=== PATIENT | female | born 1955 | race Caucasian/White ===

== ENCOUNTER → 2018-07-22 11:24 | Outpatient (CLI) | payer MEDICAID, SELFPAY ==
[2017-06-28 13:47] VITALS: BMI 34.1
--- NOTE | 2018-07-22 11:36 | RAD_ITS ---
STUDY: X-RAY - LEFT WRIST REASON FOR EXAM: Female, 62 years old. Left wrist pain radiating to the fingers and arm. No history of injury. TECHNIQUE: 2 view(s) of the wrist were obtained. COMPARISON: None. FINDINGS: Normal visualized distal radius and ulna. Normal radiocarpal articulation. Normal distal radioulnar articulation. Normal carpal bones. Normal carpal articulations. Normal carpometacarpal articulation of the thumb. Normal second through fifth carpometacarpal articulations. Normal visualized metacarpal bones. The soft tissue structures are unremarkable. RAD/Wrist 2 Views IMPRESSION: Normal x-ray examination of the wrist. Electronically Signed: Hawk Sagastume MD at 9:11 EDT Tel , Service support ,
--- NOTE | 2018-07-22 11:37 | RAD_ITS ---
STUDY: X-RAY - LEFT RADIUS AND ULNA REASON FOR EXAM: Female, 62 years old. Left wrist pain radiating to the fingers and arm. No history of injury. TECHNIQUE: 2 view(s) of the forearm. COMPARISON: None. FINDINGS: There is no demonstrated soft tissue swelling. Normal visualized radius. Normal visualized ulna. There is no demonstrated acute fracture. RAD/Forearm 2 Views IMPRESSION: Normal x-ray examination of the radius and ulna. Electronically Signed: Hawk Sagastume MD at 9:10 EDT Tel , Service support ,
== END ==
DX: M25.532 Pain in left wrist (principal)
CPT/HCPCS: 73090; 73100

== ENCOUNTER → 2020-03-22 09:48 | Outpatient (CLI) | payer MEDICARE, SELFPAY ==
[2017-06-28 13:47] VITALS: BMI 34.1
[2020-03-22 10:40] LABS: Microalbumin,Random Urine 21.8 mg/L (NO RANGE EST.); Microalbumin:Creatinine Ratio 11.4 mg/g CRE (<30 mg/g CRE)
[2020-03-22 10:47] LABS: Hemoglobin A1c 7.3 % (3.8-5.6)
[2020-03-22 10:50] LABS: AST(SGOT) 18 U/L (15-37); Alanine Aminotransfer ALT/SGPT 30 U/L (13-56); Albumin, Serum 4.1 g/dL (3.2-5.0); Alkaline Phosphatase 73 U/L (45-117); Anion Gap 3 (5-15); BUN 16 mg/dL (7-18); Calcium,Total 9.1 mg/dL (8.5-10.1); Chloride 105 mmol/L (98-107); Cholesterol 137 mg/dL (200); EST Glomerular Filtration Rate 89 mL/min (>60); Est Glom Filt Rate - Afr Amer 108 mL/min (>60); Glucose 178 mg/dL (74-106); High Density Lipoprotein 46 mg/dL; Protein, Total 8.1 g/dL (6.4-8.2); Sodium Level 139 mmol/L (136-145); Triglycerides 127 mg/dL; Very Low Density Lipoprotein 25 mg/dL (5-40)
[2020-03-22 10:51] LABS: Vitamin D,25 Hydroxy 46.1 ng/mL
== END ==
DX: E11.9 Type 2 diabetes mellitus without complications (principal); E78.5 Hyperlipidemia, unspecified; E55.9 Vitamin D deficiency, unspecified
CPT/HCPCS: 36415; 80053; 80061; 82043; 82306; 82570; 83036

== ENCOUNTER → 2020-07-25 08:07 | Outpatient (CLI) | payer MEDICARE, SELFPAY ==
[2017-06-28 13:47] VITALS: BMI 34.1
[2020-07-25 09:12] LABS: Hemoglobin A1c 6.9 % (3.8-5.6)
[2020-07-25 09:30] LABS: AST(SGOT) 15 U/L (15-37); Alanine Aminotransfer ALT/SGPT 26 U/L (13-56); Albumin, Serum 4.1 g/dL (3.2-5.0); Alkaline Phosphatase 62 U/L (45-117); Bilirubin, Direct 0.14 mg/dL (0.00-0.30); Globulin 3.7 g/dL (2.2-4.2); Glucose 165 mg/dL (74-106); Protein, Total 7.8 g/dL (6.4-8.2); Thyroid Stim Hormone (TSH) 1.75 uIU/mL (0.358-3.74)
== END ==
DX: E11.9 Type 2 diabetes mellitus without complications (principal); E78.5 Hyperlipidemia, unspecified; Z68.33 Body mass index [BMI] 33.0-33.9, adult
CPT/HCPCS: 36415; 80076; 82947; 83036; 84443

== ENCOUNTER → 2020-08-17 10:24 | Outpatient (CLI) | payer MEDICARE, SELFPAY ==
[2020-08-17 10:50] LABS: Absolute Lymphocyte Count 2.06 X10^3/uL (0.83-4.51); Absolute Neutrophil Count 5.5 X10^3/uL (2.0-7.7); Basophil# 0.05 X10^3/uL; Basophil% 0.6 % (0-1); Eosinophil# 0.23 X10^3/uL; Eosinophils% 2.7 % (0-5); Hemoglobin 13.3 g/dL (12.0-15.0); Lymphocyte # 2.06 X10^3/ul (0.83-4.51); Lymphocyte % 24.1 % (19-41); Mean Corp Hgb Conc 31.7 g/dL (32-36); Mean Corpuscular Hgb 28.1 pg (27.0-32.0); Mean Corpuscular Volume 88.8 fL (81-99); Mean Platelet Vol. 10.5 fl (6.2-12.0); Monocyte# 0.66 X10^3/uL; Monocyte% 7.7 % (0-10); NRBC Flagged by Analyzer 0 % (0-5); Neutrophil # 5.52 X10^3/uL (2.7-7.7); Neutrophil % 64.5 % (47-70); Platelet Count 312 K/mm3 (150-450); RBC Distribution Width CV 13.9 % (11.6-14.6); RBC Distribution Width SD 45.3 fl (35.1-43.9); Red Blood Count 4.73 M/mm3 (4.2-5.4); White Blood Count 8.6 K/mm3 (4.4-11.0)
[2020-08-17 11:16] LABS: AST(SGOT) 18 U/L (15-37); Alanine Aminotransfer ALT/SGPT 23 U/L (13-56); Albumin, Serum 3.9 g/dL (3.2-5.0); Alkaline Phosphatase 72 U/L (45-117); Anion Gap 3 (5-15); BUN 17 mg/dL (7-18); BUN/Creat Ratio 26.3 RATIO (10-20); Calcium,Total 9.2 mg/dL (8.5-10.1); Chloride 105 mmol/L (98-107); Creatinine, Serum 0.65 mg/dL (0.55-1.02); EST Glomerular Filtration Rate 97 mL/min (>60); Est Glom Filt Rate - Afr Amer 118 mL/min (>60); Globulin 3.9 g/dL (2.2-4.2); Glucose 166 mg/dL (74-106); Potassium 3.9 mmol/L (3.5-5.1); Protein, Total 7.8 g/dL (6.4-8.2); Sodium Level 137 mmol/L (136-145)
== END ==
DX: I16.0 Hypertensive urgency (principal)
CPT/HCPCS: 36415; 80053; 85025

== ENCOUNTER 2020-08-19 07:47 | Day surgery (SDC) | payer MEDICARE, SELFPAY ==
[2020-08-19] VITALS (10 sets, daily range): BP systolic 105–162; BP diastolic 60–93; PULSE 64–97; RESP 14–18; TEMP 36.2–37.3; O2SAT 94–100; BMI 30.4
--- NOTE | 2020-08-19 08:06 | CT_ITS ---
STUDY: CT ABDOMEN AND PELVIS WITH CONTRAST REASON FOR EXAM: Female, 64 years old. RLQ pain -- IV PO Contrast RADIATION DOSAGE (If Supplied By Facility): CTDIvol = ( 15.13 ) mGy, DLP = ( 533.77 ) mGycm TECHNIQUE: Transaxial images were obtained from the dome of the diaphragm to the symphysis pubis with oral contrast. 100ML ISOVUE 370 was administered. Sagittal and coronal images were reconstructed. Individualized dose optimization techniques were used for this CT. COMPARISON: None. FINDINGS: Mild atelectasis in the lung bases. The visualized portions of the heart are within normal limits. Normal liver. Normal gallbladder and extrahepatic biliary system. Normal spleen. Normal pancreas. Normal bilateral adrenal glands. Normal right kidney. Normal left kidney. Normal visualized stomach. Normal small intestine. The distal transverse and proximal descending colon are not well distended. However, there are diverticular changes of the proximal descending colon with mild pericolonic stranding (images 44-53 series 2). Dilated appendix measuring up to 9 mm in diameter filled with fecal debris but no demonstrated appendiceal wall thickening or adjacent stranding. There is diffuse atherosclerotic calcification of the abdominal aorta, without a demonstrated aneurysm. Normal inferior vena cava. Normal retroperitoneum. Normal urinary bladder. Normal abdominal wall. Normal osseous structures. CT/Abdomen/Pelvis WITH Contrast IMPRESSION: 1. Proximal descending colon wall thickening, diverticula and pericolonic stranding suggesting diverticulitis. 2. Dilated appendix (9 mm) without appendiceal wall thickening or periappendiceal stranding. Electronically Signed: Tenzin Schneider MD (Brooks) at 10:35 EDT , Service support ,
[2020-08-19] MEDS: Morphine 4 MG/ML Syringe IV (08:35)
[2020-08-19] MEDS: Ondansetron 4 MG/2 ML Vial IV (08:35)
[2020-08-19] MEDS: 0.9% Normal Saline 1,000 ML 1000 ML IV (08:35)
[2020-08-19 08:38] LABS: Absolute Lymphocyte Count 1.25 X10^3/uL (0.83-4.51); Absolute Neutrophil Count 12.9 X10^3/uL (2.0-7.7); Basophil# 0.05 X10^3/uL; Basophil% 0.3 % (0-1); Eosinophil# 0.04 X10^3/uL; Eosinophils% 0.3 % (0-5); Hemoglobin 13.9 g/dL (12.0-15.0); Lymphocyte # 1.25 X10^3/ul (0.83-4.51); Lymphocyte % 8.3 % (19-41); Mean Corp Hgb Conc 32.3 g/dL (32-36); Mean Corpuscular Volume 86.7 fL (81-99); Mean Platelet Vol. 10.7 fl (6.2-12.0); Monocyte# 0.71 X10^3/uL; Monocyte% 4.7 % (0-10); NRBC Flagged by Analyzer 0 % (0-5); Neutrophil # 12.89 X10^3/uL (2.7-7.7); Platelet Count 322 K/mm3 (150-450); RBC Distribution Width CV 13.7 % (11.6-14.6); RBC Distribution Width SD 43.5 fl (35.1-43.9); Red Blood Count 4.96 M/mm3 (4.2-5.4)
[2020-08-19 08:39] LABS: Bacteria 0 SEEN /hpf (None Seen); Color, Urine Yellow (Yellow); Glucose, Dipstick 50 mg/dl (Normal); Ketone-Dipstick 5 mg/dl (Negative); Leukocyte Esterase-Dipstick 100 /ul (Negative); Mucous, Urine 0 SEEN /hpf (<or=2+); Nitrite-Dipstick Negative (Negative); Occult Blood-Urine Negative /ul (Negative); Protein-Dipstick 30 mg/dl (Negative); Red Blood Cells-Urine 0 SEEN /hpf (0-5); Specific Gravity, Urine 1.025 (1.002-1.030); Urine Bilirubin Dipstick Negative (Negative); Urine Clarity Sl. Cloudy (Clear); Urine Urobilinogen Normal (Normal)
[2020-08-19 08:47] LABS: Squamous Epithelial Cells - UA 5-10 SEEN /hpf (5-10); White Blood Cells 0-5 SEEN /hpf (0-5)
[2020-08-19 09:04] LABS: AST(SGOT) 15 U/L (15-37); Alanine Aminotransfer ALT/SGPT 28 U/L (13-56); Albumin, Serum 4.1 g/dL (3.2-5.0); Alkaline Phosphatase 72 U/L (45-117); Anion Gap 6 (5-15); BUN 26 mg/dL (7-18); BUN/Creat Ratio 27.1 RATIO (10-20); Calcium,Total 10.1 mg/dL (8.5-10.1); Chloride 101 mmol/L (98-107); Creatinine, Serum 0.96 mg/dL (0.55-1.02); EST Glomerular Filtration Rate 62 mL/min (>60); Est Glom Filt Rate - Afr Amer 75 mL/min (>60); Estimated Creatinine Clearance 41.41 ml/min; Globulin 4.2 g/dL (2.2-4.2); Glucose 239 mg/dL (74-106); Lipase 102 U/L (73-393); Potassium 3.7 mmol/L (3.5-5.1); Protein, Total 8.3 g/dL (6.4-8.2); Sodium Level 137 mmol/L (136-145)
[2020-08-19 09:06] LABS: Lactic Acid 1.8 mmol/L (0.4-1.9)
--- NOTE | 2020-08-19 09:33 | ED.VIS.GI ---
HPI HPI - GI History of Present Illness Chief Complaint: Abd Pain Narrative Narrative: Patient reports that she has abdominal pain that began one third this morning is gradually gotten worse. Is a sharp pain is 10-10 at worst and 5-10 currently. Is worsened by movement. Is relieved by remaining still and vomiting. Patient reports that she has been nausea and vomited 3 times. No blood or emesis. She reports she had 3 episodes of diarrhea. She denies any blood in her stools. However, she does report the last episode there was blood on the tissue when she wiped. She denies any dysuria or frequency. Patient denies sick contacts. Has not been camping out of the country. She does believe that this may be from fish that she ate last night however, others ate the fish and are not ill. Does drink well water, but others do as well and they are not ill. She was on doxycycline last month. [facility] Medical History Diabetes Hypercholesteremia Hypertension Home Medications aspirin 81 mg PO DAILY 08/19/20 [History Last Taken Unknown] cholecalciferol (vitamin D3) [Vitamin D3] 125 mcg PO DAILY 08/19/20 [History Last Taken Unknown] glimepiride 4 mg PO DAILY 08/19/20 [History Last Taken Unknown] hydrochlorothiazide 25 mg PO DAILY 08/19/20 [History Last Taken Unknown] lisinopril 20 mg PO BID 08/19/20 [History Last Taken Unknown] metformin 500 mg PO BID 08/19/20 [History Last Taken Unknown] metoprolol succinate 25 mg PO BID 08/19/20 [History Last Taken Unknown] rosuvastatin 10 mg PO DAILY 08/19/20 [History Last Taken Unknown] Allergy/AdvReac Type Severity Reaction Status Date / Time codeine Allergy Mild Unknown Verified 08/19/20 07:49 Social History Smoking Status: Never smoker alcohol intake: never ROS ROS ED Constitutional Constitutional ED: Reports fever(s) and subjective; Denies chills or sweats Eyes Eyes: Denies change in vision ENT ENT ED: Denies sore throat Cardiovascular Cardiovascular: Denies chest pain Respiratory/Chest Respiratory/Chest: Denies cough, dyspnea or dyspnea on exertion Gastrointestinal Gastrointestinal: Reports abdominal pain, diarrhea, nausea and vomiting; Denies melena Genitourinary Genitourinary ED: Denies dysuria or urinary frequency Musculoskeletal Musculoskeletal: Denies myalgias Integumentary Denies rash Neurologic Neurologic: Denies headache(s), paresthesias or weakness EXAM Physical Exam Const Vital Signs: 08/19/20 07:47 08/19/20 09:45 08/19/20 11:20 Temperature 97.1 F L Temperature Source Temporal Pulse Rate 88 64 79 Respiratory Rate 18 15 14 Blood Pressure 162/78 H 112/66 105/70 Blood Pressure Mean 106 81 81 Pulse Ox 94 96 Oxygen Delivery Method Room Air Room Air Positive well nourished and well developed General Appearance ED: well developed HEENT Reports normocephalic and head/scalp atraumatic Eyes PERRL Neck no lymphadenopathy, supple and no JVD General: Negative for tenderness Resp normal respiratory effort and clear to auscultation bilaterally Cardio regular rate, regular rhythm and no murmurs GI normal to inspection, nondistended, normoactive bowel sounds and non-distended GI Narrative: Mild diffuse tenderness to palpation that is worst in the right lower quadrant. No guarding, rebound, or peritoneal signs. Auscultation: normoactive bowel sounds Palpation: soft Back/Spine Back/Spine Narrative: Nontender. Extremity General Extremety ED: Negative for edema or tenderness General Extremity: Negative for edema Neuro oriented x3, CN's II-XII intact bilaterally and no sensory deficits noted Sensorium / Orientation: alert Motor Exam: strength 5/5 throughout Psych mental status grossly normal Skin no rashes or lesions noted MDM MDM MDM Narrative Medical decision making narrative: Patient had an IV placed. She was given morphine and Zofran IV. She is resting more comfortably. Patient was given a dose of Zosyn IV. She was discussed with Dr. Lizama who is going to come into the emergency department to see her. Treatment plan: Patient is going to be taken to the operating room by Dr. Lizama for appendicitis. Lab Data Labs: Laboratory Results - last 24 hr 08/19/20 08/19/20 08/19/20 08:25 08:25 08:25 WBC 15.0 H RBC 4.96 Hgb 13.9 Hct 43.0 MCV 86.7 MCH 28.0 MCHC 32.3 RDW Std Deviation 43.5 RDW Coeff of Ryland 13.7 Plt Count 322 MPV 10.7 Immature Gran % (Auto) 0.400 Neut % (Auto) 86.0 H Lymph % (Auto) 8.3 L [place] % (Auto) 4.7 Eos % (Auto) 0.3 Baso % (Auto) 0.3 Absolute Neuts (auto) 12.9 H Absolute Lymphs (auto) 1.25 Nucleated RBC % 0 Sodium 137 Potassium 3.7 Chloride 101 Carbon Dioxide 30.0 Anion Gap 6 BUN 26 H Creatinine 0.96 Estim Creat Clear Calc 41.41 Est GFR (MDRD) Af Amer 75 Est GFR (MDRD) Non-Af 62 BUN/Creatinine Ratio 27.1 H Glucose 239 H Lactic Acid Calcium 10.1 Total Bilirubin 0.50 AST 15 ALT 28 Alkaline Phosphatase 72 Total Protein 8.3 H Albumin 4.1 Globulin 4.2 Albumin/Globulin Ratio 1.0 Lipase 102 Urine Color Yellow Urine Clarity Sl. Cloudy Urine pH 5.0 Ur Specific [place] 1.025 Urine Protein 30 H Urine Glucose (UA) 50 H Urine Ketones 5 H Urine Occult Blood Negative Urine Nitrite Negative Urine Bilirubin Negative Urine Urobilinogen Normal Ur Leukocyte Esterase 100 H Urine RBC 0 SEEN Urine WBC 0-5 SEEN Ur Squamous Epith Cells 5-10 SEEN Urine Bacteria 0 SEEN Urine Mucus 0 SEEN 08/19/20 08:25 WBC RBC Hgb Hct MCV MCH MCHC RDW Std Deviation RDW Coeff of [place] Plt Count MPV Immature Gran % (Auto) Neut % (Auto) Lymph % (Auto) [place] % (Auto) Eos % (Auto) Baso % (Auto) Absolute Neuts (auto) Absolute Lymphs (auto) Nucleated RBC % Sodium Potassium Chloride Carbon Dioxide Anion Gap BUN Creatinine Estim Creat Clear Calc Est GFR (MDRD) Af Amer Est GFR (MDRD) Non-Af BUN/Creatinine Ratio Glucose Lactic Acid 1.8 Calcium Total Bilirubin AST ALT Alkaline Phosphatase Total Protein Albumin Globulin Albumin/Globulin Ratio Lipase Urine Color Urine Clarity Urine pH Ur Specific [place] Urine Protein Urine Glucose (UA) Urine Ketones Urine Occult Blood Urine Nitrite Urine Bilirubin Urine Urobilinogen Ur Leukocyte Esterase Urine RBC Urine WBC Ur Squamous Epith Cells Urine Bacteria Urine Mucus Radiography Diagnostic Testing: Radiology Impression Abdomen/Pelvis CT 08/19/20 08:06 IMPRESSION: 1. Proximal descending colon wall thickening, diverticula and pericolonic stranding suggesting diverticulitis. 2. Dilated appendix (9 mm) without appendiceal wall thickening or periappendiceal stranding. Electronically Signed: Tenzin Schneider MD (Brooks) at 10:35 EDT , Service support , Discharge Plan Triage Chief Complaint: Abd Pain ED Provider: Pardeep Limon Dx/Rx/DC Orders Clinical Impression: Acute appendicitis Prescriptions: No Action metformin 500 mg Tablet 500 mg PO BID RF: 0 lisinopril 20 mg Tablet 20 mg PO BID RF: 0 glimepiride 4 mg Tablet 4 mg PO DAILY RF: 0 aspirin 81 mg Tablet 81 mg PO DAILY RF: 0 hydrochlorothiazide 25 mg Tablet 25 mg PO DAILY RF: 0 metoprolol succinate 25 mg Tablet Extended Release 24 Hr 25 mg PO BID RF: 0 rosuvastatin 10 mg Tablet 10 mg PO DAILY RF: 0 cholecalciferol (vitamin D3) [Vitamin D3] 125 mcg (5,000 unit) Tablet 125 mcg PO DAILY RF: 0 Primary Care Provider: [facility] Natalya Farfan Referrals: [facility] Natalya Farfan [Primary Care Provider] -
--- NOTE | 2020-08-19 12:59 | HP.PCM_ITS ---
History and Physical Date of Admission: 08/19/20 Chief Complaint: RLQ abdominal pain History of Present Illness: 64 y/o WF presents with abdominal pain. She states that it started last night, but her states that she has had this for the past few days. She points to the RLQ of the abdomen and states that it is primarily there. She had one episode of emesis last night. She states that she is constipated but had a bowel movement last night and this morning. She denies blood in stools, except with wiping. CT scan reveals possible proximal descending diverticulitis with stranding and 9mm dilated appendix without stranding. WBC is 15K with left shift of differential. Past Medical History: hypertension diabetes hyperlipidemia obesity Past Surgical History: tubes tied Denies history of bone fractures Medications: aspirin vitamin D metformin lisinopril metoprolol rosuvastatin Allergies: codiene Social history: TOB use denies Review of Systems: General - denies fevers, denies weight loss, denies anorexia Cardiovascular denies chest pain Pulmonary denies coughing up blood Gastrointestinal as per HPI Neurological denies seizures Genitourinary denies blood in urine Hematological denies spontaneous/prolonged bleeding Skin denies open non healing wounds Musculoskeletal denies history of fractures Endocrine has diabetes Psychological denies hallucinations Physical examination: Vital signs Ht: 4'11 Wt: 169# Temp 98.4F BP 105/80 HR 79 RR 14 General WD/WN WF in no apparent distress, alert and oriented, not septic appearing HEENT Normocephalic. EOM intact with sclera clear and no icterus noted. Neck is supple. Lungs normal respiratory excursion, no adventitial sounds noted, No labored breathing noted, such as retractions. No cough heard. Heart regular Abdomen soft but tender in RLQ - localized with rebound tenderness. Cannot determine if any masses due to body habitus Extremities no pitting edema noted. . Genitourinary/Rectal deferred Skin normal skin integrity Neurological non focal Psychological normal affect, patient is calm and appropriate Impression: RLQ abdominal pain, elevated WBC, abnormal appendix by CT scan Discussion/Plan: I have discussed the above with the patient and her who is present with her. The patient has an elevated WBC, localized RLQ abdominal pain, and abnormal findings of appendix on CT scan. I have offered the patient the procedure of laparoscopic appendectomy, albeit the diagnosis of appendicitis is not . a guarantee I have explained the procedure to the patient. I have counseled the patient as to the risks of the procedure, including but not limited to: infection, bleeding, injury to any blood vessels/nerves, scar tissue, injury to any intraabdominal organs, injury to kidney/ureters, injury to bowel/bladder, intraabdominal abscess/bleeding, hernias at incisional sites, wound infections, possible open procedure, complications of anesthesia, postoperative pneumonia/cardiac problems/blood clots etc. the patient understands. She initially agreed to proceed. Then she later called me back into her examination room as I was preparing for her surgery. She stated that she changed her mind and wanted to discuss with her physician - who works at [facility]. I told her that today is Friday and that I doubt the her physician would be present today and at this time. She stated that she was content to wait until Friday. I told her then - does she not want surgery, and I would document this. She also stated that the doctor told her that she could treat this with antibiotics. Her then stated that he was concerned about her blood pressure (with surgery) and that would I want to tell him after the surgery that his didn't make it? I explained that the likelihood of mortality for surgery was low. Then he asked for a guarantee. I told him that I would not give him one. They are welcome to go to another hospital, and/or seek another surgeon. The patient stated that she wanted to go home. I told her that that is her prerogative and that I would respect that, but that she has a risk of appendiceal rupture, and its complications - developing an abscess, peritonitis, etc. She then decided she wanted to proceed with surgery. I reiterated the complications as above. The patient was offered a surgery/procedure. The provider and patient have discussed in detail the risk of exposure to and/or potential harm posed by the COVID-19 virus with having a surgery/procedure at this time versus the risk of delaying the surgery/procedure. It is not possible to know either the risk of delaying the surgery or procedure or chance of getting an infection with perfect accuracy, but a joint decision was made between the patient and the provider to proceed at this time with the scheduled surgery/procedure. She wishes to proceed with surgery. I have asked if they have any further questions and they state that they do not
--- NOTE | 2020-08-19 13:30 | APP_PTH ---
PATIENT: MADYSON IBARRA LOC: [facility] U#:[id number] AGE/SX: 64/F ROOM: RE08/19/[address]: Dr. Jessica Lizama MD : [id number] BED: DIS: 08/19/2020 SPEC #: [id number] RECD: 08/21/20 06:48 STATUS: WILLIAN REChester #: [id number] KAREN: 08/19/20 13:[address]: Jessica Lizama DEPT: SURGICAL PATHOLOGY RECD BY: Erna Sandoval ENTERED: 08/21/20 08:03 SP TYPE: APPENDIX OTHR DR: Natalya [facility] Tissues: Appendix, NOS Procedures: Surgery Specimen Level III HEADER OPERATION: Laparoscopic appendectomy PRE-OP DIAGNOSIS: Acute appendicitis TISSUE SUBMITTED: Appendix MICROSCOPIC DIAGNOSIS Appendix, appendectomy: Fecal impaction and early acute appendicitis. AM:evita 08/22/2020 MICROSCOPIC DESCRIPTION Slides are reviewed. GROSS DESCRIPTION Received in fixative is one container labeled with the patient's name and designated appendix. The specimen consists of a vermiform appendix measuring 5 cm in length and 1 cm in greatest diameter. No gross perforations are identified. Serial sections reveal fecal material. Software Systems Analyst sections are submitted in one cassette. / AM:evita 08/21/20 TC:2 CPT: 00278
--- NOTE | 2020-08-19 13:41 | EKG12_ITS ---
Test Reason : PREOP Blood Pressure : / mmHG Vent. Rate : 072 BPM Atrial Rate : 072 BPM P-R Int : 168 ms QRS Dur : 082 ms QT Int : 382 ms P-R-T Axes : 065 012 067 degrees QTc Int : 418 ms Normal sinus rhythm Nonspecific ST abnormality Confirmed by NALDO IQBAL, JARROD ([id number]), editor sound ADDIE SPARROW ([id number]) on 08/22/2020 11:11:46 AM Referred By: Jessica Lizama Confirmed By:JARROD HITCHCOCK MD
[2020-08-19] MEDS: Bupiv/Epi 0.25% 30 ML Vial (15:26)
--- NOTE | 2020-08-19 15:28 | PCM.OPRPT ---
Report of Operation Date of Procedure: 08/19/20 Pre-Operative Diagnosis: RLQ abdominal pain, elevated WBC, abnormal appendix on CT scan Post-Operative Diagnosis: same Surgery/Procedure Performed:: laparoscopic appendectomy Description of Surgical Findings:: dilated appendix Type of Anesthesia: General/Regional Anesthesiologist: Anne Marie Fernandez Specimen's removed: appendix Drains: none Estimated Blood Loss (mL): < 10 ml Fluids Replaced: 500 ml RL Description of Procedure: After informed consent was obtained, the patient was brought into the Operating Room. Appropriate time out protocol was followed. The patient was placed in the supine position on the operating table. The patient was then placed under general anesthesia by the anesthesia provider. The patient?s abdomen was then prepped with a sterile surgical skin preparation and sterile surgical drapes were placed. The infraumbilical skin fold was grasped with penetrating towel clamps and the skin and subcutaneous tissues were infiltrated with 0.25% marcaine with epinephrine. A incision was then made with a 15 blade scalpel. A Veress needle was then inserted into the intraabdominal cavity and checked to be in the proper position with a normal saline drop test. A CO2 pneumoperitoneum was then created. Once this was achieved, the Veress needle was removed and a 5 mm trocar was placed in its stead. A 5 mm laparoscope was then inserted into the trocar. Careful examination of the intraabdominal contents was then done. There was no evidence of injury to any internal organs from placement of the Veress needle or the trocar. Under direct visualization, a 12mm suprapubic trocar and a 5mm left lower quadrant trocar was then placed into the intraabdominal cavity. The skin and subcutaneous tissues at these sites were first infiltrated with 0.25% marcaine with epinephrine. Attention was then directed to the right lower quadrant. The appendix was visualized. The appendix appeared enlarged with minimal surrounding inflammation. The mesentery of the appendix was taken down by cauterizing the tissue from the free edge to the base of the appendix using the Harmonic scalpel. Once the base of the appendix was freed of surrounding tissues, then the linear gastrointestinal stapling device was brought into the abdominal cavity via the 12mm port and placed across the base of the appendix. The stapling device was fired, thus stapling across the base of the appendix and transecting it simultaneously. There was no evidence of perforation of the appendix. There was no cloudy/purulent peritoneal fluid noted. The appendix was placed in an Endobag and this was brought out through the suprapubic trocar. The appendix was forwarded to Pathology for analysis. The appendiceal stump was carefully examined. There was no evidence of any active bleeding or fecal leakage. The surrounding tissues were also examined and there was no evidence of any active bleeding or fecal/bile leakage. The intraabdominal cavity was examined and there was no evidence of any further inflammation or tissue abnormality. The CO2 pneumoperitoneum was released and all trocars were removed intact. The suprapubic fascia was reapproximated with a figure-of-8 vicryl suture. All skin incisions were reapproximated with monocryl suture. Cavilon and steristrips were applied to reinforce skin closure and proper sterile dressings were placed. Sponge, needle, and instrument count were verified and correct at the time of skin closure. The patient was then extubated and brought to the Recovery Room in stable condition. Complications none noted Admit VTE Documentation VTE Present on Admission: Yes VTE Mechan Device Prophylaxis: SCD's
--- NOTE | 2020-08-19 15:33 | DCINST_ITS ---
Discharge Instructions Outpatient Procedure Reason For Visit: APPEDECTOMY Follow Up Care Test Results: Postoperative instructions- Recommended pain control regimen - May take 600 mg ibuprofen (Motrin) and then in 3-4 hours, may take 650 mg acetaminophen (Tylenol), then in 3-4 hours may take 600 mg ibuprofen, then in 3- 4 hours may take 650 mg acetaminophen and so on for 2-3 days May take narcotic pain medication for pain that is not controlled by above and at night for comfort through the night Leave dressings in place May get dressings wet in shower - do not scrub in the area and pat dry Do not soak - no tub baths/swimming Ice applied to areas of discomfort may help No lifting/pushing/pulling greater than 20 pounds for a month. Please call for a follow up appointment in 1-2 weeks, Take antibiotics as well, thank you Discharge Plan Admission Admit Date/Time: 08/19/20 13:00 Attending Provider: Jessica Lizama [facility] Orders/Prescriptions Prescriptions: New hydrocodone-acetaminophen 5-325 mg tablet 1 tab PO Q8H 5 Days Qty: 15 RF: 0 amoxicillin-pot clavulanate [Augmentin] 875-125 mg tablet 1 tab PO BID Qty: 14 RF: 0 metronidazole [Flagyl] 500 mg tablet 500 mg PO TID Qty: 20 RF: 0 No Action metformin 500 mg Tablet 500 mg PO BID RF: 0 lisinopril 20 mg Tablet 20 mg PO BID RF: 0 glimepiride 4 mg Tablet 4 mg PO DAILY RF: 0 aspirin 81 mg Tablet 81 mg PO DAILY RF: 0 hydrochlorothiazide 25 mg Tablet 25 mg PO DAILY RF: 0 metoprolol succinate 25 mg Tablet Extended Release 24 Hr 25 mg PO BID RF: 0 rosuvastatin 10 mg Tablet 10 mg PO DAILY RF: 0 cholecalciferol (vitamin D3) [Vitamin D3] 125 mcg (5,000 unit) Tablet 125 mcg PO DAILY RF: 0 [facility] - Disposition Discharge Orders: Discharge Patient (Routine); Ordered 08/19/20 Ordered By: Dr. Jessica Lizama
== END 2020-08-19 16:32 ==
LOC: ED 10:31 → SDC 16:58 → ACINP 16:58
PROVIDERS: Emergency Provider Emergency Medicine; Referring Provider Surgery; Visit Provider Surgery
PROC: 0DTJ4ZZ Resection of Appendix, Percutaneous Endoscopic Approach (ICD-10-PCS; CPT 44970; principal; 2020-08-19 13:30)
DX: K35.80 Unspecified acute appendicitis (principal); E11.9 Type 2 diabetes mellitus without complications; I10 Essential (primary) hypertension; E78.5 Hyperlipidemia, unspecified; E66.9 Obesity, unspecified; Z68.30 Body mass index [BMI] 30.0-30.9, adult; Z79.82 Long term (current) use of aspirin; Z79.84 Long term (current) use of oral hypoglycemic drugs; Z79.899 Other long term (current) drug therapy
CPT/HCPCS: 44970; 74177; 80053; 81001; 83605; 83690; 85025; 87426; 88304; 93005; 99284; J7030; J7050; Q9967; J2405

== ENCOUNTER 2020-08-21 16:13 | Emergency (ER) | payer MEDICARE, SELFPAY ==
[2020-08-19 13:32] VITALS: BMI 30.4
[2020-08-21 16:14] VITALS: BP 148/69; PULSE 61; RESP 18; TEMP 36.3; O2SAT 94; BMI 31.5
--- NOTE | 2020-08-21 17:47 | EKG12_ITS ---
Test Reason : DIZZY Blood Pressure : / mmHG Vent. Rate : 063 BPM Atrial Rate : 063 BPM P-R Int : 146 ms QRS Dur : 090 ms QT Int : 398 ms P-R-T Axes : 050 017 050 degrees QTc Int : 407 ms Normal sinus rhythm Normal ECG Confirmed by NALDO IQBAL, JARROD ([id number]), acquisitions editor ADDIE SPARROW ([id number]) on 08/23/2020 9:04:15 AM Referred By: MATTHEW/RADHA Confirmed By:JARROD HITCHCOCK MD
--- NOTE | 2020-08-21 18:10 | RAD_ITS ---
INDICATION: Stroke EXAMINATION/TECHNIQUE: X-RAY - XR Chest 1 View COMPARISON: None. FINDINGS: The lungs are clear. The cardiomediastinal silhouette is unremarkable. No pleural effusion or pneumothorax. No acute osseous abnormalities. RAD/Chest 1 View (Portable) IMPRESSION: No acute radiographic abnormalities. Electronically Signed: Finn Hopkins MD at 18:23 EDT Tel , Service support ,
[2020-08-21 18:19] LABS: Absolute Lymphocyte Count 3.21 X10^3/uL (0.83-4.51); Absolute Neutrophil Count 7.6 X10^3/uL (2.0-7.7); Basophil% 0.8 % (0-1); Eosinophil# 0.31 X10^3/uL; Eosinophils% 2.5 % (0-5); Hematocrit 40.4 % (37-47); Hemoglobin 13.2 g/dL (12.0-15.0); Lymphocyte # 3.21 X10^3/ul (0.83-4.51); Lymphocyte % 26.2 % (19-41); Mean Corp Hgb Conc 32.7 g/dL (32-36); Mean Corpuscular Hgb 28.9 pg (27.0-32.0); Mean Corpuscular Volume 88.4 fL (81-99); Mean Platelet Vol. 11.3 fl (6.2-12.0); Monocyte# 0.98 X10^3/uL; NRBC Flagged by Analyzer 0 % (0-5); Neutrophil # 7.62 X10^3/uL (2.7-7.7); Neutrophil % 62.1 % (47-70); Platelet Count 319 K/mm3 (150-450); RBC Distribution Width CV 13.8 % (11.6-14.6); RBC Distribution Width SD 44.7 fl (35.1-43.9); Red Blood Count 4.57 M/mm3 (4.2-5.4); White Blood Count 12.3 K/mm3 (4.4-11.0)
[2020-08-21 18:30] LABS: Anion Gap 8 (5-15); BUN 16 mg/dL (7-18); BUN/Creat Ratio 20.6 RATIO (10-20); Chloride 98 mmol/L (98-107); Creatinine, Serum 0.78 mg/dL (0.55-1.02); EST Glomerular Filtration Rate 79 mL/min (>60); Est Glom Filt Rate - Afr Amer 95 mL/min (>60); Estimated Creatinine Clearance 61.82 ml/min; Glucose 155 mg/dL (74-106); Potassium 3.7 mmol/L (3.5-5.1); Sodium Level 139 mmol/L (136-145)
[2020-08-21 18:31] LABS: Partial Thromboplast Time 24.5 Seconds (24.1-36.2); Prothrombin Time (Protime)PT. 12.6 SECONDS (11.7-14.9)
[2020-08-21] MEDS: 0.9% Normal Saline 1,000 ML 50 ML IV (18:46)
[2020-08-21 18:51] LABS: D-Dimer Quantitative (DVT/PE) 0.47 FEU/ug/m (0.27-0.49)
[2020-08-21 19:01] LABS: Bedside Glucose 175 mg/dL (70-110)
--- NOTE | 2020-08-21 20:16 | EX.ED.DYSGE1 ---
HPI History of Present Illness Chief Complaint: Dizziness Narrative Narrative: 64-year-old female presenting with lightheadedness. Patient states she took a nap and woke up and felt lightheaded. She states she felt like her blood sugar was low. She ate M&Ms and drank a pop and felt improved. On arrival her blood sugar was 175. She had her appendix removed on Friday per Dr. Lizama. She took half a hydrocodone today but states otherwise the pain is controlled and no worse than it has been. She denies fever. Denies vomiting or diarrhea. She is passing gas. Denies chest pain or shortness of breath. Denies syncope. [facility] Medical History (Updated 08/21/20 @ 20:[address] Misa Conde MD) Appendicitis Diabetes Hypercholesteremia Hypertension Home Medications amoxicillin-pot clavulanate [Augmentin] 1 tab PO BID #14 tab 08/19/20 [Rx Last Taken Unknown] aspirin 81 mg PO DAILY 08/19/20 [History Last Taken Unknown] cholecalciferol (vitamin D3) [Vitamin D3] 125 mcg PO DAILY 08/19/20 [History Last Taken Unknown] glimepiride 4 mg PO DAILY 08/19/20 [History Last Taken Unknown] hydrochlorothiazide 25 mg PO DAILY 08/19/20 [History Last Taken Unknown] hydrocodone-acetaminophen 1 tab PO Q8H 5 Days #15 tab 08/19/20 [Rx Last Taken Unknown] lisinopril 20 mg PO BID 08/19/20 [History Last Taken Unknown] metformin 500 mg PO BID 08/19/20 [History Last Taken Unknown] metoprolol succinate 25 mg PO BID 08/19/20 [History Last Taken Unknown] metronidazole [Flagyl] 500 mg PO TID #20 tab 08/19/20 [Rx Last Taken Unknown] rosuvastatin 10 mg PO DAILY 08/19/20 [History Last Taken Unknown] dulaglutide [Trulicity] 0.75 mg SUBCUT QWEEK 08/21/20 [History Last Taken Unknown] Allergy/AdvReac Type Severity Reaction Status Date / Time codeine Allergy Mild Unknown Verified 08/21/20 16:16 Social History Smoking Status: Never smoker alcohol intake: never ROS ROS ED Constitutional Constitutional ED: Denies fever(s) Eyes Eyes: Denies change in vision ENT ENT ED: Denies rhinorrhea or sore throat Cardiovascular Cardiovascular: Denies chest pain or palpitations Respiratory/Chest Respiratory/Chest: Denies cough or dyspnea Gastrointestinal Gastrointestinal: Reports abdominal pain, constipation and nausea; Denies diarrhea or vomiting Genitourinary Genitourinary ED: Denies dysuria Musculoskeletal Musculoskeletal: Denies myalgias Integumentary Denies rash Neurologic Neurologic: Denies headache(s) Psychiatric Psychiatric: Denies suicidal thoughts EXAM Physical Exam Const Vital Signs: 08/21/20 16:14 08/21/20 18:21 Temperature 97.4 F L Temperature Source Temporal Pulse Rate 61 Respiratory Rate 18 Blood Pressure 148/69 H Blood Pressure Mean 95 Pulse Ox 94 Oxygen Delivery Method Room Air Room Air Positive well nourished and well developed General Appearance ED: well developed HEENT Reports normocephalic and head/scalp atraumatic Eyes PERRL and EOMs intact bilaterally Neck supple General: Negative for tenderness Chest Wall inspection of chest normal Resp normal respiratory effort and clear to auscultation bilaterally Cardio regular rate and regular rhythm GI non-tender and non-distended GI Narrative: Incisions clean dry and intact Palpation: soft; Negative for guarding or rebound tenderness present no CVA tenderness Extremity normal to inspection Neuro oriented x3 Sensorium / Orientation: alert Psych mental status grossly normal MDM MDM Lab Data Attestation: I reviewed the patient's lab results. Labs: Laboratory Results - last 24 hr 08/21/20 08/21/20 08/21/20 17:39 17:44 17:44 WBC 12.3 H RBC 4.57 Hgb 13.2 Hct 40.4 MCV 88.4 MCH 28.9 MCHC 32.7 RDW Std Deviation 44.7 H RDW Coeff of Ryland 13.8 Plt Count 319 MPV 11.3 Immature Gran % (Auto) 0.400 Neut % (Auto) 62.1 Lymph % (Auto) 26.2 [place] % (Auto) 8.0 Eos % (Auto) 2.5 Baso % (Auto) 0.8 Absolute Neuts (auto) 7.6 Absolute Lymphs (auto) 3.21 Nucleated RBC % 0 PT 12.6 INR 1.0 APTT 24.5 D-Dimer Quant (PE/DVT) Sodium Potassium Chloride Carbon Dioxide Anion Gap BUN Creatinine Estim Creat Clear Calc Est GFR (MDRD) Af Amer Est GFR (MDRD) Non-Af BUN/Creatinine Ratio Glucose Calcium Troponin I POC Glucose 175 H 08/21/20 08/21/20 08/21/20 17:44 17:44 17:44 WBC RBC Hgb Hct MCV MCH MCHC RDW Std Deviation RDW Coeff of Ryland Plt Count MPV Immature Gran % (Auto) Neut % (Auto) Lymph % (Auto) [place] % (Auto) Eos % (Auto) Baso % (Auto) Absolute Neuts (auto) Absolute Lymphs (auto) Nucleated RBC % PT INR APTT D-Dimer Quant (PE/DVT) 0.47 Sodium 139 Potassium 3.7 Chloride 98 Carbon Dioxide 33.0 H Anion Gap 8 BUN 16 Creatinine 0.78 Estim Creat Clear Calc 61.82 Est GFR (MDRD) Af Amer 95 Est GFR (MDRD) Non-Af 79 BUN/Creatinine Ratio 20.6 H Glucose 155 H Calcium 10.0 Troponin I < 0.015 POC Glucose Radiography Diagnostic Testing: Radiology Impression Chest X-Ray 08/21/20 18:10 IMPRESSION: No acute radiographic abnormalities. Electronically Signed: Finn Hopkins MD at 18:23 EDT Tel , Service support , EKG Initial EKG: Attestation: I personally reviewed and interpreted this EKG as follows: Interpretation: Sinus Rhythm and No Acute Injury Pattern Prior EKG tracings: available for review Prior: Unchanged Treatment and Re-Evaluation Comments:: On arrival to the ED patient feels improved. She is able to ambulate in the ED without dizziness. She is requesting food and discharge home. Discussed with Dr. Lizama and patient will follow-up at her scheduled appointment. Patient is advised to return to the ED for worsening complaints. Discharge Plan Triage Chief Complaint: Dizziness ED Provider: Misa Conde Dx/Rx/DC Orders Clinical Impression: Light-headedness Instructions: ED Dizziness, Uncertain Cause Prescriptions: No Action metformin 500 mg Tablet 500 mg PO BID RF: 0 lisinopril 20 mg Tablet 20 mg PO BID RF: 0 glimepiride 4 mg Tablet 4 mg PO DAILY RF: 0 aspirin 81 mg Tablet 81 mg PO DAILY RF: 0 hydrochlorothiazide 25 mg Tablet 25 mg PO DAILY RF: 0 metoprolol succinate 25 mg Tablet Extended Release 24 Hr 25 mg PO BID RF: 0 rosuvastatin 10 mg Tablet 10 mg PO DAILY RF: 0 cholecalciferol (vitamin D3) [Vitamin D3] 125 mcg (5,000 unit) Tablet 125 mcg PO DAILY RF: 0 hydrocodone-acetaminophen 5-325 mg tablet 1 tab PO Q8H 5 Days Qty: 15 RF: 0 amoxicillin-pot clavulanate [Augmentin] 875-125 mg tablet 1 tab PO BID Qty: 14 RF: 0 metronidazole [Flagyl] 500 mg tablet 500 mg PO TID Qty: 20 RF: 0 Trulicity 0.75 mg/0.5 mL Pen Injector 0.75 mg SUBCUT QWEEK RF: 0 Primary Care Provider: Ondina Larson Referrals: Jessica Lizama MD [STAFF PHYSICIAN] - Keep Shira appointment Ondina Larson, [employer] [Primary Care Provider] - Disposition Disposition: Home, self care
[2020-08-21 20:35] VITALS: RESP 16
== END 2020-08-21 20:37 | disposition home or self-care (01) ==
PROVIDERS: Emergency Provider Emergency Medicine; PCP Nurse Practitioner Adult Health
DX: R42 Dizziness and giddiness (principal); E11.9 Type 2 diabetes mellitus without complications; I10 Essential (primary) hypertension; E78.00 Pure hypercholesterolemia, unspecified; R10.9 Unspecified abdominal pain; Z79.82 Long term (current) use of aspirin; Z79.84 Long term (current) use of oral hypoglycemic drugs; Z79.899 Other long term (current) drug therapy; Z98.890 Other specified postprocedural states
CPT/HCPCS: 71045; 80048; 82962; 84484; 85025; 85379; 85610; 85730; 93005; 99283; J7030; A4216

== ENCOUNTER → 2020-08-25 13:57 | Outpatient (CLI) | payer MEDICARE, SELFPAY ==
[2020-08-21 16:14] VITALS: BMI 31.5
--- NOTE | 2020-08-25 14:00 | ECHOCS_ITS ---
Reason For Study: HTN Procedure This was a 2D Doppler, Color Flow transthoracic echocardiogram. The study was technically difficult. Contrast injection was performed. Exam performed in department. Left Ventricle Normal LV size. Left ventricular systolic function is normal. The estimated ejection fraction is 65 %. No regional wall motion abnormalities noted. Right Ventricle Normal RV size. Normal systolic function. Atria Normal left atrium. Normal right atrium. Mitral Valve Normal mitral valve. Tricuspid Valve Normal tricuspid valve. Mild tricuspid valve insufficiency. Pulmonary artery systolic pressure is 26 mmHg. Aortic Valve The aortic valve is not well visualized. Pulmonic Valve Normal pulmonic valve. Great Vessels Normal aortic root. The pulmonary artery is normal size. Normal inferior vena cava. Pericardium/Pleural No pericardial effusion. Medication 22 gauge I.V. with prn adaptor inserted into left arm. Diluted definity 2ml given slow IV push to enhance endocardial definition. MMode/2D Measurements & Calculations LVIDd: 4.1 cm IVSd: 0.99 cm LA dimension: 3.5 cm LVIDs: 2.6 cm LVPWd: 1.0 cm FS: 36.5 % LAV(MOD-bp): 35.6 ml LA A4 area: 11.9 cm2 RA A4 area: 9.4 cm2 LAV(MOD-bp) Indexed: 21.5 ml/m2 LAV(MOD-sp2): 34.7 ml LAV(MOD-sp4): 31.1 ml Time Measurements MV dec time: 0.31 sec Doppler Measurements & Calculations MV E max william: 59.3 cm/sec Lat Peak E' William: 4.5 cm/sec Med Peak E' William: 5.6 cm/sec MV A max william: 103.0 cm/sec E/E' lat: 13.1 E/E' med: 10.7 MV E/A: 0.58 MV V2 max: 145.4 cm/sec MV P1/2t max william: 93.4 cm/sec Ao V2 max: 142.4 cm/sec MV max P.5 mmHg MV P1/2t: 77.1 msec Ao max P.1 mmHg MV V2 mean: 69.7 cm/sec MV dec slope: 355.0 cm/sec2 MV mean P.3 mmHg MV V2 VTI: 31.0 cm MVA(P1/2t): 2.9 cm2 LV V1 max: 98.7 cm/sec PA V2 max: 112.7 cm/sec TR max william: 237.3 cm/sec LV V1 max P.9 mmHg TR max P.5 mmHg ECHO/Echo Complete W/ Contrast Interpretation Summary Normal LV size. Left ventricular systolic function is normal. The estimated ejection fraction is 65 %. The study was technically limited. The study was technically difficult. Contras t injection was performed. [facility] Referring Physician: Ondina Larson Performed By: Shahram Cardenas RCS
== END ==
PROVIDERS: PCP Nurse Practitioner Adult Health; Visit Provider Nurse Practitioner Adult Health
DX: I16.0 Hypertensive urgency (principal); I10 Essential (primary) hypertension; R94.31 Abnormal electrocardiogram [ECG] [EKG]
CPT/HCPCS: 93306; Q9957; A4216; C8929

== ENCOUNTER 2021-04-30 09:01 | Outpatient (CLI) | payer MEDICARE, SELFPAY ==
[2021-04-30 09:35] LABS: Absolute Neutrophil Count 5.1 X10^3/uL (2.0-7.7); Basophil# 0.04 X10^3/uL; Basophil% 0.5 % (0-1); Eosinophil# 0.44 X10^3/uL; Hematocrit 39.8 % (37-47); Hemoglobin 13.1 g/dL (12.0-15.0); Lymphocyte % 30.6 % (19-41); Mean Corp Hgb Conc 32.9 g/dL (32-36); Mean Corpuscular Hgb 29.2 pg (27.0-32.0); Mean Corpuscular Volume 88.6 fL (81-99); Mean Platelet Vol. 10.4 fl (6.2-12.0); Monocyte# 0.53 X10^3/uL; NRBC Flagged by Analyzer 0 % (0-5); Neutrophil # 5.07 X10^3/uL (2.7-7.7); Neutrophil % 57.4 % (47-70); Platelet Count 333 K/mm3 (150-450); RBC Distribution Width CV 13.5 % (11.6-14.6); RBC Distribution Width SD 43.8 fl (35.1-43.9); Red Blood Count 4.49 M/mm3 (4.2-5.4); White Blood Count 8.8 K/mm3 (4.4-11.0)
[2021-04-30 10:19] LABS: ALB/GLOB Ratio 0.9 RATIO (0.9-2.4); AST(SGOT) 26 U/L (15-37); Alanine Aminotransfer ALT/SGPT 36 U/L (13-56); Albumin, Serum 3.6 g/dL (3.2-5.0); Alkaline Phosphatase 65 U/L (45-117); Anion Gap 5 (5-15); BUN 13 mg/dL (7-18); BUN/Creat Ratio 16.5 RATIO (10-20); Calcium,Total 8.9 mg/dL (8.5-10.1); Chloride 106 mmol/L (98-107); Cholesterol 96 mg/dL (200); Creatinine, Serum 0.79 mg/dL (0.55-1.02); EST Glomerular Filtration Rate 77 mL/min (>60); Est Glom Filt Rate - Afr Amer 93 mL/min (>60); Globulin 4.2 g/dL (2.2-4.2); Glucose 149 mg/dL (74-106); High Density Lipoprotein 39 mg/dL; Potassium 3.9 mmol/L (3.5-5.1); Protein, Total 7.8 g/dL (6.4-8.2); Sodium Level 138 mmol/L (136-145); Thyroid Stim Hormone (TSH) 1.58 uIU/mL (0.358-3.74); Triglycerides 103 mg/dL; Very Low Density Lipoprotein 21 mg/dL (5-40)
[2021-04-30 11:13] LABS: Microalbumin,Random Urine 16.3 mg/L (NO RANGE EST.); Microalbumin:Creatinine Ratio 10.9 mg/g CRE (<30 mg/g CRE)
== END 2021-04-30 23:59 | disposition short-term general hospital (02) ==
LOC: LAB 09:04
PROVIDERS: Referring Provider Nurse Practitioner Adult Health; Visit Provider Nurse Practitioner Adult Health
DX: I10 Essential (primary) hypertension (principal)
CPT/HCPCS: 36415; 80053; 80061; 82043; 82570; 84443; 85025

== ENCOUNTER → 2021-12-25 | Outpatient (CLI) | payer MEDICARE, SELFPAY ==
[2021-12-25 08:38] LABS: Absolute Lymphocyte Count 2.71 X10^3/uL (0.83-4.51); Absolute Neutrophil Count 6.1 X10^3/uL (2.0-7.7); Basophil# 0.06 X10^3/uL; Basophil% 0.6 % (0-1); Eosinophil# 0.19 X10^3/uL; Eosinophils% 1.9 % (0-5); Hematocrit 40.8 % (37-47); Hemoglobin 13.3 g/dL (12.0-15.0); Lymphocyte # 2.71 X10^3/ul (0.83-4.51); Lymphocyte % 27.7 % (19-41); Mean Corp Hgb Conc 32.6 g/dL (32-36); Mean Corpuscular Volume 89.1 fL (81-99); Mean Platelet Vol. 10.4 fl (6.2-12.0); Monocyte% 7.2 % (0-10); NRBC Flagged by Analyzer 0 % (0-5); Neutrophil # 6.09 X10^3/uL (2.7-7.7); Neutrophil % 62.3 % (47-70); Platelet Count 324 K/mm3 (150-450); RBC Distribution Width CV 13.5 % (11.6-14.6); RBC Distribution Width SD 43.8 fl (35.1-43.9); Red Blood Count 4.58 M/mm3 (4.2-5.4); White Blood Count 9.8 K/mm3 (4.4-11.0)
[2021-12-25 09:08] LABS: ALB/GLOB Ratio 0.9 RATIO (0.9-2.4); AST(SGOT) 16 U/L (15-37); Alanine Aminotransfer ALT/SGPT 30 U/L (13-56); Albumin, Serum 3.7 g/dL (3.2-5.0); Alkaline Phosphatase 66 U/L (45-117); Anion Gap 11 (5-15); BUN 14 mg/dL (7-18); BUN/Creat Ratio 17.4 RATIO (10-20); Calcium,Total 9.5 mg/dL (8.5-10.1); Chloride 102 mmol/L (98-107); Cholesterol 126 mg/dL (200); EST Glomerular Filtration Rate 75 mL/min (>60); Est Glom Filt Rate - Afr Amer 91 mL/min (>60); Globulin 4.2 g/dL (2.2-4.2); Glucose 170 mg/dL (74-106); High Density Lipoprotein 46 mg/dL; Potassium 4.5 mmol/L (3.5-5.1); Protein, Total 7.9 g/dL (6.4-8.2); Sodium Level 141 mmol/L (136-145); Thyroid Stim Hormone (TSH) 2.16 uIU/mL (0.358-3.74); Triglycerides 131 mg/dL; Very Low Density Lipoprotein 26 mg/dL (5-40)
== END | disposition home or self-care (01) ==
LOC: LAB 08:11
DX: E11.9 Type 2 diabetes mellitus without complications (principal); E55.9 Vitamin D deficiency, unspecified
CPT/HCPCS: 36415; 80053; 80061; 82274; 82652; 84443; 85025

== ENCOUNTER → 2022-07-30 | Outpatient (CLI) | payer MEDICARE, MEDICAID, SELFPAY ==
--- NOTE | 2022-07-30 09:45 | RAD_ITS ---
STUDY: X-RAY - LUMBAR SPINE REASON FOR EXAM: Female, 66 years old. SCIATICA, RIGHT SIDE TECHNIQUE: 3 view(s) of the lumbar spine were obtained. COMPARISON: None FINDINGS: Normal lumbar lordosis. There is no substantial scoliosis. There is a normal alignment of the vertebrae. Normal vertebral bodies and endplates. Normal disc space heights. The soft tissue structures are unremarkable. RAD/Lumbar Spine 2 or 3 Views IMPRESSION: Normal x-ray examination of the lumbar spine. Electronically Signed: Meng Gary MD at 10:19 EDT ,
[2022-07-30 09:49] LABS: Hematocrit 39.7 % (37-47); Hemoglobin 13.1 g/dL (12.0-15.0); Mean Corpuscular Hgb 29.5 pg (27.0-32.0); Mean Corpuscular Volume 89.4 fL (81-99); Mean Platelet Vol. 10.4 fl (6.2-12.0); Platelet Count 286 K/mm3 (150-450); RBC Distribution Width CV 13.2 % (11.6-14.6); RBC Distribution Width SD 43.1 fl (35.1-43.9); Red Blood Count 4.44 M/mm3 (4.2-5.4); White Blood Count 8.9 K/mm3 (4.4-11.0)
[2022-07-30 10:08] LABS: Microalbumin,Random Urine 24.8 mg/L (NO RANGE EST.); Vitamin B12 549 pg/mL (211-911); Vitamin D,25 Hydroxy 38.8 ng/mL
[2022-07-30 10:17] LABS: AST(SGOT) 16 U/L (15-37); Alanine Aminotransfer ALT/SGPT 25 U/L (13-56); Albumin, Serum 3.8 g/dL (3.2-5.0); Alkaline Phosphatase 66 U/L (45-117); Anion Gap 7 (5-15); BUN 16 mg/dL (7-18); BUN/Creat Ratio 23.9 RATIO (10-20); Calcium,Total 9.3 mg/dL (8.5-10.1); Chloride 102 mmol/L (98-107); Cholesterol 128 mg/dL (200); Creatinine, Serum 0.67 mg/dL (0.55-1.02); EST Glomerular Filtration Rate 93 mL/min (>60); Est Glom Filt Rate - Afr Amer 113 mL/min (>60); Globulin 3.8 g/dL (2.2-4.2); Glucose 202 mg/dL (74-106); High Density Lipoprotein 45 mg/dL; Magnesium 1.7 mg/dL (1.6-2.6); Potassium 3.8 mmol/L (3.5-5.1); Protein, Total 7.6 g/dL (6.4-8.2); Sodium Level 136 mmol/L (136-145); Thyroid Stim Hormone (TSH) 1.43 uIU/mL (0.358-3.74); Triglycerides 156 mg/dL; Very Low Density Lipoprotein 31 mg/dL (5-40)
== END | disposition home or self-care (01) ==
PROVIDERS: Referring Provider Nurse Practitioner Family; Visit Provider Nurse Practitioner Family
DX: M54.31 Sciatica, right side (principal); E11.9 Type 2 diabetes mellitus without complications; G25.81 Restless legs syndrome; E55.9 Vitamin D deficiency, unspecified; E78.5 Hyperlipidemia, unspecified
CPT/HCPCS: 36415; 72100; 80053; 80061; 82043; 82306; 82607; 83036; 83735; 84443; 85027

== ENCOUNTER → 2023-03-28 | Outpatient (CLI) | payer MEDICARE, MEDICAID, SELFPAY ==
[2023-03-28 11:42] LABS: Hematocrit 39.4 % (37-47); Hemoglobin 12.8 g/dL (12.0-15.0); Mean Corp Hgb Conc 32.5 g/dL (32-36); Mean Corpuscular Volume 89.3 fL (81-99); Mean Platelet Vol. 10.8 fl (6.2-12.0); Platelet Count 301 K/mm3 (150-450); RBC Distribution Width CV 13.3 % (11.6-14.6); RBC Distribution Width SD 43.9 fl (35.1-43.9); Red Blood Count 4.41 M/mm3 (4.2-5.4); White Blood Count 7.5 K/mm3 (4.4-11.0)
[2023-03-28 12:01] LABS: Microalbumin,Random Urine 22.5 mg/L (NO RANGE EST.)
[2023-03-28 12:30] LABS: Vitamin D,25 Hydroxy 46.1 ng/mL
[2023-03-28 12:36] LABS: AST(SGOT) 15 U/L (15-37); Alanine Aminotransfer ALT/SGPT 21 U/L (13-56); Albumin, Serum 3.6 g/dL (3.2-5.0); Alkaline Phosphatase 76 U/L (45-117); Anion Gap 5 (5-15); BUN 16 mg/dL (7-18); BUN/Creat Ratio 19.5 RATIO (10-20); Calcium,Total 8.7 mg/dL (8.5-10.1); Chloride 106 mmol/L (98-107); Cholesterol 106 mg/dL (200); Creatinine, Serum 0.82 mg/dL (0.55-1.02); EST Glomerular Filtration Rate 73 mL/min (>60); Est Glom Filt Rate - Afr Amer 89 mL/min (>60); Globulin 3.7 g/dL (2.2-4.2); Glucose 215 mg/dL (74-106); High Density Lipoprotein 44 mg/dL; Iron 51 ug/dL (50-170); Iron Binding Capacity,Total 297 ug/dL (250-450); PERCENT IRON SATURATION 17.2 % (15.0-55.0); Protein, Total 7.3 g/dL (6.4-8.2); Sodium Level 138 mmol/L (136-145); Thyroid Stim Hormone (TSH) 1.16 uIU/mL (0.358-3.74); Triglycerides 93 mg/dL; Very Low Density Lipoprotein 19 mg/dL (5-40)
== END | disposition home or self-care (01) ==
PROVIDERS: Referring Provider Nurse Practitioner Family; Visit Provider Nurse Practitioner Family
DX: I10 Essential (primary) hypertension (principal); E11.9 Type 2 diabetes mellitus without complications; E55.9 Vitamin D deficiency, unspecified; G25.81 Restless legs syndrome; E78.5 Hyperlipidemia, unspecified
CPT/HCPCS: 36415; 80053; 80061; 82043; 82306; 83540; 83550; 84443; 85027

== ENCOUNTER → 2024-02-24 | Outpatient (CLI) | payer MEDICARE, MEDICAID, SELFPAY ==
[2024-02-24 17:15] LABS: Absolute Lymphocyte Count 2.71 X10^3/uL (0.83-4.51); Absolute Neutrophil Count 5.1 X10^3/uL (2.0-7.7); Basophil# 0.07 X10^3/uL; Basophil% 0.8 % (0-1); Eosinophils% 2.3 % (0-5); Hematocrit 41.3 % (37-47); Lymphocyte # 2.71 X10^3/ul (0.83-4.51); Lymphocyte % 31.3 % (19-41); Mean Corp Hgb Conc 33.9 g/dL (32-36); Mean Corpuscular Hgb 30.3 pg (27.0-32.0); Mean Corpuscular Volume 89.4 fL (81-99); Mean Platelet Vol. 10.5 fl (6.2-12.0); Monocyte# 0.58 X10^3/uL; Monocyte% 6.7 % (0-10); NRBC Flagged by Analyzer 0 % (0-5); Neutrophil # 5.08 X10^3/uL (2.7-7.7); Neutrophil % 58.7 % (47-70); Platelet Count 262 K/mm3 (150-450); RBC Distribution Width CV 12.5 % (11.6-14.6); RBC Distribution Width SD 41.1 fl (35.1-43.9); Red Blood Count 4.62 M/mm3 (4.2-5.4); White Blood Count 8.7 K/mm3 (4.4-11.0)
[2024-02-24 17:36] LABS: AST(SGOT) 13 U/L (15-37); Alanine Aminotransfer ALT/SGPT 28 U/L (13-56); Albumin, Serum 3.9 g/dL (3.2-5.0); Alkaline Phosphatase 93 U/L (45-117); Anion Gap 6 (5-15); BUN 14 mg/dL (7-18); BUN/Creat Ratio 20.8 RATIO (10-20); Calcium,Total 9.4 mg/dL (8.5-10.1); Chloride 102 mmol/L (98-107); Cholesterol 130 mg/dL (200); Creatinine, Serum 0.67 mg/dL (0.55-1.02); EST Glomerular Filtration Rate 92 mL/min (>60); Est Glom Filt Rate - Afr Amer 111 mL/min (>60); Globulin 4.1 g/dL (2.2-4.2); Glucose 206 mg/dL (74-106); High Density Lipoprotein 45 mg/dL; Potassium 4.1 mmol/L (3.5-5.1); Sodium Level 134 mmol/L (136-145); Triglycerides 140 mg/dL; Very Low Density Lipoprotein 28 mg/dL (5-40)
[2024-02-24 17:39] LABS: Vitamin D,25 Hydroxy 37.2 ng/mL
[2024-02-24 17:47] LABS: Microalbumin,Random Urine 13.7 mg/L (NO RANGE EST.)
== END | disposition home or self-care (01) ==
LOC: LAB.FUTURE 13:29
PROVIDERS: Visit Provider Nurse Practitioner Family
DX: I10 Essential (primary) hypertension (principal); E11.9 Type 2 diabetes mellitus without complications; E78.5 Hyperlipidemia, unspecified; E55.9 Vitamin D deficiency, unspecified
CPT/HCPCS: 36415; 80053; 80061; 82043; 82306; 84443; 85025

== ENCOUNTER → 2024-03-02 | Outpatient (CLI) | payer MEDICARE, MEDICAID, SELFPAY | END | disposition home or self-care (01) | LOC: VSLAB 16:21 | PROVIDERS: PCP Nurse Practitioner Family; Visit Provider Nurse Practitioner Family | DX: N39.0 Urinary tract infection, site not specified (principal) | CPT/HCPCS: 87077; 87086; 87088; 87186 ==

== ENCOUNTER → 2024-07-20 | Outpatient (CLI) | payer MEDICARE, SELFPAY ==
[2024-07-20 08:40] LABS: Mucous, Urine 0 SEEN /hpf (<or=2+)
[2024-07-20 10:07] LABS: Color, Urine Straw (Yellow); Glucose, Dipstick 1000 mg/dl (Normal); Ketone-Dipstick Negative (Negative); Leukocyte Esterase-Dipstick 25 /ul (Negative); Nitrite-Dipstick Negative (Negative); Occult Blood-Urine 10 /ul (Negative); Protein-Dipstick Negative (Negative); Urine Bilirubin Dipstick Negative (Negative); Urine Clarity Sl. Cloudy (Clear); Urine Urobilinogen Normal (Normal)
[2024-07-20 10:09] LABS: Absolute Lymphocyte Count 2.49 X10^3/uL (0.83-4.51); Absolute Neutrophil Count 5.8 X10^3/uL (2.0-7.7); Eosinophil# 1.19 X10^3/uL; Eosinophils% 11.5 % (0-5); Hematocrit 42.1 % (37-47); Hemoglobin 14.5 g/dL (12.0-15.0); Lymphocyte # 2.49 X10^3/ul (0.83-4.51); Mean Corp Hgb Conc 34.4 g/dL (32-36); Mean Corpuscular Hgb 30.9 pg (27.0-32.0); Mean Corpuscular Volume 89.6 fL (81-99); Mean Platelet Vol. 10.4 fl (6.2-12.0); Monocyte# 0.72 X10^3/uL; Monocyte% 6.9 % (0-10); NRBC Flagged by Analyzer 0 % (0-5); Neutrophil # 5.84 X10^3/uL (2.7-7.7); Neutrophil % 56.3 % (47-70); Platelet Count 282 K/mm3 (150-450); RBC Distribution Width CV 13.7 % (11.6-14.6); RBC Distribution Width SD 44.9 fl (35.1-43.9); White Blood Count 10.4 K/mm3 (4.4-11.0)
[2024-07-20 11:16] LABS: Squamous Epithelial Cells - UA 10-25 SEEN /hpf (5-10)
[2024-07-20 11:17] LABS: White Blood Cells 10-25 SEEN /hpf (0-5)
[2024-07-20 11:18] LABS: Bacteria RARE /hpf (None Seen); Red Blood Cells-Urine 0-5 SEEN /hpf (0-5)
[2024-07-20 12:02] LABS: Anion Gap 15 (5-15); BUN 13 mg/dL (4-19); BUN/Creat Ratio 20.2 RATIO (10-20); Calcium,Total 9.4 mg/dL (7.6-11.0); Carbon Dioxide 19.4 mmol/L (21.0-32.0); Chloride 106 mmol/L (98-108); Creatinine, Serum 0.64 mg/dL (0.70-1.20); EST Glomerular Filtration Rate 95 (>60); Glucose 153 mg/dL (70-99); Potassium 4.3 mmol/L (3.3-5.1); Sodium Level 140 mmol/L (133-145)
== END | disposition home or self-care (01) ==
PROVIDERS: PCP Nurse Practitioner Family; Visit Provider Nurse Practitioner Family
DX: R30.0 Dysuria (principal)
CPT/HCPCS: 36415; 80048; 81001; 85025; 87086; 87088

== ENCOUNTER → 2024-10-27 | Outpatient (CLI) | payer MEDICARE, SELFPAY ==
[2024-10-27 08:59] LABS: Hematocrit 41.9 % (37-47); Hemoglobin 13.9 g/dL (12.0-15.0); Immature Granulocytes Count 0.030 X10^3/uL (0.0-0.0); Mean Corp Hgb Conc 33.2 g/dL (32-36); Mean Corpuscular Volume 91.9 fL (81-99); Mean Platelet Vol. 11.1 fl (6.2-12.0); NRBC Flagged by Analyzer 0 % (0-5); Platelet Count 251 K/mm3 (150-450); RBC Distribution Width CV 13.1 % (11.6-14.6); RBC Distribution Width SD 44.8 fl (35.1-43.9); Red Blood Count 4.56 M/mm3 (4.2-5.4); White Blood Count 11.4 K/mm3 (4.4-11.0)
[2024-10-27 09:36] LABS: Cholesterol 121 mg/dL (<=200); Low Density Lipoprotein Calc. 32 mg/dL; Triglycerides 283 mg/dL; Very Low Density Lipoprotein 57 mg/dL (5-40); cholesterol:hdl ratio screen 3.68
[2024-10-27 09:39] LABS: AST(SGOT) 24 U/L (<=31); Alanine Aminotransfer ALT/SGPT 22 U/L (<=34); Albumin, Serum 4.2 g/dL (3.4-4.8); Alkaline Phosphatase 78 U/L (35-104); Anion Gap 11 (5-15); BUN 24 mg/dL (4-19); BUN/Creat Ratio 30.4 RATIO (10-20); Calcium,Total 9.4 mg/dL (7.6-11.0); Carbon Dioxide 23.5 mmol/L (21.0-32.0); Chloride 102 mmol/L (98-108); Globulin 3.1 g/dL (2.2-4.2); Glucose 147 mg/dL (70-99); Potassium 4.8 mmol/L (3.3-5.1)
[2024-10-27 15:33] LABS: Microalbumin,Random Urine < 12.0 mg/L (NO RANGE EST.)
--- OUTSIDE RECORDS SUMMARY | 2024-10-28 03:48 | XMS RPT_ITS | CCD ---
Author Organization [facility] Care Team Providers Care Envelope Fold Operator Name Role Phone WILBERT, SHEILA Unavailable Unavailable WILBERT, SHEILA Unavailable Unavailable WILBERT, SHEILA Unavailable Unavailable WILBERT, SHEILA Unavailable Unavailable Artur IQBAL, Thais Mays Unavailable [phone] Yossi Swann DO Unavailable Elana Urbano Unavailable Derek Hazel MD Unavailable Stephanie Schneider CMA Unavailable Unavailable Unavailable Unavailable Artur IQBAL, Thais Peterson Primary Care Provider [facility] Care Provider [facility], [facility] Unavailable ROSY SHAHID Referring Unavailable [facility], [facility] Unavailable Finn SECURITY INSTALLER-CMalina Primary Care Provider [phone] Finn SECURITY INSTALLER-CMalina Attending Provider Malina Rodriguez Attending [facility] Primary Care Unavailable Malina Rodriguez [facility]ending [facility] Finn Malina Aguirre Primary Care Unavailabl e Finn Malina Aguirre Attending [facility] Allergies Allergy Classification Reported Allergen(s) Allergy Type Date of Onset Reaction(s) Facility Unclassified (1 source) Benadryl *ANTIHISTAMINES *; Translations: [Benadryl *ANTIHISTAMINES *] Allergy to drug (finding) [facility] Work Phone: Unclassified (1 source) Codeine/Codeine Derivatives; Translations: [Codeine/Codein e Derivatives] Allergy to substance (finding) [facility] Work Phone: (7 sources) Codeine; Translations: [CODEINE] Drug Allergy [address] [facility] Work Phone: (1 source) Codeine Drug Allergy [address] [facility] Repository Medications Current Medications Medication Drug Class(es) Dates Sig (Normalized) Sig (Original) acetaminophen 325 mg / HYDROcodone bitartrate 5 mg oral tablet (4 sources) Opioid Agonist Start: 08-19-2020 take 1 tablet by mouth every eight hours Hydrocodone-Aceta minophen 5-325 mg tablet Active 1 {tbl} PO Q8H 15 August 19, 2020 Start: 08-19-2020 take 1 tablet by lalo th every eight hours Hydrocodone-Acetaminophen Active 1 TABLE T PO Q8H 15 August 19, 2020 Start: 08-12-2011 End: 09-17-2011 take 1-2 tablets by mouth every six hours as needed VICODIN, 5-500MG (Oral Tablet) 1-2 Table t every 6 hours prn for 0 days Quantity: 30 {Tablet} Refills: 0 Ordered: 17-Sep-2011 ROLY Moon LPN Start : 12-Aug-2011 End : 17-Sep-2011 Inactive Comments: thirty Comment on above: thirty amoxicillin 875 mg / clavulanate 125 mg oral tablet (4 sources) Penicillin-class Antibacterial Start: 08-19-2020 Amoxicillin-Pot Clavulanate (Augmentin) 875-125 mg tablet Active 1 {tbl} PO TWICE A DAY August 19, 2020 12:00am Start: 07-05-2014 End: 07-19-2014 take 1 tablet by mouth twice daily AUGMENTIN, 875-125MG (Oral Tablet) 1 (one) Tablet bid for 14 days Quantity: 28 {Tablet} Refills: 0 Ordered: 05-Jul-2014 Genevieve Ridley CNP Start : 05-Jul-2014 End : 19-Jul-2014 Inactive aspirin 81 mg oral tablet (4 sources) Platelet Aggregation Inhibitor, Nonsteroidal Anti-inflammatory Drug Start: 08-19-2020 take 1 tablet by mouth once daily Aspirin 81 mg Tablet Active 81 mg PO DAILY August 19, 2020 12:00am Start: 03-07-2011 End: 04-06-2011 ASPIRIN ADULT LOW STRENGTH, 81MG (Oral Tablet Delayed Release) [address] daily for 30 days Refills: 0 Ordered: 16-Apr-2011 ROLY Moon LPN Start : 07-Mar-2011 End : 06-Apr-2011 Inactive benzonatate 100 mg oral capsule (2 sources) Non-narcotic Antitussive Start: 10-01-2023 take 2 capsules by mouth every eight hours as needed benzonatate (TESSALON PERLES) 100 mg capsule Take 2 capsules by mouth three times a day as needed. 30 capsule 0 10/01/2023 Active Start: 07-06-2014 End: 08-01-2014 take 1 capsule by mouth three times daily as needed for cough TESSALON PERLES, 100MG (Oral Capsule) 1 (one) Capsule tid prn cough for 0 days Quantity: 30 {Capsule} Refills: 1 Ordered: 01-Aug-2014 ROLY Moon LPN Start : 06-Jul-2014 End : 01-Aug-2014 Inactive cholecalciferol 0.125 mg oral tablet (3 sources) Vitamin D Start: 08-19-2020 take 1 tablet by mouth once daily Cholecalciferol (Vitamin D3) (Vitamin D3) 125 mcg (5,000 unit) Tablet Active 125 ug PO DAILY August 19, 2020 12:00am doxycycline hyclate 100 mg oral tablet (2 sources) Tetracycline-c lass Drug Start: 10-01-2023 End: 10-08-2023 take 1 tablet by mouth twice daily doxycycline (VIBRA-TABS) 100 mg tablet Take 1 tablet by mouth two times a day for 7 days. 14 tablet 0 10/01/2023 10/08/2023 Active Start: 10-05-2008 End: 11-01-2008 take 1 tablet by mouth twice daily DOXYCYCLINE HYCLATE, 100MG (Oral Tablet) 1 (one) Tablet bid for 14 days Quantity: 28 {Tablet} Refills: 0 Ordered: 05-Oct-2008 Genevieve Ridley CNP Start : 05-Oct-2008 End : 01-Nov-2008 Inactive 0.5 ml dulaglutide 1.5 mg/ml auto-injector (3 sources) GLP-1 Receptor Agonist Start: 08-21-2020 Dulaglutide (Trulicity) 0.75 mg/0.5 mL Pen Injector Active 0.75 mg SC EVERY WEEK August 21, 2020 12:00am glimepiride 4 mg oral tablet (3 sources) Sulfonylurea Start: 08-19-2020 take 1 tablet by mouth once daily Glimepiride 4 mg Tablet Active 4 mg PO DAILY August 19, 2020 12:00am glyBURIDE 5 mg oral tablet (4 sources) Sulfonylurea Start: 04-26-2011 End: 08-25-2013 take 1 tablet by mouth twice daily glyBURIDE 5 mg ORAL tablet Take 1 tablet by mouth twice daily. 0 04/26/2011 Active Comment on above: Take 1 tablet by lalo twice daily. 12 hr guaiFENesin 600 mg extended release oral tablet (1 source) Start: 10-01-2023 End: 10-06-2023 take 2 tablets by mouth twice daily guaiFENesin (MUCINEX) 600 mg 12 hr tablet Take 2 tablets by mouth two times a day for 5 days. 20 tablet 0 10/01/2023 10/06/2023 Active hydroCHLOROthiazide 25 mg oral tablet (3 sources) Thiazide Diuretic Start: 08-19-2020 take 1 tablet by mouth once daily Hydrochlorothiazide 25 mg Tablet Active 25 mg PO DAILY August 19, 2020 12:00am lisinopril 20 mg oral tablet (7 sources) Angiotensin Converting Enzyme Inhibitor Start: 08-19-2020 take 1 tablet by mouth twice daily Lisinopril 20 mg Tablet Active 20 mg PO TWICE A DAY August 19, 2020 12:00am Start: 03-07-2011 End: 05-23-2011 take 1 tablet by mouth once daily lisinopril 10 mg ORAL tablet Take 1 tablet by mouth once daily. 0 04/26/2011 Active Comment on above: Take 1 tablet by lalo once daily. metFORMIN hydrochloride 500 mg oral tablet (4 sources) Biguanide Start: 08-19-2020 take 1 tablet by mouth twice daily Metformin 500 mg Tablet Active 500 mg PO TWICE A DAY August 19, 2020 12:00am Start: 03-29-2014 End: 11-03-2014 take 1 tablet by mouth every twenty-four hours, then take 1 tablet by mouth once daily METFORMIN HCL ER, 500MG (Oral Tablet Extended Release 24 Hour) 1 (one) Tablet ER 24HR Tablet ER 24HR daily for 0 days Quantity: 30 {Tablet} Refills: 3 Ordered: 29-Mar-2014 Artur IQBAL, Thais Siddiqui MD, Thais Mays Start : 29-Mar-2014 End : 03-Nov-2014 Discontinued 24 hr metoprolol succinate 25 mg extended release oral tablet (3 sources) beta-Adrenergic Winter Start: 08-19-2020 take 1 tablet by mouth twice daily Metoprolol Succinate 25 mg Tablet Extended Release 24 Hr Active 25 mg PO TWICE A DAY August 19, 2020 12:00am metroNIDAZOLE 500 mg oral tablet (3 sources) Nitroimidazole Antimicrobial Start: 08-19-2020 take 1 tablet by mouth three times daily Metronidazole (Flagyl) 500 mg tablet Active 500 mg PO THREE TIMES A DAY August 19, 2020 12:00am predniSONE 20 mg oral tablet (6 sources) Start: 10-01-2023 End: 10-06-2023 take 2 tablets by mouth once daily predniSONE (DELTASONE) 20 mg tablet Take 2 tablets by mouth once daily for 5 days. 10 tablet 0 10/01/2023 10/06/2023 Active Start: 06-28-2017 End: 07-05-2017 take 1 tablet by mouth once daily at mealtime Prednisone 20 mg tablet Discontinued 20 mg PO .COMPLEX 10 7 June 28, 2017 1:00am July 04, 2017 12:00am July 05, 2017 12:11am 20 mg PO 2 pills daily x 3 days, then 1 pill daily x 4 days; administer with food or milk Start: 07-04-2014 End: 07-07-2014 take 1 tablet by mouth twice daily at mealtime PREDNISONE, 10MG (Oral Tablet) 1 (one) Tablet bid for 3 days Quantity: 6 {Tablet} Refills: 0 Ordered: 04-Jul-2014 Genevieve Ridley CNP Start : 04-Jul-2014 End : 07-Jul-2014 Inactive Comments: take with food Start: 05-22-2010 End: 2010 take 2 tablets by mouth once daily, then take 1 tablet by mouth once daily, then take 0.5 tablet by mouth once daily PREDNISONE, 20MG (Oral Tablet) 1 Tablet uad for 0 days Refills: 0 Ordered: 07-Dec-2010 ROLY Moon LPN Start : 22-May-2010 End : 07-Dec-2010 Inactive Comments: 2 a d for 5 d, 1 a d for 5d, 1/2 a d for 5 d Comment on above: take with food 2 a d for 5 d, 1 a d for 5d, 1/2 a d for 5 d rosuvastatin calcium 10 mg oral tablet (4 sources) HMG-CoA Reductase Inhibitor Start: take 1 tablet by mouth once daily Rosuvastatin 10 mg Tablet Active 10 mg PO DAILY August 19, 2020 12:00am Start: 11-24-2006 End: 02-27-2007 take 1 tablet by mouth once daily CRESTOR, 10MG (Oral Tablet) 1 Tablet QD for 0 days Quantity: 30 {Tablet} Refills: 6 Ordered: 24-Nov-2006 ROLY Moon LPN Start : 24-Nov-2006 End : 27-Feb-2007 Discontinued Completed/Discontinued Medications Medication Drug Class(es) Dates Sig (Normalized) Sig (Original) [id number] 200 actuat albuterol 0.09 mg/actuat metered dose inhaler (6 sources) beta2-Adrenergic Agonist Start: 08-01-2014 PROVENTIL HFA, 108 (90 Base)MCG/ACT (Inhalation Aerosol Solution) 1 (one) Aerosol Soln q 6-8 hours prn for 0 days Quantity: 1 {Inhaler} Refills: 1 Ordered: 01-Aug-2014 Artur IQBAL, Thais Siddiqui MD, Thais Mays Start : 01-Aug-2014 Active Start: 07-06-2014 ALBUTEROL SULF ATE, (2.5 MG/3ML)0.083% (Inhalation Nebulization Solution) 1 (one) Nebulized Soln Nebulized Soln q6hrs prn for 0 days Quantity: 1 {Box} Refills: 3 Ordered: 06-Jul-2014 Stephanie Schneider CMA Start : 06-Jul-2014 Active Start: 07-04-2014 End: 07-05-2014 ALBUTEROL SULFATE, 0.63MG/3M L (Inhalation Nebulization Solution) 1 (one) Nebulized Soln q6hrs prn for 0 days Quantity: 1 {Box} Refills: 3 Ordered: 05-Jul-2014 Genevieve Ridley CNP Start : 04-Jul-2014 End : 05-Jul-2014 Discontinued Start: 04-26-2011 take 3 mL by inhalat ion three times daily as needed for wheezing albuterol 2.5 mg /3 mL (0.083 %) INHALATION nebulizer solution 3 mL three times daily as needed. OVER 5-15 MINUTES. FOR WHEEZING AND SHORTNESS OF BREATH. 0 04/26/2011 Active Comment on above: 3 mL three times luis felipe ly as needed. OVER 5-15 MINUTES. FOR WHEEZING AND SHORTNESS OF BREATH. azithromycin 250 mg oral tablet (1 source) Macrolide Antimicrobial Start: 014 End: 015 ZITHROMAX Z-AGUILAR, 250MG (Oral Tablet) 1 (one) Tablet TAD for 0 days Quantity: 1 {Package} Refills: 0 Ordered: 04-Jul-2014 Citlalli Gustafson LPN Start : 20-Apr-2014 End : 04-Jul-2014 Discontinued ciprofloxacin 500 mg oral tablet (1 source) Quinolone Antimicrobial Start: End: take 1 tablet by mouth twice daily CIPRO, 500MG (Oral Tablet) 1 (one) Tablet bid for 10 days Quantity: 20 {Tablet} Refills: 0 Ordered: 10-Feb-2015 Geno Aguirre RN Start : 10-Feb-2015 End : 20-Feb-2015 Inactive citalopram 20 mg oral tablet (1 source) Serotonin Reuptake Inhibitor Start: take 1 tablet by mouth once daily CELEXA, 20MG (Oral Tablet) 1 (one) Tablet daily for 0 days Quantity: 90 {Tablet} Refills: 3 Ordered: 28-Nov-2014 Thais Siddiqui MD, MD, Dana M Start : 28-Nov-2014 Active 24 hr clarithromycin 500 mg extended release oral tablet (1 source) Macrolide Antimicrobial Start: End: take 1 tablet by mouth every twenty-four hours BIAXIN XL PAC, 500MG (Oral Tablet Extended Release 24 Hour) 2 (two) Tablet ER 24HR [email or web address] for 10 days Quantity: 20 {Tablet} Refills: 0 Ordered: 05-Jul-2014 Genevieve Ridley CNP Start : 04-Jul-2014 End : 05-Jul-2014 Discontinued colesevelam hydrochloride 3750 mg powder for oral suspension (1 source) Bile Acid Sequestrant Start: 011 End: 011 take 1 dose by mouth once daily WELCHOL, 3.75GM (Oral Packet) 1 Packet daily for 0 days Quantity: 30 {Packet} Refills: 6 Ordered: 07-Mar-2011 ROLY Moon LPN Start : 07-Mar-2011 End : 07-Mar-2011 Inactive Comments: patient cannot tolerate it says can't drink it Comment on above: patient cannot diana ate it says can't drink it exenatide (1 source) GLP-1 Receptor Agonist Start: 007 End: inject 5 ug by subcutaneous injection twice daily BYETTA 5 MCG PEN, 5MCG/0.02ML (Subcutaneous Solution) Solution BID for 0 days Quantity: 28 {Solution} Refills: 0 Ordered: 05-Aug-2006 ROLY Moon LPN Start : 05-Aug-2006 End : 02-Sep-2006 Discontinued Comments: never started per pt. Comment on above: never started per pt . famotidine 20 mg oral tablet (1 source) Histamine-2 Receptor Antagonist Start: 010 End: 011 take 1 tablet by mouth twice daily PEPCID, 20MG (Oral Tablet) 1 Tablet bid for 0 days Quantity: 30 {Tablet} Refills: 0 Ordered: 22-May-2010 ROLY Moon LPN Start : 13-Oct-2009 End : 22-May-2010 Inactive FREESTYLE FREEDOM LITE, w/Device (Kit) (1 source) Start: 015 FREESTYLE FREEDOM LITE, w/Device (Kit) uad Kit Kit qd for 0 days Quantity: 1 Kit Refills: 0 Ordered: 01-Aug-2014 Wyatt IRELAND Stephanie Start : 01-Aug-2014 Active Comments: DX: 250.00NPI: [id number] Comment on above: DX: 250.00NPI: [id number] glyBURIDE 5 mg / metFORMIN hydrochloride 500 mg oral tablet (1 source) Biguanide, Sulfonylurea Start: 006 End: take 1 tablet by mouth twice daily GLUCOVANCE, 5-500MG (Oral Tablet) 1 Tablet BID for 0 days Quantity: 180 {Tablet} Refills: 3 Ordered: 31-Mar-2006 ROLY Moon LPN Start : 31-Mar-2006 End : 27-Feb-2007 Discontinued lansoprazole 30 mg delayed release oral capsule (1 source) Proton Pump Inhibitor Start: End: PREVACID, 30MG (Oral Capsule Delayed Release) Capsule DR QD for 0 days Refills: 0 Ordered: 17-Jul-2006 ROLY Moon LPN Start : 17-Jul-2006 End : 27-Feb-2007 Discontinued levoFLOXacin 500 mg oral tablet (2 sources) Quinolone Antimicrobial Start: End: take 1 tablet by mouth once daily LEVOFLOXACIN, 500MG (Oral Tablet) 1 (one) Tablet daily for 7 days Quantity: 7 {Tablet} Refills: 0 Ordered: 06-Jul-2014 Khai HODGESGenevieve Start : 06-Jul-2014 End : 13-Jul-2014 Inactive Comments: STOP citalopram, was on 20mg which she started in last week, she has been told stop drug Comment on above: STOP citalopram, was on 20mg which she started in last week, she has been told stop drug 3 ml liraglutide 6 mg/ml pen injector (1 source) GLP-1 Receptor Agonist Start: End: VICTOZA, 18MG/3ML (Subcutaneous Solution Pen-injector) uad Soln Pen-inj 0.6 qday for 0 days Quantity: 1 {Each} Refills: 3 Ordered: 10-Feb-2015 Megan Goldman DO Start : 10-Feb-2015 End : 10-Feb-2015 Discontinued Comments: with needles-possible abd pain ? Comment on above: with needles-possibl e abd pain ? losartan potassium 50 mg oral tablet (1 source) Angiotensin 2 Receptor Winter Start: take 1 tablet by mouth once daily LOSARTAN POTASSIUM, 50MG (Oral Tablet) 1 Tablet qd for 0 days Quantity: 90 {Tablet} Refills: 6 Ordered: 29-Mar-2014 Artur IQBAL, Thais Siddiqui MD, Thais Mays Start : 29-Mar-2014 Active meloxicam 15 mg oral tablet (1 source) Nonsteroidal Anti-inflammatory Drug Start: End: take 1 tablet by mouth once daily at mealtime MELOXICAM, 15MG (Oral Tablet) 1 (one) Tablet daily with food for 0 days Quantity: 30 {Tablet} Refills: 0 Ordered: 20-Sep-2013 ROLY Moon LPN Start : 25-Aug-2013 End : 20-Sep-2013 Inactive moxifloxacin 400 mg oral tablet (1 source) Quinolone Antimicrobial Start: End: take 1 tablet by mouth once daily AVELOX, 400MG (Oral Tablet) 1 Tablet daily for 10 days Refills: 0 Ordered: 16-Oct-2010 Artur IQBAL, Thais Siddiqui MD, Thais Mays Start : 22-May-2010 End : 01-Jun-2010 Inactive nitrofurantoin, macrocrystals 25 mg / nitrofurantoin, monohydrate 75 mg oral capsule (1 source) Nitrofuran Antibacterial Start: End: take 1 capsule by mouth twice daily MACROBID, 100MG (Oral Capsule) 1 (one) Capsule bid for 10 days Quantity: 20 {Capsule} Refills: 0 Ordered: 10-Nov-2014 Geno Aguirre RN Start : 10-Nov-2014 End : 20-Nov-2014 Inactive omega-3 acid ethyl esters (alf) 1000 mg oral capsule (1 source) Start: End: take 2 capsules by mouth twice daily LOVAZA, 1GM (Oral Capsule) 2 (two) Capsule bid for 0 days Quantity: 120 {Capsule} Refills: 6 Ordered: 07-Mar-2011 ROLY Moon LPN Start : 07-Dec-2010 End : 07-Mar-2011 Inactive oseltamivir 75 mg oral capsule (1 source) Neuraminidase Inhibitor Start: take 1 capsule by mouth twice daily TAMIFLU, 75MG (Oral Capsule) 1 (one) Capsule bid for 0 days Quantity: 10 {Capsule} Refills: 0 Ordered: 13-Oct-2009 ROLY Moon LPN Start : 20-Jan-2009 Inactive pravastatin sodium 40 mg oral tablet (4 sources) HMG-CoA Reductase Inhibitor Start: take 1 tablet by mouth once daily PRAVACHOL, 40MG (Oral Tablet) 1 Tablet daily for 0 days Quantity: 90 {Tablet} Refills: 3 Ordered: 28-Nov-2014 Artur IQBAL, Thais Siddiqui MD, Thais Mays Start : 28-Nov-2014 Active Start: 04-26-2011 take 1 tablet by lalo th once daily pravastatin 20 mg ORAL tablet Take 1 tablet by mouth once daily. 0 04/26/2011 Active Comment on above: Take 1 tablet by lalo th once daily. pregabalin 75 mg oral capsule (1 source) Start: 08-12-19 12 End: 09-11-19 12 take 1 capsule by mouth twice daily LYRICA, 75MG (Oral Capsule) 1 Capsule bid for 30 days Quantity: 60 {Capsule} Refills: 0 Ordered: 12-Aug-2011 Citlalli Gustafson LPN Start : 12-Aug-2011 End : 11-Sep-2011 Inactive (PO Tab) (1 source) End: 07-18-19 07 (PO Tab) qd End : 17-Jul-2006 Discontinued promethazine hydrochloride 25 mg oral tablet (2 sources) Phenothiazine Start: 02-11-20 15 take 1 tablet by mouth every six hours as needed PROMETHAZINE HCL, 25MG (Oral Tablet) 1 (one) Tablet Tablet every 6 hours prn for 0 days Quantity: 10 {Tablet} Refills: 0 Ordered: 10-Feb-2015 Stephanie Schneider CMA Start : 10-Feb-2015 Active Start: 04-27-2008 End: 10-05-2008 PHENERGAN, 25MG (Rectal Supp ository) 1 (one) Suppository q 8 hr prn for 0 days Quantity: 20 {Suppository} Refills: 0 Ordered: 27-Apr-2008 Julissa Maravilla Start : 27-Apr-2008 End : 05-Oct-2008 Discontinued Problems Active Problems Problem Classification Problem Date Documented Da te Episodic/Chronic Abdominal pain (4 sources) Abdominal pain; Translations: [Abdominal pain] Onset: 12-24-2011 Resolved: 12-24-2011 02-28-2015 Episodic Comment on above: drug side effect? , flu bug? uti? none Anxiety disorders (12 sources) Anxiety; Translations: [Anxiety] 02-28-2015 Chronic Comment on above: [id number] does wor k will stay on Appendicitis and other appendiceal conditions (3 sources) Acute appendicitis; Translations: [Unspecified acute appendicitis] 08-19-2020 Episodic Asthma (3 sources) Asthma Blindness and vision defects (5 sources) Visual disturbance; Translations: [Unspecified visual disturbance] Onset: 12-24-2011 Resolved: 12-24-2011 03-07-2015 Episodic Chronic obstructive pulmonary disease and bronchiectasis (3 sources) Bronchitis; Translations: [BRONCHITIS, NOT SPECIFIED ACUTE OR CHRONIC (490.)] Onset: 12-24-2011 Resolved: 08-01-2014 08-01-2014 Episodic Conditions associated with dizziness or vertigo (3 sources) Lightheadedness; Translations: [Dizziness and giddiness] 08-22-2020 Episodic Diabetes mellitus with complications (1 source) Diabetes mellitus with complications Diabetes mellitus without complication (1 source) Type 2 diabetes mellitus without complication; Translations: [Type 2 diabetes mellitus without complication] 02-28-2015 Chronic Comment on above: right now trying off victoza [place] [id number] ekg. 5-15 eye exam Diabetes mellitus without complication (13 sources) Diabetes mellitus without complication Disorders of lipid metabolism (20 sources) Mixed hyperlipidemia; Translations: [Hypercholesterolem ia] Onset: 09-09-2017 02-28-2015 Chronic Comment on above: statins--aches. lova steve lamb. reveiwed with patient recent tests and ldl up. she is off pravachol because other med on. will add back Essential hypertension (15 sources) Benign essential hypertension; Translations: [Benign essential hypertension] Onset: 03-16-2024 02-28-2015 Chronic Fluid and electrolyte disorders (5 sources) Dehydration; Translations: [Dehydration] Resolved: 02-28-2015 11-28-2014 Episodic Genitourinary symptoms and ill-defined conditions (1 source) Dysuria; Translations: [Dysuria] Onset: 07-27-2024 Episodic Immunizations and screening for infectious disease (4 sources) Encounter for screening for other viral diseases; Translations: [Needs influenza immunization] Onset: 09-09-2017 Resolved: 09-20-2013 01-24-2015 Episodic Influenza (3 sources) Influenza with non-respiratory manifestation; Translations: [Influenza with other manifestations] Resolved: 12-24-2011 12-24-2011 Episodic Noninfectious gastroenteritis (2 sources) Gastroenteritis; Translations: [Gastroenteritis] Resolved: 09-28-2008 09-28-2008 Episodic Comment on above: seems to be improvin g on own -- vomiting has ceased -- diarrhea has slowed down some Other gastrointestinal disorders (11 sources) Irritable bowel syndrome; Translations: [Irritable bowel syndrome] Resolved: 07-05-2014 09-20-2013 Chronic Comment on above: again recommmend col onscopy Other lower respiratory disease (5 sources) Cough; Translations: [Cough] Onset: 12-24-2011 Resolved: 08-01-2014 08-01-2014 Episodic Other lower respiratory disease (5 sources) Wheezing; Translations: [Wheezing] Onset: 12-24-2011 Resolved: 07-05-2014 07-05-2014 Episodic Other nutritional; endocrine; and metabolic disorders (20 sources) Obesity; Translations: [Obesity] 02-28-2015 Chronic Comment on above: she is doing well lo st weight and elsie try off victoza. went over what eat. only getting 1400 yvonne a day. will try to weight self daily and maintain weight. Other upper respiratory disease (3 sources) Nasal congestion; Translations: [Nasal congestion] Resolved: 08-01-2014 08-01-2014 Episodic Pleurisy; pneumothorax; pulmonary collapse (3 sources) Atelectasis; Translations: [Atelectasis] Resolved: 07-05-2014 07-05-2014 Episodic Residual codes; unclassified (3 sources) Chill; Translations: [Chills] Resolved: 08-01-2014 08-01-2014 Episodic Unclassified (4 sources) WWV Resolved: 09-20-2013 09-20-2013 Comment on above: follow up npap in 1 month Unclassified (20 sources) Unclassified (1 source) Well woman exam Unclassified (2 sources) Intractable vomiting with nausea Unclassified (2 sources) Dehydration, moderate Unclassified (13 sources) Type II Diabetes,controlled (250.00) Unclassified (9 sources) Well Woman Exam (V72.31) (Pap,Mammo,Routine Female) (Renamed from Well Woman V72.31 (p,m)) Unclassified (3 sources) BRONCHITIS, NOT SPECIFIED ACUTE OR CHRONIC (490.) Unclassified (3 sources) Restless leg (333.94) Unclassified (2 sources) Breast pain Unclassified (3 sources) Breast mass (611.72) Unclassified (2 sources) Abnormal Pap smear (795.00) Unclassified (3 sources) Abdominal Pain,General (789.07) Unclassified (3 sources) HERPES ZOSTER WITH OTHER NERVOUS SYSTEM COMPLICATIONS, OTHER (053.19) Viral infection (3 sources) Herpes zoster with nervous system complication; Translations: [Herpes zoster with other nervous system complications] Resolved: 11-28-2014 03-30-2015 Episodic Comment on above: better now but still numb and itching whre rash was. use cortiad cream think has gastroente ritis. caught grandchild. IV fliuds phenegran labs. if worsen COLEMAN or neck stiff or weird rash Past or Other Problems Problem Classification Problem Date Documented Date Episodic/Chronic Asthma (1 source) Acute exacerbation of asthma; Translations: [Unspecified asthma with (acute) exacerbation] Resolved: 07-05-2014 03-07-2015 Chronic Diabetes mellitus with complications (3 sources) Type 2 diabetes mellitus with hyperglycemia; Translations: [Type II diabetes mellitus uncontrolled] Onset: 09-09-2017 Resolved: 09-20-2013 03-10-2015 Chronic E Codes: Fall (1 source) Accidental fall ; Translations: [Fall, accidental] Resolved: 09-20-2013 09-20-2013 Episodic Comment on above: tripped into corner of garage door Nausea and vomiting (1 source) Intractable nausea and vomiting; Translations: [Intractable vomiting with nausea] Resolved: 02-28-2015 02-28-2015 Episodic Nonmalignant breast conditions (2 sources) Breast lump; Translations: [Breast mass] Resolved: 07-05-2014 03-14-2015 Episodic Comment on above: saw Dr. hazel and perez with and okay. bx show nothing. last mammo 2011 and refuse another because stillpaying on this Other hereditary and degenerative nervous system conditions (1 source) Restless legs syndrome (RLS); Translations: [Restless leg] Resolved: 07-05-2014 07-05-2014 Chronic Comment on above: cbc good. talk about hot bath. hydration. not better then meds. Other lower respiratory disease (1 source) Dyspnea at rest; Translations: [Shortness of breath at rest] Resolved: 09-20-2013 03-10-2015 Episodic Other screening for suspected conditions (not mental disorders or infectious disease) (4 sources) Abnormal cervical Papanicolaou smear; Translations: [Abnormal Pap smear of cervix] Onset: 04-25-2011 Resolved: 12-24-2011 03-29-2015 Episodic Other skin disorders (1 source) Eruption; Translations: [Rash] Resolved: 09-20-2013 09-20-2013 Episodic Comment on above: look like sun sens r elated rash. pt not want steriods with diabetes. continue antihistamines Unclassified (6 sources) Unspecified Diagnosis Resolved: 07-05-2014 02-28-2015 Unclassified (1 source) Fall, accidental Unclassified (1 source) SYMPTOM, SHORTNESS OF BREATH (786.05) Unclassified (1 source) Rash (782.1) Urinary tract infections (3 sources) Urinary tract infectious disease; Translations: [UTI (urinary tract infection)] Onset: 04-04-2024 Resolved: 11-28-2014 11-28-2014 Episodic Results Test Name Value Interpretation Reference Range Facility Urine Cultureon 07-22-2024 [facility] Mixed Gram Positive Organisms [place] Count 11,000-25,000 [facility] Mixed contaminants. Submit a new specimen if indicated. Normal [facility] Comment on above: Performed By: #### L 506.1000, L500.4100, L100.0100, L501.9520, L500.4050, L502.0500 #### [facility] [address] [place], [address] Absolute neutrophil countOrd ered By: [facility] Malina Briseno on 07-20-2024 Neutrophils (Bld) [#/Vol] 5.8 10*3/uL 2.0-7.[address] [facility] Anion gap in Serum or Plasma Ordered By: [facility] Malina Briseno on 07-20-2024 Anion gap [Moles/Vol] 15 mmol/L 5-15 [facility] BUN/creatinine ratioOrdered By: [facility] Malina Briseno on 07-20-2024 Urea nitrogen/Creatinine [Mass ratio] 20.2 mg/mg High 10-[address] [facility] Bacteria LM.HPF (Urine sed) [#/Area]Ordered By: [facility] Malina Briseno on 07-20-2024 Urine Bacteria RARE /hpf None Seen [facility] Basic Metabolic Profile (BMP )on 07-20-2024 BUN/CRE 20.2 RATIO High 10-[address] [facility] Comment on above: Performed By: #### L 400.0001, L100.0100, M100.2200, L500.2500 #### [facility] [address] [place], [address] Calcium [Mass/Vol] 9.4 mg/dL Normal 7.6-11.0 [facility] Comment on above: Performed By: #### L 400.0001, L100.0100, M100.2200, L500.2500 #### [facility] [address] [place], [address] Chloride [Moles/Vol] 106 mmol/L Normal 98-108 [facility] Comment on above: Performed By: #### L 400.0001, L100.0100, M100.2200, L500.2500 #### [facility] [address] [place], [address] CO2 [Moles/Vol] 19.4 mmol/L Low 21.0-32.[address] [facility] Comment on above: Performed By: #### L 400.0001, L100.0100, M100.2200, L500.2500 #### [facility] [address] [place], [address] Creatinine [Mass/Vol] 0.64 mg/dL Low 0.70-1.20 [facility] Comment on above: Performed By: #### L 400.0001, L100.0100, M100.2200, L500.2500 #### [facility] [address] [place], [address] GAP 15 Normal 5-[address] [facility] Comment on above: Performed By: #### L 400.0001, L100.0100, M100.2200, L500.2500 #### [facility] [address] [place], [address] GFR/1.73 sq M.predicted among non-blacks MDRD (S/P/Bld) [Vol rate/Area] 95 mL/min/{1.73_m2} Normal >[address] [facility] Comment on above: Result Comment: mL/m in/1.73m2 CKD-EPI Creatinine Equation (2020) Performed By: #### L 400.0001, L100.0100, M100.2200, L500.2500 #### [facility] [address] [place], [address] Glucose [Mass/Vol] 153 mg/dL High 70-99 [facility] Comment on above: Performed By: #### L 400.0001, L100.0100, M100.2200, L500.2500 #### [facility] [address] [place], [address] Potassium [Moles/Vol] 4.3 mmol/L Normal 3.3-5.1 [facility] Comment on above: Performed By: #### L 400.0001, L100.0100, M100.2200, L500.2500 #### [facility] [address] [place], [address] Sodium [Moles/Vol] 140 mmol/L Normal 133-145 [facility] Comment on above: Performed By: #### L 400.0001, L100.0100, M100.2200, L500.2500 #### [facility] [address] [place], [address] Urea nitrogen [Mass/Vol] 13 mg/dL Normal 4-[address] [facility] Comment on above: Performed By: #### L 400.0001, L100.0100, M100.2200, L500.2500 #### [facility] [address] [place], [address] Basophil percentageOrdered B y: [facility] Malina Briseno on 07-20-2024 Basophils/100 WBC (Bld) 1.0 % 0-1 [facility] Bilirubin Test strip Ql (U)O rdered By: [facility] Malinaangelica Briseno on 07-20-2024 Bilirubin Ql (U) Negative Negative [facility] CBC W/Diff, Automatedon 04- Absolute Lymph 2.49 X10 3/uL Normal 0.83-4.[address] [facility] Comment on above: Performed By: #### L 400.0001, L100.0100, M100.2200, L500.2500 #### [facility] [address] [place], [address] Absolute Neut 5.8 X10 3/uL Normal 2.0-7.[address] [facility] Comment on above: Performed By: #### L 400.0001, L100.0100, M100.2200, L500.2500 #### [facility] [address] [place], [address] Basophils/100 WBC (Bld) 1.0 % Normal 0-1 [facility] Comment on above: Performed By: #### L 400.0001, L100.0100, M100.2200, L500.2500 #### [facility] [address] [place], [address] Eosinophils/100 WBC (Bld) 11.5 % High 0-[address] [facility] Comment on above: Performed By: #### L 400.0001, L100.0100, M100.2200, L500.2500 #### [facility] [address] [place], [address] Erythrocyte distribution width (RBC) [Ratio] 13.7 % Normal 11.6-14.[address] [facility] Comment on above: Performed By: #### L 400.0001, L100.0100, M100.2200, L500.2500 #### [facility] [address] [place], [address] Hematocrit (Bld) [Volume fraction] 42.1 % Normal 37-[address] [facility] Comment on above: Performed By: #### L 400.0001, L100.0100, M100.2200, L500.2500 #### [facility] [address] [place], [address] Hemoglobin (Bld) [Mass/Vol] 14.5 g/dL Normal 12.0-15.[address] [facility] Comment on above: Performed By: #### L 400.0001, L100.0100, M100.2200, L500.2500 #### [facility] [address] [place], [address] IG% 0.300 Normal 0.0-0.[address] [facility] Comment on above: Result Comment: IG% - Immature Granulocytes (promyelocytes, myelocytes and metamyelocytes) > 1% indicates that a LEFT SHIFT is Present. Performed By: #### L 400.0001, L100.0100, M100.2200, L500.2500 #### [facility] [address] [place], [address] Lymphocytes/100 WBC (Bld) 24.0 % Normal 19-[address] [facility] Comment on above: Performed By: #### L 400.0001, L100.0100, M100.2200, L500.2500 #### [facility] [address] [place], [address] MCH (RBC) [Entitic mass] 30.9 pg Normal 27.0-32.[address] [facility] Comment on above: Performed By: #### L 400.0001, L100.0100, M100.2200, L500.2500 #### [facility] [address] [place], [address] MCHC (RBC) [Mass/Vol] 34.4 g/dL Normal 32-36 [facility] Comment on above: Performed By: #### L 400.0001, L100.0100, M100.2200, L500.2500 #### [facility] [address] [place], [address] MCV (RBC) [Entitic vol] 89.6 fL Normal 81-99 [facility] Comment on above: Performed By: #### L 400.0001, L100.0100, M100.2200, L500.2500 #### [facility] [address] [place], [address] Monocytes/100 WBC (Bld) 6.9 % Normal 0-10 [facility] Comment on above: Performed By: #### L 400.0001, L100.0100, M100.2200, L500.2500 #### [facility] [address] [place], [address] Neutrophils/100 WBC (Bld) 56.3 % Normal 47-[address] [facility] Comment on above: Performed By: #### L 400.0001, L100.0100, M100.2200, L500.2500 #### [facility] [address] [place], [address] Nucleated RBC (Bld) [#/Vol] 0 10*3/uL Normal 0-[address] [facility] Comment on above: Performed By: #### L 400.0001, L100.0100, M100.2200, L500.2500 #### [facility] [address] [place], [address] Platelet mean volume (Bld) [Entitic vol] 10.4 fL Normal 6.2-12.[address] [facility] Comment on above: Performed By: #### L 400.0001, L100.0100, M100.2200, L500.2500 #### [facility] [address] [place], [address] Platelets (Bld) [#/Vol] 282 10*3/uL Normal 150-[address] [facility] Comment on above: Performed By: #### L 400.0001, L100.0100, M100.2200, L500.2500 #### [facility] [address] [place], [address] RBC (Bld) [#/Vol] 4.70 10*6/uL Normal 4.2-5.4 [facility] Comment on above: Performed By: #### L 400.0001, L100.0100, M100.2200, L500.2500 #### [facility] [address] [place], [address] RDW SD 44.9 fl High 35.1-43.[address] [facility] Comment on above: Performed By: #### L 400.0001, L100.0100, M100.2200, L500.2500 #### [facility] [address] [place], [address] WBC (Bld) [#/Vol] 10.4 10*3/uL Normal 4.4-11.0 [facility] Comment on above: Performed By: #### L 400.0001, L100.0100, M100.2200, L500.2500 #### [facility] [address] [place], [address] Carbon dioxide, total [Moles /volume] in Central venous bloodOrdered By: [facility] Malina Briseno on 07-20-2024 CO2 [Moles/Vol] 19.4 mmol/L Low 21.0-32.[address] [facility] Chloride assayOrdered By: [facility] Malina Briseno on 07-20-2024 Chloride [Moles/Vol] 106 mmol/L 98-108 [facility] Eosinophil percentageOrdered By: [facility] Malina Briseno on 07-20-2024 Eosinophils/100 WBC (Bld) 11.5 % High 0-[address] [facility] Epithelial cells.squamous LM Ql (Urine sed)Ordered By: [facility] Malina Briseno on 07-20-2024 Epithelial cells.squamous LM.HPF (Urine sed) [#/Area] 10 /[HPF] 5-[address] [facility] Erythrocyte distribution wid th (RBC) [Ratio]Ordered By: [facility] Malinakassandra Briseno on 07-20-2024 Erythrocyte distribution width (RBC) [Entitic vol] 44.9 fL High 35.1-43.[address] [facility] Erythrocyte distribution wid th ratioOrdered By: [facility] Malina Finn on 07-20-2024 Erythrocyte distribution width (RBC) [Ratio] 13.7 % 11.6-14.[address] [facility] GFR/1.73 sq M.predicted abdi g non-blacks MDRD (S/P/Bld) [Vol rate/Area]Ordered By: [facility] Malina Briseno on 07-20-2024 Estimated GFR (MDRD) Non-Af Amer 95 >[address] [facility] Comment on above: mL/min/1.73m2 CKD-EP I Creatinine Equation (2020) Glucose Ql (U)Ordered By: [facility] Malina Briseno on 07-20-2024 Glucose (U) [Mass/Vol] 1000 mg/dL High Normal [facility] Hematocrit Auto (Bld) [Volum e fraction]Ordered By: [facility] Malinakassandra Briseno on 07-20-2024 Hematocrit (Bld) [Volume fraction] 42.1 % 37-[address] [facility] Hemoglobin measurementOrdere d By: [facility] Malina Briseno on 07-20-2024 Hemoglobin (Bld) [Mass/Vol] 14.5 g/dL 12.0-15.[address] [facility] Immature granulocytes/100 WB C Auto (Bld)Ordered By: [facility] Malinakassandra Briseno on 07-20-2024 Immature granulocytes/100 WBC (Bld) 0.300 % 0.0-0.[address] [facility] Comment on above: IG% - Immature Granu locytes (promyelocytes, myelocytes and metamyelocytes) > 1% indicates that a LEFT SHIFT is Present. Ketones Test strip Ql (U)Ord ered By: [facility] Malina Briseno on 07-20-2024 Ketones Ql (U) Negative Negative [facility] Lymphocytes Auto (Unsp spec) [#/Vol]Ordered By: [facility] Malina Briseno on 07-20-2024 Lymphocytes (Bld) [#/Vol] 2.49 10*3/uL 0.83-4.[address] [facility] Lymphocytes/100 WBC Auto (Un sp spec)Ordered By: [facility] Malina Briseno on 07-20-2024 Lymphocytes/100 WBC (Bld) 24.0 % 19-[address] [facility] MCV (mean corpuscular volume ) determinationOrdered By: [facility] Malina Briseno on 07-20-2024 MCV (RBC) [Entitic vol] 89.6 fL 81-99 [facility] Mean corpuscular hemoglobin (MCH) determinationOrdered By: [facility] Malina Briseno on 07-20-2024 MCH (RBC) [Entitic mass] 30.9 pg 27.0-32.[address] [facility] Mean corpuscular hemoglobin concentration (MCHC) determinationOrdered By: [facility] Malina Briseno on 07-20-2024 MCHC (RBC) [Mass/Vol] 34.4 g/dL 32-36 [facility] Mean platelet volume determi nationOrdered By: [facility] Malina Briseno on 07-20-2024 Platelet mean volume (Bld) [Entitic vol] 10.4 fL 6.2-12.[address] [facility] Microscopic analysis of urin e for red blood cells (RBC)Ordered By: [facility] Malina Briseno on 07-20-2024 Urine RBC 0-5 SEEN /hpf 0-[address] [facility] Monocyte percentageOrdered B y: [facility] Malina Briseno on 07-20-2024 Monocytes/100 WBC (Bld) 6.9 % 0-10 [facility] Mucus LM Ql (Urine sed)Order ed By: [facility] Malina Briseno on 07-20-2024 Mucus Ql (Urine sed) 0 SEEN /hpf [facility] Neutrophil percentageOrdered By: [facility] Malina Briseno on 07-20-2024 Neutrophils/100 WBC (Bld) 56.3 % 47-[address] [facility] Nitrite Test strip Ql (U)Ord ered By: [facility] Malina Briseno on 07-20-2024 Nitrite Ql (U) Negative Negative [facility] Nucleated red blood cell per centageOrdered By: [facility] Malina Briseno on 07-20-2024 Nucleated RBC/100 WBC (Bld) [Ratio] 0 % 0-[address] [facility] Platelet countOrdered By: [facility] Malina Finn on 07-20-2024 Platelets (Bld) [#/Vol] 282 10*3/uL 150-[address] [facility] Potassium (Unsp spec) [Mass/ Vol]Ordered By: [facility] Malina Finn on 07-20-2024 Potassium [Moles/Vol] 4.3 mmol/L 3.3-5.1 [facility] Protein Test strip Ql (U)Ord ered By: [facility] Malina Finn on 07-20-2024 Protein Ql (U) Negative Negative [facility] RBC Auto (Bld) [#/Vol]Ordere d By: [facility] Malina Finn on 07-20-2024 RBC (Bld) [#/Vol] 4.70 10*6/uL 4.2-5.4 [facility] Serum creatinine measurement (mass/volume)Or[facility] By: [facility] 07-[facility]24 Creatinine [Mass/Vol] 0.64 mg/dL Low 0.70-1.20 [facility] Serum glucose measurement (m ass/volume)Ordered By: [facility] on 07-20-2024 Glucose [Mass/Vol] 153 mg/dL High 70-99 [facility] Serum or plasma calcium rashad urement (mass/volume)Ordered By: [facility] on 07-20-2024 Calcium [Mass/Vol] 9.4 mg/dL 7.6-11.0 [facility] Serum or plasma urea nitroge n measurement (mass/volume)Ordered By: [facility] on 07-20-2024 Urea nitrogen [Mass/Vol] 13 mg/dL 4-[address] [facility] Sodium levelOrdered By: [facility] 07-20-2024 Sodium [Moles/Vol] 140 mmol/L 133-145 [facility] Urinalysis, Completeon 07-20 BACTERIA RARE Normal None Seen [facility] Comment on above: Order Comment: CLEAN CATCH Performed By: #### L 400.0001, L100.0100, M100.2200, L500.2500 #### [facility] [address] [place], [address] RBC 0-5 SEEN Normal 0-[address] [facility] Comment on above: Order Comment: CLEAN CATCH Performed By: #### L 400.0001, L100.0100, M100.2200, L500.2500 #### [facility] [address] [place], [address] WBC 10-25 SEEN Normal 0-[address] [facility] Comment on above: Order Comment: CLEAN CATCH Performed By: #### L 400.0001, L100.0100, M100.2200, L500.2500 #### [facility] [address] [place], [address] EPI,SQUAMOUS 10-25 SEEN Normal 5-[address] [facility] Comment on above: Order Comment: CLEAN CATCH Performed By: #### L 400.0001, L100.0100, M100.2200, L500.2500 #### [facility] [address] [place], [address] Mucus Ql (Urine sed) 0 SEEN Normal [facility] Comment on above: Order Comment: CLEAN CATCH Performed By: #### L 400.0001, L100.0100, M100.2200, L500.2500 #### [facility] [address] [place], [address] Urine blood detectionOrdered By: MARY Briseno on 07-20-2024 Urine Occult Blood 10 /ul High Negative [facility] Urine clarityOrdered By: [facility] Malina Briseno on 07-20-2024 Clarity (U) Sl. Cloudy Clear [facility] Urine color determinationOrd ered By: MARY Briseno on 07-20-2024 Color (U) Straw Yellow [facility] Urine cultureOrdered By: [facility] Malina Briseno on 07-20-2024 Bacteria identified Cx Nom (U) Positive Abnormal [facility] Urine leukocyte esterase det ection by dipstickOrdered By: MARY Briseno on 04-01-2025 Leukocyte esterase Test strip Ql (U) 25 /ul High Negative [facility] Urine pHOrdered By: [facility] Terra Briseno on 07-20-2024 pH (U) 5.0 [pH] 5.0 - 8.[address] [facility] Urine specific gravity measu rementOrdered By: [facility] Malina Briseno on 07-20-2024 Specific gravity (U) [Rel density] 1.020 1.002-1.[address] [facility] Urobilinogen Ql (U)Ordered B y: [facility] Malina Briseno on 07-20-2024 Urine Urobilinogen Normal mg/dl Normal [facility] White blood cell (WBC) count Ordered By: [facility] Malina Briseno on 07-20-2024 WBC (Bld) [#/Vol] 10.4 10*3/uL 4.4-11.0 [facility] White blood cell countOrdere d By: [facility] Malina Briseno on 07-20-2024 Urine WBC 10-25 SEEN /hpf 0-[address] [facility] Urine Cultureon 03-05-2024 [facility] Escherichia coli [place] Count >100,000 Proteus mirabilis Proteus mirabilis Escherichia coli: REACTION Ampicillin Islt DAMASO >=32 R Ampicillin+Sulbac Islt DAMASO 4 ceFAZolin Islt DAMASO <=4 S Cefepime Islt DAMASO <=0.12 S cefTRIAXone Islt DAMASO <=0.25 S Ciprofloxacin Islt DAMASO <=0.25 S B-Lactamase Extended Susc Islt NEG Gentamicin Islt DAMASO <=1 S Imipenem Islt DAMASO <=0.25 S levoFLOXacin Islt DAMASO 1 I Nitrofurantoin Islt DAMASO <=16 S Pip+Tazo Islt DAMASO <=4 S Tobramycin Islt DAMASO <=1 S TMP SMX Islt DAMASO >=320 R Proteus mirabilis: REACTION Ampicillin Islt DAMASO >=32 R Ampicillin+Sulbac Islt DAMASO 16 ceFAZolin Islt DAMASO 8 S Cefepime Islt DAMASO <=0.12 S cefTRIAXone Islt DAMASO <=0.25 S Ciprofloxacin Islt DAMASO <=0.25 S Gentamicin Islt DAMASO <=1 S levoFLOXacin Islt DAMASO <=0.12 S Nitrofurantoin Islt DAMASO 128 R Pip+Tazo Islt DAMASO <=4 S Tobramycin Islt DAMASO <=1 S TMP SMX Islt DAMASO >=320 R Normal [facility] Comment on above: Performed By: #### M 100.2200 #### [facility] [address] [place], [address] CBC W/Diff, Automatedon 11-0 5-2024 Absolute Lymph 2.71 X10 3/uL Normal 0.83-4.[address] [facility] Comment on above: Performed By: #### L 506.1000, L500.4100, L100.0100, L501.9520, L500.4050, L502.0500 #### [facility] [address] [place], [address] Absolute Neut 5.1 X10 3/uL Normal 2.0-7.[address] [facility] Comment on above: Performed By: #### L 506.1000, L500.4100, L100.0100, L501.9520, L500.4050, L502.0500 #### [facility] [address] [place], [address] Basophils/100 WBC (Bld) 0.8 % Normal 0-1 [facility] Comment on above: Performed By: #### L 506.1000, L500.4100, L100.0100, L501.9520, L500.4050, L502.0500 #### [facility] [address] [place], [address] Eosinophils/100 WBC (Bld) 2.3 % Normal 0-[address] [facility] Comment on above: Performed By: #### L 506.1000, L500.4100, L100.0100, L501.9520, L500.4050, L502.0500 #### [facility] [address] [place], [address] Erythrocyte distribution width (RBC) [Ratio] 12.5 % Normal 11.6-14.[address] [facility] Comment on above: Performed By: #### L 506.1000, L500.4100, L100.0100, L501.9520, L500.4050, L502.0500 #### [facility] [address] [place], [address] Hematocrit (Bld) [Volume fraction] 41.3 % Normal 37-[address] [facility] Comment on above: Performed By: #### L 506.1000, L500.4100, L100.0100, L501.9520, L500.4050, L502.0500 #### [facility] [address] [place], [address] Hemoglobin (Bld) [Mass/Vol] 14.0 g/dL Normal 12.0-15.[address] [facility] Comment on above: Performed By: #### L 506.1000, L500.4100, L100.0100, L501.9520, L500.4050, L502.0500 #### [facility] [address] [place], [address] IG% 0.200 Normal 0.0-0.[address] [facility] Comment on above: Result Comment: IG% - Immature Granulocytes (promyelocytes, myelocytes and metamyelocytes) > 1% indicates that a LEFT SHIFT is Present. Performed By: #### L 506.1000, L500.4100, L100.0100, L501.9520, L500.4050, L502.0500 #### [facility] [address] [place], [address] Lymphocytes/100 WBC (Bld) 31.3 % Normal 19-[address] [facility] Comment on above: Performed By: #### L 506.1000, L500.4100, L100.0100, L501.9520, L500.4050, L502.0500 #### [facility] [address] [place], [address] MCH (RBC) [Entitic mass] 30.3 pg Normal 27.0-32.[address] [facility] Comment on above: Performed By: #### L 506.1000, L500.4100, L100.0100, L501.9520, L500.4050, L502.0500 #### [facility] [address] [place], [address] MCHC (RBC) [Mass/Vol] 33.9 g/dL Normal 32-36 [facility] Comment on above: Performed By: #### L 506.1000, L500.4100, L100.0100, L501.9520, L500.4050, L502.0500 #### [facility] [address] [place], [address] MCV (RBC) [Entitic vol] 89.4 fL Normal 81-99 [facility] Comment on above: Performed By: #### L 506.1000, L500.4100, L100.0100, L501.9520, L500.4050, L502.0500 #### [facility] [address] [place], [address] Monocytes/100 WBC (Bld) 6.7 % Normal 0-10 [facility] Comment on above: Performed By: #### L 506.1000, L500.4100, L100.0100, L501.9520, L500.4050, L502.0500 #### [facility] [address] [place], [address] Neutrophils/100 WBC (Bld) 58.7 % Normal 47-[address] [facility] Comment on above: Performed By: #### L 506.1000, L500.4100, L100.0100, L501.9520, L500.4050, L502.0500 #### [facility] [address] [place], [address] Nucleated RBC (Bld) [#/Vol] 0 10*3/uL Normal 0-[address] [facility] Comment on above: Performed By: #### L 506.1000, L500.4100, L100.0100, L501.9520, L500.4050, L502.0500 #### [facility] [address] [place], [address] Platelet mean volume (Bld) [Entitic vol] 10.5 fL Normal 6.2-12.[address] [facility] Comment on above: Performed By: #### L 506.1000, L500.4100, L100.0100, L501.9520, L500.4050, L502.0500 #### [facility] [address] [place], [address] Platelets (Bld) [#/Vol] 262 10*3/uL Normal 150-[address] [facility] Comment on above: Performed By: #### L 506.1000, L500.4100, L100.0100, L501.9520, L500.4050, L502.0500 #### [facility] [address] [place], [address] RBC (Bld) [#/Vol] 4.62 10*6/uL Normal 4.2-5.4 [facility] Comment on above: Performed By: #### L 506.1000, L500.4100, L100.0100, L501.9520, L500.4050, L502.0500 #### [facility] [address] [place], [address] RDW SD 41.1 fl Normal 35.1-43.[address] [facility] Comment on above: Performed By: #### L 506.1000, L500.4100, L100.0100, L501.9520, L500.4050, L502.0500 #### [facility] [address] [place], [address] WBC (Bld) [#/Vol] 8.7 10*3/uL Normal 4.4-11.0 [facility] Comment on above: Performed By: #### L 506.1000, L500.4100, L100.0100, L501.9520, L500.4050, L502.0500 #### [facility] [address] [place], [address] Comprehensive Metabolic Prof ilon 02-24-2024 Albumin [Mass/Vol] 3.9 g/dL Normal 3.2-5.0 [facility] Comment on above: Performed By: #### L 506.1000, L500.4100, L100.0100, L501.9520, L500.4050, L502.0500 #### [facility] [address] [place], [address] Albumin/Globulin [Mass ratio] 1.0 {ratio} Normal 0.9-2.[address] [facility] Comment on above: Performed By: #### L 506.1000, L500.4100, L100.0100, L501.9520, L500.4050, L502.0500 #### [facility] [address] [place], [address] ALK P 93 U/L Normal 45-[address] [facility] Comment on above: Performed By: #### L 506.1000, L500.4100, L100.0100, L501.9520, L500.4050, L502.0500 #### [facility] [address] [place], [address] ALT [Catalytic activity/Vol] 28 U/L Normal 13-[address] [facility] Comment on above: Performed By: #### L 506.1000, L500.4100, L100.0100, L501.9520, L500.4050, L502.0500 #### [facility] [address] [place], [address] AST [Catalytic activity/Vol] 13 U/L Low 15-[address] [facility] Comment on above: Performed By: #### L 506.1000, L500.4100, L100.0100, L501.9520, L500.4050, L502.0500 #### [facility] [address] [place], [address] Bilirubin [Mass/Vol] 0.60 mg/dL Normal 0.20-1.00 [facility] Comment on above: Result Comment: For patients on eltrombopag therapy, use of Dimension [place] TBIL is not recommended. Performed By: #### L 506.1000, L500.4100, L100.0100, L501.9520, L500.4050, L502.0500 #### [facility] [address] [place], [address] BUN/CRE 20.8 RATIO High 10-[address] [facility] Comment on above: Performed By: #### L 506.1000, L500.4100, L100.0100, L501.9520, L500.4050, L502.0500 #### [facility] [address] [place], [address] CA,Total 9.4 mg/dL Normal 8.5-10.[address] [facility] Comment on above: Performed By: #### L 506.1000, L500.4100, L100.0100, L501.9520, L500.4050, L502.0500 #### [facility] [address] [place], [address] Chloride [Moles/Vol] 102 mmol/L Normal 98-107 [facility] Comment on above: Performed By: #### L 506.1000, L500.4100, L100.0100, L501.9520, L500.4050, L502.0500 #### [facility] [address] [place], [address] CO2 [Moles/Vol] 26.0 mmol/L Normal 21.0-32.[address] [facility] Comment on above: Performed By: #### L 506.1000, L500.4100, L100.0100, L501.9520, L500.4050, L502.0500 #### [facility] [address] [place], [address] Creatinine [Mass/Vol] 0.67 mg/dL Normal 0.55-1.02 [facility] Comment on above: Result Comment: The validity of the calculated GFR GFRAA in patients over 70 years has not been determined. Clinical correlation is essential. Performed By: #### L 506.1000, L500.4100, L100.0100, L501.9520, L500.4050, L502.0500 #### [facility] [address] [place], [address] (680) EST GFR - AA 111 mL/min Normal >[address] [facility] Comment on above: Result Comment: Afri can Cuban GFR Calc Performed By: #### L 506.1000, L500.4100, L100.0100, L501.9520, L500.4050, L502.0500 #### [facility] [address] [place], [place], [address] GAP 6 Normal 5-[address] [facility] Comment on above: Performed By: #### L 506.1000, L500.4100, L100.0100, L501.9520, L500.4050, L502.0500 #### [facility] [address] [place], [address] GFR/1.73 sq M.predicted among non-blacks MDRD (S/P/Bld) [Vol rate/Area] 92 mL/min/{1.73_m2} Normal >[address] [facility] Comment on above: Result Comment: Non- GFR Calc Performed By: #### L 506.1000, L500.4100, L100.0100, L501.9520, L500.4050, L502.0500 #### [facility] [address] [place], [address] Globulin (S) [Mass/Vol] 4.1 g/dL Normal 2.2-4.2 [facility] Comment on above: Performed By: #### L 506.1000, L500.4100, L100.0100, L501.9520, L500.4050, L502.0500 #### [facility] [address] [place], [address] Glucose [Mass/Vol] 206 mg/dL High 74-106 [facility] Comment on above: Result Comment: Gluc ose result greater than or equal to 200 mg/dL suggests DIABETES MELLITUS per A.D.A. criteria. Performed By: #### L 506.1000, L500.4100, L100.0100, L501.9520, L500.4050, L502.0500 #### [facility] [address] [place], [address] Potassium [Moles/Vol] 4.1 mmol/L Normal 3.5-5.1 [facility] Comment on above: Performed By: #### L 506.1000, L500.4100, L100.0100, L501.9520, L500.4050, L502.0500 #### [facility] [address] [place], [address] Sodium [Moles/Vol] 134 mmol/L Low 136-145 [facility] Comment on above: Performed By: #### L 506.1000, L500.4100, L100.0100, L501.9520, L500.4050, L502.0500 #### [facility] [address] [place], [address] T PROT 8.0 g/dL Normal 6.4-8.[address] [facility] Comment on above: Performed By: #### L 506.1000, L500.4100, L100.0100, L501.9520, L500.4050, L502.0500 #### [facility] [address] [place], [address] Urea nitrogen [Mass/Vol] 14 mg/dL Normal 7-[address] [facility] Comment on above: Performed By: #### L 506.1000, L500.4100, L100.0100, L501.9520, L500.4050, L502.0500 #### [facility] [address] [place], [address] Lipid Profileon 02-24-2024 Cholesterol [Mass/Vol] 130 mg/dL Normal 200 [facility] Comment on above: Result Comment: <200 mg/dL Desirable 200-240 mg/dL Borderline >240 mg/dL High Risk Performed By: #### L 506.1000, L500.4100, L100.0100, L501.9520, L500.4050, L502.0500 #### [facility] [address] [place], [address] Cholesterol in HDL [Mass/Vol] 45 mg/dL Normal [facility] Comment on above: Result Comment: The drugs N-Acetylcysteine and Metamizole may falsely depress this assay. Reference Range HDL <40 mg/dL Low HDL Cholesterol HDL >or= 60 mg/dL High HDL Cholesterol Performed By: #### L 506.1000, L500.4100, L100.0100, L501.9520, L500.4050, L502.0500 #### [facility] [address] [place], [address] Cholesterol in LDL [Mass/Vol] 57 mg/dL Normal 0-[address] [facility] Comment on above: Performed By: #### L 506.1000, L500.4100, L100.0100, L501.9520, L500.4050, L502.0500 #### [facility] [address] [place], [address] Cholesterol in VLDL [Mass/Vol] 28 mg/dL Normal 5-[address] [facility] Comment on above: Performed By: #### L 506.1000, L500.4100, L100.0100, L501.9520, L500.4050, L502.0500 #### [facility] [address] [place], [address] Triglyceride [Mass/Vol] 140 mg/dL Normal [facility] Comment on above: Result Comment: The drugs N-Acetylcysteine and Metamizole may falsely depress this assay. Serum Triglycerides Reference Interval Normal <150 mg/dL Borderline high 150 - 199 mg/dL High 200 - 499 mg/dL Very High > or = 500 mg/dL Performed By: #### L 506.1000, L500.4100, L100.0100, L501.9520, L500.4050, L502.0500 #### [facility] [address] [place], [address] Microalbumin,Random Urineon 02-24-2024 MICROALBUMIN,UR 13.7 mg/L Normal NO RANGE EST. [facility] Comment on above: Performed By: #### L 506.1000, L500.4100, L100.0100, L501.9520, L500.4050, L502.0500 #### [facility] [address] [place], [address] Thyroid Stim Hormone (TSH)on 02-24-2024 TSH 1.190 uIU/mL Normal 0.358-3.[address] [facility] Comment on above: Performed By: #### L 506.1000, L500.4100, L100.0100, L501.9520, L500.4050, L502.0500 #### [facility] [address] [place], [address] Vitamin D,25 Hydroxyon 02-23 Vitamin D 25-OH 37.2 ng/mL Normal [facility] Comment on above: Result Comment: Mary Lou min D 25(OH) Status Range Deficiency <20 ng/mL (50nmol/L) Insufficiency 20 - 30 ng/mL (50 - 75 nmol/L) Sufficiency 30 - 100 ng/mL (75 - 250 nmol/L) Toxicity >100 ng/mL (>250 nmol/L) Performed By: #### L 506.1000, L500.4100, L100.0100, L501.9520, L500.4050, L502.0500 #### [facility] [address] [place], [address] OVon 10-01-2023 CNOV Office Visit (UCTR ) MENA SHEEHAN ([id number]) 1955 F Date Time Provider Department 10/01/23 7:45 AM ROSY SHAHID [facility] During your visit today, we recorded the following information about you: Temperature Pulse Respiration Blood pressure 98.2 degrees 86/minute 16/minute 140/74 Weight 68.8 kg Rosy Shahid PA-C 10/01/2023 9:08 AM Signed This note was created using NoteWriter. Subjective Mena Sheehan is a 67 year old female. HPI Presents with the chief complaint of cough and wheezing over the past 3 weeks. Her has been sick with similar symptoms. She does have a history of asthma. She has been using her albuterol inhaler and nebulizer. States she has had some clear sputum. No sinus pressure or pain. She has had some shortness of breath with this. Denies chest pain. No vomiting or diarrhea. She has been using Tessalon that she had leftover. No fevers. Review of Systems Constitutional: Negative for fatigue and fever. HENT: Negative for congestion, ear pain, rhinorrhea, sinus pressure, sinus pain and sore throat. Respiratory: Positive for cough, shortness of breath and wheezing. Cardiovascular: Negative. Gastrointestinal: Negative for abdominal pain, diarrhea, nausea and vomiting. Genitourinary: Negative. Musculoskeletal: Negative. All other systems reviewed and are negative. PAST MEDICAL HISTORY Diagnosis Date Asthma DM (diabetes mellitus) (HCC) Environmental allergies HTN (hypertension), benign Hyperlipidemia Current Outpatient Medications Medication Sig Dispense Refill pravastatin 20 mg ORAL tablet Take 1 tablet by mouth once daily. 0 glyBURIDE 5 mg ORAL tablet Take 1 tablet by mouth twice daily. 0 lisinopril 10 mg ORAL tablet Take 1 tablet by mouth once daily. 0 albuterol 2.5 mg /3 mL (0.083 %) INHALATION nebulizer solution 3 mL three times daily as needed. OVER 5-15 MINUTES. FOR WHEEZING AND SHORTNESS OF BREATH. 0 doxycycline (VIBRA-TABS) 100 mg tablet Take 1 tablet by mouth two times a day for 7 days. 14 tablet 0 predniSONE (DELTASONE) 20 mg tablet Take 2 tablets by mouth once daily for 5 days. 10 tablet 0 benzonatate (TESSALON PERLES) 100 mg capsule Take 2 capsules by mouth three times a day as needed. 30 capsule 0 guaiFENesin (MUCINEX) 600 mg 12 hr tablet Take 2 tablets by mouth two times a day for 5 days. 20 tablet 0 No current facility-administered medications for this visit. PAST SURGICAL HISTORY Procedure Laterality Date BX BREAST PERC NEED W/GUID 04/25/2011 Abnormal UOQ mamm LAPAROSCOPIC APPENDECTOMY 08/19/2020 STEREO LOC FOR CORE BRST BX LT 05/07/2011 No family history on file. Social History Tobacco Use Smoking status: Never Smokeless tobacco: Never Substance Use Topics Alcohol use: No Drug use: No Objective BP 140/74 Pulse 86 Temp 36.8 ?C (98.2 ?F) Resp 16 Wt 68.8 kg (151 lb 10.8 oz) SpO2 97% Physical Exam Vitals reviewed. Constitutional: Appearance: Normal appearance. HENT: Head: Normocephalic and atraumatic. Right Ear: Tympanic membrane, ear canal and external ear normal. Left Ear: Tympanic membrane, ear canal and external ear normal. Nose: Nose normal. Mouth/Throat: Mouth: Mucous membranes are moist. Pharynx: Oropharynx is clear. Cardiovascular: Rate and Rhythm: Normal rate and regular rhythm. Heart sounds: Normal heart sounds. Pulmonary: Effort: Pulmonary effort is normal. Breath sounds: Normal breath sounds. Musculoskeletal: Cervical back: Neck supple. Lymphadenopathy: Cervical: No cervical adenopathy. Skin: General: Skin is warm and dry. Findings: No rash. Neurological: Mental Status: She is alert. Assessment and Plan ASSESSMENT/PLAN: 1. Bronchitis - ICD9: 490, ICD10: J40 Cxr clear. Rx for tessalon, mucinex, and prednisone. Continue albuterol. If not improving written rx for doxycycline given but discussed trying other meds first. Patient agreeable with plan. - XR CHEST 2V FRONTAL/LAT Rosy Shahid PA-C Allergies As of Date: 10/01/2023 Noted Allergy Reaction CODEINE 04/25/2011 9 - Itching Date Reviewed: 10/01/2023 Reviewed by: Anabella Hdz - Fully Assessed Reason for Visit: Cough [28] Cmt: Congestion x3 weeks Primary Visit Diagnosis:Bronchitis [J40] Order(s):XR CHEST 2V FRONTAL/LAT [[id number]] Order #: [id number] FUTURE doxycycline (VIBRA-TABS) 100 mg tabletTake 1 tablet by mouth two times a day for 7 days.Disp: 14 tabletRfl: 0 predniSONE (DELTASONE) 20 mg tabletTake 2 tablets by mouth once daily for 5 days.Disp: 10 tabletRfl: 0 benzonatate (TESSALON PERLES) 100 mg capsuleTake 2 capsules by mouth three times a day as needed.Disp: 30 capsuleRfl: 0 guaiFENesin (MUCINEX) 600 mg 12 hr tabletTake 2 tablets by mouth two times a day for 5 days.Disp: 20 tabletRfl: 0 Prescriptions as of 10/01/2023 - doxycycline (VIBRA-TABS) 100 mg tablet T (more content not included)... Normal [facility] XR CHEST 2V FRONTAL/LATon XR CHEST 2V FRONTAL/LAT * * *Final Repor t* * * DATE OF EXAM: Oct 01 2023 8:21AM WOX 5291 - XR CHEST 2V FRONTAL/LAT / PROCEDURE REASON: Bronchitis * * * * Physician Interpretation * * * * EXAMINATION: CHEST RADIOGRAPH (2 VIEW FRONTAL and LATERAL) CLINICAL HISTORY: Bronchitis MQ: XC2_6 EXAM DATE/TIME: 10/01/2023 8:21 AM COMPARISON: No relevant prior studies available. RESULT: Lines, tubes, and devices: None. Lungs and pleura: No consolidation. No lung mass. No pleural effusion. No pneumothorax. Cardiomediastinal silhouette: Normal cardiomediastinal silhouette. Bones and soft tissues: Unremarkable. IMPRESSION: No acute radiographic abnormality. Senior Lead Developer: [facility] Transcribe Date/Time: Oct 01 2023 8:41A Dictated by : SILVIA VALENZUELA MD This examination was interpreted and the report reviewed and electronically signed by: SILVIA VALENZUELA MD on Oct 01 2023 8:42AM EST [id number] Normal [facility] XR Chest PA and Lateralon IMPRESSION: No acute radiographic abnormality. Senior Lead Developer: [facility] Transcribe Date/Time: Oct 01 2023 8:41A Dictated by : SILVIA VALENZUELA MD This examination was interpreted and the report reviewed and electronically signed by: SILVIA VALENZUELA MD on Oct 01 2023 8:42AM EST DIVISION OF RADIOLOGY * * *Final Report* * * DATE OF EXAM: Oct 01 2023 8:21AM WOX 5291 - XR CHEST 2V FRONTAL/LAT / PROCEDURE REASON: Bronchitis * * * * Physician Interpretation * * * * EXAMINATION: CHEST RADIOGRAPH (2 VIEW FRONTAL & LATERAL) CLINICAL HISTORY: Bronchitis MQ: XC2_6 EXAM DATE/TIME: 10/01/2023 8:21 AM COMPARISON: No relevant prior studies available. RESULT: Lines, tubes, and devices: None. Lungs and pleura: No consolidation. No lung mass. No pleural effusion. No pneumothorax. Cardiomediastinal silhouette: Normal cardiomediastinal silhouette. Bones and soft tissues: Unremarkable. DIVISION OF RADIOLOGY Provider, [facility] - 10/01/2023 * * *Final Report* * * DATE OF EXAM: Oct 01 2023 8:21AM WOX 5291 - XR CHEST 2V FRONTAL/LAT / PROCEDURE REASON: Bronchitis * * * * Physician Interpretation * * * * EXAMINATION: CHEST RADIOGRAPH (2 VIEW FRONTAL & LATERAL) CLINICAL HISTORY: Bronchitis MQ: XC2_6 EXAM DATE/TIME: 10/01/2023 8:21 AM COMPARISON: No relevant prior studies available. RESULT: Lines, tubes, and devices: None. Lungs and pleura: No consolidation. No lung mass. No pleural effusion. No pneumothorax. Cardiomediastinal silhouette: Normal cardiomediastinal silhouette. Bones and soft tissues: Unremarkable. IMPRESSION IMPRESSION: No acute radiographic abnormality. Senior Lead Developer: [facility] Transcribe Date/Time: Oct 01 2023 8:41A Dictated by : SILVIA VALENZUELA MD This examination was interpreted and the report reviewed and electronically signed by: SILVIA VALENZUELA MD on Oct 01 2023 8:42AM EST [facility] Radiology Study [facility] (narrative) [facility] XR Chest PA and LateralOrder ed By: [facility] Provider on 10-01-[address] [facility] Basophil percentageOrdered B y: Malina Briseno on 03-28-2023 Bilirubin [Mass/Vol] 0.60 mg/dL 0.20-1.00 [facility] Comment on above: For patients on eltr ombopag therapy, use of Dimension [place] TBIL is not recommended. Chloride [Moles/Vol] 106 mmol/L 98-107 [facility] Cholesterol [Mass/Vol] 106 mg/dL <200 [facility] Comment on above: <200 mg/dL Desirable 200-240 mg/dL Borderline >240 mg/dL High Risk Glucose [Mass/Vol] 215 mg/dL 74-106 [facility] Comment on above: Glucose result great er than or equal to 200 mg/dLsuggests DIABETES MELLITUS per A.D.A. criteria. Potassium [Moles/Vol] 4.0 mmol/L 3.5-5.1 [facility] Protein [Mass/Vol] 7.3 g/dL 6.4-8.2 [facility] Sodium [Moles/Vol] 138 mmol/L 136-145 [facility] Triglyceride [Mass/Vol] 93 mg/dL <199 [facility] Comment on above: The drugs N-Acetylcy steine and Metamizole may falsely depress this assay.Serum Triglycerides Reference Interval Normal <150 mg/dL Borderline high 150 - 199 mg/dL High 200 - 499 mg/dL Very High > or = 500 mg/dL WBC (Bld) [#/Vol] 7.5 10*3/uL 4.4-11.0 [facility] Blood erythrocytes count (nu mber/volume)Ordered By: Malina Briseno on 03-28-2023 RBC (Bld) [#/Vol] 4.41 10*6/uL 4.2-5.4 [facility] Blood hemoglobin measurement (mass/volume)Ordered By: Malina Briseno on 03-28-2023 Hemoglobin (Bld) [Mass/Vol] 12.8 g/dL 12.0-15.[address] [facility] Blood platelet mean volumeOr dered By: Malina Briseno on 03-28-2023 Platelet mean volume (Bld) [Entitic vol] 10.8 fL 6.2-12.[address] [facility] Determination of erythrocyte mean corpuscular volume (MCV)Ordered By: Malina Briseno on 03-28-2023 MCV (RBC) [Entitic vol] 89.3 fL 81-99 [facility] Hematocrit Auto (Bld) [Volum e fraction]Ordered By: Malina Briseno on 03-28-2023 Hematocrit (Bld) [Volume fraction] 39.4 % 37-[address] [facility] Iron measurement (mass/mass) Ordered By: Malina Briseno on 03-28-2023 Iron (Unsp spec) [Mass/Mass] 51 ug/dL 50-[address] [facility] - Chemistry and C hemistry - challengeOrdered By: Malina Briseno on 03-28-2023 ALP [Catalytic activity/Vol] 76 U/L 45-[address] [facility] ALT [Catalytic activity/Vol] 21 U/L 13-[address] [facility] CO2 [Moles/Vol] 27.0 mmol/L 21.0-32.[address] [facility] Globulin (S) [Mass/Vol] 3.7 g/dL 2.2-4.2 [facility] Urea nitrogen/Creatinine [Mass ratio] 19.5 mg/mg 10-[address] [facility] - Hematology and Cell countsOrdered By: Malina Briseno on 03-28-2023 Erythrocyte distribution width (RBC) [Entitic vol] 43.9 fL 35.1-43.[address] [facility] Erythrocyte distribution width (RBC) [Ratio] 13.3 % 11.6-14.[address] [facility] MCH (RBC) [Entitic mass] 29.0 pg 27.0-32.[address] [facility] MCHC Auto (RBC) [Mass/Vol]Or dered By: Malina Briseno on 03-28-2023 MCHC (RBC) [Mass/Vol] 32.5 g/dL 32-36 [facility] No Panel InformationOrdered By: Malina Briseno on 03-28-2023 Estimated GFR (MDRD) Amer 89 mL/min >[address] [facility] Comment on above: GFR Calc Estimated GFR (MDRD) Non-Af Amer 73 mL/min >[address] [facility] Comment on above: Non- GFR Calc Thyroid Stimulating Hormone (TSH) 1.16 uIU/mL 0.358-3.[address] [facility] Total Iron Binding Capacity 297 ug/dL 250-[address] [facility] Vitamin D 25-Hydroxy 46.1 ng/mL [facility] Comment on above: Vitamin D 25(OH) Sta tus Range Deficiency <20 ng/mL (50nmol/L) Insufficiency 20 - 30 ng/mL (50 - 75 nmol/L) Sufficiency 30 - 100 ng/mL (75 - 250 nmol/L) Toxicity >100 ng/mL (>250 nmol/L) Platelets bldOrdered By: Mariluz Briseno on 03-28-2023 Platelets (Bld) [#/Vol] 301 10*3/uL 150-[address] [facility] Serum or plasma albumin rashad urement (mass/volume)Ordered By: Malina Briseno on 03-28-2023 Albumin [Mass/Vol] 3.6 g/dL 3.2-5.0 [facility] Serum or plasma albumin/glob ulin mass ratioOrdered By: Malina Briseno on 03-28-2023 Albumin/Globulin [Mass ratio] 1.0 {ratio} 0.9-2.[address] [facility] Serum or plasma calcium rashad urement (mass/volume)Ordered By: Malina Briseno on 03-28-2023 Calcium [Mass/Vol] 8.7 mg/dL 8.5-10.1 [facility] Serum or plasma cholesterol in HDL measurement (mass/volume)Ordered By: Malina Briseno on 03-28-2023 Cholesterol in HDL [Mass/Vol] 44 mg/dL >[address] [facility] Comment on above: The drugs N-Acetylcy steine and Metamizole may falsely depress this assay. Reference Range HDL <40 mg/dL Low HDL Cholesterol HDL >or= 60 mg/dL High HDL Cholesterol Serum or plasma cholesterol in VLDL measurement (mass/volume)Ordered By: Malina Briseno on 03-28-2023 Cholesterol in VLDL [Mass/Vol] 19 mg/dL 5-[address] [facility] Serum or plasma creatinine m easurement (mass/volume)Ordered By: Malina Briseno on 03-28-2023 Creatinine [Mass/Vol] 0.82 mg/dL 0.55-1.02 [facility] Comment on above: The validity of the calculated GFR & GFRAA in patients over 70 years has not been determined. Clinical correlation is essential. Serum or plasma iron saturat ion measurement (mass fraction)Ordered By: Malina Briseno on 03-28-2023 Iron saturation [Mass fraction] 17.2 % 15.0-55.[address] [facility] Serum or plasma low density lipoprotein (LDL) cholesterol measurement (mass/volume)Ordered By: Malina Briseno on 03-28-2023 Cholesterol in LDL [Mass/Vol] 43 mg/dL 0-[address] [facility] Serum or plasma urea nitroge n measurement (mass/volume)Ordered By: Malina Briseno on 03-28-2023 Urea nitrogen [Mass/Vol] 16 mg/dL 7-[address] [facility] Thin prep Papanicolaou smear with manual screeningOrdered By: Malina Briseno on 03-28-2023 Thin prep Papanicolaou smear with manual screening 15 U/L 15-[address] [facility] Thin prep Papanicolaou smear with manual screening 5 5-[address] [facility] Thin prep Papanicolaou smear with manual screening 22.5 mg/L NO RANGE EST. [facility] Basophil percentageOrdered B y: Malina Briseno on 07-30-2022 Bilirubin [Mass/Vol] 0.40 mg/dL 0.20-1.00 [facility] Comment on above: For patients on eltr ombopag therapy, use of Dimension Salvo TBIL is not recommended. Chloride [Moles/Vol] 102 mmol/L 98-107 [facility] Cholesterol [Mass/Vol] 128 mg/dL <200 [facility] Comment on above: <200 mg/dL Desirable 200-240 mg/dL Borderline >240 mg/dL High Risk Glucose [Mass/Vol] 202 mg/dL 74-106 [facility] Comment on above: Glucose result great er than or equal to 200 mg/dLsuggests DIABETES MELLITUS per A.D.A. criteria. Potassium [Moles/Vol] 3.8 mmol/L 3.5-5.1 [facility] Protein [Mass/Vol] 7.6 g/dL 6.4-8.2 [facility] Sodium [Moles/Vol] 136 mmol/L 136-145 [facility] Triglyceride [Mass/Vol] 156 mg/dL <199 [facility] Comment on above: The drugs N-Acetylcy steine and Metamizole may falsely depress this assay.Serum Triglycerides Reference Interval Normal <150 mg/dL Borderline high 150 - 199 mg/dL High 200 - 499 mg/dL Very High > or = 500 mg/dL WBC (Bld) [#/Vol] 8.9 10*3/uL 4.4-11.0 [facility] Blood erythrocytes count (nu mber/volume)Ordered By: Malina Briseno on 07-30-2022 RBC (Bld) [#/Vol] 4.44 10*6/uL 4.2-5.4 [facility] Blood hemoglobin measurement (mass/volume)Ordered By: Malina Briseno on 07-30-2022 Hemoglobin (Bld) [Mass/Vol] 13.1 g/dL 12.0-15.[address] [facility] Blood platelet mean volumeOr dered By: Malina Briseno on 07-30-2022 Platelet mean volume (Bld) [Entitic vol] 10.4 fL 6.2-12.[address] [facility] Determination of erythrocyte mean corpuscular volume (MCV)Ordered By: Malina Briseno on 07-30-2022 MCV (RBC) [Entitic vol] 89.4 fL 81-99 [facility] Hematocrit Auto (Bld) [Volum e fraction]Ordered By: Malina Briseno on 07-30-2022 Hematocrit (Bld) [Volume fraction] 39.7 % 37-[address] [facility] Laboratory - Chemistry and C hemistry - challengeOrdered By: Malina Briseno on 07-30-2022 ALP [Catalytic activity/Vol] 66 U/L 45-[address] [facility] ALT [Catalytic activity/Vol] 25 U/L 13-[address] [facility] CO2 [Moles/Vol] 27.0 mmol/L 21.0-32.[address] [facility] Cobalamin (Vitamin B12) [Mass/Vol] 549 pg/mL 211-[address] [facility] Globulin (S) [Mass/Vol] 3.8 g/dL 2.2-4.2 [facility] Magnesium [Mass/Vol] 1.7 mg/dL 1.6-2.6 [facility] Urea nitrogen/Creatinine [Mass ratio] 23.9 mg/mg 10-[address] [facility] Laboratory - Hematology and Cell countsOrdered By: Malina Briseno on 07-30-2022 Erythrocyte distribution width (RBC) [Entitic vol] 43.1 fL 35.1-43.[address] [facility] Erythrocyte distribution width (RBC) [Ratio] 13.2 % 11.6-14.[address] [facility] MCH (RBC) [Entitic mass] 29.5 pg 27.0-32.[address] [facility] MCHC Auto (RBC) [Mass/Vol]Or dered By: Malina Briseno on 07-30-2022 MCHC (RBC) [Mass/Vol] 33.0 g/dL 32-36 [facility] No Panel InformationOrdered By: Malina Briseno on 07-30-2022 Estimated GFR (MDRD) Amer 113 mL/min >[address] [facility] Comment on above: GFR Calc Estimated GFR (MDRD) Non-Af Amer 93 mL/min >[address] [facility] Comment on above: Non- GFR Calc Thyroid Stimulating Hormone (TSH) 1.43 uIU/mL 0.358-3.[address] [facility] Vitamin D 25-Hydroxy 38.8 ng/mL [facility] Comment on above: Vitamin D 25(OH) Sta tus Range Deficiency <20 ng/mL (50nmol/L) Insufficiency 20 - 30 ng/mL (50 - 75 nmol/L) Sufficiency 30 - 100 ng/mL (75 - 250 nmol/L) Toxicity >100 ng/mL (>250 nmol/L) Platelets bldOrdered By: Mariluz Briseno on 07-30-2022 Platelets (Bld) [#/Vol] 286 10*3/uL 150-[address] [facility] Serum or plasma albumin rashad urement (mass/volume)Ordered By: Malina Briseno on 07-30-2022 Albumin [Mass/Vol] 3.8 g/dL 3.2-5.0 [facility] Serum or plasma albumin/glob ulin mass ratioOrdered By: Malina Briseno on 07-30-2022 Albumin/Globulin [Mass ratio] 1.0 {ratio} 0.9-2.[address] [facility] Serum or plasma calcium rashad urement (mass/volume)Ordered By: Malina Briseno on 07-30-2022 Calcium [Mass/Vol] 9.3 mg/dL 8.5-10.1 [facility] Serum or plasma cholesterol in HDL measurement (mass/volume)Ordered By: Malina Briseno on 07-30-2022 Cholesterol in HDL [Mass/Vol] 45 mg/dL >[address] [facility] Comment on above: The drugs N-Acetylcy steine and Metamizole may falsely depress this assay. Reference Range HDL <40 mg/dL Low HDL Cholesterol HDL >or= 60 mg/dL High HDL Cholesterol Serum or plasma cholesterol in VLDL measurement (mass/volume)Ordered By: Malina Briseno on 07-30-2022 Cholesterol in VLDL [Mass/Vol] 31 mg/dL 5-[address] [facility] Serum or plasma creatinine m easurement (mass/volume)Ordered By: Malina Briseno on 07-30-2022 Creatinine [Mass/Vol] 0.67 mg/dL 0.55-1.02 [facility] Comment on above: The validity of the calculated GFR & GFRAA in patients over 70 years has not been determined. Clinical correlation is essential. Serum or plasma low density lipoprotein (LDL) cholesterol measurement (mass/volume)Ordered By: Malina Briseno on 07-30-2022 Cholesterol in LDL [Mass/Vol] 52 mg/dL 0-[address] [facility] Serum or plasma urea nitroge n measurement (mass/volume)Ordered By: Malina Briseno on 07-30-2022 Urea nitrogen [Mass/Vol] 16 mg/dL 7-[address] [facility] Thin prep Papanicolaou smear with manual screeningOrdered By: Malina Briseno on 07-30-2022 Thin prep Papanicolaou smear with manual screening 16 U/L 15-[address] [facility] Thin prep Papanicolaou smear with manual screening 7 5-[address] [facility] Thin prep Papanicolaou smear with manual screening 24.8 mg/L NO RANGE EST. [facility] Whole blood hemoglobin A1c/t otal hemoglobin ratio (mass fraction)Ordered By: Malina Briseno on 07-30-2022 HbA1c (Bld) [Mass fraction] 8.0 % 3.8-5.[address] [facility] Comment on above: Normal < 5.7 % Predi abetic 5.7 - 6.4 % Diabetic >or= 6.5 % Please note range changes. HCVon 09-10-2017 Hep C Ab Negative Normal Negative [facility] ([place]) Comment on above: Performed By: #### H FP, LIPID ####[place] [address]#### HCV1 ####[place] [address] Hep C Ab Int No serological evidence of Hepatitis C infection, although levels of anti-HCV may be undetectable in early infection. Normal [facility] ([place]) Comment on above: Performed By: #### H FP, LIPID ####[facility] [place] [address]#### HCV1 ####[place] [address] HFPon 09-09-2017 Alanine aminotransferase (ALT) 20 U/L Normal 10-35 [facility] ([place]) Comment on above: Performed By: #### H FP, LIPID ####[facility] [place] [address]#### HCV1 ####[place] [address] Albumin 4.4 G/dL Normal 3.4-4.8 [facility]) Comment on above: Performed By: #### H FP, LIPID ####[place] [address]#### HCV1 ####[place] [address] Albumin/Globulin Ratio 1.8 {ratio} Normal 1.1-2.5 A Pending sale to [facility] ([place]) Comment on above: Performed By: #### H FP, LIPID ####[place] [address]#### HCV1 ####[place] [address] Alk Phos 97 IU/L Normal 40-135 [facility] ([place]) Comment on above: Performed By: #### H FP, LIPID ####[place] [address]#### HCV1 ####[place] [address] Aspartate aminotransferase (AST) 17 U/L Normal 10-40 [facility] ([place]) Comment on above: Performed By: #### H FP, LIPID ####[place] [address]#### HCV1 ####[place] [address] Bili Direct 0.1 mg/dL Normal 0.1-0.5 [facility] ([place]) Comment on above: Performed By: #### H FP, LIPID ####[place] [address]#### HCV1 ####[place] [address] Bili Indirect 0.4 mg/dL Normal [facility] ([place]) Comment on above: Performed By: #### H FP, LIPID ####[place] [address]#### HCV1 ####[place] [address] Bili Total 0.5 mg/dL Normal 0.2-1.0 [facility] ([place]) Comment on above: Performed By: #### H FP, LIPID ####[address] [place] [place] [address]#### HCV1 ####[address] [address] Globulin 2.5 G/dL Normal [facility] ([place]) Comment on above: Performed By: #### H FP, LIPID ####[place] [place] [address]#### HCV1 ####[address] [address] Protein 6.9 G/dL Normal 6.0-8.3 [facility] ([place]) Comment on above: Performed By: #### H FP, LIPID ####[address] [address]#### HCV1 ####[place] [address] LIPIDon 09-09-2017 Cholesterol 141 mg/dL Normal 131-200 [facility] ([place]) Comment on above: Result Comment: Chol esterol Reference Interval:Less than 200 [id number] Borderline high hahg326 and above High risk Performed By: #### H FP, LIPID ####[address] [place] [place] [id number]#### HCV1 ####[address] [address] HDL Cholesterol 44 mg/dL Normal 35-90 [facility] ([place]) Comment on above: Result Comment: HDL Reference Interval:Less than 40 Low - high risk60 or above Optimal/lowers risk Performed By: #### H FP, LIPID ####[address] [place] [place] [address]#### HCV1 ####[place] [address] LDL Cholesterol 73 mg/dL Normal 0-130 [facility] ([place]) Comment on above: Result Comment: LDL is a calculated result and requires a 12-hr fast.LDL Reference Interval:Less than 100 [id number] Near or above quxurgd797-219 Borderline high tuqv439-493 High bpva907 and above Very high risk Performed By: #### H FP, LIPID ####M[address] [place], [place] [address]#### HCV1 ####[place] [address] [place] [address] Triglyceride 121 mg/dL Normal 40-150 [facility] ([place] Comment on above: Result Comment: Trig lyceride Reference Interval:Less than 150 Zwrgeg070-116 Borderline high lqhg080-460 High rezk854 or higher Very high risk Performed By: #### H FP, LIPID ####[address] [place], [place] [address]#### HCV1 ####[place] [address] [place] [address] XR ESOPHOGRAMon 03-10-2017 XR ESOPHOGRAM ORIGINALXR ESOPHOGRA M CLINICAL STATEMENT: DYSPHAGIA Comparison: None Procedure: The patient swallowed barium without difficulty. The oral and pharyngeal phases of swallowing were unremarkable. There was no nasal regurgitation, laryngeal penetration, or aspiration identified. A few tertiary contractions noted. The esophagus was structurally normal without intrinsic or extrinsic masses. The esophageal mucosa appeared unremarkable. Moderate gastroesophageal reflux was demonstrated during this examination. There was a small transient hiatal hernia identified, although an image of this was difficult to achieve due to patient positioning. Fluoro Time: 1 minute 1 second Dose: 461.2 mGyImages: 31Films: 4 IMPRESSION: 1. Small hiatal hernia.2. Gastroesophageal reflux.3. A few tertiary contractions. Interpreted By: Geno CatalanPreliminary Report By: Geno CatalanElectronically Signed By: Geno Catalan Dictated Date: 03/10/2017 10:38:52 AM Prelim Date: 03/10/2017 10:38:52 AM Sign Date: 03/10/2017 10:43:55 AM Normal [facility] ([place]) HgA1C , Office ([phone])on HbA1c (Bld) [Mass fraction] 6.5 % Normal 4.6 - 7.1 [facility]; [facility] Work Phone: Urinalysis, Office ([phone])Or dered By: Fabiola Ritter on 02-10-2015 Bilirubin Ql (U) Negative Normal Comprehe nsive [facility]; [facility] Work Phone: Glucose Test strip (U) [Mass/Vol] Negative Normal [facility]; [facility] Work Phone: Hemoglobin Ql (U) Hemolyzed Trace Normal Co [facility]; [facility] Work Phone: Ketones Ql (U) Negative Normal Comprehens karlene [facility]; [facility] Work Phone: Leukocyte esterase Test strip Ql (U) Negative Normal [facility]; [facility] Work Phone: Nitrite Ql (U) Negative Normal Comprehens [facility]; [facility] Work Phone: pH (U) 6.5 [pH] Normal [facility]; [facility] Work Phone: Protein Ql (U) Negative Normal Comprehens k[facility]ene [facility]; [facility] Work Phone: Specific gravity (U) [Rel density] 1.020 1 Normal [facility]; [facility] Work Phone: Urobilinogen (24H U) [Mass/Time] Normal Normal [facility]; [facility] Work Phone: Blood Glucose , Office ([phone])Ordered By: ROLY Moon on 11-28-2014 Glucose Glucometer (BldC) [Moles/Vol] 131 1 Normal [facility]; [facility] Work Phone: HgA1C , Office ([phone])Ordere d By: ROLY Moon on 11-28-2014 HbA1c (Bld) [Mass fraction] 6.2 % Normal 4.6 - 7.1 [facility]; [facility] Work Phone: CBC with auto diff ([phone])Or dered By: [employer] Operator on 11-17-2014 Basophils (Bld) [#/Vol] 0.1 10*3/uL Normal 0.0-0.2 [facility]; [facility] Work Phone: Comment on above: PATIENT WAS FASTINGP ERFORMED BY: [facility] French Street[address] [place] [id number] Information: [id number], [id number] Basophils/100 WBC (Bld) 1 % Normal C omprehensive [facility]; [facility] Work Phone: Comment on above: PATIENT WAS FASTINGP ERFORMED BY: G[facility]IAN [facility] Yjbtha[address] [id number] Information: [id number], [id number] Eosinophils (Bld) [#/Vol] 0.1 10*3/uL Normal 0.0-0.4 [facility]; [facility] Work Phone: Comment on above: PATIENT WAS FASTINGP ERFORMED BY: GILLIAN [place] [address] [id number] Information: [id number], [id number] Eosinophils/100 WBC (Bld) 2 % Normal [facility]; [facility] Work Phone: Comment on above: PATIENT WAS FASTINGP ERFORMED BY: GILLIAN [facility] [id number] Information: [id number], [id number] Erythrocyte distribution width (RBC) [Ratio] 13.6 % Normal 12.3-15.4 [facility]; [facility] Work Phone: Comment on above: PATIENT WAS FASTINGP ERFORMED BY: [facility] [id number] Information: [id number], [id number] Hematocrit (Bld) [Volume fraction] 38.0 % Normal 34.0-46.6 [facility]; [facility] Work Phone: Comment on above: PATIENT WAS FASTINGP ERFORMED BY: [facility] [id number] Information: [id number], [id number] Hemoglobin (Bld) [Mass/Vol] 12.7 g/dL Normal 11.1-15.9 [facility]; [facility] Work Phone: Comment on above: PATIENT WAS FASTINGP ERFORMED BY: CB [facility] Center[facility] [id number] Information: [id number], [id number] Immature granulocytes (Bld) [#/Vol] 0.0 10*3/uL Normal 0.0-0.1 [facility]; [facility] Work Phone: Comment on above: PATIENT WAS FASTINGP ERFORMED BY: GILLIAN [facility] Ubjrdc[address] [id number] Information: [id number], [id number] Immature granulocytes/100 WBC (Bld) 0 % Normal [facility]; [facility] Work Phone: Comment on above: PATIENT WAS FASTINGP ERFORMED BY: GILLIAN Hitchcock Xgtngx[address] [id number] Information: [id number], [id number] Lymphocytes (Bld) [#/Vol] 2.7 10*3/uL Normal 0.7-3.1 [facility]; [facility] Work Phone: Comment on above: PATIENT WAS FASTINGP ERFORMED BY: GILLIAN [facility] Vewtfl[address] [id number] Information: [id number], [id number] Lymphocytes/100 WBC (Bld) 29 % Normal [facility]; [facility] Work Phone: Comment on above: PATIENT WAS FASTINGP ERFORMED BY: [facility] [id number] Information: [id number], [id number] MCH (RBC) [Entitic mass] 29.5 pg Normal 26.6-33.0 [facility]; [facility] Work Phone: Comment on above: PATIENT WAS FASTINGP ERFORMED BY: GILLIAN [facility] Paaudb[address] [id number] Information: [id number], [id number] MCHC (RBC) [Mass/Vol] 33.4 g/dL Normal 31.5-35.7 [facility] prehensive [facility]; [facility] Work Phone: Comment on above: PATIENT WAS FASTINGP ERFORMED BY: GILLIAN Stewart[address] [id number] Information: [id number], [id number] MCV (RBC) [Entitic vol] 88 fL Normal 79-97 C [facility]; [facility] Work Phone: Comment on above: PATIENT WAS FASTINGP ERFORMED BY: GILLIAN Stewart[address] [id number] Information: [id number], [id number] Monocytes (Bld) [#/Vol] 0.6 10*3/uL Normal 0.1-0.9 [facility]; [facility] Work Phone: Comment on above: PATIENT WAS FASTINGP ERFORMED BY: GILLIAN Stewart[address] [id number] Information: [id number], [id number] Monocytes/100 WBC (Bld) 7 % Normal [facility]; [facility] Work Phone: Comment on above: PATIENT WAS FASTINGP ERFORMED BY: GILLIAN Hitchcock Gvaycx[address] [id number] Information: [id number], [id number] Neutrophils (Bld) [#/Vol] 5.6 10*3/uL Normal 1.4-7.0 [facility]; [facility] Work Phone: Comment on above: PATIENT WAS FASTINGP ERFORMED BY: GILLIAN Hitchcock Wbwyds[address] [id number] Information: [id number], [id number] Neutrophils/100 WBC (Bld) 61 % Normal [facility]; [facility] Work Phone: Comment on above: PATIENT WAS FASTINGP ERFORMED BY: GILLIAN Holleylin[address] [id number] Information: [id number], [id number] Platelets (Bld) [#/Vol] 322 10*3/uL Normal 150-379 [facility]; [facility] Work Phone: Comment on above: PATIENT WAS FASTINGP ERFORMED BY: GILLIAN LabCorebecca StewartSaydfs[address] [facility] [id number] Information: [id number], [id number] RBC (Bld) [#/Vol] 4.31 10*6/uL Normal 3.77-5.28 [facility]; [facility] Work Phone: Comment on above: PATIENT WAS FASTINGP ERFORMED BY: GILLIAN [facility] Spnsfg[address] [id number] Information: [id number], [id number] WBC (Bld) [#/Vol] 9.1 10*3/uL Normal 3.4-10.8 [facility]; [facility] Work Phone: Comment on above: PATIENT WAS FASTINGP ERFORMED BY: GILLIAN WestCorebecca StewartJfoges[address] [id number] Information: [id number], [id number] LIPID PANEL ([id number])Ordered B y: [employer] Operator on 11-17-2014 Cholesterol [Mass/Vol] 244 mg/dL Abnormal 100-199 [facility]; [facility] Work Phone: Comment on above: PATIENT WAS FASTINGP ERFORMED BY: GILLIAN Stewart[address] [id number] Cholesterol in HDL [Mass/Vol] 46 mg/dL Normal [facility]; [facility] Work Phone: Comment on above: According to ATP-III Guidelines, HDL-C >59 mg/dL is considered anegative risk factor for CHD. PATIENT WAS FASTINGP ERFORMED BY: GILLIAN [facility] Otblfd[address] [id number] Cholesterol in LDL [Mass/Vol] 166 mg/dL Abnormal 0-99 [facility]; [facility] Work Phone: Comment on above: PATIENT WAS FASTINGP ERFORMED BY: GILLIAN [facility] Nkbcog[address] [id number] Cholesterol in LDL/Cholesterol in HDL [Mass ratio] 3.6 {ratio_units} Abnormal 0.0-3.2 [facility]; [facility] Work Phone: Comment on above: LDL/HDL Ratio Men Wo men 1/2 Avg.Risk 1.0 1.5 Avg.Risk 3.6 3.2 2X Avg.Risk 6.2 5.0 3X Avg.Risk 8.0 6.1 PATIENT WAS FASTINGP ERFORMED BY: GILLIAN LabCorebecca Slwwrx[address] [facility]KANov[facility] Hospitalin [place] [id number] Cholesterol in VLDL [Mass/Vol] 32 mg/dL Normal 5-40 [facility]; [facility] Work Phone: Comment on above: PATIENT WAS FASTINGP ERFORMED BY: GILLIAN [facility] Dlrhof2604 Burns RoadDublin [place] [id number] Triglyceride [Mass/Vol] 158 mg/dL Abnormal 0-149 C omprehensive [facility]; [facility] Work Phone: Comment on above: PATIENT WAS FASTINGP ERFORMED BY: GILLIAN [facility] Omnsjm3662 [address] [facility] [place] [id number] METABOLIC PANEL, COMPREHENSI VE (93299)Ordered By: Mud Analysis Well Logging Operator on 11-17-2014 Albumin [Mass/Vol] 4.5 g/dL Normal 3.6-4.8 [facility]; [facility] Work Phone: Comment on above: PATIENT WAS FASTINGP ERFORMED BY: GILLIAN [facility] Mfijfj9037 [address] [facility] [id number]; has fu 11-28-14 Albumin/Globulin [Mass ratio] 1.5 {ratio} Normal 1.1-2.5 [facility]; [facility] Work Phone: Comment on above: PATIENT WAS FASTINGP ERFORMED BY: GILLIAN [facility] Lgjbmw6952 [address] [facility] [place] [id number]; has fu 11-28-14 ALP [Catalytic activity/Vol] 71 U/L Normal 39-117 [facility]; [facility] Work Phone: Comment on above: PATIENT WAS FASTINGP ERFORMED BY: GILLIAN [facility] Kdicck4708 [address] RoadDublin [place] [id number]; has fu 8-10-15 ALT [Catalytic activity/Vol] 18 U/L Normal 0-32 [facility]; [facility] Work Phone: Comment on above: PATIENT WAS FASTINGP ERFORMED BY: [facility] Milufj2878 [address] RoadDublin [place] [id number]; has fu 8-10-15 AST [Catalytic activity/Vol] 16 U/L Normal 0-40 [facility]; [facility] Work Phone: Comment on above: PATIENT WAS FASTINGP ERFORMED BY: CB [facility] Ltozgk3247 [address] RoadDublin [place] [id number]; has fu 8-15 Bilirubin [Mass/Vol] 0.4 mg/dL Normal 0.0-1.2 Comp rehensive [facility]; [facility] Work Phone: Comment on above: PATIENT WAS FASTINGP ERFORMED BY: [facility] Atslja6739 [address] RoadDublin [place] [id number]; has fu 8--15 Calcium [Mass/Vol] 9.5 mg/dL Normal 8.7-10.3 [facility] Medicine; [facility] Work Phone: Comment on above: PATIENT WAS FASTINGP ERFORMED BY: [facility] Vjlkuv4928 [address] RoadDublin [place] [id number]; has fu 8-10-15 Chloride [Moles/Vol] 100 mmol/L Normal 97-108 [facility]; [facility] Work Phone: Comment on above: PATIENT WAS FASTINGP ERFORMED BY: CB [facility] Kyvtyg5200 [address] RoadDublin [place] [id number]; has fu 8-10-15 CO2 [Moles/Vol] 23 mmol/L Normal 18-29 [facility] Internal Medicine; [facility] Work Phone: Comment on above: PATIENT WAS FASTINGP ERFORMED BY: [facility] Gkxgxc6293 [address] RoadDublin [place] [id number]; has fu 8-10-15 Creatinine [Mass/Vol] 0.60 mg/dL Normal 0.57-1.00 [facility] prehensive Internal Medicine; [facility] Work Phone: Comment on above: PATIENT WAS FASTINGP ERFORMED BY: GILLIAN LabTrurebecca HolleyQysuav87[address] [id number]; has fu 8-10-15 GFR/1.73 sq M.predicted among blacks CKD-EPI (S/P/Bld) [Vol rate/Area] 115 mL/min/1.73 Normal [facility]; [facility] Work Phone: Comment on above: PATIENT WAS FASTINGP ERFORMED BY: GILLIAN [facility] Swtfjs5065 [address] [id number]; has fu 8-10-15 GFR/1.73 sq M.predicted among non-blacks CKD-EPI (S/P/Bld) [Vol rate/Area] 99 mL/min/1.73 Normal [facility]; [facility] Work Phone: Comment on above: PATIENT WAS FASTINGP ERFORMED BY: GILLIAN [facility] Atlgyb2[address] [id number]; has fu 8--15 Globulin (S) [Mass/Vol] 3.0 g/dL Normal 1.5-4.5 [facility]; [facility] Work Phone: Comment on above: PATIENT WAS FASTINGP ERFORMED BY: GILLIAN [facility] Ynikjd4585 [address] [id number]; has fu 8-10-15 Glucose [Mass/Vol] 103 mg/dL Abnormal 65-99 [facility] Internal Medicine; [facility] Work Phone: Comment on above: PATIENT WAS FASTINGP ERFORMED BY: GILLIAN [facility] Topxem8673 [address] [id number]; has fu 8-10-15 Potassium [Moles/Vol] 4.6 mmol/L Normal 3.5-5.2 [facility] prehensive Internal Medicine; [facility] Work Phone: Comment on above: PATIENT WAS FASTINGP ERFORMED BY: GILLIAN Holleylin6370 [address] [facility]in [place] [id number]; has fu 11-28-14 Protein [Mass/Vol] 7.5 g/dL Normal 6.0-8.5 [facility] Medicine; [facility] Work Phone: Comment on above: PATIENT WAS FASTINGP ERFORMED BY: GILLIAN Holleylin6370 [address] [facility]in [place] [id number]; has fu 8 Sodium [Moles/Vol] 140 mmol/L Normal 134-144 [facility]; [facility] Work Phone: Comment on above: PATIENT WAS FASTINGP ERFORMED BY: GILLIAN Holleylin6[address] [id number]; has fu 11-28-14 Urea nitrogen [Mass/Vol] 18 mg/dL Normal 8-27 [facility]; [facility] Work Phone: Comment on above: PATIENT WAS FASTINGP ERFORMED BY: GILLIAN Holleylin6[address] [facility] [id number]; has fu 11-28-14 Urea nitrogen/Creatinine [Mass ratio] 30 mg/mg Abnormal 11- [facility]; [facility] Work Phone: Comment on above: PATIENT WAS FASTINGP ERFORMED BY: GILLIAN Stewart6[address] [id number]; has fu 11-28-14 MICROALBUMINOrdered By: Syst em Shell Trim Tool Setter on 11-17-2014 Albumin DL <= 20 mg/L (U) [Mass/Vol] 3.7 ug/mL Normal 0.0-17.0 [facility]; [facility] Work Phone: Comment on above: PATIENT WAS FASTINGP ERFORMED BY: GILLIAN [facility] HolleyQtfxtl6235 [address] [facility]in [place] [id number] Albumin/Creatinine (U) [Mass ratio] 3.9 {mg/g_creat} Normal 0.0-30.0 [facility]; [facility] Work Phone: Comment on above: PATIENT WAS FASTINGP ERFORMED BY: GILLIAN Hitchcock Mhmqtj5[address] [id number] Creatinine (U) [Mass/Vol] 95.0 mg/dL Normal 15.0-278.0 [facility]; [facility] Work Phone: Comment on above: PATIENT WAS FASTINGP ERFORMED BY: [facility] Ngssqr[address] [id number] Amylase (08961)Ordered By: S ystem Shell Trim Tool Setter on 11-03-2014 Amylase [Catalytic activity/Vol] 50 U/L Normal 31-124 [facility]; [facility] Work Phone: Comment on above: PATIENT NOT FASTINGP ERFORMED BY: LabSpaceClaim Nmgbaz3237 [address] [id number] BY: WinBuyer[address] [id number] CBC, Platelets & Auto Diff ( 67010)Ordered By: Mud Analysis Well Logging Operator on 11-03-2014 Basophils (Bld) [#/Vol] 0.1 10*3/uL Normal 0.0-0.2 [facility]; [facility] Work Phone: Comment on above: PATIENT NOT FASTINGP ERFORMED BY: LabSpaceClaimHampton Behavioral Health CenterGxkmfw3298 [address] [id number] BY: WinBuyer[address] [id number] Information: 708146,[id number] Basophils/100 WBC (Bld) 1 % Normal C omp[facility]; [facility] Work Phone: Comment on above: PATIENT NOT FASTINGP ERFORMED BY: [facility] Peperz1318 [address] [id number] BY: WinBuyer[address] [id number] Information: 158391,Y82097 Eosinophils (Bld) [#/Vol] 0.1 10*3/uL Normal 0.0-0.4 [facility]; [facility] Work Phone: Comment on above: PATIENT NOT FASTINGP ERFORMED BY: CB [facility] Rxvtou8230 [address] [facility] [id number] BY: LabCo[address] [id number] Information: 184465,E35232 Eosinophils/100 WBC (Bld) 1 % Normal [facility]; [facility] Work Phone: Comment on above: PATIENT NOT FASTINGP ERFORMED BY: CB [facility] Lkihot7277 [address] [facility] [id number] BY: [address] [id number] Information: 616505,F56281 Erythrocyte distribution width (RBC) [Ratio] 14.5 % Normal 12.3-15.4 [facility]; [facility] Work Phone: Comment on above: PATIENT NOT FASTINGP ERFORMED BY: CB [facility] Tywacu6945 [address] [facility] [id number] BY: LabCo[address] [id number] Information: 242094,K80088 Hematocrit (Bld) [Volume fraction] 38.0 % Normal 34.0-46.6 [facility]; [facility] Work Phone: Comment on above: PATIENT NOT FASTINGP ERFORMED BY: CB [facility] Rwtubz0380 [address] [facility] [id number] BY: LabCo[address] [id number] Information: 069811,J36353 Hemoglobin (Bld) [Mass/Vol] 12.4 g/dL Normal 11.1-15.9 [facility]; [facility] Work Phone: Comment on above: PATIENT NOT FASTINGP ERFORMED BY: CB [facility] Vyzcef7589 [address] [facility] [id number] BY: LabCo[address] [id number] Information: 430318,D78375 Immature granulocytes (Bld) [#/Vol] 0.0 10*3/uL Normal 0.0-0.1 [facility]; [facility] Work Phone: Comment on above: PATIENT NOT FASTINGP ERFORMED BY: [facility] Delfgb5486 [address] [id number] BY: [address] [id number] Information: 040558,J98162 Immature granulocytes/100 WBC (Bld) 0 % Normal [facility]; [facility] Work Phone: Comment on above: PATIENT NOT FASTINGP ERFORMED BY: GILLIAN [facility] Bddigp1305 [address] [id number] BY: [address] [id number] Information: 579051,M38092 Lymphocytes (Bld) [#/Vol] 1.7 10*3/uL Normal 0.7-3.1 [facility]; [facility] Work Phone: Comment on above: PATIENT NOT FASTINGP ERFORMED BY: [facility] Fxfkdt0639 [address] [id number] BY: [address] [id number] Information: 875889,H03047 Lymphocytes/100 WBC (Bld) 21 % Normal [facility]; [facility] Work Phone: Comment on above: PATIENT NOT FASTINGP ERFORMED BY: [facility] Wvxyov9311 [address] [id number] BY: [address] [id number] Information: 495640,M08393 MCH (RBC) [Entitic mass] 29.4 pg Normal 26.6-33.0 [facility]; [facility] Work Phone: Comment on above: PATIENT NOT FASTINGP ERFORMED BY: [facility] Xuohwm4934 [address] [id number] BY: Lab[address] [id number] Information: 543309,C71069 MCHC (RBC) [Mass/Vol] 32.6 g/dL Normal 31.5-35.7 [facility] prehensive Internal Medicine; [facility] Work Phone: Comment on above: PATIENT NOT FASTINGP ERFORMED BY: [facility] Fwdydf2824 [address] [id number] BY: [address] [id number] Information: 595133,U26781 MCV (RBC) [Entitic vol] 90 fL Normal 79-97 C omprehens[facility]; [facility] Work Phone: Comment on above: PATIENT NOT FASTINGP ERFORMED BY: [facility] Dfydyw8303 [address] [id number] BY: [address] [id number] Information: 545124,W06215 Monocytes (Bld) [#/Vol] 0.8 10*3/uL Normal 0.1-0.9 [facility]; [facility] Work Phone: Comment on above: PATIENT NOT FASTINGP ERFORMED BY: [facility] Azrzay3245 [address] [id number] BY: Lab[address] [id number] Information: 312958,Z21769 Monocytes/100 WBC (Bld) 10 % Normal C o[facility]; [facility] Work Phone: Comment on above: PATIENT NOT FASTINGP ERFORMED BY: CB [facility] Qmowcb9755 [address] [id number] BY: [address] [id number] Information: 017379,U19751 Neutrophils (Bld) [#/Vol] 5.6 10*3/uL Normal 1.4-7.0 [facility]; [facility] Work Phone: Comment on above: PATIENT NOT FASTINGP ERFORMED BY: CB [facility] Lxgxpw4985 [address] [id number] BY: [address] [id number] Information: 855398,V36160 Neutrophils/100 WBC (Bld) 67 % Normal [facility]; [facility] Work Phone: Comment on above: PATIENT NOT FASTINGP ERFORMED BY: CB [facility] Qwixbe1991 [address] [id number] BY: [address] [id number] Information: 222429,O24778 Platelets (Bld) [#/Vol] 282 10*3/uL Normal 150-379 [facility]; [facility] Work Phone: Comment on above: PATIENT NOT FASTINGP ERFORMED BY: CB [facility] Yvwgcq4086 [address] [id number] BY: [address] [id number] Information: 796017,N66909 RBC (Bld) [#/Vol] 4.22 10*6/uL Normal 3.77-5.28 Compr [facility] Internal Medicine; [facility] Work Phone: Comment on above: PATIENT NOT FASTINGP ERFORMED BY: CB [facility] Duewkv3209 [address] [id number] BY: [address] [id number] Information: 000760,E89838 WBC (Bld) [#/Vol] 8.2 10*3/uL Normal 3.4-10.8 Compre [facility] Internal Medicine; [facility] Work Phone: Comment on above: PATIENT NOT FASTINGP ERFORMED BY: CB [facility] Menqma0208 [address] RoadDublin [place] [id number] BY: [facility] [address] [id number] Information: 835995,W22148 Metabolic Panel, Comprehensi ve (40454)Ordered By: Mud Analysis Well Logging Operator on 11-03-2014 Albumin [Mass/Vol] 4.1 g/dL Normal 3.6-4.8 [facility]; [facility] Work Phone: Comment on above: PATIENT NOT FASTINGP ERFORMED BY: CB [facility] Ewsmtc1098 Burns RoadDuUNC Health Southeastern [id number] BY: Lab[address] [id number] Albumin/Globulin [Mass ratio] 1.5 {ratio} Normal 1.1-2.5 [facility]; [facility] Work Phone: Comment on above: PATIENT NOT FASTINGP ERFORMED BY: CB [facility] Iukvvp1724 [address] RoadDublin [place] [id number] BY: Lab[address] [id number] ALP [Catalytic activity/Vol] 66 U/L Normal 39-117 [facility]; [facility] Work Phone: Comment on above: PATIENT NOT FASTINGP ERFORMED BY: CB [facility] Ghusjp6311 Burns RoadDuin [place] [id number] BY: [facility] [address] [id number] ALT [Catalytic activity/Vol] 15 U/L Normal 0-32 [facility]; [facility] Work Phone: Comment on above: PATIENT NOT FASTINGP ERFORMED BY: CB [facility] Roatqx4698 [address] RoadDublin [place] [id number] BY: LabCo[address] [id number] AST [Catalytic activity/Vol] 15 U/L Normal 0-40 [facility]; [facility] Work Phone: Comment on above: PATIENT NOT FASTINGP ERFORMED BY: CB [facility] Bnhqhi3395 [address] RoadDublin [place] [id number] BY: LabCo[address] [id number] Bilirubin [Mass/Vol] 0.3 mg/dL Normal 0.0-1.2 Comp [facility]erens[facility]; [facility] Work Phone: Comment on above: PATIENT NOT FASTINGP ERFORMED BY: CB [facility] Miywlu1390 [address] RoadDublin [place] [id number] BY: LabCo[address] [id number] Calcium [Mass/Vol] 9.0 mg/dL Normal 8.7-10.3 [facility] Internal Medicine; [facility] Work Phone: Comment on above: PATIENT NOT FASTINGP ERFORMED BY: CB [facility] Gqytge6187 [address] RoadDublin [place] [id number] BY: LabCo[address] [id number] Chloride [Moles/Vol] 100 mmol/L Normal 97-108 [facility] Internal Medicine; [facility] Work Phone: Comment on above: PATIENT NOT FASTINGP ERFORMED BY: CB [facility] Xujrhg7775 [address] [facility] Hospitalbl[facility] [place] [id number] BY: LabCo[address] [id number] CO2 [Moles/Vol] 22 mmol/L Normal 18-29 [facility] Internal Medicine; [facility] Work Phone: Comment on above: PATIENT NOT FASTINGP ERFORMED BY: CB [facility] Edczed0715 [address] RoadDublin [place] [id number] BY: Lab[address] [id number] Creatinine [Mass/Vol] 0.57 mg/dL Normal 0.57-1.00 [facility]; [facility] Work Phone: Comment on above: PATIENT NOT FASTINGP ERFORMED BY: GILLIAN [facility] Oiqhym0548 [address] [facility] [id number] BY: WinBuyer[address] [id number] GFR/1.73 sq M.predicted among blacks CKD-EPI (S/P/Bld) [Vol rate/Area] 117 mL/min/1.73 Normal [facility]; [facility] Work Phone: Comment on above: PATIENT NOT FASTINGP ERFORMED BY: GILLIAN [facility] Srwjgp9011 [address] [facility] [id number] BY: WinBuyer[address] [id number] GFR/1.73 sq M.predicted among non-blacks CKD-EPI (S/P/Bld) [Vol rate/Area] 101 mL/min/1.73 Normal [facility]; [facility] Work Phone: Comment on above: PATIENT NOT FASTINGP ERFORMED BY: GILLIAN [facility] Umondy6731 [address] [id number] BY: WinBuyer[address] [id number] Globulin (S) [Mass/Vol] 2.7 g/dL Normal 1.5-4.5 C [facility]erens[facility] Internal [facility]; [facility] Work Phone: Comment on above: PATIENT NOT FASTINGP ERFORMED BY: CB [facility] Ggpbel1321 [address] [facility] [id number] BY: WinBuyer[address] [id number] Glucose [Mass/Vol] 107 mg/dL Abnormal 65-99 [facility] Internal Medicine; [facility] Work Phone: Comment on above: PATIENT NOT FASTINGP ERFORMED BY: CB [facility] Nsdwyq9426 [address] [facility] [id number] BY: [facility] [address] [id number] Potassium [Moles/Vol] 4.3 mmol/L Normal 3.5-5.2 [facility] Internal Medicine; [facility] Work Phone: Comment on above: PATIENT NOT FASTINGP ERFORMED BY: GILLIAN [facility] Igqhvo9074 [address] RoadDublin [place] [id number] BY: [facility] [address] [id number] Protein [Mass/Vol] 6.8 g/dL Normal 6.0-8.5 [facility] Internal Medicine; [facility] Work Phone: Comment on above: PATIENT NOT FASTINGP ERFORMED BY: CB [facility] Tqpaqb7174 [address] RoadDublin [place] [id number] BY: LabCo[address] [id number] Sodium [Moles/Vol] 138 mmol/L Normal 134-144 [facility] Internal Medicine; [facility] Work Phone: Comment on above: PATIENT NOT FASTINGP ERFORMED BY: CB [facility] Slblpg3036 [address] RoadDublin [place] [id number] BY: LabCo[address] [id number] Urea nitrogen [Mass/Vol] 15 mg/dL Normal 8-27 [facility]; [facility] Work Phone: Comment on above: PATIENT NOT FASTINGP ERFORMED BY: CB [facility] Npjmmd4863 [address] RoadDublin [place] [id number] BY: [facility] [address] [id number] Urea nitrogen/Creatinine [Mass ratio] 26 mg/mg Normal 11-26 [facility]; [facility] Work Phone: Comment on above: PATIENT NOT FASTINGP ERFORMED BY: CB [facility] Ewuvbr2748 [address] RoadDublin [place] [id number] BY: LabCo[address] [id number] Methymalonic Acid, Serum (83 921)Ordered By: Mud Analysis Well Logging Operator on 11-03-2014 Methylmalonate [Moles/Vol] 241 nmol/L Normal 0-378 [facility]; [facility] Work Phone: Comment on above: PATIENT NOT FASTINGP ERFORMED BY: Win[employer]er Lngtmt5030 [address] [id number] BY: [address] [id number] URINE MALINA CULTURE-IDENTIFICA [place] (77367)Ordered By: Mud Analysis Well Logging Operator on 11-03-2014 Bacteria identified Cx Nom (U) Final report Abnormal [facility]; [facility] Work Phone: Comment on above: PATIENT NOT FASTINGP ERFORMED BY: WinBuyer Qelbum[address] HackerOneUNC Health Southeastern [id number] Information: [id number] Bacteria identified Cx Nom (U) ECV Abnormal [facility]; [facility] Work Phone: Comment on above: Escherichia coli, id entified by an automated biochemical system.Greater than 100,000 colony forming units per mL S = Susceptible; I = Intermediate; R = Resistant P = Positive; N = Negative MICS are expressed in micrograms per mL Antibiotic RSLT#1 RSLT#2 RSLT#3 RSLT#4Amoxicillin/Clavulanic Acid SAmpicillin RCefepime SCeftriaxone SCefuroxime ICephalothin RCiprofloxacin RErtapenem SGentamicin SImipenem SLevofloxacin RNitrofurantoin SPiperacillin RTetracycline RTobramycin STrimethoprim/Sulfa R PATIENT NOT FASTINGP ERFORMED BY: WinBuyer Zbsrtt1808 [address] [id number] Information: [id number] Urinalysis, Office (19771)Or dered By: Fabiana Messer on 11-03-2014 Bilirubin Ql (U) Negative Normal Comprehe nsive Internal Medicine; [facility] Work Phone: Glucose Test strip (U) [Mass/Vol] Negative Normal [facility]; [facility] Work Phone: Hemoglobin Ql (U) Non Hemolyzed Moderate Normal [facility]; [facility] Work Phone: Ketones Ql (U) Negative Normal Comprehens karlene Internal Medicine; [facility] Work Phone: Leukocyte esterase Test strip Ql (U) Small Normal [facility]; [facility] Work Phone: Nitrite Ql (U) Positive Normal Comprehens karlene [facility]; [facility] Work Phone: pH (U) 5 [pH] Abnormal [facility]; [facility] Work Phone: Protein Ql (U) Negative Normal Comprehens karlene Internal Medicine; [facility] Work Phone: Specific gravity (U) [Rel density] 1.020 1 Normal [facility]; [facility] Work Phone: Urobilinogen (24H U) [Mass/Time] 2 mg/dL Normal [facility]; [facility] Work Phone: Vitamin B-12 (cyanocobalamin ) (09139)Ordered By: Mud Analysis Well Logging Operator on 11-03-2014 Cobalamin (Vitamin B12) [Mass/Vol] 629 pg/mL Normal 211-946 [facility]; [facility] Work Phone: Comment on above: fatigue; PATIENT NOT FASTINGPERFORMED BY: CB [facility] Bpyrwi3483 [address] [id number] BY: BN [facility] Naetedaylu3329 [facility] [id number] Blood Glucose , Office (8296 2)Ordered By: Stephanie Schneider on 08-29-2014 Glucose Glucometer (BldC) [Moles/Vol] 141 1 Normal [facility]; [facility] Work Phone: Blood Glucose , Office (8296 2)Ordered By: ROLY Moon on 08-01-2014 Glucose Glucometer (BldC) [Moles/Vol] 134 1 Normal [facility]; [facility] Work Phone: HgA1C , Office (99180)Ordere d By: ROLY Moon on 08-01-2014 HbA1c (Bld) [Mass fraction] 9.0 % Abnormal 4.6 - 7.1 [facility]; [facility] Work Phone: Sputum Culture ([id number])Ordere d By: Mud Analysis Well Logging Operator on 07-06-2014 Bacteria identified Cx Nom (Sput) Final report Normal [facility]; [facility] Work Phone: Comment on above: PATIENT NOT FASTINGP ERFORMED BY: LabSpaceClaimrp Ycazts4714DynexFlaget Memorial Hospital [id number] Information: SRC: SPUTUM [id number] Bacteria identified Cx Nom (Unsp spec) RRF Normal [facility]; [facility] Work Phone: Comment on above: Routine respiratory hector PATIENT NOT FASTINGP ERFORMED BY: LabSRE [place] - 2[facility] [id number] Information: SRC: SPUTUM [id number] Rapid Flu (32978 x 2)on 06-19 FLUAV Ag IA Ql (Throat) Negative Normal C omprehensive [facility]; [facility] Work Phone: Blood Glucose , Office ([phone])Ordered By: Jessica Pemberton on 03-29-2014 Glucose Glucometer (BldC) [Moles/Vol] 87 1 Normal [facility]; [facility] Work Phone: HgA1C , Office ([phone])Ordere d By: Jessica ePmberton on 03-29-2014 HbA1c (Bld) [Mass fraction] 7.0 % Normal 4.6 - 7.1 [facility]; [facility] Work Phone: Blood Glucose , Office ([phone])Ordered By: Thais Siddiqui on 12-28-2013 Glucose Glucometer (BldC) [Moles/Vol] 247 1 Normal [facility]; [facility] Work Phone: Comment on above: ate 2 hours ago. had a honey bun HgA1C , Office ([phone])Ordere d By: Thais Siddiqui on 12-28-2013 HbA1c (Bld) [Mass fraction] 7.3 % Abnormal 4.6 - 7.1 [facility]; [facility] Work Phone: LIPID PANEL (24353)Ordered B y: Mud Analysis Well Logging Operator on 11-29-2013 Cholesterol [Mass/Vol] 201 mg/dL Abnormal 100-199 Co m[facility]; [facility] Work Phone: Comment on above: in three months (pipo roximately); PATIENT WAS FASTINGPERFORMED BY: CB [facility] Nfqfnm[address] RoadDublin [place] [id number] Cholesterol in HDL [Mass/Vol] 44 mg/dL Normal [facility]; [facility] Work Phone: Comment on above: According to ATP-III Guidelines, HDL-C >59 mg/dL is considered anegative risk factor for CHD. in three months (pipo roximately); PATIENT WAS FASTINGPERFORMED BY: CB [facility] Mtwuxm0506 [address] RoadDublin [place] [id number] Cholesterol in LDL [Mass/Vol] 132 mg/dL Abnormal 0-99 [facility]; [facility] Work Phone: Comment on above: in three months (pipo roximately); PATIENT WAS FASTINGPERFORMED BY: CB [facility] Dbssrs24[address]Dublin [place] [id number] Cholesterol in LDL/Cholesterol in HDL [Mass ratio] 3.0 {ratio_units} Normal 0.0-3.2 [facility]; [facility] Work Phone: Comment on above: in three months (pipo roximately); PATIENT WAS FASTINGPERFORMED BY: CB [facility] Oannac[address]Dublin [place] [id number] Cholesterol in VLDL [Mass/Vol] 25 mg/dL Normal 5-40 [facility]; [facility] Work Phone: Comment on above: in three months (pipo roximately); PATIENT WAS FASTINGPERFORMED BY: CB [facility] Rlcbyk20[address] [place] [id number] Triglyceride [Mass/Vol] 124 mg/dL Normal 0-149 C omprehensive [facility]; [facility] Work Phone: Comment on above: in three months (pipo roximately); PATIENT WAS FASTINGPERFORMED BY: CB [facility] Zxtbnl5[address]blin [place] [id number] METABOLIC PANEL, COMPREHENSI VE (62137)Ordered By: Mud Analysis Well Logging Operator on 11-29-2013 Albumin [Mass/Vol] 4.2 g/dL Normal 3.5-5.5 [facility]; [facility] Work Phone: Comment on above: PATIENT WAS FASTINGP ERFORMED BY: CB [facility] Dhpphr4[address] RoadDublin [place] [id number] Information: [id number] Albumin/Globulin [Mass ratio] 1.4 {ratio} Normal 1.1-2.5 [facility]; [facility] Work Phone: Comment on above: PATIENT WAS FASTINGP ERFORMED BY: CB [facility] Iwqasw4[address] Roadblin [place] [id number] Information: 458814,[id number] ALP [Catalytic activity/Vol] 75 U/L Normal 39-117 [facility]; [facility] Work Phone: Comment on above: PATIENT WAS FASTINGP ERFORMED BY: CB [facility] Ugblng6[address]Dublin [place] [id number] Information: 142253,G16251 ALT [Catalytic activity/Vol] 22 U/L Normal 0-32 [facility]; [facility] Work Phone: Comment on above: PATIENT WAS FASTINGP ERFORMED BY: CB [facility] Cwbgup10[address] RoadDublin [place] [id number] Information: 267696,[id number] AST [Catalytic activity/Vol] 18 U/L Normal 0-40 [facility]; [facility] Work Phone: Comment on above: PATIENT WAS FASTINGP ERFORMED BY: CB [facility] Dmkahr4[address] RoadDublin [place] [id number] Information: 088525,Q42941 Bilirubin [Mass/Vol] 0.5 mg/dL Normal 0.0-1.2 [facility] rehensive Internal Medicine; [facility] Work Phone: Comment on above: PATIENT WAS FASTINGP ERFORMED BY: GILLIAN LabCorebecca StewartKwhmxu[address] [facility] Hospitalin [place] [id number] Information: 383369,W19791 Calcium [Mass/Vol] 9.4 mg/dL Normal 8.7-10.2 [facility]; [facility] Work Phone: Comment on above: PATIENT WAS FASTINGP ERFORMED BY: CB [facility] Amlmso[address] [facility] [id number] Information: 230085,M60188 Chloride [Moles/Vol] 98 mmol/L Normal 97-108 [facility] rehensive Internal Medicine; [facility] Work Phone: Comment on above: PATIENT WAS FASTINGP ERFORMED BY: GILLIAN LabCo Tqrxts[address] [facility] [id number] Information: 941243,[id number] CO2 [Moles/Vol] 27 mmol/L Normal 18-29 [facility]; [facility] Work Phone: Comment on above: PATIENT WAS FASTINGP ERFORMED BY: GILLIAN LabCo Cxknsc7921 [facility] [id number] Information: 844773,I72725 Creatinine [Mass/Vol] 0.60 mg/dL Normal 0.57-1.00 [facility]; [facility] Work Phone: Comment on above: PATIENT WAS FASTINGP ERFORMED BY: CB [facility] Melkyr[address] [id number] Information: 232179,D64035 GFR/1.73 sq M.predicted among blacks CKD-EPI (S/P/Bld) [Vol rate/Area] 115 mL/min/1.73 Normal [facility]; [facility] Work Phone: Comment on above: PATIENT WAS FASTINGP ERFORMED BY: GILLIAN LabCo Smoune[address] [facility] [id number] Information: 443334,O99519 GFR/1.73 sq M.predicted among non-blacks CKD-EPI (S/P/Bld) [Vol rate/Area] 100 mL/min/1.73 Normal [facility]; [facility] Work Phone: Comment on above: PATIENT WAS FASTINGP ERFORMED BY: [place] [address] [id number] Information: 164168,V37512 Globulin (S) [Mass/Vol] 2.9 g/dL Normal 1.5-4.5 [facility] centerensive [facility]; [facility] Work Phone: Comment on above: PATIENT WAS FASTINGP ERFORMED BY: [address] [id number] Information: 332736,I83752 Glucose [Mass/Vol] 158 mg/dL Abnormal 65-99 [facility]; [facility] Work Phone: Comment on above: PATIENT WAS FASTINGP ERFORMED BY: [address] [id number] Information: 261595,G79532 Potassium [Moles/Vol] 4.3 mmol/L Normal 3.5-5.2 [facility] Medicine; [facility] Work Phone: Comment on above: PATIENT WAS FASTINGP ERFORMED BY: [address] [id number] Information: 130539,F77025 Protein [Mass/Vol] 7.1 g/dL Normal 6.0-8.5 [facility]; [facility] Work Phone: Comment on above: PATIENT WAS FASTINGP ERFORMED BY: [facility] [id number] Information: 530294,R54693 Sodium [Moles/Vol] 136 mmol/L Normal 134-144 [facility]; [facility] Work Phone: Comment on above: PATIENT WAS FASTINGP ERFORMED BY: GILLIAN LabCo Klzttk[address] [id number] Information: 717081,K56941 Urea nitrogen [Mass/Vol] 14 mg/dL Normal 6-24 [facility]; [facility] Work Phone: Comment on above: PATIENT WAS FASTINGP ERFORMED BY: GILLIAN LabCo Hqnuuh[address] [id number] Information: 133563,K33071 Urea nitrogen/Creatinine [Mass ratio] 23 mg/mg Normal 9-23 [facility]; [facility] Work Phone: Comment on above: PATIENT WAS FASTINGP ERFORMED BY: GILLIAN Coretta Vsxmvd[address] [id number] Information: 106669,D23670 Blood Glucose , Office ([phone])Ordered By: ROLY Moon on 09-20-2013 Glucose Glucometer (BldC) [Moles/Vol] 207 1 Normal [facility]; [facility] Work Phone: HgA1C , Office ([phone])Ordere d By: ROLY Moon on 09-20-2013 HbA1c (Bld) [Mass fraction] 7.5 % Abnormal 4.6 - 7.1 [facility]; [facility] Work Phone: CBC WITH MANUAL DIFF ([phone]) Ordered By: Mud Analysis Well Logging Operator on 08-27-2013 Basophils (Bld) [#/Vol] 0.1 10*3/uL Normal 0.0-0.2 [facility]; [facility] Work Phone: Comment on above: PATIENT WAS FASTINGP ERFORMED BY: GILLIAN LabCo Zszcbm[address] [id number] Information: 463625,P23462 Basophils/100 WBC (Bld) 1 % Normal 0-3 C omprehens[facility]; [facility] Work Phone: Comment on above: PATIENT WAS FASTINGP ERFORMED BY: GILLIAN LabCo Uwxyus[address] [id number] Information: 564115,P82512 Eosinophils (Bld) [#/Vol] 0.2 10*3/uL Normal 0.0-0.4 [facility]; [facility] Work Phone: Comment on above: PATIENT WAS FASTINGP ERFORMED BY: [address] [id number] Information: 644603,W57593 Eosinophils/100 WBC (Bld) 2 % Normal 0-5 [facility]; [facility] Work Phone: Comment on above: PATIENT WAS FASTINGP ERFORMED BY: [address] [id number] Information: 130198,V99600 Erythrocyte distribution width (RBC) [Ratio] 14.2 % Normal 12.3-15.4 [facility]; [facility] Work Phone: Comment on above: PATIENT WAS FASTINGP ERFORMED BY: [address] [id number] Information: 102289,A34090 Hematocrit (Bld) [Volume fraction] 41.0 % Normal 34.0-46.6 [facility]; [facility] Work Phone: Comment on above: PATIENT WAS FASTINGP ERFORMED BY: [place] [address] [id number] Information: 407356,L56819 Hemoglobin (Bld) [Mass/Vol] 13.2 g/dL Normal 11.1-15.9 [facility]; [facility] Work Phone: Comment on above: PATIENT WAS FASTINGP ERFORMED BY: [place] [address] [id number] Information: 858993,P53691 Immature granulocytes (Bld) [#/Vol] 0.0 10*3/uL Normal 0.0-0.1 [facility]; [facility] Work Phone: Comment on above: PATIENT WAS FASTINGP ERFORMED BY: GILLIAN [facility] [id number] Information: 095651,I21358 Immature granulocytes/100 WBC (Bld) 0 % Normal 0-2 [facility]; [facility] Work Phone: Comment on above: PATIENT WAS FASTINGP ERFORMED BY: [address] [id number] Information: 723592,P54206 Lymphocytes (Bld) [#/Vol] 2.6 10*3/uL Normal 0.7-3.1 [facility]; [facility] Work Phone: Comment on above: PATIENT WAS FASTINGP ERFORMED BY: GILLIAN [address] [id number] Information: 972156,T47027 Lymphocytes/100 WBC (Bld) 26 % Normal 14-46 [facility]; [facility] Work Phone: Comment on above: PATIENT WAS FASTINGP ERFORMED BY: [address] [id number] Information: 381231,[id number] MCH (RBC) [Entitic mass] 29.3 pg Normal 26.6-33.0 [facility]; [facility] Work Phone: Comment on above: PATIENT WAS FASTINGP ERFORMED BY: [address] [id number] Information: 632829,[id number] MCHC (RBC) [Mass/Vol] 32.2 g/dL Normal 31.5-35.7 [facility] prehensive Internal Medicine; [facility] Work Phone: Comment on above: PATIENT WAS FASTINGP ERFORMED BY: [facility] Clare[address] [id number] Information: 088425,[id number] MCV (RBC) [Entitic vol] 91 fL Normal 79-97 C omprehensive [facility]; [facility] Work Phone: Comment on above: PATIENT WAS FASTINGP ERFORMED BY: GILLIAN Stewart[address] BurnsCenterPointe HospitalTayoUNC Health Southeastern [id number] Information: 369006,E11421 Monocytes (Bld) [#/Vol] 0.8 10*3/uL Normal 0.1-0.9 [facility]; [facility] Work Phone: Comment on above: PATIENT WAS FASTINGP ERFORMED BY: GILLIAN Stewart[address] [id number] Information: 656044,J39188 Monocytes/100 WBC (Bld) 8 % Normal 4-12 [facility]; [facility] Work Phone: Comment on above: PATIENT WAS FASTINGP ERFORMED BY: GILLIAN Stewart[address] [id number] Information: 263123,K66026 Neutrophils (Bld) [#/Vol] 6.3 10*3/uL Normal 1.4-7.0 [facility]; [facility] Work Phone: Comment on above: PATIENT WAS FASTINGP ERFORMED BY: GILLIAN Stewart[address] [id number] Information: 782032,Z02410 Neutrophils/100 WBC (Bld) 63 % Normal 40-74 [facility]; [facility] Work Phone: Comment on above: PATIENT WAS FASTINGP ERFORMED BY: GILLIAN Holleylin[address] [id number] Information: 481791,[id number] Platelets (Bld) [#/Vol] 298 10*3/uL Normal 155-379 [facility]; [facility] Work Phone: Comment on above: PATIENT WAS FASTINGP ERFORMED BY: GILLIAN Holleylin[address] [id number] Information: 271387,Q46126 RBC (Bld) [#/Vol] 4.51 10*6/uL Normal 3.77-5.28 [facility]; [facility] Work Phone: Comment on above: PATIENT WAS FASTINGP ERFORMED BY: GILLIAN Jin[address] [facility]in [place] [id number] Information: 869459,[id number] WBC (Bld) [#/Vol] 9.9 10*3/uL Normal 3.4-10.8 [facility]; [facility] Work Phone: Comment on above: PATIENT WAS FASTINGP ERFORMED BY: GILLAIN Jin[address] [facility] [id number] Information: 327453,[id number] LIPID PANEL (37137)Ordered B y: Mud Analysis Well Logging Operator on 08-27-2013 Cholesterol [Mass/Vol] 167 mg/dL Normal 100-199 [facility]; [facility] Work Phone: Comment on above: PATIENT WAS FASTINGP ERFORMED BY: GILLIAN Stewart[address] [id number] Cholesterol in HDL [Mass/Vol] 47 mg/dL Normal [facility]; [facility] Work Phone: Comment on above: According to ATP-III Guidelines, HDL-C >59 mg/dL is considered anegative risk factor for CHD. PATIENT WAS FASTINGP ERFORMED BY: GILLIAN Stewart[address] [facility] [id number] Cholesterol in LDL [Mass/Vol] 95 mg/dL Normal 0-99 [facility]; [facility] Work Phone: Comment on above: PATIENT WAS FASTINGP ERFORMED BY: GILLIAN LabCorebecca HolleyLaljaf[address] [facility]in [place] [id number] Cholesterol in LDL/Cholesterol in HDL [Mass ratio] 2.0 {ratio_units} Normal 0.0-3.2 [facility]; [facility] Work Phone: Comment on above: PATIENT WAS FASTINGP ERFORMED BY: GILLIAN LabSpring HolleyWpndxr[address] [facility]in [place] [id number] Cholesterol in VLDL [Mass/Vol] 25 mg/dL Normal 5-40 [facility]; [facility] Work Phone: Comment on above: PATIENT WAS FASTINGP ERFORMED BY: GILLIAN Aquiles Stewart[address] [facility] [id number] Triglyceride [Mass/Vol] 123 mg/dL Normal 0-149 C omprehensive [facility]; [facility] Work Phone: Comment on above: PATIENT WAS FASTINGP ERFORMED BY: GILLIAN Aquiles Holleylin[address] [id number] METABOLIC PANEL, COMPREHENSI VE (53676)Ordered By: Mud Analysis Well Logging Operator on 08-27-2013 Albumin [Mass/Vol] 4.2 g/dL Normal 3.5-5.5 [facility]; [facility] Work Phone: Comment on above: PATIENT WAS FASTINGP ERFORMED BY: GILLIAN Corettarebecca HolleyWotyra[address] [id number] Albumin/Globulin [Mass ratio] 1.4 {ratio} Normal 1.1-2.5 [facility]; [facility] Work Phone: Comment on above: PATIENT WAS FASTINGP ERFORMED BY: GILLIAN Corettarebecca Tzjisp[address] [id number] ALP [Catalytic activity/Vol] 72 U/L Normal 39-117 [facility]; [facility] Work Phone: Comment on above: PATIENT WAS FASTINGP ERFORMED BY: GILLIAN LabTrurebecca HolleyCvrgdk[address] [facility] [id number] ALT [Catalytic activity/Vol] 39 U/L Abnormal 0-32 [facility]; [facility] Work Phone: Comment on above: PATIENT WAS FASTINGP ERFORMED BY: GILLIAN LabCorebecca Tskppn[address] [facility] [id number] AST [Catalytic activity/Vol] 36 U/L Normal 0-40 [facility]; [facility] Work Phone: Comment on above: PATIENT WAS FASTINGP ERFORMED BY: GILLIAN LabCo Nmimzm3749 [address] RoadDublin [place] [id number] Bilirubin [Mass/Vol] 0.6 mg/dL Normal 0.0-1.2 Comp rehensive Internal Medicine; [facility] Work Phone: Comment on above: PATIENT WAS FASTINGP ERFORMED BY: [facility] Nvcsqb16[address] RoadDublin [place] [id number] Calcium [Mass/Vol] 9.3 mg/dL Normal 8.7-10.2 [facility]; [facility] Work Phone: Comment on above: PATIENT WAS FASTINGP ERFORMED BY: CB [facility] Zwmndu38[address] RoadDublin [place] [id number] Chloride [Moles/Vol] 100 mmol/L Normal 97-108 Comp rehensive Internal Medicine; [facility] Work Phone: Comment on above: PATIENT WAS FASTINGP ERFORMED BY: LabCo Rbhjog[address] [place] [id number] CO2 [Moles/Vol] 26 mmol/L Normal 19-28 [facility]; [facility] Work Phone: Comment on above: PATIENT WAS FASTINGP ERFORMED BY: LabCo Yfqoio74[address] RoadNovant Health Rehabilitation Hospitalin [place] [id number] Creatinine [Mass/Vol] 0.75 mg/dL Normal 0.57-1.00 [facility] prehensive Internal Medicine; [facility] Work Phone: Comment on above: PATIENT WAS FASTINGP ERFORMED BY: CB [facility] Pfmsyl[address]bl[address] [place] [id number] GFR/1.73 sq M.predicted among blacks CKD-EPI (S/P/Bld) [Vol rate/Area] 101 mL/min/1.73 Normal [facility]; [facility] Work Phone: Comment on above: PATIENT WAS FASTINGP ERFORMED BY: CB [facility] Uawegj1586 [address] RoadDublin [place] [id number] GFR/1.73 sq M.predicted among non-blacks CKD-EPI (S/P/Bld) [Vol rate/Area] 88 mL/min/1.73 Normal [facility]; [facility] Work Phone: Comment on above: PATIENT WAS FASTINGP ERFORMED BY: GILLIAN Stewart[address]Dublin [place] [id number] Globulin (S) [Mass/Vol] 2.9 g/dL Normal 1.5-4.5 C omprehensive Internal [facility]; [facility] Work Phone: Comment on above: PATIENT WAS FASTINGP ERFORMED BY: GILLIAN Holleylin[address] RoadDublin [place] [id number] Glucose [Mass/Vol] 149 mg/dL Abnormal 65-99 [place] [facility]; [facility] Work Phone: Comment on above: PATIENT WAS FASTINGP ERFORMED BY: GILLIAN Coretta Cpcomu[address] RoadDublin [place] [id number] Potassium [Moles/Vol] 4.7 mmol/L Normal 3.5-5.2 [facility] prehensive Internal Medicine; [facility] Work Phone: Comment on above: PATIENT WAS FASTINGP ERFORMED BY: GILLIAN Coretta Qufifh036[address] RoadDublin [place] [id number] Protein [Mass/Vol] 7.1 g/dL Normal 6.0-8.5 [place] [facility]; [facility] Work Phone: Comment on above: PATIENT WAS FASTINGP ERFORMED BY: GILLIAN LabTru Pzxmtm3[address]Dublin [place] [id number] Sodium [Moles/Vol] 139 mmol/L Normal 134-144 [place] [facility] hensive [facility]; [facility] Work Phone: Comment on above: PATIENT WAS FASTINGP ERFORMED BY: GILLIAN LabCo Oasdgc[address] RoadDublin [place] [id number] Urea nitrogen [Mass/Vol] 12 mg/dL Normal 6-24 [facility]; [facility] Work Phone: Comment on above: PATIENT WAS FASTINGP ERFORMED BY: GILLIAN LabCo Swlpfc[address] [place] [id number] Urea nitrogen/Creatinine [Mass ratio] 16 mg/mg Normal 9-23 [facility]; [facility] Work Phone: Comment on above: PATIENT WAS FASTINGP ERFORMED BY: GILLIAN WinBuyer Jvkqbq[address] [id number] MICROALBUMINOrdered By: Syst em Shell Trim Tool Setter on 08-27-2013 Albumin DL <= 20 mg/L (U) [Mass/Vol] 5.8 ug/mL Normal 0.0-17.0 [facility]; [facility] Work Phone: Comment on above: PATIENT WAS FASTINGP ERFORMED BY: LabSpaceClaim Nyayzn[address] [id number] Albumin/Creatinine (U) [Mass ratio] 4.7 {mg/g_creat} Normal 0.0-30.0 [facility]; [facility] Work Phone: Comment on above: PATIENT WAS FASTINGP ERFORMED BY: WinBuyer Emammt[address] [id number] Creatinine (U) [Mass/Vol] 122.4 mg/dL Normal 15.0-278.0 [facility]; [facility] Work Phone: Comment on above: PATIENT WAS FASTINGP ERFORMED BY: WinBuyer Hlkvtl[address] [id number] Blood Glucose , Office ([phone] 2)Ordered By: Thais Siddiqui on 08-17-2012 Glucose Glucometer (BldC) [Moles/Vol] 73 1 Normal [facility]; [facility] Work Phone: HgA1C , Office ([phone])Ordere d By: Thais Siddiqui on 08-17-2012 HbA1c (Bld) [Mass fraction] 6.9 % Normal 4.6 - 7.1 [facility]; [facility] Work Phone: LIPID PANEL (85277)Ordered B y: Mud Analysis Well Logging Operator on 06-01-2012 Cholesterol [Mass/Vol] 164 mg/dL Normal 100-199 Co mprehensive Internal Medicine; [facility] Work Phone: Comment on above: PATIENT WAS FASTINGP ERFORMED BY: CB [facility] Znkhte76[address]Dublin [place] [id number] Cholesterol in HDL [Mass/Vol] 42 mg/dL Normal [facility]; [facility] Work Phone: Comment on above: According to ATP-III Guidelines, HDL-C >59 mg/dL is considered anegative risk factor for CHD. PATIENT WAS FASTINGP ERFORMED BY: CB [facility] Icofla4[address] RoadDublin [place] [id number] Cholesterol in LDL [Mass/Vol] 97 mg/dL Normal 0-99 [facility]; [facility] Work Phone: Comment on above: PATIENT WAS FASTINGP ERFORMED BY: CB [facility] Jeowll025[address] RoadDublin [place] [id number] Cholesterol in LDL/Cholesterol in HDL [Mass ratio] 2.3 {ratio_units} Normal 0.0-3.2 [facility]; [facility] Work Phone: Comment on above: PATIENT WAS FASTINGP ERFORMED BY: CB [facility] Kdxspr1936 [address] RoadDublin [place] [id number] Cholesterol in VLDL [Mass/Vol] 25 mg/dL Normal 5-40 [facility]; [facility] Work Phone: Comment on above: PATIENT WAS FASTINGP ERFORMED BY: CB [facility] Hfchth4099 [address] RoadDublin [place] [id number] Triglyceride [Mass/Vol] 127 mg/dL Normal 0-149 [facility]; [facility] Work Phone: Comment on above: PATIENT WAS FASTINGP ERFORMED BY: CB [facility] Ukdiao0743 [address] RoadDublin [place] [id number] Blood Glucose , Office ([phone])Ordered By: Jessica Pemberton on 03-24-2012 Glucose Glucometer (BldC) [Moles/Vol] 77 1 Normal [facility]; [facility] Work Phone: HgA1C , Office ([phone])Ordere d By: Jessica Pemberton on 03-24-2012 HbA1c (Bld) [Mass fraction] 6.3 % Normal 4.6 - 7.1 [facility]; [facility] Work Phone: CBC WITH MANUAL DIFF ([phone]) Ordered By: Mud Analysis Well Logging Operator on 02-18-2012 Basophils (Bld) [#/Vol] 0.1 10*3/uL Normal 0.0-0.2 [facility]; [facility] Work Phone: Comment on above: PATIENT WAS FASTINGP ERFORMED BY: GILLIAN [facility] Gpjsbx[address] [id number] Information: SRC: URINE Basophils/100 WBC (Bld) 1 % Normal 0-3 [facility]; [facility] Work Phone: Comment on above: PATIENT WAS FASTINGP ERFORMED BY: GILLIAN [facility] Ssdbry[address] [id number] Information: SRC: URINE Eosinophils (Bld) [#/Vol] 0.2 10*3/uL Normal 0.0-0.4 [facility]; [facility] Work Phone: Comment on above: PATIENT WAS FASTINGP ERFORMED BY: GILLIAN [facility] Bjdlua[address] [id number] Information: SRC: URINE Eosinophils/100 WBC (Bld) 2 % Normal 0-7 [facility]; [facility] Work Phone: Comment on above: PATIENT WAS FASTINGP ERFORMED BY: [facility] Lclpde[address] [id number] Information: SRC: URINE Erythrocyte distribution width (RBC) [Ratio] 13.8 % Normal 12.3-15.4 [facility]; [facility] Work Phone: Comment on above: PATIENT WAS FASTINGP ERFORMED BY: GILLIAN [facility] Rvknpu[address] [id number] Information: SRC: URINE Hematocrit (Bld) [Volume fraction] 38.4 % Normal 34.0-46.6 [facility]; [facility] Work Phone: Comment on above: PATIENT WAS FASTINGP ERFORMED BY: GILLIAN Coretta Gxhjgp[address] [id number] Information: SRC: URINE Hemoglobin (Bld) [Mass/Vol] 12.5 g/dL Normal 11.1-15.9 [facility]; [facility] Work Phone: Comment on above: PATIENT WAS FASTINGP ERFORMED BY: GILLIAN BrettSaint [facility] Erhuaw[address] [id number] Information: SRC: URINE Immature granulocytes (Bld) [#/Vol] 0.0 10*3/uL Normal 0.0-0.1 [facility]; [facility] Work Phone: Comment on above: PATIENT WAS FASTINGP ERFORMED BY: GILLIAN Coretta Mkpnhe[address] [id number] Information: SRC: URINE Immature granulocytes/100 WBC (Bld) 0 % Normal 0-2 [facility]; [facility] Work Phone: Comment on above: PATIENT WAS FASTINGP ERFORMED BY: GILLIAN Brett[address] [id number] Information: SRC: URINE Lymphocytes (Bld) [#/Vol] 2.6 10*3/uL Normal 0.7-4.5 [facility]; [facility] Work Phone: Comment on above: PATIENT WAS FASTINGP ERFORMED BY: GILLIAN Brett[address] [id number] Information: SRC: URINE Lymphocytes/100 WBC (Bld) 26 % Normal 14-46 [facility]; [facility] Work Phone: Comment on above: PATIENT WAS FASTINGP ERFORMED BY: GILLIAN Brett[address] [id number] Information: SRC: URINE MCH (RBC) [Entitic mass] 29.5 pg Normal 26.6-33.0 [facility]; [facility] Work Phone: Comment on above: PATIENT WAS FASTINGP ERFORMED BY: GILLIAN [address]ublin [place] [id number] Information: SRC: URINE MCHC (RBC) [Mass/Vol] 32.6 g/dL Normal 31.5-35.7 [facility]; [facility] Work Phone: Comment on above: PATIENT WAS FASTINGP ERFORMED BY: GILLIAN Aquiles Holleylin[address] [id number] Information: SRC: URINE MCV (RBC) [Entitic vol] 91 fL Normal 79-97 [facility]eren[facility]; [facility] Work Phone: Comment on above: PATIENT WAS FASTINGP ERFORMED BY: GILLIAN Corettarebecca Cqlunt[address] [id number] Information: SRC: URINE Monocytes (Bld) [#/Vol] 0.6 10*3/uL Normal 0.1-1.0 [facility]; [facility] Work Phone: Comment on above: PATIENT WAS FASTINGP ERFORMED BY: GILLIAN Coretta Knvbtf[address] [id number] Information: SRC: URINE Monocytes/100 WBC (Bld) 6 % Normal 4-13 [facility]eren[facility]; [facility] Work Phone: Comment on above: PATIENT WAS FASTINGP ERFORMED BY: GILLIAN Coretta Uxgmcu[address] [id number] Information: SRC: URINE Neutrophils (Bld) [#/Vol] 6.5 10*3/uL Normal 1.8-7.8 [facility]; [facility] Work Phone: Comment on above: PATIENT WAS FASTINGP ERFORMED BY: GILLIAN LabCorebecca Jyocdw54[address] [id number] Information: SRC: URINE Neutrophils/100 WBC (Bld) 65 % Normal 40-74 [facility]; [facility] Work Phone: Comment on above: PATIENT WAS FASTINGP ERFORMED BY: GILLIAN [facility] Idhdtg[address] [id number] Information: SRC: URINE Platelets (Bld) [#/Vol] 318 10*3/uL Normal 140-415 [facility]; [facility] Work Phone: Comment on above: PATIENT WAS FASTINGP ERFORMED BY: GILLIAN Aquiles Jin[address] [id number] Information: SRC: URINE RBC (Bld) [#/Vol] 4.24 10*6/uL Normal 3.77-5.28 [facility]; [facility] Work Phone: Comment on above: PATIENT WAS FASTINGP ERFORMED BY: GILLIAN BrettSaint [facility] Fjenkq7[address] [id number] Information: SRC: URINE WBC (Bld) [#/Vol] 10.0 10*3/uL Normal 4.0-10.5 [facility]; [facility] Work Phone: Comment on above: PATIENT WAS FASTINGP ERFORMED BY: GILLIAN BrettSaint [facility] Svmuqq[address] [id number] Information: SRC: URINE LIPID PANEL ([id number])Ordered B y: Mud Analysis Well Logging Operator on 02-18-2012 Cholesterol [Mass/Vol] 178 mg/dL Normal 100-199 [facility]; [facility] Work Phone: Comment on above: PATIENT WAS FASTINGP ERFORMED BY: GILLIAN BrettSaint [facility] Xxkxmc[address] [id number] Cholesterol in HDL [Mass/Vol] 38 mg/dL Abnormal [facility]; [facility] Work Phone: Comment on above: According to ATP-III Guidelines, HDL-C >59 mg/dL is considered anegative risk factor for CHD. PATIENT WAS FASTINGP ERFORMED BY: GILLIAN [facility] Hutgwf[address] [id number] Cholesterol in LDL [Mass/Vol] 94 mg/dL Normal 0-99 [facility]; [facility] Work Phone: Comment on above: PATIENT WAS FASTINGP ERFORMED BY: GILLIAN [facility] Gzzcwn2038[address] Streetblin [place] [id number] Cholesterol in LDL/Cholesterol in HDL [Mass ratio] 2.5 {ratio_units} Normal 0.0-3.2 [facility]; [facility] Work Phone: Comment on above: PATIENT WAS FASTINGP ERFORMED BY: GILLIAN [facility] Asqjgg26[address] RoadDublin [place] [id number] Cholesterol in VLDL [Mass/Vol] 46 mg/dL Abnormal 5-40 [facility]; [facility] Work Phone: Comment on above: PATIENT WAS FASTINGP ERFORMED BY: CB [facility] Hxxdmf1576 [address] RoadDublin [place] [id number] Triglyceride [Mass/Vol] 231 mg/dL Abnormal 0-149 [facility]; [facility] Work Phone: Comment on above: PATIENT WAS FASTINGP ERFORMED BY: CB [facility] Xbqhoe0893 [address] RoadDublin [place] [id number] METABOLIC PANEL, COMPREHENSI VE ([id number])Ordered By: Mud Analysis Well Logging Operator on 02-18-2012 Albumin [Mass/Vol] 4.3 g/dL Normal 3.5-5.5 [facility]; [facility] Work Phone: Comment on above: PATIENT WAS FASTINGP ERFORMED BY: GILLIAN [facility] Vrnnyg7380 [address] RoadDublin [place] [id number] Albumin/Globulin [Mass ratio] 1.4 {ratio} Normal 1.1-2.5 [facility]; [facility] Work Phone: Comment on above: PATIENT WAS FASTINGP ERFORMED BY: CB [facility] Wkgisk24[address] RoadDublin [place] [id number] ALP [Catalytic activity/Vol] 74 U/L Normal 25-150 [facility]; [facility] Work Phone: Comment on above: PATIENT WAS FASTINGP ERFORMED BY: CB [facility] Fmkeuy3905 [address] RoadDublin [place] [id number] ALT [Catalytic activity/Vol] 33 U/L Abnormal 0-32 [facility]; [facility] Work Phone: Comment on above: Please note refere nce interval change PATIENT WAS FASTINGP ERFORMED BY: CB [facility] Ndcpsy6464 [address] RoadDublin [place] [id number] AST [Catalytic activity/Vol] 21 U/L Normal 0-40 [facility]; [facility] Work Phone: Comment on above: PATIENT WAS FASTINGP ERFORMED BY: CB [facility] Bskqev2604 [address] RoadDublin [place] [id number] Bilirubin [Mass/Vol] 0.2 mg/dL Normal 0.0-1.2 Comp rehensive [facility]; [facility] Work Phone: Comment on above: PATIENT WAS FASTINGP ERFORMED BY: CB [facility] Higzui7386 [address] RoadDublin [place] [id number] Calcium [Mass/Vol] 9.3 mg/dL Normal 8.7-10.2 [facility]; [facility] Work Phone: Comment on above: PATIENT WAS FASTINGP ERFORMED BY: CB [facility] Bozzxx35[address] RoadDublin [place] [id number] Chloride [Moles/Vol] 101 mmol/L Normal 97-108 Comp rehensive [facility]; [facility] Work Phone: Comment on above: PATIENT WAS FASTINGP ERFORMED BY: CB [facility] Fgtvxh9001 [address] RoadDublin [place] [id number] CO2 [Moles/Vol] 23 mmol/L Normal 20-32 [facility]; [facility] Work Phone: Comment on above: PATIENT WAS FASTINGP ERFORMED BY: CB [facility] Ziezbt9224 [address] RoadDublin [place] [id number] Creatinine [Mass/Vol] 0.63 mg/dL Normal 0.57-1.00 [facility] prehensive Internal Medicine; [facility] Work Phone: Comment on above: PATIENT WAS FASTINGP ERFORMED BY: CB [facility] Ipowrg88[address] RoadDublin [place] [id number] GFR/1.73 sq M.predicted among blacks CKD-EPI (S/P/Bld) [Vol rate/Area] 114 mL/min/1.73 Normal [facility]; [facility] Work Phone: Comment on above: PATIENT WAS FASTINGP ERFORMED BY: CB [facility] Jkewjy5[address]blin [place] [id number] GFR/1.73 sq M.predicted among non-blacks CKD-EPI (S/P/Bld) [Vol rate/Area] 99 mL/min/1.73 Normal [facility]; [facility] Work Phone: Comment on above: PATIENT WAS FASTINGP ERFORMED BY: [facility] Zpdajg9043 [address] RoadNovant Health Rehabilitation Hospitalin [place] [id number] Globulin (S) [Mass/Vol] 3.0 g/dL Normal 1.5-4.5 [facility]; [facility] Work Phone: Comment on above: PATIENT WAS FASTINGP ERFORMED BY: [facility] Cqpyqm[address] [facility] [id number] Glucose [Mass/Vol] 107 mg/dL Abnormal 65-99 [facility]; [facility] Work Phone: Comment on above: PATIENT WAS FASTINGP ERFORMED BY: [facility] Folzbu[address] [id number] Potassium [Moles/Vol] 4.4 mmol/L Normal 3.5-5.2 [facility] prehensive Internal Medicine; [facility] Work Phone: Comment on above: PATIENT WAS FASTINGP ERFORMED BY: [facility] Etiaad[address] [facility]in [place] [id number] Protein [Mass/Vol] 7.3 g/dL Normal 6.0-8.5 [facility]; [facility] Work Phone: Comment on above: PATIENT WAS FASTINGP ERFORMED BY: CB [facility] Iykbyb[address] [facility] [id number] Sodium [Moles/Vol] 139 mmol/L Normal 134-144 [facility]; [facility] Work Phone: Comment on above: PATIENT WAS FASTINGP ERFORMED BY: [facility] Sqrcgm[address] [facility] [id number] Urea nitrogen [Mass/Vol] 12 mg/dL Normal 6-24 [facility]; [facility] Work Phone: Comment on above: PATIENT WAS FASTINGP ERFORMED BY: CB [facility] Pfxinp[address] [facility] [id number] Urea nitrogen/Creatinine [Mass ratio] 19 mg/mg Normal 9-23 [facility]; [facility] Work Phone: Comment on above: PATIENT WAS FASTINGP ERFORMED BY: [facility] Ugcwjb[address] [id number] MICROALBUMINOrdered By: Syst em Shell Trim Tool Setter on 02-18-2012 Albumin DL <= 20 mg/L (U) [Mass/Vol] 1.0 ug/mL Normal 0.0-17.0 [facility]; [facility] Work Phone: Comment on above: PATIENT WAS FASTINGP ERFORMED BY: GILLIAN [facility] Wgiixp[address] [id number] Albumin/Creatinine (U) [Mass ratio] 3.4 {mg/g_creat} Normal 0.0-30.0 [facility]; [facility] Work Phone: Comment on above: PATIENT WAS FASTINGP ERFORMED BY: [facility] Grfrqp[address] [id number] Creatinine (U) [Mass/Vol] 29.6 mg/dL Normal 15.0-278.0 [facility]; [facility] Work Phone: Comment on above: PATIENT WAS FASTINGP ERFORMED BY: CB [facility] Vifnhd[address] [id number] Blood Glucose , Office ([phone])Ordered By: Jessica Pemberton on 12-24-2011 Glucose Glucometer (BldC) [Moles/Vol] 93 1 Normal [facility]; [facility] Work Phone: Comment on above: ate at 2pm HgA1C , Office ([phone])Ordere d By: Thais Siddiqui on 12-24-2011 HbA1c (Bld) [Mass fraction] 6.2 % Normal 4.6 - 7.1 [facility]; [facility] Work Phone: Blood Glucose , Office ([phone])Ordered By: ROLY Moon on 09-17-2011 Glucose Glucometer (BldC) [Moles/Vol] 91 1 Normal [facility]; [facility] Work Phone: HgA1C , Office ([phone])Ordere d By: ROLY Moon on 09-17-2011 HbA1c (Bld) [Mass fraction] 6.4 % Normal 4.6 - 7.1 [facility]; [facility] Work Phone: HEPATIC FUNCTION PANEL ([phone])Ordered By: Mud Analysis Well Logging Operator on 08-16-2011 Albumin [Mass/Vol] 4.4 g/dL Normal 3.5-5.5 [facility]; [facility] Work Phone: Comment on above: PATIENT WAS FASTINGP ERFORMED BY: CB [facility] Jdmcrc5779 [address]Dublin [place] [id number] ALP [Catalytic activity/Vol] 68 U/L Normal 25-150 [facility]; [facility] Work Phone: Comment on above: PATIENT WAS FASTINGP ERFORMED BY: CB [facility] Vfcylh3579 [address] RoadDublin [place] [id number] ALT [Catalytic activity/Vol] 47 U/L Abnormal 0-40 [facility]; [facility] Work Phone: Comment on above: PATIENT WAS FASTINGP ERFORMED BY: CB [facility] Aafset6[address]Dublin [place] [id number] AST [Catalytic activity/Vol] 36 U/L Normal 0-40 [facility]; [facility] Work Phone: Comment on above: PATIENT WAS FASTINGP ERFORMED BY: CB [facility] Nanbwg8870 [address]Dublin [place] [id number] Bilirubin [Mass/Vol] 0.4 mg/dL Normal 0.0-1.2 Comp [facility]erensive Internal Medicine; [facility] Work Phone: Comment on above: PATIENT WAS FASTINGP ERFORMED BY: GILLIAN Stewart[address] [id number] Bilirubin.direct [Mass/Vol] 0.13 mg/dL Normal 0.00-0.40 [facility]; [facility] Work Phone: Comment on above: PATIENT WAS FASTINGP ERFORMED BY: GILLIAN Hitchcock Cvoqno[address] [id number] Protein [Mass/Vol] 7.4 g/dL Normal 6.0-8.5 [facility]; [facility] Work Phone: Comment on above: PATIENT WAS FASTINGP ERFORMED BY: GILLIAN Stewart[address] [id number] LIPID PANEL ([id number])Ordered B y: Mud Analysis Well Logging Operator on 08-16-2011 Cholesterol [Mass/Vol] 130 mg/dL Normal 100-199 [facility]; [facility] Work Phone: Comment on above: PATIENT WAS FASTINGP ERFORMED BY: GILLIAN Stewart[address] [id number] Cholesterol in HDL [Mass/Vol] 29 mg/dL Abnormal [facility]; [facility] Work Phone: Comment on above: According to ATP-III Guidelines, HDL-C >59 mg/dL is considered anegative risk factor for CHD. PATIENT WAS FASTINGP ERFORMED BY: GILLIAN [facility] Cqfdpp[address] [id number] Cholesterol in LDL [Mass/Vol] 63 mg/dL Normal 0-99 [facility]; [facility] Work Phone: Comment on above: PATIENT WAS FASTINGP ERFORMED BY: GILLIAN Holleylin[address] [id number] Cholesterol in LDL/Cholesterol in HDL [Mass ratio] 2.2 {ratio_units} Normal 0.0-3.2 [facility]; [facility] Work Phone: Comment on above: PATIENT WAS FASTINGP ERFORMED BY: CB [facility] Biypix[address] [facility] [id number] Cholesterol in VLDL [Mass/Vol] 38 mg/dL Normal 5-40 [facility]; [facility] Work Phone: Comment on above: PATIENT WAS FASTINGP ERFORMED BY: CB [facility] Clvqdq[address] [facility] [id number] Triglyceride [Mass/Vol] 191 mg/dL Abnormal 0-149 [facility]; [facility] Work Phone: Comment on above: PATIENT WAS FASTINGP ERFORMED BY: CB [facility] Vpfote3636 [address] RoadDuUNC Health Southeastern [id number] Blood Glucose , Office ([phone])Ordered By: ROLY Moon on 06-18-2011 Glucose Glucometer (BldC) [Moles/Vol] 63 1 Normal [facility]; [facility] Work Phone: HgA1C , Office ([phone])Ordere d By: ORLY Moon on 06-18-2011 HbA1c (Bld) [Mass fraction] 6.2 % Normal 4.6 - 7.1 [facility]; [facility] Work Phone: FECAL OCCULT HGB ASSAY- tube s sent home ([phone])on 04-04-2011 Hemoglobin.gastrointest inal Ql (Stl) Negative Normal [facility]; [facility] Work Phone: Blood Glucose , Office ([phone])Ordered By: ROLY Moon on 03-07-2011 Glucose Glucometer (BldC) [Moles/Vol] 141 1 Normal [facility]; [facility] Work Phone: HgA1C , Office ([phone])Ordere d By: ROLY Moon on 03-07-2011 HbA1c (Bld) [Mass fraction] 6.3 % Normal 4.6 - 7.1 [facility]; [facility] Work Phone: Blood Glucose , Office ([phone])Ordered By: ROLY Moon on 2010 Glucose Glucometer (BldC) [Moles/Vol] 114 1 Normal [facility]; [facility] Work Phone: HgA1C , Office ([phone])Ordere d By: ROLY Moon on 2010 HbA1c (Bld) [Mass fraction] 6.0 % Normal 4.6 - 7.1 [facility]; [facility] Work Phone: CBC with manual diff ([id number]) Ordered By: Mud Analysis Well Logging Operator on 11-16-2010 Basophils (Bld) [#/Vol] 0.0 10*3/uL Normal 0.0-0.2 [facility]; [facility] Work Phone: Comment on above: PATIENT WAS FASTINGP ERFORMED BY: CB [facility] Xyvqqs[address] [facility] [id number] Information: [id number] Basophils/100 WBC (Bld) 0 % Normal 0-3 [facility]; [facility] Work Phone: Comment on above: PATIENT WAS FASTINGP ERFORMED BY: CB [facility] Tnfljp1690 [facility] [id number] Information: [id number] Eosinophils (Bld) [#/Vol] 0.1 10*3/uL Normal 0.0-0.4 [facility]; [facility] Work Phone: Comment on above: PATIENT WAS FASTINGP ERFORMED BY: CB [facility] Qwktoe[address] [facility] [id number] Information: [id number] Eosinophils/100 WBC (Bld) 2 % Normal 0-7 [facility]; [facility] Work Phone: Comment on above: PATIENT WAS FASTINGP ERFORMED BY: CB [facility] Rkarra[address] [facility] [id number] Information: [id number] Erythrocyte distribution width (RBC) [Ratio] 14.2 % Normal 11.7-15.0 [facility]; [facility] Work Phone: Comment on above: PATIENT WAS FASTINGP ERFORMED BY: CB [facility] Vkztbp[address] [id number] Information: [id number] Hematocrit (Bld) [Volume fraction] 39.4 % Normal 34.0-44.0 [facility]; [facility] Work Phone: Comment on above: PATIENT WAS FASTINGP ERFORMED BY: GILLIAN [place] [address]64[address] [id number] Information: [id number] Hemoglobin (Bld) [Mass/Vol] 13.0 g/dL Normal 11.5-15.0 [facility]; [facility] Work Phone: Comment on above: PATIENT WAS FASTINGP ERFORMED BY: [place] [id number] [id number] Information: [id number] Immature granulocytes (Bld) [#/Vol] 0.0 10*3/uL Normal 0.0-0.1 [facility]; [facility] Work Phone: Comment on above: PATIENT WAS FASTINGP ERFORMED BY: [facility] [id number] Information: [id number] Immature granulocytes/100 WBC (Bld) 0 % Normal 0-2 [facility]; [facility] Work Phone: Comment on above: Please note refere nce interval change PATIENT WAS FASTINGP ERFORMED BY: [facility] [id number] Information: [id number] Lymphocytes (Bld) [#/Vol] 2.4 10*3/uL Normal 0.7-4.5 [facility]; [facility] Work Phone: Comment on above: PATIENT WAS FASTINGP ERFORMED BY: [facility] [id number] Information: [id number] Lymphocytes/100 WBC (Bld) 33 % Normal 14-46 [facility]; [facility] Work Phone: Comment on above: PATIENT WAS FASTINGP ERFORMED BY: GILLIAN [facility] Qlgusk[address] [id number] Information: [id number] MCH (RBC) [Entitic mass] 29.6 pg Normal 27.0-34.0 [facility] Internal Medicine; [facility] Work Phone: Comment on above: PATIENT WAS FASTINGP ERFORMED BY: [address] [id number] Information: [id number] MCHC (RBC) [Mass/Vol] 33.0 g/dL Normal 32.0-36.0 [facility] Internal Medicine; [facility] Work Phone: Comment on above: PATIENT WAS FASTINGP ERFORMED BY: GILLIAN Brett[address] [id number] Information: [id number] MCV (RBC) [Entitic vol] 90 fL Normal 80-98 [facility]; [facility] Work Phone: Comment on above: PATIENT WAS FASTINGP ERFORMED BY: [facility] Sngwen[address] [id number] Information: [id number] Monocytes (Bld) [#/Vol] 0.7 10*3/uL Normal 0.1-1.0 [facility] Internal Medicine; [facility] Work Phone: Comment on above: PATIENT WAS FASTINGP ERFORMED BY: [facility] [id number] Information: [id number] Monocytes/100 WBC (Bld) 9 % Normal 4-13 [facility]; [facility] Work Phone: Comment on above: PATIENT WAS FASTINGP ERFORMED BY: [facility] [id number] Information: [id number] Neutrophils (Bld) [#/Vol] 4.1 10*3/uL Normal 1.8-7.8 [facility]; [facility] Work Phone: Comment on above: PATIENT WAS FASTINGP ERFORMED BY: GILLIAN Flores [address] [id number] Information: [id number] Neutrophils/100 WBC (Bld) 56 % Normal 40-74 [facility]; [facility] Work Phone: Comment on above: PATIENT WAS FASTINGP ERFORMED BY: GILLIAN Hithccock Y[address] [id number] Information: [id number] Platelets (Bld) [#/Vol] 320 10*3/uL Normal 140-415 [facility]; [facility] Work Phone: Comment on above: PATIENT WAS FASTINGP ERFORMED BY: GILLIAN Hitchcokc Bksmwc[address] [id number] Information: [id number] RBC (Bld) [#/Vol] 4.39 10*6/uL Normal 3.80-5.10 [facility]; [facility] Work Phone: Comment on above: PATIENT WAS FASTINGP ERFORMED BY: GILLIAN Holleylin[address] [id number] Information: [id number] WBC (Bld) [#/Vol] 7.4 10*3/uL Normal 4.0-10.5 [facility]; [facility] Work Phone: Comment on above: PATIENT WAS FASTINGP ERFORMED BY: GILLIAN [facility]Saint [facility] Abzuyl[address] [id number] Information: [id number] Lipid Panel (32435)Ordered B y: Mud [employer] Well 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 PATIENT WAS FASTINGP ERFORMED BY: GILLIAN [facility] Sjymuq50[address] RoadDublin [place] [id number] Cholesterol in LDL [Mass/Vol] 146 mg/dL Abnormal 0-99 [facility]; [facility] Work Phone: Comment on above: PATIENT WAS FASTINGP ERFORMED BY: CB [facility] Ptsudx5967 [address] Roadblin [place] [id number] Cholesterol in LDL/Cholesterol in HDL [Mass ratio] 3.4 {ratio_units} Abnormal 0.0-3.2 [facility]; [facility] Work Phone: Comment on above: PATIENT WAS FASTINGP ERFORMED BY: GILLIAN [facility] Yqorkw[address] [facility] [place] [id number] Cholesterol in VLDL [Mass/Vol] 20 mg/dL Normal 5-40 [facility]; [facility] Work Phone: Comment on above: PATIENT WAS FASTINGP ERFORMED BY: CB [facility] Kdppwk86[address] [facility] [place] [id number] Triglyceride [Mass/Vol] 101 mg/dL Normal 0-149 C omprehensive Internal Medicine; [facility] Work Phone: Comment on above: PATIENT WAS FASTINGP ERFORMED BY: [facility] Nffqir[address] [facility] [place] [id number] MICROALBUMINOrdered By: Syst em Shell Trim Tool Setter on 11-16-2010 Albumin DL <= 20 mg/L (U) [Mass/Vol] 6.2 ug/mL Normal 0.0-17.0 [facility]; [facility] Work Phone: Comment on above: PATIENT WAS FASTINGP ERFORMED BY: CB [facility] Edasqa8846 [address] RoadDublin [place] [id number] Albumin/Creatinine (U) [Mass ratio] 5.4 {mg/g_creat} Normal 0.0-30.0 [facility]; [facility] Work Phone: Comment on above: PATIENT WAS FASTINGP ERFORMED BY: GILLIAN Stewart[address] [id number] Creatinine (U) [Mass/Vol] 115.6 mg/dL Normal 15.0-278.0 [facility]; [facility] Work Phone: Comment on above: PATIENT WAS FASTINGP ERFORMED BY: [facility] Xsyvaj[address] [id number] Metabolic Panel, Comprehensi ve (64032)Ordered By: Mud Analysis Well Logging Operator on 11-16-2010 Albumin [Mass/Vol] 4.4 g/dL Normal 3.5-5.5 [facility] Internal Medicine; [facility] Work Phone: Comment on above: PATIENT WAS FASTINGP ERFORMED BY: [facility] Hdfaaw[address] [id number] Albumin/Globulin [Mass ratio] 1.6 {ratio} Normal 1.1-2.5 [facility]; [facility] Work Phone: Comment on above: PATIENT WAS FASTINGP ERFORMED BY: Coretta Sjvmji[address] [id number] ALP [Catalytic activity/Vol] 71 U/L Normal 25-150 [facility]; [facility] Work Phone: Comment on above: PATIENT WAS FASTINGP ERFORMED BY: [facility]Mym[facility] Clare[address] [id number] ALT [Catalytic activity/Vol] 26 U/L Normal 0-40 [facility]; [facility] Work Phone: Comment on above: PATIENT WAS FASTINGP ERFORMED BY: [facility]Saint [facility] Yeecxy[address] [id number] AST [Catalytic activity/Vol] 25 U/L Normal 0-40 [facility]; [facility] Work Phone: Comment on above: PATIENT WAS FASTINGP ERFORMED BY: [facility] Hefcvw7080 [address] RoadDublin [place] [id number] Bilirubin [Mass/Vol] 0.7 mg/dL Normal 0.0-1.2 Comp rehensive Internal Medicine; [facility] Work Phone: Comment on above: PATIENT WAS FASTINGP ERFORMED BY: CB [facility] Vpckqp8622 [address] RoadDublin [place] [id number] Calcium [Mass/Vol] 9.4 mg/dL Normal 8.7-10.2 [facility]; [facility] Work Phone: Comment on above: PATIENT WAS FASTINGP ERFORMED BY: CB [facility] Qrbwmp3443 [address] RoadDublin [place] [id number] Chloride [Moles/Vol] 99 mmol/L Normal 97-108 [facility] rehensive Internal Medicine; [facility] Work Phone: Comment on above: PATIENT WAS FASTINGP ERFORMED BY: CB [facility] Ntxuec1837 [address] RoadDublin [place] [id number] CO2 [Moles/Vol] 23 mmol/L Normal 20-32 [facility]; [facility] Work Phone: Comment on above: PATIENT WAS FASTINGP ERFORMED BY: CB [facility] Iwuqbc6[address] RoadDublin [place] [id number] Creatinine [Mass/Vol] 0.71 mg/dL Normal 0.57-1.00 [facility]; [facility] Work Phone: Comment on above: PATIENT WAS FASTINGP ERFORMED BY: CB [facility] Mqpwbh4450 [address] RoadDuin [place] [id number] GFR/1.73 sq M.predicted among blacks MDRD (S/P/Bld) [Vol rate/Area] 110 mL/min/{1.73_m2} Normal Comprehensi ve Internal Medicine; [facility] Work Phone: Comment on above: Note: A persistent e GFR <60 mL/min/1.73 m2 (3 months or more) mayindicate chronic kidney disease. An eGFR >59 mL/min/1.73 m2 with anelevated urine protein also may indicate chronic kidney disease.Calculated using CKD-EPI formula. PATIENT WAS FASTINGP ERFORMED BY: [facility] Mrdtnv[address] [facility] [id number] GFR/1.73 sq M.predicted among non-blacks CKD-EPI (S/P/Bld) [Vol rate/Area] 96 mL/min/1.73 Normal [facility]; [facility] Work Phone: Comment on above: PATIENT WAS FASTINGP ERFORMED BY: [facility] Sqdvvc[address] [facility] [id number] Globulin (S) [Mass/Vol] 2.8 g/dL Normal 1.5-4.5 [facility]; [facility] Work Phone: Comment on above: PATIENT WAS FASTINGP ERFORMED BY: [facility] Izeslx[address] [id number] Glucose [Mass/Vol] 116 mg/dL Abnormal 65-99 [place] [facility]; [facility] Work Phone: Comment on above: PATIENT WAS FASTINGP ERFORMED BY: [facility] Cgznxq[address] [facility] [id number] Potassium [Moles/Vol] 4.4 mmol/L Normal 3.5-5.2 [facility]; [facility] Work Phone: Comment on above: PATIENT WAS FASTINGP ERFORMED BY: [facility] Etvbvp[address] [id number] Protein [Mass/Vol] 7.2 g/dL Normal 6.0-8.5 [facility] Internal Medicine; [facility] Work Phone: Comment on above: PATIENT WAS FASTINGP ERFORMED BY: [facility] Bbrltl[address] [facility] [id number] Sodium [Moles/Vol] 137 mmol/L Normal 135-145 [place] [facility]; [facility] Work Phone: Comment on above: PATIENT WAS FASTINGP ERFORMED BY: [facility] Oteeag[address] [id number] Urea nitrogen [Mass/Vol] 16 mg/dL Normal 6-24 [facility]; [facility] Work Phone: Comment on above: PATIENT WAS FASTINGP ERFORMED BY: [facility] Kiiwwj[address] [id number] Urea nitrogen/Creatinine [Mass ratio] 23 mg/mg Normal 9-23 [facility]; [facility] Work Phone: Comment on above: PATIENT WAS FASTINGP ERFORMED BY: [facility]Saint [facility] Iodynn[address] [id number] Rapid Flu (13364 x 2)on FLUAV Ag IA Ql (Throat) Negative Normal C omprehensive Internal Medicine; [facility] Work Phone: Blood Glucose , Office ([phone])Ordered By: ROLY Moon on 02-27-2007 Glucose Glucometer (BldC) [Moles/Vol] 146 1 Normal [facility]; [facility] Work Phone: HgA1C , Office ([phone])on HbA1c (Bld) [Mass fraction] 6.1 % Normal 4.6 - 7.1 [facility]; [facility] Work Phone: Comment on above: mistyped result Blood Glucose , Office ([phone])Ordered By: ROLY Moon on 11-03-2006 Glucose Glucometer (BldC) [Moles/Vol] 115 1 Normal [facility]; [facility] Work Phone: HgA1C , Office ([phone])Ordere d By: ROLY Moon on 11-03-2006 HbA1c (Bld) [Mass fraction] 6.1 % Normal 4.6 - 7.1 [facility]; [facility] Work Phone: Blood Glucose , Office ([phone])Ordered By: ROLY Moon on 07-17-2006 Glucose Glucometer (BldC) [Moles/Vol] 59 1 Normal [facility]; [facility] Work Phone: Urinalysis, Office ([phone])Or dered By: ROLY Moon on 07-17-2006 Bilirubin Ql (U) Negative Normal Comprehe nsive Internal Medicine; [facility] Work Phone: Glucose Test strip (U) [Mass/Vol] Negative Normal [facility]; [facility] Work Phone: Hemoglobin Ql (U) Negative Normal Compreh ensive Internal Medicine; [facility] Work Phone: Ketones Ql (U) Negative Normal Comprehens karlene Internal Medicine; [facility] Work Phone: Leukocyte esterase Test strip Ql (U) Negative Normal [facility]; [facility] Work Phone: Nitrite Ql (U) Negative Normal Comprehens karlene Internal Medicine; [facility] Work Phone: pH (U) 7.0 [pH] Normal [facility]; [facility] Work Phone: Protein Ql (U) Negative Normal Comprehens karlene Internal Medicine; [facility] Work Phone: Specific gravity (U) [Rel density] 1.020 1 Normal [facility]; [facility] Work Phone: Urobilinogen (24H U) [Mass/Time] Normal Normal [facility]; [facility] Work Phone: Blood Glucose , Office ([phone])Ordered By: Nayla Galicia on 12-27-2005 Glucose Glucometer (BldC) [Moles/Vol] 137 1 Normal [facility]; [facility] Work Phone: HgA1C , Office ([phone])Ordere d By: Nayla Galicia on 12-27-2005 HbA1c (Bld) [Mass fraction] 6.0 % Normal 4.6 - 7.1 [facility]; [facility] Work Phone: Vital Signs Date Time Vital Sign Value Performing Clinician Facility 10-01-2023 07:46-0400 Body temperature 98.2 [degF] Rosy Shahid PA-C Work Phone: [facility] 10-01-2023 07:46-0400 Body weight 68.8 kg Rosy Athy PA-C Work Phone: [facility] 10-01-2023 07:46-0400 Diastolic blood pressure 74 mm[Hg] Rosy Karimiy PA-C Work Phone: [facility] 10-01-2023 07:46-0400 Heart rate 86 /min Rosy Athy PA-C Work Phone: [facility] 10-01-2023 07:46-0400 Respiratory rate 16 /min Rosy Athy PA-C Work Phone: [facility] 10-01-2023 07:46-0400 SaO2% (BldA) [Mass fraction] 97 % Rosy Athy PA-C Work Phone: [facility] 10-01-2023 07:46-0400 Systolic blood pressure 140 mm[Hg] Rosy Athy PA-C Work Phone: [facility] 02-28-2015 11:33-0500 Body height 152.4 cm Stephanie Schneider [facility] Medicine; [facility] Work Phone: 02-28-2015 11:33-0500 Body mass index (BMI) [Ratio] 30.12 kg/m2 Stephanie [facility] Give [facility]; [facility] Work Phone: 02-28-2015 11:33-0500 Body surface area Derived from formula 1.67 m2 Stephanie Reynoso51 Give [facility]; [facility] Work Phone: 02-28-2015 11:33-0500 Body temperature 98 [degF] Stephanie Schneider [facility]; [facility] Work Phone: Comment on above: Method: Oral 02-28-2015 11:33-0500 Body weight 69.97 kg Stephanie Schneider [facility]; [facility] Work Phone: 02-28-2015 11:33-0500 Diastolic blood pressure 72 mm[Hg] Stephanie [facility] Give [facility]; [facility] Work Phone: Comment on above: Patient Position: Sitting; Cuff Location : Left Arm; Cuff Size: Standard 02-28-2015 11:33-0500 Heart rate 70 /min Stephanie Schneider [facility]; [facility] Work Phone: Comment on above: Pattern: Regular 02-28-2015 11:33-0500 Respiratory rate 16 /min Stephanie Schneider [facility]; [facility] Work Phone: Comment on above: Pattern: Unlabored 02-28-2015 11:33-0500 SaO2% (BldA) [Mass fraction] 98 % Stephanie Schneider [facility]; [facility] Work Phone: Comment on above: Room air 02-28-2015 11:33-0500 Systolic blood pressure 118 mm[Hg] Stephanie Schneider [facility]; [facility] Work Phone: Comment on above: Patient Position: Sitting; Cuff Location : Left Arm; Cuff Size: Standard 02-10-2015 12:170400 Body height 152.4 cm Geno Aguirre RN [facility]; [facility] Work Phone: 02-10-2015 12:17-0400 Body mass index (BMI) [Ratio] 30.69 kg/m2 Geno Aguirre RN [facility]; [facility] Work Phone: 02-10-2015 12:17-0400 Body surface area Derived from formula 1.68 m2 Geno Aguirre RN [facility]; [facility] Work Phone: 02-10-2015 12:17-0400 Body temperature 98.4 [degF] Geno Aguirre RN [facility]; [facility] Work Phone: Comment on above: Method: Temporal 02-10-2015 12:170400 Body weight 71.27 kg Geno Aguirre RN [facility]; [facility] Work Phone: 02-10-2015 12:17-0400 Diastolic blood pressure 80 mm[Hg] Geno Aguirre RN [facility]; [facility] Work Phone: Comment on above: Patient Position: Sitting; Cuff Location : Left Arm; Cuff Size: Large 02-10-2015 12:17-0400 Heart rate 71 /min Geno Aguirre RN [facility]; [facility] Work Phone: Comment on above: Pattern: Regular 02-10-2015 12:17-0400 Respiratory rate 20 /min Geno Aguirre RN [facility]; [facility] Work Phone: Comment on above: Pattern: Unlabored 02-10-2015 12:17-0400 SaO2% (BldA) [Mass fraction] 95 % Geno Aguirre RN [facility]; [facility] Work Phone: Comment on above: Room air 02-10-2015 12:17-0400 Systolic blood pressure 120 mm[Hg] Geno Aguirre RN [facility]; [facility] Work Phone: Comment on above: Patient Position: Sitting; Cuff Location : Left Arm; Cuff Size: Large 11-28-2014 12:06-0400 Body height 152.4 cm ROLY Moon LPN [facility]; [facility] Work Phone: 11-28-2014 12:06-0400 Body mass index (BMI) [Ratio] 31.64 kg/m2 ROLY Moon LPN [facility]; [facility] Work Phone: 11-28-2014 12:06-0400 Body surface area Derived from formula 1.71 m2 ROLY Moon LPN [facility]; [facility] Work Phone: 11-28-2014 12:06-0400 Body temperature 97.1 [degF] ROLY Moon LPN [facility]; [facility] Work Phone: Comment on above: Method: Temporal 11-28-2014 12:06-0400 Body weight 73.48 kg ROLY Moon LPN [facility]; [facility] Work Phone: 11-28-2014 12:06-0400 Diastolic blood pressure 78 mm[Hg] ROLY Moon LPN [facility]; [facility] Work Phone: Comment on above: Patient Position: Sitting; Cuff Location : Left Arm; Cuff Size: Standard 11-28-2014 12:06-0400 Heart rate 76 /min ROLY Moon TAMIA [facility]; [facility] Work Phone: Comment on above: Pattern: Regular 11-28-2014 12:06-0400 Respiratory rate 18 /min ROLY Moon TAMIA [facility]; [facility] Work Phone: Comment on above: Pattern: Unlabored 11-28-2014 12:06-0400 SaO2% (BldA) [Mass fraction] 97 % ROLY Moon TAMIA [facility]; [facility] Work Phone: Comment on above: Room air 11-28-2014 12:06-0400 Systolic blood pressure 116 mm[Hg] ROLY Moon TAMIA [facility]; [facility] Work Phone: Comment on above: Patient Position: Sitting; Cuff Location : Left Arm; Cuff Size: Standard 11-03-2014 07:36-0400 Body height 152.4 cm ROLY Moon TAMIA [facility]; [facility] Work Phone: 11-03-2014 07:36-0400 Body mass index (BMI) [Ratio] 30.47 kg/m2 ROLY Moon TAMIA [facility]; [facility] Work Phone: 11-03-2014 07:36-0400 Body surface area Derived from formula 1.68 m2 ROLY Moon TAMIA [facility]; [facility] Work Phone: 11-03-2014 07:36-0400 Body temperature 97.7 [degF] ROLY Moon TAMIA [facility]; [facility] Work Phone: Comment on above: Method: Temporal 11-03-2014 07:36-0400 Body weight 70.76 kg ROLY Moon TAMIA [facility]; [facility] Work Phone: 11-03-2014 07:36-0400 Diastolic blood pressure 68 mm[Hg] ROLY Moon TAMIA [facility]; [facility] Work Phone: Comment on above: Patient Position: Sitting; Cuff Location : Left Arm; Cuff Size: Standard 11-03-2014 07:36-0400 Heart rate 80 /min ROLY Moon TAMIA [facility]; [facility] Work Phone: Comment on above: Pattern: Regular 11-03-2014 07:36-0400 Respiratory rate 20 /min ROLY Moon TAMIA [facility]; [facility] Work Phone: Comment on above: Pattern: Unlabored 11-03-2014 07:36-0400 SaO2% (BldA) [Mass fraction] 97 % ROLY Moon TAMIA [facility]; [facility] Work Phone: Comment on above: Room air 11-03-2014 07:36-0400 Systolic blood pressure 110 mm[Hg] ROLY Moon TAMIA [facility]; [facility] Work Phone: Comment on above: Patient Position: Sitting; Cuff Location : Left Arm; Cuff Size: Standard 08-29-2014 16:02-0400 Body height 152.4 cm StephanieSeek & Adore [facility]; [facility] Work Phone: 08-29-2014 16:02-0400 Body mass index (BMI) [Ratio] 30.47 kg/m2 Stephanie Blueknow [facility]; [facility] Work Phone: 08-29-2014 16:02-0400 Body surface area Derived from formula 1.68 m2 Stephaniemarina Reynoso51 Give [facility]; [facility] Work Phone: 08-29-2014 16:02-0400 Body weight 70.76 kg Stephanie MinaMicromidas [facility]; [facility] Work Phone: 08-29-2014 16:02-0400 Diastolic blood pressure 70 mm[Hg] Stephanie LeopoldoMicromidas [facility]; [facility] Work Phone: Comment on above: Patient Position: Sitting; Cuff Location : Left Arm; Cuff Size: Standard 08-29-2014 16:02-0400 Heart rate 96 /min Stephanie Blueknow [facility]; [facility] Work Phone: Comment on above: Pattern: Regular 08-29-2014 16:02-0400 Respiratory rate 16 /min Stephanie Wyatt [facility]; [facility] Work Phone: Comment on above: Pattern: Unlabored 08-29-2014 16:02-0400 SaO2% (BldA) [Mass fraction] 98 % Stephanie Schneider [facility]; [facility] Work Phone: Comment on above: Room air 08-29-2014 16:02-0400 Systolic blood pressure 126 mm[Hg] Stephanie Schneider [facility]; [facility] Work Phone: Comment on above: Patient Position: Sitting; Cuff Location : Left Arm; Cuff Size: Standard 08-01-2014 15:31-0400 Body height 152.4 cm ROLY Moon LPN [facility] Work Phone: 08-01-2014 15:31-0400 Body mass index (BMI) [Ratio] 31.25 kg/m2 ROLY Moon LPN [facility]; [facility] Work Phone: 08-01-2014 15:31-0400 Body surface area Derived from formula 1.7 m2 ROLY Moon LPN [facility]; [facility] Work Phone: 08-01-2014 15:31-0400 Body temperature 97.4 [degF] ROLY Moon LPN [facility]; [facility] Work Phone: Comment on above: Method: Temporal 08-01-2014 15:31-0400 Body weight 72.58 kg ROLY Moon LPN [facility]; [facility] Work Phone: 08-01-2014 15:31-0400 Diastolic blood pressure 74 mm[Hg] ROLY Moon LPN [facility]; [facility] Work Phone: Comment on above: Patient Position: Sitting; Cuff Location : Left Arm; Cuff Size: Standard 08-01-2014 15:31-0400 Heart rate 82 /min ROLY Moon LPN [facility]; [facility] Work Phone: Comment on above: Pattern: Regular 08-01-2014 15:31-0400 Respiratory rate 18 /min ROLY Moon LPN [facility]; [facility] Work Phone: Comment on above: Pattern: Unlabored 08-01-2014 15:31-0400 SaO2% (BldA) [Mass fraction] 99 % ROLY Moon TAMIA [facility]; [facility] Work Phone: Comment on above: Room air 08-01-2014 15:31-0400 Systolic blood pressure 114 mm[Hg] ROLY Moon TAMIA [facility]; [facility] Work Phone: Comment on above: Patient Position: Sitting; Cuff Location : Left Arm; Cuff Size: Standard 07-06-2014 08:25-0400 Body height 152.4 cm Fabiola Ritter LPN [facility]; [facility] Work Phone: 07-06-2014 08:25-0400 Body mass index (BMI) [Ratio] 31.54 kg/m2 Fabiola Ritter LPN [facility]; [facility] Work Phone: 07-06-2014 08:25-0400 Body surface area Derived from formula 1.7 m2 Fabiola Ritter LPN [facility]; [facility] Work Phone: 07-06-2014 08:25-0400 Body temperature 100.8 [degF] Fabiola Stone PAN [facility]; [facility] Work Phone: 07-06-2014 08:25-0400 Body weight 73.26 kg Fabiola Ritter LPN [facility]; [facility] Work Phone: 07-06-2014 08:25-0400 Diastolic blood pressure 80 mm[Hg] Fabiola Stone PAN [facility]; [facility] Work Phone: Comment on above: Patient Position: Sitting; Cuff Location : Left Arm; Cuff Size: Standard 07-06-2014 08:25-0400 Heart rate 84 /min Fabiola Ritter LPN [facility]; [facility] Work Phone: Comment on above: Pattern: Regular 07-06-2014 08:25-0400 Respiratory rate 18 /min Fabiola Slarb [employer] WITNESS ADMINISTRATOR [facility]; [facility] Work Phone: Comment on above: Pattern: Unlabored 07-06-2014 08:25-0400 SaO2% (BldA) [Mass fraction] 95 % Fabiola Ritter LPN [facility]; [facility] Work Phone: Comment on above: Room air 07-06-2014 08:25-0400 Systolic blood pressure 142 mm[Hg] Fabiola Stone CANTRELL [facility]; [facility] Work Phone: Comment on above: Patient Position: Sitting; Cuff Location : Left Arm; Cuff Size: Standard 07-04-2014 08:03-0400 Body height 152.4 cm Citlalli Gustafson LPN [facility]; [facility] Work Phone: 07-04-2014 08:03-0400 Body mass index (BMI) [Ratio] 31.93 kg/m2 Citlalli Gustafson LPN [facility]; [facility] Work Phone: 07-04-2014 08:03-0400 Body surface area Derived from formula 1.71 m2 Citlalli Gustafson LPN [facility]; [facility] Work Phone: 07-04-2014 08:03-0400 Body temperature 101.2 [degF] Citlalli Sj CANTRELL [facility]; [facility] Work Phone: Comment on above: Method: Oral 07-04-2014 08:03-0400 Body weight 74.16 kg Citlalli Sj CANTRELL [facility]; [facility] Work Phone: 07-04-2014 08:03-0400 Diastolic blood pressure 84 mm[Hg] Citlalli Sj CANTRELL [facility]; [facility] Work Phone: Comment on above: Patient Position: Sitting; Cuff Location : Left Arm; Cuff Size: Standard 07-04-2014 08:03-0400 Heart rate 98 /min Citlalli Gustafson LPN [facility]; [facility] Work Phone: Comment on above: Pattern: Regular 07-04-2014 08:03-0400 Respiratory rate 18 /min Citlalli Gustafson LPN [facility]; [facility] Work Phone: 07-04-2014 08:03-0400 SaO2% (BldA) [Mass fraction] 95 % Citlalli Gustafson LPN [facility]; [facility] Work Phone: Comment on above: Room air 07-04-2014 08:03-0400 Systolic blood pressure 138 mm[Hg] Citlalli Gustafson TAMIA [facility]; [facility] Work Phone: Comment on above: Patient Position: Sitting; Cuff Location : Left Arm; Cuff Size: Standard 04-20-2014 10:56-0500 Body height 152.4 cm Citlalli Gustafson TAMIA [facility]; [facility] Work Phone: 04-20-2014 10:56-0500 Body mass index (BMI) [Ratio] 31.93 kg/m2 Citlalli Gustafson TAMIA [facility]; [facility] Work Phone: 04-20-2014 10:56-0500 Body surface area Derived from formula 1.71 m2 Citlalli Gustafson TAMIA [facility]; [facility] Work Phone: 04-20-2014 10:56-0500 Body temperature 99.6 [degF] Citlalli Gustafson TAMIA [facility]; [facility] Work Phone: Comment on above: Method: Oral 04-20-2014 10:56-0500 Body weight 74.16 kg Citlalli Gustafson TAMIA [facility]; [facility] Work Phone: 04-20-2014 10:56-0500 Diastolic blood pressure 82 mm[Hg] Citlalli Gustafson TAMIA [facility]; [facility] Work Phone: Comment on above: Patient Position: Sitting; Cuff Location : Left Arm; Cuff Size: Standard 04-20-2014 10:56-0500 Heart rate 84 /min Citlalli Gustafson TAMIA [facility]; [facility] Work Phone: Comment on above: Pattern: Regular 04-20-2014 10:56-0500 Respiratory rate 20 /min Citlalli Borjachristina CANTRELL [facility]; [facility] Work Phone: 04-20-2014 10:56-0500 SaO2% (BldA) [Mass fraction] 96 % Citlalli Gustafson TAMIA [facility]; [facility] Work Phone: Comment on above: Room air 04-20-2014 10:56-0500 Systolic blood pressure 142 mm[Hg] Citlalli Gustafson TAMIA [facility]; [facility] Work Phone: Comment on above: Patient Position: Sitting; Cuff Location : Left Arm; Cuff Size: Standard 03-29-2014 12:53-0500 Body height 152.4 cm Jessica Pemberton RN [facility]; [facility] Work Phone: 03-29-2014 12:53-0500 Body mass index (BMI) [Ratio] 31.93 kg/m2 Jessica Pemberton RN [facility]; [facility] Work Phone: 03-29-2014 12:53-0500 Body surface area Derived from formula 1.71 m2 Jessica Pemberton RN [facility]; [facility] Work Phone: 03-29-2014 12:53-0500 Body temperature 98.2 [degF] Jessica Pemberton RN [facility]; [facility] Work Phone: Comment on above: Method: Temporal 03-29-2014 12:53-0500 Body weight 74.16 kg Jessica Pemberton RN [facility]; [facility] Work Phone: 03-29-2014 12:53-0500 Diastolic blood pressure 78 mm[Hg] Jessica Pemberton RN [facility]; [facility] Work Phone: Comment on above: Patient Position: Sitting; Cuff Location : Left Arm; Cuff Size: Standard 03-29-2014 12:53-0500 Heart rate 72 /min Jessica Pemberton RN [facility]; [facility] Work Phone: Comment on above: Pattern: Regular 03-29-2014 12:53-0500 Respiratory rate 16 /min Jessica Pemberton RN [facility]; [facility] Work Phone: Comment on above: Pattern: Unlabored 03-29-2014 12:53-0500 SaO2% (BldA) [Mass fraction] 96 % Jessica Pemberton RN [facility]; [facility] Work Phone: Comment on above: Room air 03-29-2014 12:53-0500 Systolic blood pressure 124 mm[Hg] Jessica Pemberton RN [facility]; [facility] Work Phone: Comment on above: Patient Position: Sitting; Cuff Location : Left Arm; Cuff Size: Standard 12-28-2013 12:59-0400 Body height 152.4 cm Jessica Pemberton RN [facility]; [facility] Work Phone: 12-28-2013 12:59-0400 Body mass index (BMI) [Ratio] 30.86 kg/m2 Jessica Pemberton RN [facility]; [facility] Work Phone: 12-28-2013 12:59-0400 Body surface area Derived from formula 1.69 m2 Jessica Pemberton RN [facility]; [facility] Work Phone: 12-28-2013 12:59-0400 Body temperature 97.6 [degF] Jessica Pemberton RN [facility]; [facility] Work Phone: Comment on above: Method: Temporal 12-28-2013 12:59-0400 Body weight 71.67 kg Jessica Pemberton RN [facility]; [facility] Work Phone: 12-28-2013 12:59-0400 Diastolic blood pressure 80 mm[Hg] Jessica Pemberton RN [facility]; [facility] Work Phone: Comment on above: Patient Position: Sitting; Cuff Location : Left Arm; Cuff Size: Standard 12-28-2013 12:59-0400 Heart rate 66 /min Jessica Pemberton RN [facility]; [facility] Work Phone: Comment on above: Pattern: Regular 12-28-2013 12:59-0400 Respiratory rate 16 /min Jessica Pemberton RN [facility]; [facility] Work Phone: Comment on above: Pattern: Unlabored 12-28-2013 12:59-0400 SaO2% (BldA) [Mass fraction] 97 % Jessica Pemberton RN [facility]; [facility] Work Phone: Comment on above: Room air 12-28-2013 12:59-0400 Systolic blood pressure 124 mm[Hg] Jessica Pemberton RN [facility]; [facility] Work Phone: Comment on above: Patient Position: Sitting; Cuff Location : Left Arm; Cuff Size: Standard 09-20-2013 14:49-0400 Body height 152.4 cm ROLY Moon LPN [facility]; [facility] Work Phone: 09-20-2013 14:49-0400 Body mass index (BMI) [Ratio] 31.05 kg/m2 ROLY Moon LPN [facility]; [facility] Work Phone: 09-20-2013 14:49-0400 Body surface area Derived from formula 1.69 m2 ROLY Moon LPN [facility]; [facility] Work Phone: 09-20-2013 14:49-0400 Body temperature 97.6 [degF] ROLY Moon LPN [facility]; [facility] Work Phone: Comment on above: Method: Oral 09-20-2013 14:49-0400 Body weight 72.12 kg ROLY Moon LPN [facility]; [facility] Work Phone: 09-20-2013 14:49-0400 Diastolic blood pressure 80 mm[Hg] ROLY Moon LPN [facility]; [facility] Work Phone: Comment on above: Patient Position: Sitting; Cuff Location : Left Arm; Cuff Size: Standard 09-20-2013 14:49-0400 Heart rate 70 /min ROLY Moon LPN [facility]; [facility] Work Phone: Comment on above: Pattern: Regular 09-20-2013 14:49-0400 Respiratory rate 20 /min ROLY Moon LPN [facility]; [facility] Work Phone: Comment on above: Pattern: Unlabored 09-20-2013 14:49-0400 Systolic blood pressure 120 mm[Hg] ROLY Moon TAMIA [facility]; [facility] Work Phone: Comment on above: Patient Position: Sitting; Cuff Location : Left Arm; Cuff Size: Standard 08-25-2013 14:260400 Body height 152.4 cm Citlalli Gustafson TAMIA [facility]; [facility] Work Phone: 08-25-2013 14:26-0400 Body mass index (BMI) [Ratio] 30.55 kg/m2 Citlalli Gustafson TAMIA [facility]; [facility] Work Phone: 08-25-2013 14:26-0400 Body surface area Derived from formula 1.68 m2 Citlalli Gustafson TAMIA [facility]; [facility] Work Phone: 08-25-2013 14:26-0400 Body temperature 99.4 [degF] Citlalli Gustafson TAMIA [facility]; [facility] Work Phone: Comment on above: Method: Oral 08-25-2013 14:260400 Body weight 70.96 kg Citlalli Gustafson TAMIA [facility]; [facility] Work Phone: 08-25-2013 14:26-0400 Diastolic blood pressure 70 mm[Hg] Citlalli Gustafson TAMIA [facility]; [facility] Work Phone: Comment on above: Patient Position: Sitting; Cuff Location : Left Arm; Cuff Size: Standard 08-25-2013 14:260400 Heart rate 68 /min Citlalli Gustafson TAMIA [facility]; [facility] Work Phone: Comment on above: Pattern: Regular 08-25-2013 14:26-0400 Respiratory rate 17 /min Citlalli Gustafson TAMIA [facility]; [facility] Work Phone: 08-25-2013 14:26-0400 SaO2% (BldA) [Mass fraction] 97 % Citlalli Gustafson TAMIA [facility]; [facility] Work Phone: Comment on above: Room air 08-25-2013 14:26-0400 Systolic blood pressure 122 mm[Hg] Citlalli Gustafson TAMIA [facility]; [facility] Work Phone: Comment on above: Patient Position: Sitting; Cuff Location : Left Arm; Cuff Size: Standard 08-17-2012 16:290400 Body height 152.4 cm Thais Siddiqui MD Work Phone: [facility]; [facility] Work Phone: 08-17-2012 16:29-0400 Body mass index (BMI) [Ratio] 33.79 kg/m2 Thais Siddiqui MD Work Phone: [facility]; [facility] Work Phone: 08-17-2012 16:29-0400 Body surface area Derived from formula 1.76 m2 Thais Siddiqui MD Work Phone: [facility]; [facility] Work Phone: 08-17-2012 16:290400 Body temperature 98.5 [degF] Thais Siddiqui MD Work Phone: [facility]; [facility] Work Phone: Comment on above: Method: Temporal 08-17-2012 16:290400 Body weight 78.47 kg Thais Siddiqui MD Work Phone: [facility]; [facility] Work Phone: 08-17-2012 16:29-0400 Diastolic blood pressure 78 mm[Hg] Thais Siddiqui MD Work Phone: [facility]; [facility] Work Phone: Comment on above: Patient Position: Sitting; Cuff Location : Left Arm; Cuff Size: Standard 08-17-2012 16:29-0400 Heart rate 64 /min Thais Siddiqui MD Work Phone: [facility]; [facility] Work Phone: Comment on above: Pattern: Regular 08-17-2012 16:29-0400 Respiratory rate 16 /min Thais Siddiqui MD Work Phone: [facility]; [facility] Work Phone: Comment on above: Pattern: Unlabored 08-17-2012 16:29-0400 SaO2% (BldA) [Mass fraction] 95 % Thais Siddiqui MD Work Phone: [facility]; [facility] Work Phone: Comment on above: Room air 08-17-2012 16:29-0400 Systolic blood pressure 128 mm[Hg] Thais Siddiqui MD Work Phone: [facility]; [facility] Work Phone: Comment on above: Patient Position: Sitting; Cuff Location : Left Arm; Cuff Size: Standard 03-24-2012 16:15-0500 Body height 152.4 cm Jessica Pemberton RN [facility]; [facility] Work Phone: 03-24-2012 16:15-0500 Body mass index (BMI) [Ratio] 33.4 kg/m2 Jessica Pemberton RN [facility]; [facility] Work Phone: 03-24-2012 16:15-0500 Body surface area Derived from formula 1.75 m2 Jessica Pemberton RN [facility]; [facility] Work Phone: 03-24-2012 16:15-0500 Body temperature 98.3 [degF] Jessica Pemberton RN [facility]; [facility] Work Phone: Comment on above: Method: Oral 03-24-2012 16:15-0500 Body weight 77.57 kg Jessica Pemberton RN [facility]; [facility] Work Phone: 03-24-2012 16:15-0500 Diastolic blood pressure 72 mm[Hg] Jessica Pemberton RN [facility]; [facility] Work Phone: Comment on above: Patient Position: Sitting; Cuff Location : Left Arm; Cuff Size: Standard 03-24-2012 16:15-0500 Heart rate 64 /min Jessica Pemberton RN [facility]; [facility] Work Phone: Comment on above: Pattern: Regular 03-24-2012 16:15-0500 Respiratory rate 16 /min Jessica Pemberton RN [facility]; [facility] Work Phone: Comment on above: Pattern: Unlabored 03-24-2012 16:15-0500 Systolic blood pressure 124 mm[Hg] Jessica Pemberton RN [facility]; [facility] Work Phone: Comment on above: Patient Position: Sitting; Cuff Location : Left Arm; Cuff Size: Standard 02-18-2012 15:52-0400 Body height 152.4 cm Jessica Pemberton RN [facility]; [facility] Work Phone: 02-18-2012 15:52-0400 Body mass index (BMI) [Ratio] 33.4 kg/m2 Jessica Pemberton RN [facility]; [facility] Work Phone: 02-18-2012 15:52-0400 Body surface area Derived from formula 1.75 m2 Jessica Pemberton RN [facility]; [facility] Work Phone: 02-18-2012 15:52-0400 Body temperature 96 [degF] Jessica Pemberton RN [facility]; [facility] Work Phone: Comment on above: Method: Oral 02-18-2012 15:52-0400 Body weight 77.57 kg Jessica Pemberton RN [facility]; [facility] Work Phone: 02-18-2012 15:52-0400 Diastolic blood pressure 78 mm[Hg] Jessica Pemberton RN [facility]; [facility] Work Phone: Comment on above: Patient Position: Sitting; Cuff Location : Left Arm; Cuff Size: Standard 02-18-2012 15:52-0400 Heart rate 72 /min Jessica Pemberton RN [facility]; [facility] Work Phone: Comment on above: Pattern: Regular 02-18-2012 15:52-0400 Respiratory rate 16 /min Jessica Pemberton RN [facility]; [facility] Work Phone: Comment on above: Pattern: Unlabored 02-18-2012 15:52-0400 Systolic blood pressure 126 mm[Hg] Jessica Pemberton RN [facility]; [facility] Work Phone: Comment on above: Patient Position: Sitting; Cuff Location : Left Arm; Cuff Size: Standard 12-24-2011 15:31-0400 Body height 152.4 cm Jessica Pemberton RN [facility]; [facility] Work Phone: 12-24-2011 15:31-0400 Body mass index (BMI) [Ratio] 32.81 kg/m2 Jessica Pemberton RN [facility]; [facility] Work Phone: 12-24-2011 15:31-0400 Body surface area Derived from formula 1.73 m2 Jessica Pemberton RN [facility]; [facility] Work Phone: 12-24-2011 15:31-0400 Body temperature 97.9 [degF] Jessica Pemberton RN [facility]; [facility] Work Phone: Comment on above: Method: Oral 12-24-2011 15:31-0400 Body weight 76.2 kg Jessica Pemberton RN [facility]; [facility] Work Phone: 12-24-2011 15:31-0400 Diastolic blood pressure 74 mm[Hg] Jessica Pemberton RN [facility]; [facility] Work Phone: Comment on above: Patient Position: Sitting; Cuff Location : Left Arm; Cuff Size: Standard 12-24-2011 15:31-0400 Heart rate 64 /min Jessica Pemberton RN [facility]; [facility] Work Phone: Comment on above: Pattern: Regular 12-24-2011 15:31-0400 Respiratory rate 16 /min Jessica Pemberton RN [facility]; [facility] Work Phone: Comment on above: Pattern: Unlabored 12-24-2011 15:31-0400 Systolic blood pressure 124 mm[Hg] Jessica Pemberton RN [facility]; [facility] Work Phone: Comment on above: Patient Position: Sitting; Cuff Location : Left Arm; Cuff Size: Standard 09-17-2011 15:47-0400 Body height 152.4 cm ROLY Moon [employer]CT[employer] WITNESS ADMINISTRATOR [facility]; [facility] Work Phone: 09-17-2011 15:47-0400 Body mass index (BMI) [Ratio] 32.81 kg/m2 ROLY Moon VICTIM WITNESS ADMINISTRATOR [facility]; [facility] Work Phone: 09-17-2011 15:47-0400 Body surface area Derived from formula 1.73 m2 ROLY Moon TAMIA [facility]; [facility] Work Phone: 09-17-2011 15:47-0400 Body temperature 97.9 [degF] ROLY Moon VICTIM WITNESS ADMINISTRATOR [facility]; [facility] Work Phone: Comment on above: Method: Oral 09-17-2011 15:47-0400 Body weight 76.2 kg ROLY Moon TAMIA [facility]; [facility] Work Phone: 09-17-2011 15:47-0400 Diastolic blood pressure 72 mm[Hg] ROLY Moon TAMIA [facility]; [facility] Work Phone: Comment on above: Patient Position: Sitting; Cuff Location : Left Arm; Cuff Size: Standard 09-17-2011 15:47-0400 Heart rate 76 /min ROLY Moon TAMIA [facility]; [facility] Work Phone: Comment on above: Pattern: Regular 09-17-2011 15:47-0400 Respiratory rate 18 /min ROLY Moon TAMIA [facility]; [facility] Work Phone: Comment on above: Pattern: Unlabored 09-17-2011 15:47-0400 Systolic blood pressure 126 mm[Hg] ROLY Moon VICTIM WITNESS ADMINISTRATOR [facility]; [facility] Work Phone: Comment on above: Patient Position: Sitting; Cuff Location : Left Arm; Cuff Size: Standard 08-16-2011 12:21-0400 Body height 152.4 cm Citlalli Sj CANTRELL [facility]; [facility] Work Phone: 08-16-2011 12:21-0400 Body mass index (BMI) [Ratio] 33.98 kg/m2 Citlalli Gustafson TAMIA [facility]; [facility] Work Phone: 08-16-2011 12:21-0400 Body surface area Derived from formula 1.76 m2 Citlalli Gustafson TAMIA [facility]; [facility] Work Phone: 08-16-2011 12:21-0400 Body temperature 99.2 [degF] Citlalli Gustafson [employer]CT[employer] WITNESS ADMINISTRATOR [facility]; [facility] Work Phone: Comment on above: Method: Oral 08-16-2011 12:210400 Body weight 78.93 kg Citlalli Gustafson TAMIA [facility]; [facility] Work Phone: 08-16-2011 12:21-0400 Diastolic blood pressure 70 mm[Hg] Citlalli Gustafson TAMIA [facility]; [facility] Work Phone: Comment on above: Patient Position: Sitting; Cuff Location : Left Arm; Cuff Size: Standard 08-16-2011 12:21-0400 Heart rate 78 /min Citlalli Gustafson TAMIA [facility]; [facility] Work Phone: Comment on above: Pattern: Regular 08-16-2011 12:21-0400 Respiratory rate 16 /min Citlalli Gustafson VICTIM WITNESS ADMINISTRATOR [facility]; [facility] Work Phone: 08-16-2011 12:21-0400 Systolic blood pressure 130 mm[Hg] Citlalli Gustafson VICTIM WITNESS ADMINISTRATOR [facility]; [facility] Work Phone: Comment on above: Patient Position: Sitting; Cuff Location : Left Arm; Cuff Size: Standard 08-12-2011 09:19-0400 Body height 152.4 cm ROLY Moon LPN [facility]; [facility] Work Phone: 08-12-2011 09:19-0400 Body mass index (BMI) [Ratio] 33.98 kg/m2 ROLY Moon LPN [facility]; [facility] Work Phone: 08-12-2011 09:190400 Body surface area Derived from formula 1.76 m2 ROLY Moon LPN [facility]; [facility] Work Phone: 08-12-2011 09:19-0400 Body temperature 98.3 [degF] ROLY Moon TAMIA [facility]; [facility] Work Phone: Comment on above: Method: Oral 08-12-2011 09:190400 Body weight 78.93 kg ROLY Moon TAMIA [facility]; [facility] Work Phone: 08-12-2011 09:19-0400 Diastolic blood pressure 78 mm[Hg] ROLY Moon TAMIA [facility]; [facility] Work Phone: Comment on above: Patient Position: Sitting; Cuff Location : Left Arm; Cuff Size: Standard 08-12-2011 09:19-0400 Heart rate 70 /min ROLY Moon TAMIA [facility]; [facility] Work Phone: Comment on above: Pattern: Regular 08-12-2011 09:19-0400 Respiratory rate 20 /min ROLY Moon TAMIA [facility]; [facility] Work Phone: Comment on above: Pattern: Unlabored 08-12-2011 09:19-0400 Systolic blood pressure 118 mm[Hg] ROLY Moon VICTIM WITNESS ADMINISTRATOR [facility]; [facility] Work Phone: Comment on above: Patient Position: Sitting; Cuff Location : Left Arm; Cuff Size: Standard 06-18-2011 15:29-0500 Body height 152.4 cm ROLY Moon TAMIA [facility]; [facility] Work Phone: 06-18-2011 15:29-0500 Body mass index (BMI) [Ratio] 33.98 kg/m2 ROLY Moon TAMIA [facility]; [facility] Work Phone: 06-18-2011 15:29-0500 Body surface area Derived from formula 1.76 m2 ROLY Moon TAMIA [facility]; [facility] Work Phone: 06-18-2011 15:29-0500 Body temperature 98.2 [degF] ROLY Moon TAMIA [facility]; [facility] Work Phone: Comment on above: Method: Oral 06-18-2011 15:29-0500 Body weight 78.93 kg ROLY Moon TAMIA [facility]; [facility] Work Phone: 06-18-2011 15:29-0500 Diastolic blood pressure 78 mm[Hg] ROLY Moon TAMIA [facility]; [facility] Work Phone: Comment on above: Patient Position: Sitting; Cuff Location : Left Arm; Cuff Size: Standard 06-18-2011 15:29-0500 Heart rate 68 /min ROLY Moon LPN [facility]; [facility] Work Phone: Comment on above: Pattern: Regular 06-18-2011 15:29-0500 Respiratory rate 20 /min ROLY Moon LPN [facility]; [facility] Work Phone: Comment on above: Pattern: Unlabored 06-18-2011 15:29-0500 Systolic blood pressure 126 mm[Hg] ROLY Moon LPN [facility]; [facility] Work Phone: Comment on above: Patient Position: Sitting; Cuff Location : Left Arm; Cuff Size: Standard 04-23-2011 08:07-0500 Body height 152.4 cm ROLY Moon LPN [facility]; [facility] Work Phone: 04-23-2011 08:07-0500 Body mass index (BMI) [Ratio] 32.23 kg/m2 ROLY Moon LPN [facility]; [facility] Work Phone: 04-23-2011 08:07-0500 Body surface area Derived from formula 1.72 m2 ROLY Moon LPN [facility]; [facility] Work Phone: 04-23-2011 08:07-0500 Body temperature 97.9 [degF] ROLY Moon LPN [facility]; [facility] Work Phone: Comment on above: Method: Oral 04-23-2011 08:07-0500 Body weight 74.87 kg ROLY Moon TAMIA [facility]; [facility] Work Phone: 04-23-2011 08:07-0500 Diastolic blood pressure 78 mm[Hg] ROLY Moon LPN [facility]; [facility] Work Phone: Comment on above: Patient Position: Sitting; Cuff Location : Left Arm; Cuff Size: Standard 04-23-2011 08:07-0500 Heart rate 70 /min ROLY Moon TAMIA [facility]; [facility] Work Phone: Comment on above: Pattern: Regular 04-23-2011 08:07-0500 Respiratory rate 18 /min ROLY Moon TAMIA [facility]; [facility] Work Phone: Comment on above: Pattern: Unlabored 04-23-2011 08:07-0500 Systolic blood pressure 122 mm[Hg] ROLY Moon TAMIA [facility]; [facility] Work Phone: Comment on above: Patient Position: Sitting; Cuff Location : Left Arm; Cuff Size: Standard 04-04-2011 07:05-0500 Body height 152.4 cm ROLY Red TAMIA [facility]; [facility] Work Phone: 04-04-2011 07:05-0500 Body mass index (BMI) [Ratio] 31.64 kg/m2 ROLY Moon TAMIA [facility]; [facility] Work Phone: 04-04-2011 07:05-0500 Body surface area Derived from formula 1.71 m2 ROLY Moon TAMIA [facility]; [facility] Work Phone: 04-04-2011 07:05-0500 Body temperature 97.6 [degF] ROLYEVELIA Moon TAMIA [facility]; [facility] Work Phone: Comment on above: Method: Oral 04-04-2011 07:05-0500 Body weight 73.48 kg ROLY Moon TAMIA [facility]; [facility] Work Phone: 04-04-2011 07:05-0500 Diastolic blood pressure 78 mm[Hg] ROLY Moon TAMIA [facility]; [facility] Work Phone: Comment on above: Patient Position: Sitting; Cuff Location : Left Arm; Cuff Size: Standard 04-04-2011 07:05-0500 Heart rate 64 /min ROLY Moon TAMIA [facility]; [facility] Work Phone: Comment on above: Pattern: Regular 04-04-2011 07:05-0500 Respiratory rate 18 /min ROLY Moon TAMIA [facility]; [facility] Work Phone: Comment on above: Pattern: Unlabored 04-04-2011 07:05-0500 Systolic blood pressure 124 mm[Hg] ROLY Moon TAMIA [facility]; [facility] Work Phone: Comment on above: Patient Position: Sitting; Cuff Location : Left Arm; Cuff Size: Standard 03-07-2011 08:53-0500 Body height 152.4 cm ROLY Moon TAMIA [facility]; [facility] Work Phone: 03-07-2011 08:53-0500 Body mass index (BMI) [Ratio] 31.64 kg/m2 ROLY Moon TAMIA [facility]; [facility] Work Phone: 03-07-2011 08:53-0500 Body surface area Derived from formula 1.71 m2 ROLY Moon TAMIA [facility]; [facility] Work Phone: 03-07-2011 08:53-0500 Body temperature 97.9 [degF] ROLY Moon TAMIA [facility]; [facility] Work Phone: Comment on above: Method: Oral 03-07-2011 08:53-0500 Body weight 73.48 kg ROLY Moon TAMIA [facility]; [facility] Work Phone: 03-07-2011 08:53-0500 Diastolic blood pressure 84 mm[Hg] ROLY Moon TAMIA [facility]; [facility] Work Phone: Comment on above: Patient Position: Sitting; Cuff Location : Left Arm; Cuff Size: Standard 03-07-2011 08:53-0500 Heart rate 70 /min ROLY Moon TAMIA [facility]; [facility] Work Phone: Comment on above: Pattern: Regular 03-07-2011 08:53-0500 Respiratory rate 18 /min ROLY Moon TAMIA [facility]; [facility] Work Phone: Comment on above: Pattern: Unlabored 03-07-2011 08:53-0500 Systolic blood pressure 138 mm[Hg] ROLY Moon TAMIA [facility]; [facility] Work Phone: Comment on above: Patient Position: Sitting; Cuff Location : Left Arm; Cuff Size: Standard 2010 09:55-0400 Body height 152.4 cm ROLY Moon TAMIA [facility]; [facility] Work Phone: 2010 09:55-0400 Body mass index (BMI) [Ratio] 31.05 kg/m2 ROLY Moon TAMIA [facility]; [facility] Work Phone: 2010 09:55-0400 Body surface area Derived from formula 1.69 m2 ROLY Moon TAMIA [facility]; [facility] Work Phone: 2010 09:55-0400 Body temperature 97.6 [degF] ROLY Moon TAMIA [facility]; [facility] Work Phone: Comment on above: Method: Oral 2010 09:55-0400 Body weight 72.12 kg ROLY Moon TAMIA [facility]; [facility] Work Phone: 2010 09:55-0400 Diastolic blood pressure 80 mm[Hg] ROLY Moon VICTIM WITNESS ADMINISTRATOR [facility]; [facility] Work Phone: Comment on above: Patient Position: Sitting; Cuff Location : Left Arm; Cuff Size: Standard 2010 09:55-0400 Heart rate 74 /min ROLY Moon TAMIA [facility]; [facility] Work Phone: Comment on above: Pattern: Regular 2010 09:55-0400 Respiratory rate 18 /min ROLY Moon TAMIA [facility]; [facility] Work Phone: Comment on above: Pattern: Unlabored 2010 09:55-0400 Systolic blood pressure 140 mm[Hg] ROLY Moon TAMIA [facility]; [facility] Work Phone: Comment on above: Patient Position: Sitting; Cuff Location : Left Arm; Cuff Size: Standard 02-01-2011 14:01-0500 Body height 152.4 cm ROLY Moon LPN [facility]; [facility] Work Phone: 05-22-2010 14:01-0500 Body mass index (BMI) [Ratio] 30.27 kg/m2 ROLY Moon LPN [facility]; [facility] Work Phone: 05-22-2010 14:01-0500 Body surface area Derived from formula 1.68 m2 ROLY Moon TAMIA [facility]; [facility] Work Phone: 05-22-2010 14:01-0500 Body temperature 98.6 [degF] ROLY Moon LPN [facility]; [facility] Work Phone: Comment on above: Method: Oral 05-22-2010 14:01-0500 Body weight 70.31 kg ROLY Moon TAMIA [facility]; [facility] Work Phone: 05-22-2010 14:01-0500 Diastolic blood pressure 80 mm[Hg] ROLY Moon VICTIM WITNESS ADMINISTRATOR [facility]; [facility] Work Phone: Comment on above: Patient Position: Sitting; Cuff Location : Left Arm; Cuff Size: Standard 05-22-2010 14:01-0500 Heart rate 94 /min ROLY Moon LPN [facility]; [facility] Work Phone: Comment on above: Pattern: Regular 05-22-2010 14:01-0500 Respiratory rate 18 /min ROLY Moon LPN [facility]; [facility] Work Phone: Comment on above: Pattern: Unlabored 05-22-2010 14:01-0500 SaO2% (BldA) [Mass fraction] 94 % ROLY Moon LPN [facility]; [facility] Work Phone: Comment on above: Room air 05-22-2010 14:01-0500 Systolic blood pressure 126 mm[Hg] ROLY Moon LPN [facility]; [facility] Work Phone: Comment on above: Patient Position: Sitting; Cuff Location : Left Arm; Cuff Size: Standard 10-13-2009 07:13-0400 Body weight 70.31 kg ROLY Moon TAMIA [facility]; [facility] Work Phone: 10-13-2009 07:13-0400 Diastolic blood pressure 78 mm[Hg] ROLY Moon VICTIM WITNESS ADMINISTRATOR [facility]; [facility] Work Phone: Comment on above: Patient Position: Sitting; Cuff Location : Left Arm; Cuff Size: Standard 10-13-2009 07:13-0400 Heart rate 70 /min ROLY Moon TAMIA [facility]; [facility] Work Phone: Comment on above: Pattern: Regular 10-13-2009 07:13-0400 Respiratory rate 18 /min ROLY Moon TAMIA [facility]; [facility] Work Phone: Comment on above: Pattern: Unlabored 10-13-2009 07:13-0400 Systolic blood pressure 122 mm[Hg] ROLY Moon TAMIA [facility]; [facility] Work Phone: Comment on above: Patient Position: Sitting; Cuff Location : Left Arm; Cuff Size: Standard 01-20-2009 08:[id number] Body height 0 cm Geovanna Harris [facility]; [facility] Work Phone: 01-20-2009 08:07-0400 Body temperature 101.1 [degF] Geovanna Harris [facility]; [facility] Work Phone: Comment on above: Method: Undefined 01-20-2009 08:0400 Body weight 0 kg Geovanna Harris [facility]; [facility] Work Phone: 01-20-2009 08:07-0400 Diastolic blood pressure 78 mm[Hg] Geovanna Harris [facility]; [facility] Work Phone: Comment on above: Patient Position: Sitting; Cuff Location : Right Arm; Cuff Size: Large 01-20-2009 08:07-0400 Head Occipital-frontal circumference 0 cm Geovanna Harris [facility]; [facility] Work Phone: 01-20-2009 08:07-0400 Heart rate 112 /min Geovanna Harris [facility]; [facility] Work Phone: Comment on above: Pattern: Regular 01-20-2009 08:07-0400 Respiratory rate 18 /min Geovanna Harris [facility]; [facility] Work Phone: Comment on above: Pattern: Undefined 01-20-2009 08:07-0400 Systolic blood pressure 124 mm[Hg] Geovanna Rolonjoslynbridget [facility]; [facility] Work Phone: Comment on above: Patient Position: Sitting; Cuff Location : Right Arm; Cuff Size: Large 10-05-2008 07:51-0400 Body height 0 cm Julissa Maravilla [facility]; [facility] Work Phone: 10-05-2008 07:51-0400 Body temperature 97.9 [degF] Julissa Maravilla [facility]; [facility] Work Phone: Comment on above: Method: Oral 10-05-2008 07:51-0400 Body weight 74.39 kg Julissa Maravilla [facility]; [facility] Work Phone: 10-05-2008 07:51-0400 Diastolic blood pressure 86 mm[Hg] Julissa Maravilla [facility]; [facility] Work Phone: Comment on above: Patient Position: Sitting; Cuff Location : Left Arm; Cuff Size: Large 10-05-2008 07:51-0400 Head Occipital-frontal circumference 0 cm Julissa Maravilla [facility]; [facility] Work Phone: 10-05-2008 07:51-0400 Heart rate 92 /min Juilssa Maravilla [facility]; [facility] Work Phone: Comment on above: Pattern: Regular 10-05-2008 07:51-0400 Respiratory rate 20 /min Julissa Maravilla [facility]; [facility] Work Phone: Comment on above: Pattern: Unlabored 10-05-2008 07:51-0400 SaO2% (BldA) [Mass fraction] 98 % Julissa Maravilla [facility]; [facility] Work Phone: Comment on above: Room air 10-05-2008 07:51-0400 Systolic blood pressure 120 mm[Hg] Julissa Maravilla [facility]; [facility] Work Phone: Comment on above: Patient Position: Sitting; Cuff Location : Left Arm; Cuff Size: Large 04-27-2008 11:55-0500 Body height 0 cm Geno Aguirre RN [facility]; [facility] Work Phone: 04-27-2008 11:55-0500 Body temperature 98.4 [degF] Geno Aguirre RN [facility]; [facility] Work Phone: Comment on above: Method: Oral 04-27-2008 11:55-0500 Body weight 74.39 kg Geno Aguirre RN [facility]; [facility] Work Phone: 04-27-2008 11:55-0500 Diastolic blood pressure 80 mm[Hg] Geno Aguirre RN [facility]; [facility] Work Phone: Comment on above: Patient Position: Sitting; Cuff Location : Left Arm; Cuff Size: Large 04-27-2008 11:55-0500 Head Occipital-frontal circumference 0 cm Geno Aguirre RN [facility]; [facility] Work Phone: 04-27-2008 11:55-0500 Heart rate 80 /min Geno Aguirre RN [facility]; [facility] Work Phone: Comment on above: Pattern: Regular 04-27-2008 11:55-0500 Respiratory rate 20 /min Geno Aguirre RN [facility]; [facility] Work Phone: Comment on above: Pattern: Unlabored 04-27-2008 11:55-0500 Systolic blood pressure 122 mm[Hg] Geno Aguirre RN [facility]; [facility] Work Phone: Comment on above: Patient Position: Sitting; Cuff Location : Left Arm; Cuff Size: Large 02-27-2007 08:25-0500 Body height 0 cm ROLY Moon LPN [facility]; [facility] Work Phone: 02-27-2007 08:25-0500 Body temperature 98.4 [degF] ROLY Moon LPN [facility]; [facility] Work Phone: Comment on above: Method: Oral 02-27-2007 08:25-0500 Body weight 74.39 kg ROLY Moon LPN [facility]; [facility] Work Phone: 02-27-2007 08:25-0500 Diastolic blood pressure 78 mm[Hg] ROLY Moon VICTIM WITNESS ADMINISTRATOR [facility]; [facility] Work Phone: Comment on above: Patient Position: Sitting; Cuff Location : Left Arm; Cuff Size: Standard 02-27-2007 08:25-0500 Head Occipital-frontal circumference 0 cm ROLY Moon TAMIA [facility]; [facility] Work Phone: 02-27-2007 08:25-0500 Heart rate 74 /min ROLY Moon VICTIM WITNESS ADMINISTRATOR [facility]; [facility] Work Phone: Comment on above: Pattern: Regular 02-27-2007 08:25-0500 Respiratory rate 18 /min ROLY Moon VICTIM WITNESS ADMINISTRATOR [facility]; [facility] Work Phone: Comment on above: Pattern: Unlabored 02-27-2007 08:25-0500 Systolic blood pressure 120 mm[Hg] ROLY Moon TAMIA [facility]; [facility] Work Phone: Comment on above: Patient Position: Sitting; Cuff Location : Left Arm; Cuff Size: Standard 11-03-2006 16:04-0400 Body height 0 cm ROLY Moon TAMIA [facility]; [facility] Work Phone: 11-03-2006 16:04-0400 Body temperature 97.6 [degF] ROLY Moon LPN [facility]; [facility] Work Phone: Comment on above: Method: Oral 11-03-2006 16:04-0400 Body weight 75.75 kg ROLY Moon VICTIM WITNESS ADMINISTRATOR [facility]; [facility] Work Phone: 11-03-2006 16:04-0400 Diastolic blood pressure 76 mm[Hg] ROLY Moon VICTIM WITNESS ADMINISTRATOR [facility]; [facility] Work Phone: Comment on above: Patient Position: Sitting; Cuff Location : Left Arm; Cuff Size: Standard 11-03-2006 16:04-0400 Head Occipital-frontal circumference 0 cm ROLY Moon VICTIM WITNESS ADMINISTRATOR [facility]; [facility] Work Phone: 11-03-2006 16:04-0400 Heart rate 70 /min ROLY Moon LPN [facility]; [facility] Work Phone: Comment on above: Pattern: Regular 11-03-2006 16:04-0400 Respiratory rate 20 /min ROLY Moon VICTIM WITNESS ADMINISTRATOR [facility]; [facility] Work Phone: Comment on above: Pattern: Unlabored 11-03-2006 16:04-0400 Systolic blood pressure 122 mm[Hg] ROLY Moon VICTIM WITNESS ADMINISTRATOR [facility]; [facility] Work Phone: Comment on above: Patient Position: Sitting; Cuff Location : Left Arm; Cuff Size: Standard 09-02-2006 15:46-0400 Body height 0 cm ROLY Moon TAMIA [facility]; [facility] Work Phone: 09-02-2006 15:46-0400 Body temperature 97.6 [degF] ROLY Moon VICTIM WITNESS ADMINISTRATOR [facility]; [facility] Work Phone: Comment on above: Method: Oral 09-02-2006 15:46-0400 Body weight 78.47 kg ROLY Moon LPN [facility]; [facility] Work Phone: 09-02-2006 15:46-0400 Diastolic blood pressure 76 mm[Hg] ROLY Moon VICTIM WITNESS ADMINISTRATOR [facility]; [facility] Work Phone: Comment on above: Patient Position: Sitting; Cuff Location : Left Arm; Cuff Size: Standard 09-02-2006 15:46-0400 Head Occipital-frontal circumference 0 cm ROLY Moon TAMIA [facility]; [facility] Work Phone: 09-02-2006 15:46-0400 Heart rate 74 /min ROLY Moon VICTIM WITNESS ADMINISTRATOR [facility]; [facility] Work Phone: Comment on above: Pattern: Regular 09-02-2006 15:46-0400 Respiratory rate 20 /min ROLY Moon TAMIA [facility]; [facility] Work Phone: Comment on above: Pattern: Unlabored 09-02-2006 15:46-0400 Systolic blood pressure 122 mm[Hg] ROLY Moon LPN [facility]; [facility] Work Phone: Comment on above: Patient Position: Sitting; Cuff Location : Left Arm; Cuff Size: Standard 08-05-2006 15:11-0400 Body height 0 cm ROLY Moon TAMIA [facility]; [facility] Work Phone: 08-05-2006 15:11-0400 Body temperature 97.7 [degF] ROLY Moon TAMIA [facility]; [facility] Work Phone: Comment on above: Method: Oral 08-05-2006 15:11-0400 Body weight 0 kg ROLY Moon TAMIA [facility]; [facility] Work Phone: 08-05-2006 15:11-0400 Diastolic blood pressure 70 mm[Hg] ROLY Moon TAMIA [facility]; [facility] Work Phone: Comment on above: Patient Position: Sitting; Cuff Location : Left Arm; Cuff Size: Standard 08-05-2006 [id number] Head Occipital-frontal circumference 0 cm ORLY Moon TAMIA [facility]; [facility] Work Phone: 08-05-2006 15:11-0400 Heart rate 74 /min ROLY Moon TAMIA [facility]; [facility] Work Phone: Comment on above: Pattern: Regular 08-05-2006 15:11-0400 Respiratory rate 20 /min ROLY Moon LPN [facility]; [facility] Work Phone: Comment on above: Pattern: Unlabored 08-05-2006 15:11-0400 Systolic blood pressure 118 mm[Hg] ROLY Moon TAMIA [facility]; [facility] Work Phone: Comment on above: Patient Position: Sitting; Cuff Location : Left Arm; Cuff Size: Standard 07-17-2006 13:32-0400 Body height 0 cm ROLY Moon TAMIA [facility]; [facility] Work Phone: 07-17-2006 13:32-0400 Body temperature 97.6 [degF] ROLY Moon LPN [facility]; [facility] Work Phone: Comment on above: Method: Oral 07-17-2006 13:32-0400 Body weight 82.1 kg ROLY Moon LPN [facility]; [facility] Work Phone: 07-17-2006 13:32-0400 Diastolic blood pressure 80 mm[Hg] ROLY Moon LPN [facility]; [facility] Work Phone: Comment on above: Patient Position: Sitting; Cuff Location : Left Arm; Cuff Size: Standard 07-17-2006 13:32-0400 Head Occipital-frontal circumference 0 cm ROLY Moon LPN [facility] [facility]; [facility] Work Phone: 07-17-2006 13:32-0400 Heart rate 74 /min ROLY Moon LPN [facility]; [facility] Work Phone: Comment on above: Pattern: Regular 07-17-2006 13:32-0400 Respiratory rate 20 /min ROLY Moon LPN [facility]; [facility] Work Phone: Comment on above: Pattern: Unlabored 07-17-2006 13:32-0400 Systolic blood pressure 120 mm[Hg] ROLY Moon LPN [facility]; [facility] Work Phone: Comment on above: Patient Position: Sitting; Cuff Location : Left Arm; Cuff Size: Standard 03-31-2006 16:08-0500 Body height 152.4 cm [facility]; [facility] Work Phone: 03-31-2006 16:08-0500 Body mass index (BMI) [Ratio] 32.14 kg/m2 [facility]; [facility] Work Phone: 03-31-2006 16:08-0500 Body surface area Derived from formula 1.72 m2 [facility]; [facility] Work Phone: 03-31-2006 16:08-0500 Body [facility]; [facility] Work Phone: 03-31-2006 16:08-0500 Diastolic blood pressure 58 mm[Hg] [facility]; [facility] Work Phone: Comment on above: Patient Position: Sitting; Cuff Location : Left Arm; Cuff Size: Standard 03-31-2006 16:08-0500 Head Occipital-frontal circumference 0 [facility]; [facility] Work Phone: 03-31-2006 16:08-0500 Heart rate 88 /min [facility]; [facility] Work Phone: Comment on above: Pattern: Regular 03-31-2006 16:08-0500 Respiratory rate 16 /min [facility]; [facility] Work Phone: Comment on above: Pattern: Unlabored 03-31-2006 16:08-0500 Systolic blood pressure 98 mm[Hg] [facility]; [facility] Work Phone: Comment on above: Patient Position: Sitting; Cuff Location : Left Arm; Cuff Size: Standard 12-27-2005 07:37-0400 Body height 152.4 cm Nayla Galicia [facility] Medicine; [facility] Work Phone: 12-27-2005 07:37-0400 Body mass index (BMI) [Ratio] 33.26 kg/m2 [facility]; [facility] Work Phone: 12-27-2005 07:37-0400 Body surface area Derived from formula 1.74 m2 [facility]; [facility] Work Phone: 12-27-2005 07:37-0400 Body weight 77.25 kg [facility]; [facility] Work Phone: 12-27-2005 07:37-0400 Diastolic blood pressure 70 mm[Hg] [facility]; [facility] Work Phone: Comment on above: Patient Position: Sitting; Cuff Location : Left Arm; Cuff Size: Standard 12-27-2005 07:37-0400 Head Occipital-frontal circumference 0 cm [facility]; [facility] Work Phone: 12-27-2005 07:37-0400 Heart rate 54 /min [facility]; [facility] Work Phone: Comment on above: Pattern: Regular 12-27-2005 07:37-0400 Systolic blood pressure 120 mm[Hg] [facility]; [facility] Work Phone: Comment on above: Patient Position: Sitting; Cuff Location : Left Arm; Cuff Size: Standard Encounters Encounter Date Encounter Type Care Provider Facility Start: 07-20-2024 End: 07-20-2024 [facility] Randalliaangelica Briseno NP-C Work Phone: [facility] Work Phone: Start: 07-20-2024 End: 07-20-2024 Patient encounter procedure [facility] Malina YORKC -Laboratory, [facility] Start: 07-20-2024 End: 07-20-2024 ambulatory Malina Briseno [facility] Facility:[facility] Start: 03-02-2024 End: 03-02-2024 ambulatory [facility] Facility:[facility] Start: 02-24-2024 End: 02-24-2024 ambulatory [facility] Facility:[facility] Start: 10-01-2023 End: 10-01-2023 Subsequent hospital visit by physician Xr [facility] Work Phone: Radiology Comment on above: Bronchitis [J40] Start: 10-01-2023 End: 10-01-2023 ambulatory [facility] Facility:[facility] Start: 10-01-2023 End: 10-01-2023 Patient encounter procedure Rosy Shahid PA-C Work Phone: [facility] Comment on above: Bronchitis (Primary Dx) Start: 03-28-2023 End: 03-28-[address] [facility] Work Phone: Start: 03-28-2023 End: 03-28-2023 Patient encounter procedure [facility] Work Phone: Start: 07-30-2022 End: 07-30-[address] [facility] Work Phone: Start: 07-30-2022 End: 07-30-2022 Patient encounter procedure [facility] Start: 12-18-2021 ambulatory Carmen Skinner [facility] Comment on above: [facility] ([employer] Medicare/) Start: 09-09-2017 End: 09-14-2017 Ambulatory [facility] Facility[facility] Start: 03-10-2017 End: 03-11-2017 Ambulatory [facility] Start: 02-28-2015 End: 02-28-2015 Office outpatient visit 15 minutes Thais Siddiqui MD Work Phone: [facility] Start: 02-10-2015 End: 02-10-2015 Office outpatient visit 25 minutes Thais Siddiqui MD Work Phone: [facility] Start: 11-28-2014 End: 11-28-2014 Periodic preventive med est patient 65yrs& older Thais Siddiqui MD Work Phone: [facility] Start: 11-28-2014 End: 11-28-2014 Office outpatient visit 40 minutes Thais Siddiqui MD Work Phone: [facility] Start: 11-10-2014 End: 11-10-2014 Phone Encounter Thais Siddiqui MD Work Phone: [facility] Start: 11-03-2014 End: 11-04-2014 Office outpatient visit 10 minutes Thais Siddiqui MD Work Phone: [facility] Start: 11-03-2014 End: 11-03-2014 Office outpatient visit 15 minutes Thais Siddiqui MD Work Phone: [facility] Start: 08-29-2014 End: 08-29-2014 Office outpatient visit 5 minutes Thais Siddiqui MD Work Phone: [facility] Start: 08-01-2014 End: 08-01-2014 Periodic preventive med est patient 18-39 yrs Thais Siddiqui MD Work Phone: [facility] Start: 07-06-2014 End: 07-06-2014 Office outpatient visit 15 minutes Thais Siddiqui MD Work Phone: [facility] Start: 07-05-2014 End: 07-05-2014 Annotation/Addendum Thais Siddiqui MD Work Phone: [facility] Start: 07-05-2014 End: 07-05-2014 Annotation/Addendum Thais Siddiqui MD Work Phone: [facility] Start: 07-04-2014 End: 07-04-2014 Office outpatient visit 25 minutes Thais Siddiqui MD Work Phone: [facility] Start: 04-20-2014 End: 04-20-2014 Office outpatient visit 15 minutes Thais Siddiqui MD Work Phone: [facility] Start: 03-29-2014 End: 03-29-2014 Office outpatient visit 40 minutes Thais Siddiqui MD Work Phone: [facility] Start: 12-28-2013 End: 12-28-2013 Office outpatient visit 15 minutes Thais Siddiqui MD Work Phone: [facility] Start: 09-20-2013 End: 09-20-2013 Patient encounter procedure Thais Siddiqui MD Work Phone: [facility] Start: 08-25-2013 End: 08-25-2013 Annotation/Addendum Thais Siddiqui MD Work Phone: [facility] Start: 08-25-2013 End: 08-25-2013 Office outpatient visit 25 minutes Thais Siddiqui MD Work Phone: [facility] Start: 08-17-2012 End: 08-17-2012 Patient encounter procedure Thais Siddiqui MD Work Phone: [facility] Start: 03-24-2012 End: 03-24-2012 Patient encounter procedure Thais Siddiqui MD Work Phone: [facility] Start: 02-18-2012 End: 02-18-2012 Patient encounter procedure Thais Siddiqui MD Work Phone: [facility] Start: 12-24-2011 End: 12-24-2011 Patient encounter procedure Thais Siddiqui MD Work Phone: [facility] Start: 09-17-2011 End: 09-17-2011 Patient encounter procedure Thais Siddiqui MD Work Phone: [facility] Start: 08-16-2011 End: 08-16-2011 Office outpatient visit 15 minutes Thais Siddiqui MD Work Phone: [facility] Start: 08-12-2011 End: 08-12-2011 Patient encounter procedure Thais Siddiqui MD Work Phone: [facility] Start: 06-18-2011 End: 06-18-2011 Patient encounter procedure Thais Siddiqui MD Work Phone: [facility] Start: 05-23-2011 End: 05-23-2011 Phone Encounter Thais Siddiqui MD Work Phone: [facility] Start: 04-26-2011 End: 04-27-2011 Patient encounter procedure Thais Siddiqui MD Work Phone: [facility] Start: 04-23-2011 End: 04-23-2011 Patient encounter procedure Thais Siddiqui MD Work Phone: [facility] Start: 04-04-2011 End: 04-04-2011 Patient encounter procedure Thais Siddiqui MD Work Phone: [facility] Start: 03-07-2011 End: 03-07-2011 Patient encounter procedure Thais Siddiqui MD Work Phone: [facility] Start: 2010 End: 2010 Patient encounter procedure Thais Siddiqui MD Work Phone: [facility] Start: 11-16-2010 End: 11-16-2010 Phone Encounter Thais Siddiqui MD Work Phone: [facility] Start: 05-22-2010 End: 05-22-2010 Patient encounter procedure Thais Siddiqui MD Work Phone: [facility] Start: 10-13-2009 End: 10-16-2009 Patient encounter procedure Thais Siddiqui MD Work Phone: [facility] Start: 01-20-2009 End: 01-22-2009 Patient encounter procedure Thais Siddiqui MD Work Phone: [facility] Start: 10-05-2008 End: 10-05-2008 Office outpatient visit 15 minutes Thais Siddiqui MD Work Phone: [facility] Start: 04-27-2008 End: 04-27-2008 Patient encounter procedure Thais Siddiqui MD Work Phone: [facility] Start: 02-27-2007 End: 02-27-2007 Patient encounter procedure Thais Siddiqui MD Work Phone: [facility] Start: 11-03-2006 End: 11-03-2006 Patient encounter procedure Thais Siddiqui MD Work Phone: [facility] Start: 09-02-2006 End: 09-02-2006 Office outpatient visit 15 minutes Thais Siddiqui MD Work Phone: [facility] Start: 08-05-2006 End: 08-05-2006 Patient encounter procedure Thais Siddiqui MD Work Phone: [facility] Start: 08-05-2006 End: 08-05-2006 Office outpatient visit 15 minutes Thais Siddiqui MD Work Phone: [facility] Start: 07-17-2006 End: 07-17-2006 Office outpatient visit 25 minutes Thais Siddiqui MD Work Phone: [facility] Start: 03-31-2006 End: 03-31-2006 Patient encounter procedure Thais Siddiqui MD Work Phone: [facility] Start: 12-27-2005 End: 12-27-2005 Office outpatient visit 40 minutes Thais Siddiqui MD Work Phone: [facility] Start: 11-13-2005 End: 11-13-2005 Historical Summary Thais Siddiqui MD Work Phone: [facility] Patient encounter procedure Thais Siddiqui MD Work Phone: [facility]; [facility] Work Phone: Comment on above: refuse colonscopy. r efuse flu vaccine.had chol done at work refuse mammo Procedures Date Procedure Procedure Detail Performing Clinician Start: 07-20-2024 Urine culture Malina traore [employer]URITY INSTALLER-C Work Phone: Start: 10-01-2023 Radiologic exam ches t 2 views Rosyrohini Shahid PA-C Work Phone: Start: 07-30-2022 X-ray of lumbar spin e, two or three views Start: 09-20-2013 End: 09-20-2013 Ecg routine ecg w/least 12 lds w/i&r [MEASUREMENTS ANALYSIS] Date of Test: 09/20/2013 16:02:42; Heart Rate: 64; [place] Interval: 150; QRS: 80; QT Interval: 396; Corrected QT Interval (QTc): 403; P Wave [place]: 34; QRS Wave [place]: 48; T Wave [place]: 39; Blood Pressure: 120/80 [ECG DIAGNOSTIC STATEMENTS] Date of Test: 09/20/2013 16:02:42; Summary: Sinus Rhythm WITHIN NORMAL LIMITS; ADDENDA: (09/20/2013 04:07 PM) same as old no acute change more peaked T waves old Thais Siddiqui MD Work Phone: Comment on above: see scanned document of test done to see results reviewed today with patient Start: 08-25-2013 End: 08-25-2013 Chest PA and Lateral Comments: See Note; NOTES: [facility] Imaging Services [address] [place] [address] Radiology Report MR#: [id number] Acct: [id number] Name: MENA SHEEHAN Rep #: [id number] : [id number] F [id number] From: Ruperto Stein MD PCP: Thais Siddiqui MD Status: REG CLI Study: Chest PA and Lateral Date of Exam: 08/25/13 Exam# [id number] Ordering Dr: Genevieve Ridley STUDY: X-RAY CHEST REASON FOR EXAM: Female, 57 years old. Left-sided rib pain. TECHNIQUE: PA and lateral views of the chest. COMPARISON: None. FINDINGS: Mild degree of increased linear markings at the left lung base suggestive of linear atelectasis. There is no demonstrated pleural abnormality. Normal size heart. Normal mediastinum and kika. Normal visualized pulmonary arteries. Normal visualized aortic arch and descending thoracic aorta. Normal visualized thoracic spine. Normal visualized ribs, clavicles, and shoulders. There is no demonstrated abnormality of the visualized soft tissue structures of the upper abdomen. IMPRESSION: Mild degree of linear atelectasis at the left lung base. Electronically Signed: Ruperto Stein MD at 15:30 EDT Tel [phone], Service support [phone], CC: Genevieve Ridley; Thais Siddiqui MD Senior Lead Developer: Signed Genevieve Ridley [facility] Work Phone: Start: 08-25-2013 End: 08-25-2013 Ribs Unil 2V No CXR Comments: See Note; NOTES: [facility] Imaging Services [address] [place] [address] Radiology Report MR#: [id number] Acct: [id number] Name: MENA SHEEHAN Rep #: [id number] : [id number] F 57 From: Ruperto Stein MD PCP: Thais Siddiqui MD Status: REG CLI Study: Ribs Unil 2V No CXR Date of Exam: 08/25/13 Exam# [id number] Ordering Dr: Genevieve Ridley STUDY: X-RAY - UNILATERAL RIBS ( LEFT ) REASON FOR EXAM: Female, 57 years old. Left-sided rib pain following a fall. TECHNIQUE: 3 view(s) of the ribs. COMPARISON: None. FINDINGS: Normal visualized ribs without a demonstrated fracture. Mild degree of increased markings at the left lung base suggestive of atelectasis. There is blunting of the left costophrenic angle. IMPRESSION: No overt fracture is seen. Mild degree of left basilar atelectasis and blunting of the left costophrenic angle. Electronically Signed: Ruperto Stein MD at 15:29 EDT Tel [phone], Service support [phone], RAD/Ribs Unil 2V No CXR IMPRESSION: No overt fracture is seen. Mild degree of left basilar atelectasis and blunting of the left costophrenic angle. Electronically Signed: Ruperto Stein MD at 15:29 EDT Tel [phone], Service support [phone], CC: Genevieve Ridley; Thais Siddiqui MD Senior Lead Developer: Signed Genevieve Ridley CNP Work Phone: Start: 04-05-2011 Mammography Carmen Skinner MA Start: 08-10-2010 Lipid 1996 panel - Serum or Plasma Rosy Shahid PA-C Work Phone: Plan of Treatment Date Care Activity Detail Author Start: 12-21-2023 Covid-19 Vaccine () Covid-19 Vaccine () [facility] Start: 12-21-2023 Influenza vaccination C [facility] Start: 04-21-2023 Advance Directive Discussion Advance Directive Discussion [facility] Start: 04-21-2023 Behavioral Health Screening Behavioral Health Screening [facility] Start: 12-20-2022 Covid-19 Vaccine () Covid-19 Vaccine () [facility] Start: 12-20-2021 Influenza vaccination INFLUENZA (#1) [facility] Start: 04-21-2021 ADVANCE DIRECTIVE DISCUSSION ADVANCE DIRECTIVE DISCUSSION [facility] Start: 2018 BONE DENSITY BONE DENSITY [facility] Start: 2018 Pneumococcal Vaccine : 65+ (1 of 1 - PCV) Pneumococcal Vaccine: 65+ (1 of 1 - PCV) [facility] Start: 2018 PNEUMOCOCCAL: 65+ (1 - PCV) PNEUMOCOCCAL: 65+ (1 - PCV) [facility] Start: 2018 Screening for osteoporosis Bone Density Screening [facility] Start: 08-11-2015 Lipid panel Lipid Screening [facility] Start: 08-11-2015 LIPID SCREEN LIPID SCREEN [facility] Start: 02-28-2015 Patient Education Hemoglobin A 1c Test *: a1c test [facility]; [facility] Work Phone: Start: 02-28-2015 Procedure Education Eprescribe d prescriptions (G8553) [facility]; [facility] Work Phone: Start: 02-28-2015 Urine albumin quantitative MICROALBUMIN: CREATININE RATIO (70855) AND (66574) [facility]; [facility] Work Phone: Start: 02-28-2015 Comprehensive metabo lic panel METABOLIC PANEL, COMPREHENSIVE (95841) [facility]; [facility] Work Phone: Start: 02-28-2015 Lipid panel LIPID PANEL (21209) [facility]; [facility] Work Phone: Start: 02-28-2015 Blood count manual c ell count each CBC with auto diff (28702) [facility]; [facility] Work Phone: Start: 02-10-2015 Patient Education Abdominal Pa in: abdominal pain [facility]; [facility] Work Phone: Start: 02-10-2015 Procedure Education Eprescribe d prescriptions (G8553) [facility]; [facility] Work Phone: Start: 02-10-2015 Provider Instruction s for Treatment Follow up in 2 days [facility]; [facility] Work Phone: Start: 11-28-2014 Lipid panel LIPID PANEL (84273) [facility]; [facility] Work Phone: Start: 08-29-2014 Patient Education Blood Glucos e Test: blood [facility]; [facility] Work Phone: Start: 08-29-2014 Procedure Education Eprescribe d prescriptions (G8553) [facility]; [facility] Work Phone: Start: 08-01-2014 Procedure Education Eprescribe d prescriptions (G8553) [facility]; [facility] Work Phone: Start: 07-04-2014 Provider Instruction s for Treatment [facility]; [facility] Work Phone: Start: 04-20-2014 Iaadiadoo influenza Rapid Flu (12896 x 2) [facility]; [facility] Work Phone: Start: 03-29-2014 Urnls dip stick/tabl et reagent auto microscopy URINALYSIS, W/ MICRO (76191) [facility]; [facility] Work Phone: Start: 03-29-2014 Comprehensive metabo lic panel METABOLIC PANEL, COMPREHENSIVE (19767) [facility]; [facility] Work Phone: Start: 03-29-2014 Lipid panel LIPID PANEL (76249) [facility] prehensive [facility]; [facility] Work Phone: Start: 03-29-2014 Blood count complete auto&auto difrntl wbc CBC W/AUTO DIFF WBC (30712) [facility]; [facility] Work Phone: Start: 03-29-2014 Procedure Education Eprescribe d prescriptions (G8553) [facility]; [facility] Work Phone: Start: 12-28-2013 Procedure Education Eprescribe d prescriptions (G8553) [facility]; [facility] Work Phone: Start: 2013 RSV Vaccine (1 - 1-d ose 60+ series) RSV Vaccine (1 - 1-dose 60+ series) [facility] Start: 08-25-2013 Provider Instruction s for Treatment Follow up if no improvement or if symptoms worsen [facility]; [facility] Work Phone: Start: 08-10-2013 DIABETES SCREEN DIABETES SCREEN [facility] Start: 08-10-2013 Diabetes Screening Diabetes Screenin g [facility] Start: 04-05-2012 Mammography MAMMOGRAM [facility] Start: 04-05-2012 Screening for malign ant neoplasm of breast Mammogram Screening [facility] Start: 12-24-2011 Patient Education Blood Glucos e Test: blood glucose [facility]; [facility] Work Phone: Start: 12-24-2011 Provider Instruction s for Treatment [facility]; [facility] Work Phone: Start: 08-16-2011 Provider Instruction s for Treatment Follow up as needed [facility]; [facility] Work Phone: Start: 05-23-2011 Lipid panel Lipid Panel (00320) [facility]; [facility] Work Phone: Start: 05-23-2011 1 25 dihydroxy inclu sabina fractions if performed VITAMIN D, 1, 25-DIHYDROXY (98481) [facility]; [facility] Work Phone: Start: 05-23-2011 Assay of thyroid stimulating hormone tsh TSH (63298) [facility]; [facility] Work Phone: Start: 05-23-2011 Blood count manual c ell count each CBC with manual diff (94114) [facility]; [facility] Work Phone: Start: 05-23-2011 Comprehensive metabo lic panel Metabolic Panel, Comprehensive (24553) [facility]; [facility] Work Phone: Start: 04-04-2011 Provider Instruction s for Treatment [facility]; [facility] Work Phone: Start: 04-04-2011 Hpv, dna, amp probe HUMAN ISAAC LVS, NUCLEIC ACID AMPL PROBE (67435) [facility]; [facility] Work Phone: Start: 04-04-2011 Cytp cerv/vag auto t hin layer prep mnl screen Thin prep Pap (80296) [facility]; [facility] Work Phone: Start: 03-07-2011 Provider Instruction s for Treatment *Amanuel Inhibitor Side Effects [facility]; [facility] Work Phone: Start: 03-07-2011 Assay of thyroid stimulating hormone tsh TSH (46470) [facility]; [facility] Work Phone: Start: 03-07-2011 Urine albumin quantitative MICROALBUMIN: CREATININE RATIO (53090) AND (84331) [facility]; [facility] Work Phone: Start: 03-07-2011 Comprehensive metabo lic panel METABOLIC PANEL, COMPREHENSIVE (97772) [facility]; [facility] Work Phone: Start: 03-07-2011 Blood count manual c ell count each CBC WITH MANUAL DIFF (91458) [facility]; [facility] Work Phone: Start: 03-07-2011 Lipid panel LIPID PANEL (42100) [facility]; [facility] Work Phone: Start: 2010 Lipid panel LIPID PANEL (86382) [facility]; [facility] Work Phone: Start: 10-05-2008 Provider Instruction s for Treatment [facility]; [facility] Work Phone: Start: 04-27-2008 Blood count manual c ell count each CBC WITH MANUAL DIFF (67873) [facility] Medicine; [facility] Work Phone: Start: 11-03-2006 Comprehensive metabo lic panel Metabolic Panel, Comprehensive (06125) [facility]; [facility] Work Phone: Start: 11-03-2006 Lipid panel Lipid Panel (61024) [facility]; [facility] Work Phone: Comment on above: in three months (pipo roximately) Start: 07-17-2006 Comprehensive metabo lic panel Metabolic Panel, Comprehensive (94629) [facility]; [facility] Work Phone: Start: 07-17-2006 Lipid panel Lipid Panel (13106) [facility]; [facility] Work Phone: Start: 07-17-2006 Blood count complete auto&auto difrntl wbc CBC, Platelets & Auto Diff (04866) [facility]; [facility] Work Phone: Start: 07-17-2006 Assay of lipase Lipase (66084) [facility]; [facility] Work Phone: Start: 07-17-2006 Assay of amylase Amylase (24738) [facility]; [facility] Work Phone: Start: 07-17-2006 Provider Instruction s for Treatment FOLLOW UP IN 2 WEEKS [facility]; [facility] Work Phone: Start: 07-17-2006 Hemoglobin glycosyla gilbert a1c HgA1C , Office ([id number]) [facility]; [facility] Work Phone: Start: 03-31-2006 Urine albumin quantitative MICROALBUMIN: CREATININE RATIO (93435) AND (21834) [facility]; [facility] Work Phone: Start: 03-31-2006 Comprehensive metabo lic panel METABOLIC PANEL, [facility] (44477) [facility]; [facility] Work Phone: Start: 03-31-2006 Lipid panel LIPID PANEL (06389) [facility]; [facility] Work Phone: Start: 03-31-2006 Blood count manual c ell count each CBC WITH MANUAL DIFF (66311) [facility]; [facility] Work Phone: Comment on above: all labs in three mo [facility] Start: 03-31-2006 Hemoglobin glycosyla gilbert a1c HgA1C , Office (21359) [facility]; [facility] Work Phone: Start: 12-27-2005 Provider Instruction s for Treatment FOLLOW UP IN 3 MONTHS [facility]; [facility] Work Phone: Start: 12-27-2005 Hepatic function panel HEPATIC FUNCTION PANEL (65544) [facility]; [facility] Work Phone: Start: 12-27-2005 Lipid panel LIPID PANEL (14672) [facility]; [facility] Work Phone: Start: 12-08-2003 SHINGRIX VACCINE (1 of 2) SHINGRIX VACCINE (1 of 2) [facility] Start: 1998 COLOGUARD (FIT-DNA) COLOGUARD (FIT-D NA) [facility] Start: 1998 Colonoscopy COLONOSCOPY [facility] Start: 1998 COLORECTAL CANCER SCREENING COLORECTAL CANCER SCREENING [facility] Start: [address] COLONOGRAPHY [facility] Start: 1998 FECAL OCCULT BLOOD FECAL OCCULT BLOO D [facility] Start: 1998 Screening for malign ant neoplasm of colon [facility] Start: 1998 SIGMOIDOSCOPY SIGMOIDOSCOPY [facility] Start: 1972 Urine microalbumin profile [facility] Start: 12-08-1971 Anxiety Screening Anxiety Screening [facility] Start: 12-08-1971 Depression Screening Depression Scre ening [facility] Start: 12-08-1971 HEPATITIS C SCREENING HEPATITIS C [facility] Start: 12-08-1971 Hepatitis C screening Hepatitis C [facility] Start: 1965 Adult depression screening assessment DEPRESSION SCREENING [facility] Start: 06-09-1954 COVID-19 VACCINE (#1) COVID-19 VACCI NE (#1) [facility]; [facility] Work Phone: [facility]; [facility] Work Phone: [facility]; [facility] Work Phone: [facility] Work Phone: [facility] Work Phone: [facility]; [facility] Work Phone: [facility]; [facility] Work Phone: [facility] Work Phone: [facility] Work Phone: [facility] Work Phone: [facility] Work Phone: [facility] Work Phone: [facility]; [facility] Work Phone: [facility] Work Phone: [facility]; [facility] Work Phone: [facility]; [facility] Work Phone: [facility]; [facility] Work Phone: Payers Date Payer Category Payer Medicare [id number] 2023 Medicaid [id number] 2023 Self-pay [id number] 2022 Medicare AETNA MEDICARE A ETNA MEDICARE O [id number] 2022-Present [phone] [address] [place] [address] [facility] [id number] 2022 Private Health Insurance [id number] 2017 Unknown [id number] 2017 Private Health Insurance [id number] Unknown [facility] Medicare HU[employer] MEDICARE PPO [id number] 3 [id number] Unknown [employer] [id number] Unknown [employer] MC D *DO NOT USE* [id number] Unknown [facility] [id number] Unknown [id number] Unknown [id number] Unknown [id number] Social History Date Type Detail Facility Start: 03-28-2020 End: 10-01-2023 Current Work/Study Status Current Work/Study Status [facility]; [facility] Work Phone: Comment on above: Full-time [employer] Lives with spouse Tobacco Use: Tobacco Use: [facility]; [facility] Work Phone: Comment on above: Remotely quit tobacc o use Start: 08-21-2020 End: 08-28-2020 Tobacco smoking status NHIS Never smoked tobacco [facility] Start: 08-28-2020 End: 10-01-2023 Tobacco use and exposure Smokeless tobacco non-user [facility] Start: 08-28-2020 End: 10-01-2023 Alcohol intake Current non-drinker of alcohol (finding) [facility] Start: 1955 Sex Assigned At Not on file [facility] Start: 08-21-2020 End: 08-21-2020 Tobacco smoking status MNIS Unknown if ever smoked [facility] Start: 08-21-2020 Non-smoker [facility] Start: 1955 Sex Assigned At Female [facility] Start: 03-28-2020 End: 10-01-2023 Tobacco use panel [facility] National Score (1-100), lower number is lower risk Not on file [facility] Start: 07-27-2024 Sex Female (finding) [facility] Medical Equipment Procedure Code Equipment Code Equipment Origin al Text Equipment Identifier Dates Appendectomy, laparoscopic 45mm Vascular Reload FDA Start: 08-19-2020 Appendectomy, laparoscopic 45mm Vascular Reload FDA Start: 08-19-2020 Appendectomy, laparoscopic 45mm Vascular Reload FDA Start: 08-19-2020 FREESTYLE INSULI NX TEST (In Vitro Strip) 1 (one) Strip Strip qd for 0 days Quantity: 1 {Box} Refills: 3 Ordered: 28-Feb-2015 Artur IQBAL, Thais Castaneda MD Start : 28-Feb-2015 Active Comments: DX: 250.00NPI: [id number] Start: 02-28-2015 Comment on above: DX: 250.00NPI: [id number] FREESTYLE LANCET S (Miscellaneous) 1 (one) Misc Misc qd for 0 days Quantity: 1 {Box} Refills: 3 Ordered: 01-Aug-2014 Stephanie Schneider CMA Start : 01-Aug-2014 Active Comments: DX: 250.00 Start: 08-01-2014 Comment on above: DX: 250.00 NPI: [id number] Progress note 10-01-2023 Note Date & Type Note Facility 10-01-2023 Note HNO ID: [id number] Author: ROSY SHAHID PA-C Service: ? Author Type: Physician Perioperative Assistant Type: Progress Notes Filed: 10/01/2023 09:08 Note Text: This note was created using [employer]. Subjective Mena Sheehan is a 67 year old female. HPI Presents with the chief complaint of cough and wheezing over the past 3 weeks. Her has been sick with similar symptoms. She does have a history of asthma. She has been using her albuterol inhaler and nebulizer. States she has had some clear sputum. No sinus pressure or pain. She has had some shortness of breath with this. Denies chest pain. No vomiting or diarrhea. She has been using Tessalon that she had leftover. No fevers. Review of Systems Constitutional: Negative for fatigue and fever. HENT: Negative for congestion, ear pain, rhinorrhea, sinus pressure, sinus pain and sore throat. Respiratory: Positive for cough, shortness of breath and wheezing. Cardiovascular: Negative. Gastrointestinal: Negative for abdominal pain, diarrhea, nausea and vomiting. Genitourinary: Negative. Musculoskeletal: Negative. All other systems reviewed and are negative. PAST MEDICAL HISTORY Diagnosis Date Asthma DM (diabetes mellitus) (HCC) Environmental allergies HTN (hypertension), benign Hyperlipidemia Current Outpatient Medications Medication Sig Dispense Refill pravastatin 20 mg ORAL tablet Take 1 tablet by mouth once daily. 0 glyBURIDE 5 mg ORAL tablet Take 1 tablet by mouth twice daily. 0 lisinopril 10 mg ORAL tablet Take 1 tablet by mouth once daily. 0 albuterol 2.5 mg /3 mL (0.083 %) INHALATION nebulizer solution 3 mL three times daily as needed. OVER 5-15 MINUTES. FOR WHEEZING AND SHORTNESS OF BREATH. 0 doxycycline (VIBRA-TABS) 100 mg tablet Take 1 tablet by mouth two times a day for 7 days. 14 tablet 0 predniSONE (DELTASONE) 20 mg tablet Take 2 tablets by mouth once daily for 5 days. 10 tablet 0 benzonatate (TESSALON PERLES) 100 mg capsule Take 2 capsules by mouth three times a day as needed. 30 capsule 0 guaiFENesin (MUCINEX) 600 mg 12 hr tablet Take 2 tablets by mouth two times a day for 5 days. 20 tablet 0 No current facility-administered medications for this visit. PAST SURGICAL HISTORY Procedure Laterality Date BX BREAST PERC NEED W/GUID 04/25/2011 Abnormal UOQ mamm LAPAROSCOPIC APPENDECTOMY 08/19/2020 STEREO LOC FOR CORE BRST BX LT 05/07/2011 No family history on file. Social History Tobacco Use Smoking status: Never Smokeless tobacco: Never Substance Use Topics Alcohol use: No Drug use: No Objective BP 140/74 Pulse 86 Temp 36.8 ?C (98.2 ?F) Resp 16 Wt 68.8 kg (151 lb 10.8 oz) SpO2 97% Physical Exam Vitals reviewed. Constitutional: Appearance: Normal appearance. HENT: Head: Normocephalic and atraumatic. Right Ear: Tympanic membrane, ear canal and external ear normal. Left Ear: Tympanic membrane, ear canal and external ear normal. Nose: Nose normal. Mouth/Throat: Mouth: Mucous membranes are moist. Pharynx: Oropharynx is clear. Cardiovascular: Rate and Rhythm: Normal rate and regular rhythm. Heart sounds: Normal heart sounds. Pulmonary: Effort: Pulmonary effort is normal. Breath sounds: Normal breath sounds. Musculoskeletal: Cervical back: Neck supple. Lymphadenopathy: Cervical: No cervical adenopathy. Skin: General: Skin is warm and dry. Findings: No rash. Neurological: Mental Status: She is alert. Assessment and Plan ASSESSMENT/PLAN: 1. Bronchitis - ICD9: 490, ICD10: J40 Cxr clear. Rx for tessalon, mucinex, and prednisone. Continue albuterol. If not improving written rx for doxycycline given but discussed trying other meds first. Patient agreeable with plan. - XR CHEST 2V FRONTAL/LAT Rosy Shahid PA-C [facility] History of Present illness Narrative 10-01-2023 Rosy Shahid PA-C - 10/01/2023 8:46 AM EDT Note Date & Type Note Facility 10-01-2023 History of Presen t illness Narrative This note was created using [employer]. Subjective Mena Sheehan is a 67 year old female. HPI Presents with the chief complaint of cough and wheezing over the past 3 weeks. Her has been sick with similar symptoms. She does have a history of asthma. She has been using her albuterol inhaler and nebulizer. States she has had some clear sputum. No sinus pressure or pain. She has had some shortness of breath with this. Denies chest pain. No vomiting or diarrhea. She has been using Tessalon that she had leftover. No fevers. Review of Systems Constitutional: Negative for fatigue and fever. HENT: Negative for congestion, ear pain, rhinorrhea, sinus pressure, sinus pain and sore throat. Respiratory: Positive for cough, shortness of breath and wheezing. Cardiovascular: Negative. Gastrointestinal: Negative for abdominal pain, diarrhea, nausea and vomiting. Genitourinary: Negative. Musculoskeletal: Negative. All other systems reviewed and are negative. PAST MEDICAL HISTORY Diagnosis Date Asthma DM (diabetes mellitus) (HCC) Environmental allergies HTN (hypertension), benign Hyperlipidemia Current Outpatient Medications Medication Sig Dispense Refill pravastatin 20 mg ORAL tablet Take 1 tablet by mouth once daily. 0 glyBURIDE 5 mg ORAL tablet Take 1 tablet by mouth twice daily. 0 lisinopril 10 mg ORAL tablet Take 1 tablet by mouth once daily. 0 albuterol 2.5 mg /3 mL (0.083 %) INHALATION nebulizer solution 3 mL three times daily as needed. OVER 5-15 MINUTES. FOR WHEEZING AND SHORTNESS OF BREATH. 0 doxycycline (VIBRA-TABS) 100 mg tablet Take 1 tablet by mouth two times a day for 7 days. 14 tablet 0 predniSONE (DELTASONE) 20 mg tablet Take 2 tablets by mouth once daily for 5 days. 10 tablet 0 benzonatate (TESSALON PERLES) 100 mg capsule Take 2 capsules by mouth three times a day as needed. 30 capsule 0 guaiFENesin (MUCINEX) 600 mg 12 hr tablet Take 2 tablets by mouth two times a day for 5 days. 20 tablet 0 No current facility-administered medications for this visit. PAST SURGICAL HISTORY Procedure Laterality Date BX BREAST PERC NEED W/GUID 04/25/2011 Abnormal UOQ mamm LAPAROSCOPIC APPENDECTOMY 08/19/2020 STEREO LOC FOR CORE BRST BX LT 05/07/2011 No family history on file. Social History Tobacco Use Smoking status: Never Smokeless tobacco: Never Substance Use Topics Alcohol use: No Drug use: No Objective BP 140/74 Pulse 86 Temp 36.8 C (98.2 F) Resp 16 Wt 68.8 kg (151 lb 10.8 oz) SpO2 97% Physical Exam Vitals reviewed. Constitutional: Appearance: Normal appearance. HENT: Head: Normocephalic and atraumatic. Right Ear: Tympanic membrane, ear canal and external ear normal. Left Ear: Tympanic membrane, ear canal and external ear normal. Nose: Nose normal. Mouth/Throat: Mouth: Mucous membranes are moist. Pharynx: Oropharynx is clear. Cardiovascular: Rate and Rhythm: Normal rate and regular rhythm. Heart sounds: Normal heart sounds. Pulmonary: Effort: Pulmonary effort is normal. Breath sounds: Normal breath sounds. Musculoskeletal: Cervical back: Neck supple. Lymphadenopathy: Cervical: No cervical adenopathy. Skin: General: Skin is warm and dry. Findings: No rash. Neurological: Mental Status: She is alert. Assessment and Plan ASSESSMENT/PLAN: 1. Bronchitis - ICD9: 490, ICD10: J40 Cxr clear. Rx for tessalon, mucinex, and prednisone. Continue albuterol. If not improving written rx for doxycycline given but discussed trying other meds first. Patient agreeable with plan. - XR CHEST 2V FRONTAL/LAT Rosy Shahid PA-C documented in this encounter [facility] History of Present illness Narrative 10-01-2023 Dana Quan, RT(R) - 10/01/2023 8:10 AM EDT Note Date & Type Note Facility 10-01-2023 History of Presen t illness Narrative Radiology Service Progress Note PATIENT NAME: Mena Sheehan DATE OF SERVICE: October 01, 2023 TIME: 8:13 AM PATIENT IDENTITY VERIFICATION COMPLETED USING TWO (2) IDENTIFIERS: Name and Date of confirmed by patient verbally. FALL SCREENING: Has the patient had 2 falls in the last year or 1 fall with injury or currently using an Ambulatory Assistive Device (Walker, Cane, Wheelchair, Crutches, etc.)? No PATIENT GENDER DATA: Female. status: : No status: NO. PATIENT RELEVANT IMPLANT DATA REVIEWED: Not Applicable PATIENT PRESENTS WITH AN IMPLANTABLE OR ATTACHED COUNTER STACKER: No RADIOLOGY DEPARTMENT: General X-ray: Exam(s) Completed: Chest X-Ray PERIPHERAL IV DATA: Not applicable SIGNED BY: RT Phi(Jaky) October 01, 2023 8:13 AM documented in this encounter [facility] Progress note 10-01-2023 Note Date & Type Note Facility 10-01-2023 Note HNO ID: [id number] Author: DANA QUAN RT(Jaky) Service: Radiology Author Type: Technologist Type: Progress Notes Filed: 10/01/2023 08:21 Note Text: Radiology Service Progress Note PATIENT NAME: Mena Sheehan DATE OF SERVICE: October 01, 2023 TIME: 8:13 AM PATIENT IDENTITY VERIFICATION COMPLETED USING TWO (2) IDENTIFIERS: Name and Date of confirmed by patient verbally. FALL SCREENING: Has the patient had 2 falls in the last year or 1 fall with injury or currently using an Ambulatory Assistive Device (Walker, Cane, Wheelchair, Crutches, etc.)? No PATIENT GENDER DATA: Female. status: : No status: NO. PATIENT RELEVANT IMPLANT DATA REVIEWED: Not Applicable PATIENT PRESENTS WITH AN IMPLANTABLE OR ATTACHED COUNTER STACKER: No RADIOLOGY DEPARTMENT: General X-ray: Exam(s) Completed: Chest X-Ray PERIPHERAL IV DATA: Not applicable SIGNED BY: Dana Quan, RT(R) October 01, 2023 8:13 AM [facility] History of Present illness Narrative 12-18-2021 Carmen Skinner - 12/18/2021 2:24 PM EDT Note Date & Type Note Facility 12-18-2021 History of Presen t illness Narrative POPULATION HEALTH NAVIGATION OUTREACH Action/[place] sheehan Patient due for the following: Annual exam Confirm PCP Colorectal Cancer Screening Mammogram Advance Directives MyChart activation Unable to contact patient by phone, Number not in service Letter printed to [facility], to be mailed by Navigator on site Pt identified by name and : NO Outreach Outcome/Action Unable to reach patient: Left message Did you use a PCP flex slot to schedule this appointment? N/A Reason for Outreach Care Gap or Scheduling/Wellness visits Payer: No coverage found. Care Gap Reviewed:: Annual Wellness visit Breast Cancer screening Colorectal Cancer Screening Reminder: Reminder note to check Health Maintenance for items below Health Maintenance items due: COVID-19 VACCINE(1) Never done DEPRESSION SCREENING Never done HEPATITIS C SCREENING Never done DTAP,TDAP,TD(1 - Tdap) Never done COLORECTAL CANCER SCREENING Never done SHINGRIX VACCINE(1 of 2) Never done MAMMOGRAM due on 04/05/2012 DIABETES SCREEN due on 08/10/2013 LIPID SCREEN due on 08/11/2015 BONE DENSITY Never done PNEUMOCOCCAL: 63+(1 - PCV) Never done ADVANCE DIRECTIVE DISCUSSION Never done Message Sent to Practice: No Navigation Signature: Carmen Skinner December 18, 2021 2:24 PM documented in this encounter [facility] Evaluation note Note Date & Type Note Facility Evaluation note No assessment information [facility] Work Phone: Evaluation note Note Date & Type Note Facility Evaluation note Diagnosis Bronchitis- Primary Bronchitis, not specified as acute or chronic Bronchitis Bronchitis, not specified as acute or chronic documented in this encounter [facility] Evaluation note Note Date & Type Note Facility Evaluation note Diagnosis Bronchitis Bronchitis, not specified as acute or chronic documented in this encounter [facility] Instructions Note Date & Type Note Facility Instructions Name How to access health information online Indication:Hypercholesterole antonio Start: 5 Instruction Type:Patient Education How to access health information online - Detail Indication:Hypercholesterole antonio Start: 5 Instruction Type:Patient Education Patient Instructions Indication:Hypercholesterole antonio Start: 5 Instruction Type:Provider Instructions for Treatment How to access health information online Indication:Abdominal pain Start: 5 Instruction Type:Patient Education How to access health information online - Detail Indication:Abdominal pain Start: 5 Instruction Type:Patient Education Patient Instructions Indication:Abdominal pain Start: 5 Instruction Type:Provider Instructions for Treatment How to access health information online - Detail Indication:Type 2 diabetes mellitus without complication Start: 5 Instruction Type:Patient Education Patient Instructions Indication:Type 2 diabetes mellitus without complication Start: 5 Instruction Type:Provider Instructions for Treatment How to access health information online Indication:Type 2 diabetes mellitus without complication Start: 5 Instruction Type:Patient Education How to access health information online - Detail Indication:Type 2 diabetes mellitus without complication Start: 5 Instruction Type:Patient Education Patient Instructions Indication:Type 2 diabetes mellitus without complication Start: 5 Instruction Type:Provider Instructions for Treatment Patient Instructions Indication:Chills Start: Instruction Type:Provider Instructions for Treatment How to access health information online Indication:Chills Start: Instruction Type:Patient Education How to access health information online Indication:Type 2 diabetes mellitus without complication Start:29-Mar-2014 Instruction Type:Patient Education How to access health information online - Detail Indication:Type 2 diabetes mellitus without complication Start:29-Mar-2014 Instruction Type:Patient Education Patient Instructions Indication:Type 2 diabetes mellitus without complication Start:29-Mar-2014 Instruction Type:Provider Instructions for Treatment Patient Instructions Indication:Type 2 diabetes mellitus without complication Start:28-Dec-2013 Instruction Type:Provider Instructions for Treatment Patient Instructions Indication:Type 2 diabetes mellitus without complication Start: 3 Instruction Type:Provider Instructions for Treatment Patient Instructions Indication:Type 2 diabetes mellitus without complication Start:24-Mar-2012 Instruction Type:Provider Instructions for Treatment Patient Instructions Indication:Type 2 diabetes mellitus without complication Start:24-Dec-2011 Instruction Type:Provider Instructions for Treatment [facility] Work Phone: Reason for referral (narrative) Note Date & Type Note Facility Reason for referral (narrative) No reason for referral information available [facility] Work Phone: Summary Purpose Family History No Family History Records FoundNo Family History Records FoundNo Family History Records Found Advance Directives No Advanced Directives Records Found Advance Directive Response Recorded Date/ Time Living Will No August 21, 2020 6: 21pm Power of Lean Manufacturing Coordinator No August 21, 2020 6:21pm Advance Directive Response Recorded Date/ Time Living Will No August 21, 2020 5: 21pm Power of Lean Manufacturing Coordinator No August 21, 2020 5:21pm Additional Source Comments INFORMATION SOURCE (unrecogn ized section and content) DATE CREATED AUTHOR 10/08/2017 [facility] DATE CREATED AUTHOR AUTHOR'S ORGANIZ ATION 10/02/2023 [facility] DATE CREATED AUTHOR AUTHOR'S ORGANIZ ATION 07/28/2024 [facility] Source Comments (unrecognize d section and content) In the event this informatio n is protected by the Federal Confidentiality of Alcohol and Drug Abuse Patient Records regulations: The Federal rules restrict any use of the information to criminally investigate or prosecute any alcohol or drug abuse patient.[facility] the event this information is protected by the Federal Confidentiality of Alcohol and Drug Abuse Patient Records regulations: The Federal rules restrict any use of the information to criminally investigate or prosecute any alcohol or drug abuse patient.[facility] the event this information is protected by the Federal Confidentiality of Alcohol and Drug Abuse Patient Records regulations: The Federal rules restrict any use of the information to criminally investigate or prosecute any alcohol or drug abuse patient.[facility] Reason for Visit (unrecogniz ed section and content) Reason Onset Date Comments Population Health Navigation Outreach 12/18/2021 [employer] Reason Comments Cough Congestion x3 weeks Care Teams (unrecognized sec tion and content) Envelope Fold Operator Relationship Specialty Start Date End Date Thais Siddiqui MD PCP - General Internal Medicine 04/23/11 Team Status: Active Member Role Status Dates [facility] Family Provider Active [facility] Primary Care Provider A ctive Team Status: Inactive Member Role Status Dates [facility] Primary Care Provider A ctive Malina Briseno SECURITY INSTALLER, SECURITY INSTALLER-C Attending Provider, [employer] Provider Active Envelope Fold Operator Relationship Specialty Start Date End Date [facility] [address] [place] [id number] PCP - General 10/01/23 Envelope Fold Operator Relationship Specialty Start Date End Date [facility] [address] [place] [id number] PCP - General 10/01/23 Team Status: Active Member Role Status Dates [facility] Family Provider Active Malina HERNANDEZ, SECURITY INSTALLER-C Primary Care Provider Activ e Team Status: Inactive Member Role Status Dates Malina HERNANDEZ, SECURITY INSTALLER-C Primary Care Provider Activ e Start: July 20, 2024 End: July 20, 2024 Malina HERNANDEZ, SECURITY INSTALLER-C Attending Provider Active Start: July 20, 2024 End: July 20, 2024 Goals (unrecognized section and content) Goals may be documented in a n alternate sectionGoals may be documented in an alternate sectionGoals may be documented in an alternate section FOR RECORDS PERTAINING TO PATIENTS WHO ARE OR HAVE BEEN ENROLLED IN A CHEMICAL DEPENDENCY/SUBSTANCEABUSE PROGRAM, SOME INFORMATION MAY BE OMITTED. This clinical summary was aggregated from multiple sources. Caution should be exercised in using it in the provision of clinical care. This summary normalizes information from multiple sources, and as a consequence, information in this document may materially change the coding, format and clinical context of patient data. In addition, data may be omitted in some cases. CLINICAL DECISIONS SHOULD BE BASED ON THE PRIMARY CLINICAL RECORDS. [facility] [employer] [facility]. provides no warranty or guarantee of the accuracy or completeness of information in this document.
== END | disposition home or self-care (01) ==
LOC: LAB 08:14
PROVIDERS: PCP Nurse Practitioner Family; Referring Provider Nurse Practitioner Family; Visit Provider Nurse Practitioner Family
DX: E11.9 Type 2 diabetes mellitus without complications (principal); E78.5 Hyperlipidemia, unspecified
CPT/HCPCS: 36415; 80053; 80061; 82043; 83036; 85025

== ENCOUNTER → 2025-02-23 | Outpatient (CLI) | payer MEDICARE, SELFPAY | END | disposition home or self-care (01) | LOC: VSLAB 08:51 | PROVIDERS: PCP Nurse Practitioner Family; Referring Provider Nurse Practitioner Family; Visit Provider Nurse Practitioner Family | DX: Z00.00 Encounter for general adult medical examination without abnormal findings (principal) ==

== ENCOUNTER → 2025-03-01 | Outpatient (CLI) | payer MEDICARE, SELFPAY ==
--- OUTSIDE RECORDS SUMMARY | 2025-03-01 11:41 | XMS RPT_ITS | CCD ---
Author Organization [facility] Care Team Providers Care Industrial Maintenance Instructor Name Role Phone WILBERT, SHEILA Unavailable Unavailable WILBERT, SHEILA Unavailable Unavailable WILBERT, SHEILA Unavailable Unavailable WILBERT, SHEILA Unavailable Unavailable Artur IQBAL, Thais Mays Unavailable [phone] Yossi Swann DO Unavailable Elana Urbano Unavailable Derek Hazel MD Unavailable Stephanie Schneider CMA Unavailable Unavailable Unavailable Unavailable Artur IQBAL, Thais Peterson Primary Care Provider [phone] [facility] P rimary Care Provider [facility] Unavailable ROSY SHAHID Referring Unavailable [facility] Care Unavailable Finn BORDERER-C, Malina Primary Care Provider Finn BORDERER-C, Malina Attending Provider Finn BORDERER-C, Malina Referring Provider Finn VSC, Malina Attending Unavailabl e Finn VSC, Malina Primary Care Unavailabl e Finn VSC, Malina Attending Unavailabl e Finn VSC, Malina Referring Unavailabl e Finn VSC, Malina Primary Care Unavailabl e Finn VSC, Malina Referring Unavailabl e Finn VSC, Malina Primary Care Unavailabl e Finn VSC, Malina Attending Unavailabl e Finn VSC, Malina Attending Unavailabl e Finn VSC, Malina Primary Care Unavailabl e Allergies Allergy Classification Reported Allergen(s) Allergy Type Date of Onset Reaction(s) Facility Unclassified (1 source) Benadryl *ANTIHISTAMINES *; Translations: [Benadryl *ANTIHISTAMINES *] Allergy to drug (finding) [facility] Work Phone: Unclassified (1 source) Codeine/Codeine Derivatives; Translations: [Codeine/Codein e Derivatives] Allergy to substance (finding) [facility] Work Phone: (8 sources) Codeine; Translations: [CODEINE] Drug Allergy 2 Itching [facility] Work Phone: (1 source) Codeine Drug Allergy 1 [facility] Repository Medications Current Medications Medication Drug Class(es) Dates Sig (Normalized) Sig (Original) acetaminophen 325 mg / HYDROcodone bitartrate 5 mg oral tablet (5 sources) Opioid Agonist Start: 08-19-2020 take 1 tablet by mouth every eight hours Hydrocodone-Acetamin ophen 5-325 mg tablet Active 1 {tbl} PO Q8H 15 5 0 August 19, 2020 Acute postoperative pain Other acute postprocedural pain Start: 08-19-2020 take 1 tablet by lalo th every eight hours Hydrocodone-Acetaminophen Active 1 TABLE T PO Q8H 15 5 August 19, 2020 Start: 08-12-2011 End: 09-17-2011 take 1-2 tablets by mouth every six hours as needed VICODIN, 5-500MG (Oral Tablet) 1-2 Table t every 6 hours prn for 0 days Quantity: 30 {Tablet} Refills: 0 Ordered: 17-Sep-2011 ROLY Moon LPN Start : 12-Aug-2011 End : 17-Sep-2011 Inactive Comments: thirty Comment on above: thirty amoxicillin 875 mg / clavulanate 125 mg oral tablet (5 sources) Penicillin-class Antibacterial Start: 08-19-2020 Amoxicillin-Pot Clavulanate (Augmentin) 875-125 mg tablet Active 1 {tbl} PO TWICE A DAY 14 0 August 19, 2020 12:00am Start: 07-05-2014 End: 07-19-2014 take 1 tablet by mouth twice daily AUGMENTIN, 875-125MG (Oral Tablet) 1 (one) Tablet bid for 14 days Quantity: 28 {Tablet} Refills: 0 Ordered: 05-Jul-2014 Mindydarrell CARROLLGenevieve Start : 05-Jul-2014 End : 19-Jul-2014 Inactive aspirin 81 mg oral tablet (5 sources) Platelet Aggregation Inhibitor, Nonsteroidal Anti-inflammatory Drug [...] 01-Aug-2014 Inactive cholecalciferol 0.125 mg oral tablet (4 sources) Vitamin D Start: 08-19-2020 take 1 [...] Inactive 0.5 ml dulaglutide 1.5 mg/ml auto-injector (4 sources) GLP-1 Receptor Agonist Start: 08-21-2020 Dulaglutide (Trulicity) 0.75 mg/0.5 mL Pen Injector Active 0.75 mg SC EVERY WEEK August 21, 2020 12:00am glimepiride 4 mg oral tablet (4 sources) Sulfonylurea Start: 08-19-2020 take 1 tablet [...] above: Take 1 tablet by lalo th twice daily. 12 hr guaiFENesin 600 mg extended release oral tablet (1 source) Start: 10-01-2023 End: 10-06-2023 take 2 tablets by mouth twice daily guaiFENesin (MUCINEX) 600 mg 12 hr tablet Take 2 tablets by mouth two times a day for 5 days. 20 tablet 0 10/01/2023 10/06/2023 Active hydroCHLOROthiazide 25 mg oral tablet (4 sources) Thiazide Diuretic Start: 08-19-2020 take 1 tablet by mouth once daily Hydrochlorothiazide 25 mg Tablet Active 25 mg PO DAILY August 19, 2020 12:00am lisinopril 20 mg oral tablet (8 sources) Angiotensin Converting Enzyme Inhibitor Start: 08-19-2020 [...] 1 tablet by lalo th once daily. metFORMIN hydrochloride 500 mg oral tablet (5 sources) Biguanide Start: 08-19-2020 take 1 tablet [...] succinate 25 mg extended release oral tablet (4 sources) beta-Adrenergic Winter Start: 08-19-2020 take 1 tablet by mouth twice daily Metoprolol Succinate 25 mg Tablet Extended Release 24 Hr Active 25 mg PO TWICE A DAY August 19, 2020 12:00am metroNIDAZOLE 500 mg oral tablet (4 sources) Nitroimidazole Antimicrobial Start: 08-19-2020 take 1 tablet by mouth three times daily Metronidazole (Flagyl) 500 mg tablet Active 500 mg PO THREE TIMES A DAY 20 0 August 19, 2020 12:00am predniSONE 20 mg oral tablet (7 sources) Start: 10-01-2023 End: 10-06-2023 take 2 tablets by mouth once daily predniSONE (DELTASONE) 20 mg tablet Take 2 tablets by mouth once daily for 5 days. 10 tablet 0 10/01/2023 10/06/2023 Active Start: 06-28-2017 End: 07-05-2017 take 1 tablet by mouth once daily at mealtime Prednisone 20 mg tablet Discontinued 20 mg PO .COMPLEX 10 7 0 June 28, 2017 1:00am July 04, 2017 [...] 6 {Tablet} Refills: 0 Ordered: 04-Jul-2014 Genevieve Rdiley CNP Start : 04-Jul-2014 End : 07-Jul-2014 [...] d rosuvastatin calcium 10 mg oral tablet (5 sources) HMG-CoA Reductase Inhibitor Start: 1 take 1 tablet by mouth once daily [...] Drug Class(es) Dates Sig (Normalized) Sig (Original) [id number] actuat albuterol 0.09 mg/actuat metered dose inhaler (6 sources) beta2-Adrenergic Agonist Start: 08-01-2014 PROVENTIL HFA, 108 (90 Base)MCG/ACT (Inhalation Aerosol Solution) 1 (one) Aerosol Soln q 6-8 hours prn for 0 days Quantity: 1 {Inhaler} Refills: 1 Ordered: 01-Aug-2014 Thais Siddiqui MD, MD, Dana M Start : 01-Aug-2014 Active Start: 07-06-2014 ALBUTEROL [...] (1 source) Macrolide Antimicrobial Start: 014 End: ZITHROMAX Z-AGUILAR, 250MG (Oral Tablet) 1 (one) [...] oral tablet (1 source) Macrolide Antimicrobial Start: 015 End: 015 take 1 tablet by mouth every twenty-four [...] above: patient cannot diana ate it says "can't drink it" exenatide (1 source) GLP-1 Receptor Agonist Start: End: inject 5 ug by subcutaneous injection [...] Quantity: 1 Kit Refills: 0 Ordered: 01-Aug-2014 Stephanie Schneider CMA Start : 01-Aug-2014 Active Comments: DX: 250.00NPI: [id number] Comment on above: DX: 250.00NPI: [id number] glyBURIDE 5 mg / metFORMIN hydrochloride 500 mg oral tablet (1 source) Biguanide, Sulfonylurea Start: End: take 1 tablet by mouth [...] Quantity: 7 {Tablet} Refills: 0 Ordered: 06-Jul-2014 Genevieve Ridley CNP Start : 06-Jul-2014 End : 13-Jul-2014 Inactive [...] (1 source) Angiotensin 2 Receptor Winter Start: 12-09-2 014 take 1 tablet by mouth once daily LOSARTAN POTASSIUM, 50MG (Oral Tablet) 1 Tablet qd for 0 days Quantity: 90 {Tablet} Refills: 6 Ordered: 29-Mar-2014 Thais Siddiqui MD, MD, Dana M Start : 29-Mar-2014 Active meloxicam 15 mg oral tablet (1 source) Nonsteroidal Anti-inflammatory Drug Start: 014 End: take 1 tablet by mouth once [...] for 10 days Refills: 0 Ordered: 16-Oct-2010 Thais Siddiqui MD, MD, Dana M Start : 22-May-2010 End : 01-Jun-2010 Inactive nitrofurantoin, macrocrystals 25 mg / nitrofurantoin, monohydrate 75 mg oral capsule (1 source) Nitrofuran Antibacterial Start: End: take 1 capsule by mouth twice daily MACROBID, 100MG (Oral Capsule) 1 (one) Capsule bid for 10 days Quantity: 20 {Capsule} Refills: 0 Ordered: 10-Nov-2014 Geno Aguirre RN Start : 10-Nov-2014 End : 20-Nov-2014 Inactive omega-3 acid ethyl esters (intermediate) 1000 mg oral capsule (1 source) Start: 011 End: take 2 capsules by mouth twice [...] tablet (4 sources) HMG-CoA Reductase Inhibitor Start: 015 take 1 tablet by mouth once daily [...] mg oral capsule (1 source) Start: 08-12-19 End: 09-11-19 12 take 1 capsule by [...] Translations: [Anxiety] 02-28-2015 Chronic Comment on above: [email or web address] does wor k will stay on Appendicitis and other appendiceal conditions (4 sources) Acute appendicitis; Translations: [Unspecified acute appendicitis] 08-19-2020 Episodic Asthma (3 sources) Asthma Blindness and vision defects (5 sources) Visual disturbance; Translations: [Unspecified visual disturbance] Onset: 12-24-2011 Resolved: 12-24-2011 03-07-2015 Episodic Chronic obstructive pulmonary disease and bronchiectasis (3 sources) Bronchitis; Translations: [BRONCHITIS, NOT SPECIFIED ACUTE OR CHRONIC (490.)] Onset: 12-24-2011 Resolved: 08-01-2014 08-01-2014 Episodic Conditions associated with dizziness or vertigo (4 sources) Lightheadedness; Translations: [Dizziness and giddiness] 08-22-2020 Episodic Diabetes mellitus with complications (1 source) Diabetes mellitus with complications Diabetes mellitus without complication (2 sources) Type 2 diabetes mellitus without complication; Translations: [Type 2 diabetes mellitus without complication] Onset: 11-02-2024 02-28-2015 Chronic Comment on above: right now trying off victoza and see [place] [id number] ekg. 5-15 eye exam Diabetes mellitus without complication (13 sources) Diabetes mellitus without complication Disorders of lipid metabolism (20 sources) Mixed hyperlipidemia; Translations: [Hypercholesterolem ia] Onset: 09-09-2017 02-28-2015 Chronic Comment on above: statins--aches. lova za help trig. reveiwed with patient recent tests and ldl up. she is off pravachol because other med on. will add back Essential hypertension (14 sources) Benign essential hypertension; Translations: [Benign essential hypertension] 02-28-2015 Chronic Fluid and electrolyte disorders (5 sources) Dehydration; Translations: [Dehydration] Resolved: 02-28-2015 11-28-2014 Episodic Immunizations and screening for infectious disease [...] above: tripped into corner of garage door Genitourinary symptoms and ill-defined conditions (1 source) Dysuria; Translations: [Dysuria] Onset: 07-27-2024 Episodic Nausea and vomiting (1 source) Intractable nausea [...] Test Name Value Interpretation Reference Range Facility Absolute lymphocyte countOrd ered By: [facility] Malina Briseno on 10-27-2024 Lymphocytes Auto (Unsp spec) [#/Vol] 3.06 10*3/uL 0.83-4.51 [facility] Absolute neutrophil countOrd ered By: [facility] Malina Briseno on 10-27-2024 Neutrophils (Bld) [#/Vol] 7.0 10*3/uL 2.0-7.7 [facility] Anion gap in Serum or Plasma Ordered By: [facility] Malina Briseno on 10-27-2024 Anion gap [Moles/Vol] 11 mmol/L 5-15 [facility] Autom[facility] count a s percentage of total leukocytesOrdered By: [facility] Malina Briseno on 10-27-2024 Lymphocytes/100 WBC Auto (Unsp spec) 27.0 % 19-41 [facility] BUN/creatinine ratioOrdered By: [facility] Malina Briseno on 10-27-2024 Urea nitrogen/Creatinine [Mass ratio] 30.4 mg/mg High 10-20 [facility] Basophil percentageOrdered B y: [facility] Malina Briseno on 10-27-2024 Basophils/100 WBC (Bld) 0.7 % 0-1 [facility] Bilirubin, totalOrdered By: [facility] Malina Briseno on 10-27-2024 Bilirubin [Mass/Vol] 0.41 mg/dL 0.00-1.30 [facility] CBC W/Diff, Automatedon Absolute Lymph 3.06 X10 3/uL Normal 0.83-4.51 [facility] Comment on above: Performed By: #### L [id number], L500.4100, L500.4050, L502.0500, L100.0100 #### [facility] [address] [place], [address] Absolute Neut 7.0 X10 3/uL Normal 2.0-7.7 [facility] Comment on above: Performed By: #### L 501.9985, L500.4100, L500.4050, L502.0500, L100.0100 #### [facility] [address] [place], [address] Basophils/100 WBC (Bld) 0.7 % Normal 0-1 [facility] Comment on above: Performed By: #### L [id number], L500.4100, L500.4050, L502.0500, L100.0100 #### [facility] [address] [place], [address] Eosinophils/100 WBC (Bld) 2.3 % Normal 0-5 [facility] Comment on above: Performed By: #### L [id number], L500.4100, L500.4050, L502.0500, L100.0100 #### [facility] [address] [place], [address] Erythrocyte distribution width (RBC) [Ratio] 13.1 % Normal 11.6-14.6 [facility] Comment on above: Performed By: #### L 501.9985, L500.4100, L500.4050, L502.0500, L100.0100 #### [facility] [address] [place], [address] Hematocrit (Bld) [Volume fraction] 41.9 % Normal 37-47 [facility] Comment on above: Performed By: #### L [id number], L500.4100, L500.4050, L502.0500, L100.0100 #### [facility] [address] [place], [address] Hemoglobin (Bld) [Mass/Vol] 13.9 g/dL Normal 12.0-15.0 [facility] Comment on above: Performed By: #### L 501.9985, L500.4100, L500.4050, L502.0500, L100.0100 #### [facility] [address] [place], [address] IG% 0.300 Normal 0.0-0.9 [facility] Comment on above: Result Comment: IG% - Immature Granulocytes (promyelocytes, myelocytes and metamyelocytes) > 1% indicates that a LEFT SHIFT is Present. Performed By: #### L 501.9985, L500.4100, L500.4050, L502.0500, L100.0100 #### [facility] [address] [place], [address] Lymphocytes/100 WBC (Bld) 27.0 % Normal 19-41 [facility] Comment on above: Performed By: #### L 501.9985, L500.4100, L500.4050, L502.0500, L100.0100 #### [facility] [address] [place], [address] MCH (RBC) [Entitic mass] 30.5 pg Normal 27.0-32.0 [facility] Comment on above: Performed By: #### L 501.9985, L500.4100, L500.4050, L502.0500, L100.0100 #### [facility] [address] [place], [address] MCHC (RBC) [Mass/Vol] 33.2 g/dL Normal 32-36 [facility] Comment on above: Performed By: #### L 501.9985, L500.4100, L500.4050, L502.0500, L100.0100 #### [facility] [address] [place], [address] MCV (RBC) [Entitic vol] 91.9 fL Normal 81-99 [facility] Comment on above: Performed By: #### L 501.9985, L500.4100, L500.4050, L502.0500, L100.0100 #### [facility] [address] [place], [address] Monocytes/100 WBC (Bld) 7.8 % Normal 0-10 [facility] Comment on above: Performed By: #### L 501.9985, L500.4100, L500.4050, L502.0500, L100.0100 #### [facility] [address] [place], [address] Neutrophils/100 WBC (Bld) 61.9 % Normal 47-70 [facility] Comment on above: Performed By: #### L 501.9985, L500.4100, L500.4050, L502.0500, L100.0100 #### [facility] [address] [place], [address] Nucleated RBC (Bld) [#/Vol] 0 10*3/uL Normal 0-5 [facility] Comment on above: Performed By: #### L 501.9985, L500.4100, L500.4050, L502.0500, L100.0100 #### [facility] [address] [place], [address] Platelet mean volume (Bld) [Entitic vol] 11.1 fL Normal 6.2-12.0 [facility] Comment on above: Performed By: #### L 501.9985, L500.4100, L500.4050, L502.0500, L100.0100 #### [facility] [address] [place], [address] Platelets (Bld) [#/Vol] 251 10*3/uL Normal 150-450 [facility] Comment on above: Performed By: #### L 501.9985, L500.4100, L500.4050, L502.0500, L100.0100 #### [facility] [address] [place], [address] RBC (Bld) [#/Vol] 4.56 10*6/uL Normal 4.2-5.4 [facility] Comment on above: Performed By: #### L 501.9985, L500.4100, L500.4050, L502.0500, L100.0100 #### [facility] [address] [place], [address] RDW SD 44.8 fl High 35.1-43.9 [facility] Comment on above: Performed By: #### L 501.9985, L500.4100, L500.4050, L502.0500, L100.0100 #### [facility] [address] [place], [address] WBC (Bld) [#/Vol] 11.4 10*3/uL High 4.4-11.0 [facility] Comment on above: Performed By: #### L 501.9985, L500.4100, L500.4050, L502.0500, L100.0100 #### [facility] [address] [place], [address] Calculated very low density lipoprotein (VLDL) cholesterol measurementOrdered By: [facility] Malina Briseno on 10-27-2024 Calculated very low density lipoprotein (VLDL) cholesterol measurement 57 mg/dL High 5-40 [facility] Carbon dioxide, total [Moles /volume] in Central venous bloodOrdered By: [facility] Malina Briseno on 10-27-2024 CO2 [Moles/Vol] 23.5 mmol/L 21.0-32.0 [facility] Chloride assayOrdered By: [facility] Malina Briseno on 10-27-2024 Chloride [Moles/Vol] 102 mmol/L 98-108 [facility] Comprehensive Metabolic Prof ilon 10-27-2024 Albumin [Mass/Vol] 4.2 g/dL Normal 3.4-4.8 [facility] Comment on above: Performed By: #### L 501.9985, L500.4100, L500.4050, L502.0500, L100.0100 #### [facility] [address] [place], [address] Albumin/Globulin [Mass ratio] 1.4 {ratio} Normal 0.9-2.4 [facility] Comment on above: Performed By: #### L 501.9985, L500.4100, L500.4050, L502.0500, L100.0100 #### [facility] [address] [place], [address] ALK PHOS 78 U/L Normal 35-104 [facility] Comment on above: Performed By: #### L 501.9985, L500.4100, L500.4050, L502.0500, L100.0100 #### [facility] [address] [place], [address] ALT [Catalytic activity/Vol] 22 U/L Normal <=34 [facility] Comment on above: Performed By: #### L 501.9985, L500.4100, L500.4050, L502.0500, L100.0100 #### [facility] [address] [place], [address] AST [Catalytic activity/Vol] 24 U/L Normal <=31 [facility] Comment on above: Result Comment: Hemo lysis present, Results??could be affected. ?? Performed By: #### L 501.9985, L500.4100, L500.4050, L502.0500, L100.0100 #### [facility] [address] [place], [address] Bilirubin [Mass/Vol] 0.41 mg/dL Normal 0.00-1.30 [facility] Comment on above: Performed By: #### L 501.9985, L500.4100, L500.4050, L502.0500, L100.0100 #### [facility] [address] [place], [address] BUN/CRE 30.4 RATIO High 10-20 [facility] Comment on above: Performed By: #### L 501.9985, L500.4100, L500.4050, L502.0500, L100.0100 #### [facility] [address] [place], [address] Calcium [Mass/Vol] 9.4 mg/dL Normal 7.6-11.0 [facility] Comment on above: Performed By: #### L 501.9985, L500.4100, L500.4050, L502.0500, L100.0100 #### [facility] [address] [place], [address] Chloride [Moles/Vol] 102 mmol/L Normal 98-108 [facility] Comment on above: Performed By: #### L 501.9985, L500.4100, L500.4050, L502.0500, L100.0100 #### [facility] [address] [place], [address] CO2 [Moles/Vol] 23.5 mmol/L Normal 21.0-32.0 [facility] Comment on above: Performed By: #### L 501.9985, L500.4100, L500.4050, L502.0500, L100.0100 #### [facility] [address] [place], [address] Creatinine [Mass/Vol] 0.79 mg/dL Normal 0.70-1.20 [facility] Comment on above: Performed By: #### L 501.9985, L500.4100, L500.4050, L502.0500, L100.0100 #### [facility] [address] [place], [address] GAP 11 Normal 5-15 [facility] Comment on above: Performed By: #### L 501.9985, L500.4100, L500.4050, L502.0500, L100.0100 #### [facility] [address] [place], [address] GFR/1.73 sq M.predicted among non-blacks MDRD (S/P/Bld) [Vol rate/Area] 80 mL/min/{1.73_m2} Normal >60 [facility] Comment on above: Result Comment: mL/m in/1.73m2 CKD-EPI Creatinine Equation (2020) Performed By: #### L 501.9985, L500.4100, L500.4050, L502.0500, L100.0100 #### [facility] [address] [place], [address] Globulin (S) [Mass/Vol] 3.1 g/dL Normal 2.2-4.2 [facility] Comment on above: Performed By: #### L 501.9985, L500.4100, L500.4050, L502.0500, L100.0100 #### [facility] [address] [place], [address] Glucose [Mass/Vol] 147 mg/dL High 70-99 [facility] Comment on above: Performed By: #### L 501.9985, L500.4100, L500.4050, L502.0500, L100.0100 #### [facility] [address] [place], [address] Potassium [Moles/Vol] 4.8 mmol/L Normal 3.3-5.1 [facility] Comment on above: Result Comment: Hemo lysis present, Results??could be affected. ?? Performed By: #### L 501.9985, L500.4100, L500.4050, L502.0500, L100.0100 #### [facility] [address] [place], [address] Sodium [Moles/Vol] 137 mmol/L Normal 133-145 [facility] Comment on above: Performed By: #### L 501.9985, L500.4100, L500.4050, L502.0500, L100.0100 #### [facility] [address] [place], [address] T PROT 7.3 g/dL Normal 5.9-8.4 [facility] Comment on above: Performed By: #### L 501.9985, L500.4100, L500.4050, L502.0500, L100.0100 #### [facility] [address] [place], [address] Urea nitrogen [Mass/Vol] 24 mg/dL High 4-19 [facility] Comment on above: Performed By: #### L 501.9985, L500.4100, L500.4050, L502.0500, L100.0100 #### [facility] [address] [place], [place], [id number] Eosinophil percentageOrdered By: [facility] Malina Finn on 10-27-2024 Eosinophils/100 WBC (Bld) 2.3 % 0-5 [facility] Erythrocyte distribution wid th ratioOrdered By: [facility] Malina Finn on 10-27-2024 Erythrocyte distribution width (RBC) [Ratio] 13.1 % 11.6-14.6 [facility] Erythrocyte distribution wid th standard deviationOrdered By: [facility] Malina Briseno on 10-27-2024 Erythrocyte distribution width (RBC) [Ratio] 44.8 fl High 35.1-43.9 [facility] Glomerular filtration rate ( GFR) estimation/1.73 sq m using serum, plasma, or whole bOrdered By: [facility] Malina Finn on 10-27-2024 GFR/1.73 sq M.predicted among non-blacks MDRD (S/P/Bld) [Vol rate/Area] 80 mL/min/{1.73_m2} >60 [facility] Comment on above: mL/min/1.73m2 CKD-EP I Creatinine Equation (2020) Hematocrit Auto (Bld) [Volum e fraction]Ordered By: [facility] Malina Finn on 10-27-2024 Hematocrit (Bld) [Volume fraction] 41.9 % 37-47 [facility] Hemoglobin A1con 10-27-2024 HbA1c (Bld) [Mass fraction] 6.8 % High <=5.6 [facility] Comment on above: Result Comment: Norm al < 5.7 % Prediabetic 5.7 - 6.4 % Diabetic >or= 6.5 % Please note range changes. Performed By: #### L 501.9985, L500.4100, L500.4050, L502.0500, L100.0100 #### [facility] [address] [place], [place], [id number] Hemoglobin A1c percentageOrd ered By: [facility] Malina Finn on 10-27-2024 HbA1c (Bld) [Mass fraction] 6.8 % High <5.7 [facility] Comment on above: Normal < 5.7 % Predi abetic 5.7 - 6.4 % Diabetic >or= 6.5 % Please note range changes. Hemoglobin measurementOrdere d By: [facility] Malina Briseno on 10-27-2024 Hemoglobin (Bld) [Mass/Vol] 13.9 g/dL 12.0-15.0 [facility] Immature granulocytes/100 WB C Auto (Bld)Ordered By: [facility] Malina Finn on 10-27-2024 Immature granulocytes/100 WBC (Bld) 0.300 % 0.0-0.9 [facility] Comment on above: IG% - Immature Granu locytes (promyelocytes, myelocytes and metamyelocytes) > 1% indicates that a LEFT SHIFT is Present. LDL calc ser/plasOrdered By: [facility]24 Cholesterol in LDL [Mass/Vol] 32 mg/dL [facility] Comment on above: Iafkcxqqjh=612-420 m g/dL & Higher Amku=572 mg/dL or greater Laboratory - Chemistry and C hemistry - challengeOrdered By: [facility] on 10-27-2024 AST [Catalytic activity/Vol] 24 U/L <32 [facility] Comment on above: Hemolysis present, R esults could be affected. Lipid Profileon 10-27-2024 CHOL:HDL 3.68 Normal [facility] Comment on above: Performed By: #### L 501.9985, L500.4100, L500.4050, L502.0500, L100.0100 #### [facility] [address] [place], [place], [id number] Cholesterol [Mass/Vol] 121 mg/dL Normal <=200 [facility] Comment on above: Result Comment: Chol esterol level, Desirable <200 mg/dL Borderline high cholesterol 200-239 mg/dL High cholesterol >=240 mg/dL Recommendations of the NCEP Adult Treatment Panel for the following risk-cutoff thresholds for the [place] population. Performed By: #### L 501.9985, L500.4100, L500.4050, L502.0500, L100.0100 #### [facility] [address] [place], [address] Cholesterol in HDL [Mass/Vol] 33 mg/dL Low [facility] Comment on above: Result Comment: Audrey onal Cholesterol Education Program (NCEP) guidelines: <40 mg/dL: Low HDL-cholesterol (major risk factor for CHD) >= 60 mg/dL: High HDL-cholesterol (negative risk factor for CHD) HDL-cholesterol is affected by a number of factors, e.g. smoking, exercise, hormones, sex and age. Performed By: #### L 501.9985, L500.4100, L500.4050, L502.0500, L100.0100 #### [facility] [address] [place], [address] Cholesterol in LDL [Mass/Vol] 32 mg/dL Normal [facility] Comment on above: Result Comment: Bord lshkys=318-916 mg/dL Higher Zenr=700 mg/dL or greater Performed By: #### L 501.9985, L500.4100, L500.4050, L502.0500, L100.0100 #### [facility] [address] [place], [address] Cholesterol in VLDL [Mass/Vol] 57 mg/dL High 5-40 [facility] Comment on above: Performed By: #### L 501.9985, L500.4100, L500.4050, L502.0500, L100.0100 #### [facility] [address] [place], [address] Triglyceride [Mass/Vol] 283 mg/dL High [facility] Comment on above: Result Comment: The drugs N-Acetylcysteine and Metamizole may falsely depress this assay. Normal range: <150 mg/dL Borderline High: 150-199 mg/dL High: 200-499 mg/dL Very High: >500 mg/dL Performed By: #### L 501.9985, L500.4100, L500.4050, L502.0500, L100.0100 #### [facility] [address] [place], [address] MCV (mean corpuscular volume ) determinationOrdered By: [facility] Malina Briseno on 10-27-2024 MCV (RBC) [Entitic vol] 91.9 fL 81-99 [facility] Mean corpuscular hemoglobin (MCH) determinationOrdered By: [facility] Malina Briseno on 10-27-2024 MCH (RBC) [Entitic mass] 30.5 pg 27.0-32.0 [facility] Mean corpuscular hemoglobin concentration (MCHC) determinationOrdered By: [facility] Malina Briseno on 10-27-2024 MCHC (RBC) [Mass/Vol] 33.2 g/dL 32-36 [facility] Mean platelet volume determi nationOrdered By: [facility] Malina Briseno on 10-27-2024 Platelet mean volume (Bld) [Entitic vol] 11.1 fL 6.2-12.0 [facility] Microalbumin,Random Urineon 10-27-2024 MICROALBUMIN,UR < 12.0 Normal NO RANGE EST. [facility] Comment on above: Performed By: #### L 501.9985, L500.4100, L500.4050, L502.0500, L100.0100 #### [facility] [address] [place], [address] Monocyte percentageOrdered B y: [facility] Malina Briseno on 10-27-2024 Monocytes/100 WBC (Bld) 7.8 % 0-10 [facility] Neutrophil percentageOrdered By: [facility] Malina Briseno on 10-27-2024 Neutrophils/100 WBC (Bld) 61.9 % 47-70 [facility] Nucleated red blood cell per centageOrdered By: [facility] Malina Briseno on 10-27-2024 Nucleated RBC/100 WBC (Bld) [Ratio] 0 % 0-5 [facility] Platelet countOrdered By: [facility] Malina Briseno on 10-27-2024 Platelets (Bld) [#/Vol] 251 10*3/uL 150-450 [facility] Potassium measurement (mass/ volume)Ordered By: [facility] Malina Briseno on 10-27-2024 Potassium (Unsp spec) [Mass/Vol] 4.8 mmol/L 3.3-5.1 [facility] Comment on above: Hemolysis present, R esults could be affected. RBC Auto (Bld) [#/Vol]Ordere d By: [facility] Malina Briseno on 10-27-2024 RBC (Bld) [#/Vol] 4.56 10*6/uL 4.2-5.4 [facility] Screening total cholesterol/ high density lipoprotein (HDL) cholesterol ratioOrdered By: [facility] Malina Briseno on 10-27-2024 Cholesterol.total/Eladia sterol in HDL [Mass ratio] 3.68 {ratio} [facility] Serum creatinine measurement (mass/volume)Ordered By: [facility] Malina Briseno on 10-27-2024 Creatinine [Mass/Vol] 0.79 mg/dL 0.70-1.20 [facility] Serum globulin measurementOr dered By: [facility] Malina Briseno on 10-27-2024 Globulin (S) [Mass/Vol] 3.1 g/dL 2.2-4.2 [facility] Serum glucose measurement (m ass/volume)Ordered By: [facility] Malina Briseno on 10-27-2024 Glucose [Mass/Vol] 147 mg/dL High 70-99 [facility] Serum or plasma alanine abdullahi otransferase (ALT) measurementOrdered By: [facility] Malina Briseno on 10-27-2024 ALT [Catalytic activity/Vol] 22 U/L <35 [facility] Serum or plasma albumin rashad urement (mass/volume)Ordered By: [facility] Malina Briseno on 10-27-2024 Albumin [Mass/Vol] 4.2 g/dL 3.4-4.8 [facility] Serum or plasma albumin/glob ulin mass ratioOrdered By: [facility] Malina Briseno on 10-27-2024 Albumin/Globulin [Mass ratio] 1.4 {ratio} 0.9-2.4 [facility] Serum or plasma alkaline joey sphatase measurementOrdered By: [facility] Malina Briseno on 10-27-2024 ALP [Catalytic activity/Vol] 78 U/L 35-104 [facility] Serum or plasma calcium rashad urement (mass/volume)Ordered By: [facility] Malina Briseno on 10-27-2024 Calcium [Mass/Vol] 9.4 mg/dL 7.6-11.0 [facility] Serum or plasma cholesterol in HDL measurement (mass/volume)Ordered By: [facility] Malina Briseno on 10-27-2024 Cholesterol in HDL [Mass/Vol] 33 mg/dL Low >40 [facility] Comment on above: National Cholesterol Education Program (NCEP) guidelines:<40 mg/dL: Low HDL-cholesterol (major risk factor for CHD)>= 60 mg/dL: High HDL-cholesterol (negative risk factor for CHD)HDL-cholesterol is affected by a number of factors, e.g. smoking, exercise, hormones, sex and age. Serum or plasma cholesterol measurement (mass/volume)Ordered By: [facility] Malina Briseno on 10-27-2024 Cholesterol [Mass/Vol] 121 mg/dL <201 [facility] Comment on above: Cholesterol level, D esirable <200 mg/dLBorderline high cholesterol 200-239 mg/dLHigh cholesterol >=240 mg/dLRecommendations of the NCEP Adult Treatment Panel for the following risk-cutoff thresholds for the [place] population. Serum or plasma urea nitroge n measurement (mass/volume)Ordered By: [facility] Malina Briseno on 10-27-2024 Urea nitrogen [Mass/Vol] 24 mg/dL High 4-19 [facility] Sodium levelOrdered By: [facility] Malina Briseno on 10-27-2024 Sodium [Moles/Vol] 137 mmol/L 133-145 [facility] Total proteinOrdered By: [facility] Malina Briseno on 10-27-2024 Protein [Mass/Vol] 7.3 g/dL 5.9-8.4 [facility] Triglycerides measurementOrd ered By: [facility] Malina Briseno on 10-27-2024 Triglyceride [Mass/Vol] 283 mg/dL High <199 [facility] Comment on above: The drugs N-Acetylcy steine and Metamizole may falsely depress this assay. Normal range: <150 mg/dLBorderline High: 150-199 mg/dLHigh: 200-499 mg/dLVery High: >500 mg/dL Urine albumin measurement wi th detection limit of 20 mg/L or less (mass/volume)Ordered By: [facility] Malina Briseno on 10-27-2024 Albumin DL <= 20 mg/L (U) [Mass/Vol] < 12.0 mg/L NO RANGE EST. [facility] White blood cell (WBC) count Ordered By: [facility] Malina Briseno on 10-27-2024 WBC (Bld) [#/Vol] 11.4 10*3/uL High 4.4-11.0 [facility] Urine Cultureon 07-22-2024 [facility] Mixed Gram Positive Organisms [place] Count 11,000-25,000 MIX[facility] Mixed contaminants. Submit a new specimen if indicated. Normal [facility] Comment on above: Performed By: #### L 400.0001, L100.0100, M100.2200, L500.2500 #### [facility] [address] [place], [address] Absolute lymphocyte countOrd ered By: [facility] Malina Briseno on 07-20-2024 Lymphocytes Auto (Unsp spec) [#/Vol] 2.49 10*3/uL 0.83-4.51 [facility] Absolute neutrophil countOrd ered By: [facility] on 07-20-2024 Neutrophils (Bld) [#/Vol] 5.8 10*3/uL 2.0-7.7 [facility] Anion gap in Serum or Plasma [facility] 07-20-[facility]24 Anion gap [Moles/Vol] 15 mmol/L 5-15 [facility] Automated lymphocyte count a s percentage of total leukocytesOrdered By: [facility] on 07-20-2024 Lymphocytes/100 WBC Auto (Unsp spec) 24.0 % 19-41 [facility] BUN/creatinine ratioOrdered By: [facility] on 07-20-2024 Urea nitrogen/Creatinine [Mass ratio] 20.2 mg/mg High 10-20 [facility] Bacteria LM.HPF (Urine sed) [#/Area]Ordered By: [facility] Malina Briseno on 07-20-2024 Urine Bacteria RARE /hpf None Seen [facility] Basic Metabolic Profile (BMP )on 07-20-2024 BUN/CRE 20.2 RATIO High 10-20 [facility] Comment on above: Performed By: #### L 400.0001, L100.0100, M100.2200, L500.2500 #### [facility] [address] [place], [address] Calcium [Mass/Vol] 9.4 mg/dL Normal 7.6-11.0 [facility] Comment on above: Performed By: #### L 400.0001, L100.0100, M100.2200, L500.2500 #### [facility] [address] [place], [address] Chloride [Moles/Vol] 106 mmol/L Normal 98-108 [facility] Comment on above: Performed By: #### L 400.0001, L100.0100, M100.2200, L500.2500 #### [facility] [address] [place], [address] CO2 [Moles/Vol] 19.4 mmol/L Low 21.0-32.0 [facility] Comment on above: Performed By: #### L 400.0001, L100.0100, M100.2200, L500.2500 #### [facility] [address] [place], [address] Creatinine [Mass/Vol] 0.64 mg/dL Low 0.70-1.20 [facility] Comment on above: Performed By: #### L 400.0001, L100.0100, M100.2200, L500.2500 #### [facility] [address] [place], [address] GAP 15 Normal 5-15 [facility] Comment on above: Performed By: #### L 400.0001, L100.0100, M100.2200, L500.2500 #### [facility] [address] [place], [address] GFR/1.73 sq M.predicted among non-blacks MDRD (S/P/Bld) [Vol rate/Area] 95 mL/min/{1.73_m2} Normal >60 [facility] Comment on above: Result Comment: mL/m in/1.73m2 CKD-EPI Creatinine Equation (2020) Performed By: #### L 400.0001, L100.0100, M100.2200, L500.2500 #### [facility] [address] [place], [address] Glucose [Mass/Vol] 153 mg/dL High 70-99 [facility] Comment on above: Performed By: #### L 400.0001, L100.0100, M100.2200, L500.2500 #### [facility] [address] [place], [address] Potassium [Moles/Vol] 4.3 mmol/L Normal 3.3-5.1 [facility] Comment on above: Performed By: #### L 400.0001, L100.0100, M100.2200, L500.2500 #### [facility] [address] [place], [address] Sodium [Moles/Vol] 140 mmol/L Normal 133-145 [facility] Comment on above: Performed By: #### L 400.0001, L100.0100, M100.2200, L500.2500 #### [facility] [address] [place], [address] Urea nitrogen [Mass/Vol] 13 mg/dL Normal 4-19 [facility] Comment on above: Performed By: #### L 400.0001, L100.0100, M100.2200, L500.2500 #### [facility] [address] [place], [address] Basophil percentageOrdered B y: [facility] Malina Briseno on 07-20-2024 Basophils/100 WBC (Bld) 1.0 % 0-1 [facility] Bilirubin Test strip Ql (U)O rdered By: [facility] Malina Finn on 07-20-2024 Bilirubin Ql (U) Negative Negative [facility] CBC W/Diff, Automatedon Absolute Lymph 2.49 X10 3/uL Normal 0.83-4.51 [facility] Comment on above: Performed By: #### L 400.0001, L100.0100, M100.2200, L500.2500 #### [facility] [address] [place], [address] Absolute Neut 5.8 X10 3/uL Normal 2.0-7.7 [facility] Comment on above: Performed By: #### L 400.0001, L100.0100, M100.2200, L500.2500 #### [facility] [address] [place], [address] Basophils/100 WBC (Bld) 1.0 % Normal 0-1 [facility] Comment on above: Performed By: #### L 400.0001, L100.0100, M100.2200, L500.2500 #### [facility] [address] [place], [address] Eosinophils/100 WBC (Bld) 11.5 % High 0-5 [facility] Comment on above: Performed By: #### L 400.0001, L100.0100, M100.2200, L500.2500 #### [facility] [address] [place], [address] Erythrocyte distribution width (RBC) [Ratio] 13.7 % Normal 11.6-14.6 [facility] Comment on above: Performed By: #### L 400.0001, L100.0100, M100.2200, L500.2500 #### [facility] [address] [place], [address] Hematocrit (Bld) [Volume fraction] 42.1 % Normal 37-47 [facility] Comment on above: Performed By: #### L 400.0001, L100.0100, M100.2200, L500.2500 #### [facility] [address] [place], [address] Hemoglobin (Bld) [Mass/Vol] 14.5 g/dL Normal 12.0-15.0 [facility] Comment on above: Performed By: #### L 400.0001, L100.0100, M100.2200, L500.2500 #### [facility] [address] [place], [address] IG% 0.300 Normal 0.0-0.9 [facility] Comment on above: Result Comment: IG% - Immature Granulocytes (promyelocytes, myelocytes and metamyelocytes) > 1% indicates that a LEFT SHIFT is Present. Performed By: #### L 400.0001, L100.0100, M100.2200, L500.2500 #### [facility] [address] [place], [address] Lymphocytes/100 WBC (Bld) 24.0 % Normal 19-41 [facility] Comment on above: Performed By: #### L 400.0001, L100.0100, M100.2200, L500.2500 #### [facility] [address] [place], [address] MCH (RBC) [Entitic mass] 30.9 pg Normal 27.0-32.0 [facility] Comment on above: Performed By: #### L 400.0001, L100.0100, M100.2200, L500.2500 #### [facility] [address] [place], [address] MCHC (RBC) [Mass/Vol] 34.4 g/dL Normal 32-36 [facility] Comment on above: Performed By: #### L 400.0001, L100.0100, M100.2200, L500.2500 #### [facility] [address] [place], [address] MCV (RBC) [Entitic vol] 89.6 fL Normal 81-99 [facility] Comment on above: Performed By: #### L 400.0001, L100.0100, M100.2200, L500.2500 #### [facility] [address] [place], [address] Monocytes/100 WBC (Bld) 6.9 % Normal 0-10 [facility] Comment on above: Performed By: #### L 400.0001, L100.0100, M100.2200, L500.2500 #### [facility] [address] [place], [address] Neutrophils/100 WBC (Bld) 56.3 % Normal 47-70 [facility] Comment on above: Performed By: #### L 400.0001, L100.0100, M100.2200, L500.2500 #### [facility] [address] [place], [address] Nucleated RBC (Bld) [#/Vol] 0 10*3/uL Normal 0-5 [facility] Comment on above: Performed By: #### L 400.0001, L100.0100, M100.2200, L500.2500 #### [facility] [address] [place], [address] Platelet mean volume (Bld) [Entitic vol] 10.4 fL Normal 6.2-12.0 [facility] Comment on above: Performed By: #### L 400.0001, L100.0100, M100.2200, L500.2500 #### [facility] [address] [place], [address] Platelets (Bld) [#/Vol] 282 10*3/uL Normal 150-450 [facility] Comment on above: Performed By: #### L 400.0001, L100.0100, M100.2200, L500.2500 #### [facility] [address] [place], [address] RBC (Bld) [#/Vol] 4.70 10*6/uL Normal 4.2-5.4 [facility] Comment on above: Performed By: #### L 400.0001, L100.0100, M100.2200, L500.2500 #### [facility] [address] [place], [address] RDW SD 44.9 fl High 35.1-43.9 [facility] Comment on above: Performed By: #### L 400.0001, L100.0100, M100.2200, L500.2500 #### [facility] [address] [place], [address] WBC (Bld) [#/Vol] 10.4 10*3/uL Normal 4.4-11.0 [facility] Comment on above: Performed By: #### L 400.0001, L100.0100, M100.2200, L500.2500 #### [facility] [address] [place], [address] Carbon dioxide, total [Moles /volume] in Central venous bloodOrdered By: [facility] Malina Briseno on 07-20-2024 CO2 [Moles/Vol] 19.4 mmol/L Low 21.0-32.0 [facility] Chloride assayOrdered By: [facility] Malina Briseno on 07-20-2024 Chloride [Moles/Vol] 106 mmol/L 98-108 [facility] Eosinophil percentageOrdered By: [facility] Malina Briseno on 07-20-2024 Eosinophils/100 WBC (Bld) 11.5 % High 0-5 [facility] Epithelial cells.squamous LM Ql (Urine sed)Ordered By: [facility] Malina Briseno on 07-20-2024 Epithelial cells.squamous LM.HPF (Urine sed) [#/Area] 10 /[HPF] 5-10 [facility] Erythrocyte distribution wid th (RBC) [Ratio]Ordered By: [facility] Malina Briseno on 07-20-2024 Erythrocyte distribution width (RBC) [Entitic vol] 44.9 fL High 35.1-43.9 [facility] Erythrocyte distribution wid th ratioOrdered By: [facility] Malina Briseno on 07-20-2024 Erythrocyte distribution width (RBC) [Ratio] 13.7 % 11.6-14.6 [facility] Erythrocyte distribution wid th standard deviationOrdered By: [facility] Malina Briseno on 07-20-2024 Erythrocyte distribution width (RBC) [Ratio] 44.9 fl High 35.1-43.9 [facility] GFR/1.73 sq M.predicted abdi g non-blacks MDRD (S/P/Bld) [Vol rate/Area]Ordered By: [facility] Malina Briseno on 07-20-2024 Estimated GFR (MDRD) Non-Af Amer 95 >60 [facility] Comment on above: mL/min/1.73m2 CKD-EP I Creatinine Equation (2020) Glomerular filtration rate ( GFR) estimation/1.73 sq m using serum, plasma, or whole bOrdered By: [facility] Malina Briseno on 07-20-2024 GFR/1.73 sq M.predicted among non-blacks MDRD (S/P/Bld) [Vol rate/Area] 95 mL/min/{1.73_m2} >60 [facility] Comment on above: mL/min/1.73m2 CKD-EP I Creatinine Equation (2020) Glucose Ql (U)Ordered By: [facility] Malina Briseno on 07-20-2024 Glucose (U) [Mass/Vol] 1000 mg/dL High Normal [facility] Hematocrit Auto (Bld) [Volum e fraction]Ordered By: [facility] Malina Briseno on 07-20-2024 Hematocrit (Bld) [Volume fraction] 42.1 % 37-47 [facility] Hemoglobin measurementOrdere d By: [facility] Malina Briseno on 07-20-2024 Hemoglobin (Bld) [Mass/Vol] 14.5 g/dL 12.0-15.0 [facility] Immature granulocytes/100 WB C Auto (Bld)Ordered By: [facility] Malina Briseno on 07-20-2024 Immature granulocytes/100 WBC (Bld) 0.300 % 0.0-0.9 [facility] Comment on above: IG% - Immature Granu locytes (promyelocytes, myelocytes and metamyelocytes) > 1% indicates that a LEFT SHIFT is Present. Ketones Test strip Ql (U)Ord ered By: [facility] Malina Briseno on 07-20-2024 Ketones Ql (U) Negative Negative [facility] Lymphocytes Auto (Unsp spec) [#/Vol]Ordered By: [facility] Malina Briseno on 07-20-2024 Lymphocytes (Bld) [#/Vol] 2.49 10*3/uL 0.83-4.51 [facility] Lymphocytes/100 WBC Auto (Un sp spec)Ordered By: [facility] Malina Briseno on 07-20-2024 Lymphocytes/100 WBC (Bld) 24.0 % 19-41 [facility] MCV (mean corpuscular volume ) determinationOrdered By: [facility] Malina Briseno on 07-20-2024 MCV (RBC) [Entitic vol] 89.6 fL 81-99 [facility] Mean corpuscular hemoglobin (MCH) determinationOrdered By: [facility] Malina Briseno on 07-20-2024 MCH (RBC) [Entitic mass] 30.9 pg 27.0-32.0 [facility] Mean corpuscular hemoglobin concentration (MCHC) determinationOrdered By: [facility] Malina Briseno on 07-20-2024 MCHC (RBC) [Mass/Vol] 34.4 g/dL 32-36 [facility] Mean platelet volume determi nationOrdered By: [facility] Malina Briseno on 07-20-2024 Platelet mean volume (Bld) [Entitic vol] 10.4 fL 6.2-12.0 [facility] Microscopic analysis of urin e for red blood cells (RBC)Ordered By: [facility] Malina Briseno on 07-20-2024 Microscopic analysis of urine for red blood cells (RBC) 0-5 SEEN /hpf 0-5 [facility] Urine RBC 0-5 SEEN /hpf 0-5 [facility] Monocyte percentageOrdered B y: [facility] Malina Briseno on 07-20-2024 Monocytes/100 WBC (Bld) 6.9 % 0-10 [facility] Mucus LM Ql (Urine sed)Order ed By: [facility] Malina Briseno on 07-20-2024 Mucus Ql (Urine sed) 0 SEEN /hpf [facility] Neutrophil percentageOrdered By: [facility] Malina Briseno on 07-20-2024 Neutrophils/100 WBC (Bld) 56.3 % 47-70 [facility] Nitrite Test strip Ql (U)Ord ered By: [facility] Malina Briseno on 07-20-2024 Nitrite Ql (U) Negative Negative [facility] Nucleated red blood cell per centageOrdered By: [facility] Malina Briseno on 07-20-2024 Nucleated RBC/100 WBC (Bld) [Ratio] 0 % 0-5 [facility] Platelet countOrdered By: [facility] Malina Briseno on 07-20-2024 Platelets (Bld) [#/Vol] 282 10*3/uL 150-450 [facility] Potassium (Unsp spec) [Mass/ Vol]Ordered By: [facility] Malina Briseno on 07-20-2024 Potassium [Moles/Vol] 4.3 mmol/L 3.3-5.1 [facility] Potassium measurement (mass/ volume)Ordered By: [facility] Malina Briseno on 07-20-2024 Potassium (Unsp spec) [Mass/Vol] 4.3 mmol/L 3.3-5.1 [facility] Protein Test strip Ql (U)Ord ered By: [facility] Malina Briseno on 07-20-2024 Protein Ql (U) Negative Negative [facility] RBC Auto (Bld) [#/Vol]Ordere d By: [facility] Malina Briseno on 07-20-2024 RBC (Bld) [#/Vol] 4.70 10*6/uL 4.2-5.4 [facility] Serum creatinine measurement (mass/volume)Ordered By: [facility] Malina Briseno on 07-20-2024 Creatinine [Mass/Vol] 0.64 mg/dL Low 0.70-1.20 [facility] Serum glucose measurement (m ass/volume)Ordered By: [facility] Malina Briseno on 07-20-2024 Glucose [Mass/Vol] 153 mg/dL High 70-99 [facility] Serum or plasma calcium rashad urement (mass/volume)Ordered By: [facility] Malina Finn on 07-20-2024 Calcium [Mass/Vol] 9.4 mg/dL 7.6-11.0 [facility] Serum or plasma urea nitroge n measurement (mass/volume)Ordered By: [facility] Malina Briseno on 07-20-2024 Urea nitrogen [Mass/Vol] 13 mg/dL 4-19 [facility] Sodium levelOrdered By: [facility] Malina Briseno on 07-20-2024 Sodium [Moles/Vol] 140 mmol/L 133-145 [facility] Squamous epithelial cells de tection in urine sediment by light microscopyOrdered By: [facility] Malina Briseno on 07-20-2024 Epithelial cells.squamous LM Ql (Urine sed) 10-25 SEEN /hpf 5-10 [facility] Urinalysis, Completeon 07-20 BACTERIA RARE Normal None Seen [facility] Comment on above: Order Comment: CLEAN CATCH Performed By: #### L 400.0001, L100.0100, M100.2200, L500.2500 #### [facility] [address] [place], [address] RBC 0-5 SEEN Normal 0-5 [facility] Comment on above: Order Comment: CLEAN CATCH Performed By: #### L 400.0001, L100.0100, M100.2200, L500.2500 #### [facility] [address] [place], [address] WBC 10-25 SEEN Normal 0-5 [facility] Comment on above: Order Comment: CLEAN CATCH Performed By: #### L 400.0001, L100.0100, M100.2200, L500.2500 #### [facility] [address] [place], [address] EPI,SQUAMOUS 10-25 SEEN Normal 5-10 [facility] Comment on above: Order Comment: CLEAN CATCH Performed By: #### L 400.0001, L100.0100, M100.2200, L500.2500 #### [facility] [address] [place], [address] Mucus Ql (Urine sed) 0 SEEN Normal [facility] Comment on above: Order Comment: CLEAN CATCH Performed By: #### L 400.0001, L100.0100, M100.2200, L500.2500 #### [facility] [address] [place], [address] Urine blood detectionOrdered By: [facility] Malina Briseno on 07-20-2024 Urine Occult Blood 10 /ul High Negative [facility] Urine clarityOrdered By: [facility] Malina Briseno on 07-20-2024 Clarity (U) Sl. Cloudy Clear [facility] Urine color determinationOrd ered By: [facility] Malina Briseno on 07-20-2024 Color (U) Straw Yellow [facility] Urine cultureOrdered By: [facility] Malina Briseno on 07-20-2024 Bacteria identified Cx Nom (U) Positive Abnormal [facility] Urine glucose detectionOrder ed By: [facility] Malina Briseno on 07-20-2024 Glucose Ql (U) 1000 mg/dl High Normal [facility] Urine leukocyte esterase det ection by dipstickOrdered By: [facility] Malina Briseno on 07-20-2024 Leukocyte esterase Test strip Ql (U) 25 /ul High Negative [facility] Urine pHOrdered By: [facility] Terra Briseno on 07-20-2024 pH (U) 5.0 [pH] 5.0 - 8.0 [facility] Urine sediment bacteria coun t by microscopy (number/high power field)Ordered By: [facility] Malina Briseno on 07-20-2024 Bacteria LM.HPF (Urine sed) [#/Area] RARE /hpf None Seen [facility] Urine specific gravity measu rementOrdered By: [facility] Malina Briseno on 07-20-2024 Specific gravity (U) [Rel density] 1.020 1.002-1.030 [facility] Urine urobilinogen measureme ntOrdered By: [facility] Malina Briseno on 07-20-2024 Urobilinogen Ql (U) Normal mg/dl Normal [facility] Urobilinogen Ql (U)Ordered B y: [facility] Malina Briseno on 07-20-2024 Urine Urobilinogen Normal mg/dl Normal [facility] White blood cell (WBC) count Ordered By: [facility] Malina Briseno on 07-20-2024 WBC (Bld) [#/Vol] 10.4 10*3/uL 4.4-11.0 [facility] White blood cell countOrdere d By: [facility] Malina Briseno on 07-20-2024 Urine WBC 10-25 SEEN /hpf 0-5 [facility] White blood cell count 10-25 SEEN /hpf 0-5 [facility] Urine Cultureon 03-05-2024 URC Escherichia coli [place] Count >100,000 Proteus mirabilis Proteus mirabilis Escherichia [...] TMP SMX Islt DAMASO >=320 R Normal [facility] Comment on above: Performed By: #### M 100.4339 #### [facility] [address] [place], [place], [id number] CNOVon 10-01-2023 CNOV Office Visit (UCWSTR ) MENA SHEEHAN ([id number]) 1955 F Date Time Provider Department 10/01/23 7:45 AM ROSY SHAHID [facility] During your visit today, we recorded the following information about you: Temperature Pulse Respiration Blood pressure 98.2 degrees 86/minute 16/minute 140/74 Weight 68.8 kg Rosy Shahid PA-C 10/01/2023 9:08 AM Signed This note was created using [email or web address]. Subjective Mena Sheehan is a 67 year [...] plan. - XR CHEST 2V FRONTAL/LAT Rosy R Chris, ALDO-C Allergies As of Date: 10/01/2023 Noted Allergy Reaction CODEINE 04/25/2011 9 - Itching Date Reviewed: 10/01/2023 Reviewed by: Anabella Hdz - Fully Assessed Reason for Visit: Cough [28] Cmt: Congestion x3 weeks Primary Visit Diagnosis:Bronchitis [J40] Order(s):XR CHEST 2V FRONTAL/LAT [[id number]] Order #: [id number] FUTURE doxycycline (VIBRA-TABS) 100 mg tabletTake 1 [...] tablet T (more content not included)... Normal [facility] XR CHEST 2V FRONTAL/LATon XR CHEST 2V [...] tissues: Unremarkable. IMPRESSION: No acute radiographic abnormality. Shape Carver: PSCB Transcribe Date/Time: Oct 01 2023 8:41A Dictated by : SILVIA VALENZUELA MD This examination was interpreted and the report reviewed and electronically signed by: SILVIA VALENZUELA MD on Oct 01 2023 8:42AM EST [id number] Normal [facility] XR Chest PA and Lateralon IMPRESSION: No acute radiographic abnormality. Shape Carver: KIAH Transcribe Date/Time: Oct 01 2023 8:41A Dictated by : SILVIA VALENZUELA MD This examination was interpreted and the report reviewed and electronically signed by: SILVIA VALENZUELA MD on Oct 01 2023 8:42AM [facility] DIVISION OF RADIOLOGY * * *Final Report* [...] soft tissues: Unremarkable. DIVISION OF RADIOLOGY Provider, [facility] - 10/01/2023 * * *Final Report* [...] Unremarkable. IMPRESSION IMPRESSION: No acute radiographic abnormality. Shape Carver: KIAH Transcribe Date/Time: Oct 01 2023 8:41A Dictated by : SILVIA VALENZUELA MD This examination was interpreted and the report reviewed and electronically signed by: SILVIA VALENZUELA MD on Oct 01 2023 8:42AM [facility] Radiology Study observation (narrative) [facility] XR Chest PA and LateralOrder ed By: [facility] Provider on 10-01-2023 [facility] Basophil percentageOrdered B y: Malina Briseno on 03-28-2023 Bilirubin [Mass/Vol] 0.60 mg/dL 0.20-1.00 [facility] Comment on above: For patients on eltr ombopag therapy, use of Dimension [place] TBIL is not recommended. Chloride [Moles/Vol] 106 mmol/L 98-107 [facility] Cholesterol [Mass/Vol] 106 mg/dL <200 [facility] Comment on above: <200 mg/dL Desirable 200-240 mg/dL Borderline >240 mg/dL High Risk Glucose [Mass/Vol] 215 mg/dL 74-106 [facility] Comment on above: Glucose result great er than or equal to 200 mg/dLsuggests DIABETES MELLITUS per A.D.A. criteria. Potassium [Moles/Vol] 4.0 mmol/L 3.5-5.1 [facility] Protein [Mass/Vol] 7.3 g/dL 6.4-8.2 [facility] Sodium [Moles/Vol] 138 mmol/L 136-145 [facility] Triglyceride [Mass/Vol] 93 mg/dL <199 [facility] Comment on above: The drugs N-Acetylcy steine and Metamizole may falsely depress this assay.Serum Triglycerides Reference Interval Normal <150 mg/dL Borderline high 150 - 199 mg/dL High 200 - 499 mg/dL Very High > or = 500 mg/dL WBC (Bld) [#/Vol] 7.5 10*3/uL 4.4-11.0 [facility] Blood erythrocytes count (nu mber/volume)Ordered By: Malina Briseno on 03-28-2023 RBC (Bld) [#/Vol] 4.41 10*6/uL 4.2-5.4 [facility] Blood hemoglobin measurement (mass/volume)Ordered By: Malina Briseno on 03-28-2023 Hemoglobin (Bld) [Mass/Vol] 12.8 g/dL 12.0-15.0 [facility] Blood platelet mean volumeOr dered By: Malina Briseno on 03-28-2023 Platelet mean volume (Bld) [Entitic vol] 10.8 fL 6.2-12.0 [facility] Determination of erythrocyte mean corpuscular volume (MCV)Ordered By: Malina Briseno on 03-28-2023 MCV (RBC) [Entitic vol] 89.3 fL 81-99 [facility] Hematocrit Auto (Bld) [Volum e fraction]Ordered By: Malina Briseno on 03-28-2023 Hematocrit (Bld) [Volume fraction] 39.4 % 37-47 [facility] Iron measurement (mass/mass) Ordered By: Malina Briseno on 03-28-2023 Iron (Unsp spec) [Mass/Mass] 51 ug/dL 50-170 [facility] - Chemistry and C hemistry - challengeOrdered By: Malina Briseno on 03-28-2023 ALP [Catalytic activity/Vol] 76 U/L 45-117 [facility] ALT [Catalytic activity/Vol] 21 U/L 13-56 [facility] CO2 [Moles/Vol] 27.0 mmol/L 21.0-32.0 [facility] Globulin (S) [Mass/Vol] 3.7 g/dL 2.2-4.2 [facility] Urea nitrogen/Creatinine [Mass ratio] 19.5 mg/mg 10-20 [facility] - Hematology and Cell countsOrdered By: Malina Briseno on 03-28-2023 Erythrocyte distribution width (RBC) [Entitic vol] 43.9 fL 35.1-43.9 [facility] Erythrocyte distribution width (RBC) [Ratio] 13.3 % 11.6-14.6 [facility] MCH (RBC) [Entitic mass] 29.0 pg 27.0-32.0 [facility] MCHC Auto (RBC) [Mass/Vol]Or dered By: Malina Briseno on 03-28-2023 MCHC (RBC) [Mass/Vol] 32.5 g/dL 32-36 [facility] No Panel InformationOrdered By: Malina Briseno on 03-28-2023 Estimated GFR (MDRD) Amer 89 mL/min >60 [facility] Comment on above: GFR Calc Estimated GFR (MDRD) Non-Af Amer 73 mL/min >60 [facility] Comment on above: Non- GFR Calc Thyroid Stimulating Hormone (TSH) 1.16 uIU/mL 0.358-3.74 [facility] Total Iron Binding Capacity 297 ug/dL 250-450 [facility] Vitamin D 25-Hydroxy 46.1 ng/mL [facility] Comment on above: Vitamin D 25(OH) Sta tus Range Deficiency <20 ng/mL (50nmol/L) Insufficiency 20 - 30 ng/mL (50 - 75 nmol/L) Sufficiency 30 - 100 ng/mL (75 - 250 nmol/L) Toxicity >100 ng/mL (>250 nmol/L) Platelets bldOrdered By: Mariluz Briseno on 03-28-2023 Platelets (Bld) [#/Vol] 301 10*3/uL 150-450 [facility] Serum or plasma albumin rashad urement (mass/volume)Ordered By: Malina Briseno on 03-28-2023 Albumin [Mass/Vol] 3.6 g/dL 3.2-5.0 [facility] Serum or plasma albumin/glob ulin mass ratioOrdered By: Malina Briseno on 03-28-2023 Albumin/Globulin [Mass ratio] 1.0 {ratio} 0.9-2.4 [facility] Serum or plasma calcium rashad urement (mass/volume)Ordered By: Malina Briseno on 03-28-2023 Calcium [Mass/Vol] 8.7 mg/dL 8.5-10.1 [facility] Serum or plasma cholesterol in HDL measurement (mass/volume)Ordered By: Malina Briseno on 03-28-2023 Cholesterol in HDL [Mass/Vol] 44 mg/dL >40 [facility] Comment on above: The drugs N-Acetylcy steine and Metamizole may falsely depress this assay. Reference Range HDL <40 mg/dL Low HDL Cholesterol HDL >or= 60 mg/dL High HDL Cholesterol Serum or plasma cholesterol in VLDL measurement (mass/volume)Ordered By: Malina Briseno on 03-28-2023 Cholesterol in VLDL [Mass/Vol] 19 mg/dL 5-40 [facility] Serum or plasma creatinine m easurement (mass/volume)Ordered By: Malina Briseno on 03-28-2023 Creatinine [Mass/Vol] 0.82 mg/dL 0.55-1.02 [facility] Comment on above: The validity of the calculated GFR & GFRAA in patients over 70 years has not been determined. Clinical correlation is essential. Serum or plasma iron saturat ion measurement (mass fraction)Ordered By: Malina Briseno on 03-28-2023 Iron saturation [Mass fraction] 17.2 % 15.0-55.0 [facility] Serum or plasma low density lipoprotein (LDL) cholesterol measurement (mass/volume)Ordered By: Malina Briseno on 03-28-2023 Cholesterol in LDL [Mass/Vol] 43 mg/dL 0-130 [facility] Serum or plasma urea nitroge n measurement (mass/volume)Ordered By: Malina Briseno on 03-28-2023 Urea nitrogen [Mass/Vol] 16 mg/dL 7-18 [facility] Thin prep Papanicolaou smear with manual screeningOrdered By: Malina Briseno on 03-28-2023 Thin prep Papanicolaou smear with manual screening 15 U/L 15-37 [facility] Thin prep Papanicolaou smear with manual screening 5 5-15 [facility] Thin prep Papanicolaou smear with manual screening 22.5 mg/L NO RANGE EST. [facility] Basophil percentageOrdered B y: Malina Briseno on 07-30-2022 Bilirubin [Mass/Vol] 0.40 mg/dL 0.20-1.00 [facility] Comment on above: For patients on eltr ombopag therapy, use of Dimension [place] TBIL is not recommended. Chloride [Moles/Vol] 102 mmol/L 98-107 [facility] Cholesterol [Mass/Vol] 128 mg/dL <200 [facility] Comment on above: <200 mg/dL Desirable 200-240 mg/dL Borderline >240 mg/dL High Risk Glucose [Mass/Vol] 202 mg/dL 74-106 [facility] Comment on above: Glucose result great er than or equal to 200 mg/dLsuggests DIABETES MELLITUS per A.D.A. criteria. Potassium [Moles/Vol] 3.8 mmol/L 3.5-5.1 [facility] Protein [Mass/Vol] 7.6 g/dL 6.4-8.2 [facility] Sodium [Moles/Vol] 136 mmol/L 136-145 [facility] Triglyceride [Mass/Vol] 156 mg/dL <199 [facility] Comment on above: The drugs N-Acetylcy steine and Metamizole may falsely depress this assay.Serum Triglycerides Reference Interval Normal <150 mg/dL Borderline high 150 - 199 mg/dL High 200 - 499 mg/dL Very High > or = 500 mg/dL WBC (Bld) [#/Vol] 8.9 10*3/uL 4.4-11.0 [facility] Blood erythrocytes count (nu mber/volume)Ordered By: Malina Briseno on 07-30-2022 RBC (Bld) [#/Vol] 4.44 10*6/uL 4.2-5.4 [facility] Blood hemoglobin measurement (mass/volume)Ordered By: Malina Briseno on 07-30-2022 Hemoglobin (Bld) [Mass/Vol] 13.1 g/dL 12.0-15.0 [facility] Blood platelet mean volumeOr dered By: Malina Briseno on 07-30-2022 Platelet mean volume (Bld) [Entitic vol] 10.4 fL 6.2-12.0 [facility] Determination of erythrocyte mean corpuscular volume (MCV)Ordered By: Malina Briseno on 07-30-2022 MCV (RBC) [Entitic vol] 89.4 fL 81-99 [facility] Hematocrit Auto (Bld) [Volum e fraction]Ordered By: Malina Briseno on 07-30-2022 Hematocrit (Bld) [Volume fraction] 39.7 % 37-47 [facility] - Chemistry and C hemistry - challengeOrdered By: Malina Briseno on 07-30-2022 ALP [Catalytic activity/Vol] 66 U/L 45-117 [facility] ALT [Catalytic activity/Vol] 25 U/L 13-56 [facility] CO2 [Moles/Vol] 27.0 mmol/L 21.0-32.0 [facility] Cobalamin (Vitamin B12) [Mass/Vol] 549 pg/mL 211-911 [facility] Globulin (S) [Mass/Vol] 3.8 g/dL 2.2-4.2 [facility] Magnesium [Mass/Vol] 1.7 mg/dL 1.6-2.6 [facility] Urea nitrogen/Creatinine [Mass ratio] 23.9 mg/mg 10-20 [facility] - Hematology and Cell countsOrdered By: Malina Briseno on 07-30-2022 Erythrocyte distribution width (RBC) [Entitic vol] 43.1 fL 35.1-43.9 [facility] Erythrocyte distribution width (RBC) [Ratio] 13.2 % 11.6-14.6 [facility] MCH (RBC) [Entitic mass] 29.5 pg 27.0-32.0 [facility] MCHC Auto (RBC) [Mass/Vol]Or dered By: Malina Briseno on 07-30-2022 MCHC (RBC) [Mass/Vol] 33.0 g/dL 32-36 [facility] No Panel InformationOrdered By: Malina Briseno on 07-30-2022 Estimated GFR (MDRD) Amer 113 mL/min >60 [facility] Comment on above: GFR Calc Estimated GFR (MDRD) Non-Af Amer 93 mL/min >60 [facility] Comment on above: Non- GFR Calc Thyroid Stimulating Hormone (TSH) 1.43 uIU/mL 0.358-3.74 [facility] Vitamin D 25-Hydroxy 38.8 ng/mL [facility] Comment on above: Vitamin D 25(OH) Sta tus Range Deficiency <20 ng/mL (50nmol/L) Insufficiency 20 - 30 ng/mL (50 - 75 nmol/L) Sufficiency 30 - 100 ng/mL (75 - 250 nmol/L) Toxicity >100 ng/mL (>250 nmol/L) Platelets bldOrdered By: Mariluz Briseno on 07-30-2022 Platelets (Bld) [#/Vol] 286 10*3/uL 150-450 [facility] Serum or plasma albumin rashad urement (mass/volume)Ordered By: Malina Briseno on 07-30-2022 Albumin [Mass/Vol] 3.8 g/dL 3.2-5.0 [facility] Serum or plasma albumin/glob ulin mass ratioOrdered By: Malina Briseno on 07-30-2022 Albumin/Globulin [Mass ratio] 1.0 {ratio} 0.9-2.4 [facility] Serum or plasma calcium rashad urement (mass/volume)Ordered By: Malina Briseno on 07-30-2022 Calcium [Mass/Vol] 9.3 mg/dL 8.5-10.1 [facility] Serum or plasma cholesterol in HDL measurement (mass/volume)Ordered By: Malina Briseno on 07-30-2022 Cholesterol in HDL [Mass/Vol] 45 mg/dL >40 [facility] Comment on above: The drugs N-Acetylcy steine and Metamizole may falsely depress this assay. Reference Range HDL <40 mg/dL Low HDL Cholesterol HDL >or= 60 mg/dL High HDL Cholesterol Serum or plasma cholesterol in VLDL measurement (mass/volume)Ordered By: Malina Briseno on 07-30-2022 Cholesterol in VLDL [Mass/Vol] 31 mg/dL 5-40 [facility] Serum or plasma creatinine m easurement (mass/volume)Ordered By: Malina Briseno on 07-30-2022 Creatinine [Mass/Vol] 0.67 mg/dL 0.55-1.02 [facility] Comment on above: The validity of the calculated GFR & GFRAA in patients over 70 years has not been determined. Clinical correlation is essential. Serum or plasma low density lipoprotein (LDL) cholesterol measurement (mass/volume)Ordered By: Malina Briseno on 07-30-2022 Cholesterol in LDL [Mass/Vol] 52 mg/dL 0-130 [facility] Serum or plasma urea nitroge n measurement (mass/volume)Ordered By: Malina Briseno on 07-30-2022 Urea nitrogen [Mass/Vol] 16 mg/dL 7-18 [facility] Thin prep Papanicolaou smear with manual screeningOrdered By: Malina Briseno on 07-30-2022 Thin prep Papanicolaou smear with manual screening 16 U/L 15-37 [facility] Thin prep Papanicolaou smear with manual screening 7 5-15 [facility] Thin prep Papanicolaou smear with manual screening 24.8 mg/L NO RANGE EST. [facility] Whole blood hemoglobin A1c/t otal hemoglobin ratio (mass fraction)Ordered By: Malina Briseno on 07-30-2022 HbA1c (Bld) [Mass fraction] 8.0 % 3.8-5.6 [facility] Comment on above: Normal < 5.7 % Predi abetic 5.7 - 6.4 % Diabetic >or= 6.5 % Please note range changes. HCVon 09-10-2017 Hep C Ab Negative Normal Negative [facility] ([place]) Comment on above: Performed By: #### H FP, LIPID ####[place] [address]#### HCV1 ####[place] [address] Hep C Ab Int No serological evidence of Hepatitis C infection, although levels of anti-HCV may be undetectable in early infection. Normal [facility] ([place]) Comment on above: Performed By: #### H FP, LIPID ####[place] [address]#### HCV1 ####[place] [address] HFPon 09-09-2017 Alanine aminotransferase (ALT) 20 U/L Normal 10-35 [facility] ([place]) Comment on above: Performed By: #### H FP, LIPID ####[place] [address]#### HCV1 ####[place] [address] Albumin 4.4 G/dL Normal 3.4-4.8 [facility] ([place]) Comment on above: Performed By: #### H FP, LIPID ####[place] [address]#### HCV1 ####[place] [address] Albumin/Globulin Ratio 1.8 {ratio} Normal 1.1-2.5 A [facility] ([place]) Comment on above: Performed By: #### H FP, LIPID ####[place] [address]#### HCV1 ####[place] [address] Alk Phos 97 IU/L Normal 40-135 [facility] ([place]) Comment on above: Performed By: #### H FP, LIPID ####[place] [address]#### HCV1 ####[facility] [place] [address] Aspartate aminotransferase (AST) 17 U/L Normal 10-40 [facility] ([place]) Comment on above: Performed By: #### H FP, LIPID ####[place] [address]#### HCV1 ####[facility] [place] [address] Bili Direct 0.1 mg/dL Normal 0.1-0.5 [facility] ([place]) Comment on above: Performed By: #### H FP, LIPID ####[place] [address]#### HCV1 ####[place] [address] Bili Indirect 0.4 mg/dL Normal [facility] ([place]) Comment on above: Performed By: #### H FP, LIPID ####[place] [address]#### HCV1 ####[place] [address] Bili Total 0.5 mg/dL Normal 0.2-1.0 [facility] ([place] Comment on above: Performed By: #### H FP, LIPID ####[place] [address]#### HCV1 ####[place] [address] Globulin 2.5 G/dL Normal [facility] ([place] Comment on above: Performed By: #### H FP, LIPID ####[place] [address]#### HCV1 ####[facility] [place] [address] Protein 6.9 G/dL Normal 6.0-8.3 [facility] ([place]) Comment on above: Performed By: #### H FP, LIPID ####[id number] [place] [id number]#### HCV1 ####[address] [address] LIPIDon 09-09-2017 Cholesterol 141 mg/dL Normal 131-200 [facility] ([place]) Comment on above: Result Comment: Chol esterol Reference Interval:Less than 200 [id number] Borderline high [id number] and above High risk Performed By: #### H FP, LIPID ####[place] [id number] [address]#### HCV1 ####[place] [address] HDL Cholesterol 44 mg/dL Normal 35-90 [facility] ([place]) Comment on above: Result Comment: HDL Reference Interval:Less than 40 Low - high risk60 or above Optimal/lowers risk Performed By: #### H FP, LIPID ####[place] [place] [address]#### HCV1 ####[address] [address] LDL Cholesterol 73 mg/dL Normal 0-130 [facility] ([place]) Comment on above: Result Comment: LDL is a calculated result and requires a 12-hr fast.LDL Reference Interval:Less than 100 [id number] Near or above [id number] Borderline high [id number] High [id number] and above Very high risk Performed By: #### H FP, LIPID ####[id number] [place] [address]#### HCV1 ####[place] [address] Triglyceride 121 mg/dL Normal 40-150 [facility] ([place]) Comment on above: Result Comment: Trig lyceride Reference Interval:Less than 150 [id number] Borderline high [id number] High tplq052 or higher Very high risk Performed By: #### H FP, LIPID ####[id number] [place] [id number]#### HCV1 ####[address] [place], [place] [id number] XR ESOPHOGRAMon 03-10-2017 XR ESOPHOGRAM ORIGINALXR ESOPHOGRA [...] AM Sign Date: 03/10/2017 10:43:55 AM Normal [facility] ([place]) HgA1C , Office ([phone])on HbA1c (Bld) [Mass fraction] 6.5 % Normal 4.6 - 7.1 [facility] Work Phone: Urinalysis, Office ([phone])Or dered By: Fabiola Ritter on 02-10-2015 Bilirubin [...] Medicine Work Phone: Blood Glucose , Office ([phone])Ordered By: ROLY Moon on 11-28-2014 Glucose Glucometer (BldC) [Moles/Vol] 131 1 Normal [facility]; [facility] Work Phone: HgA1C , Office ([phone])Ordere d By: ROLY Moon on 11-28-2014 HbA1c (Bld) [Mass fraction] 6.2 % Normal 4.6 - 7.1 [facility]; [facility] Work Phone: CBC with auto diff ([phone])Or dered By: Host/Hostess Ground on 11-17-2014 Basophils (Bld) [#/Vol] 0.1 10*3/uL Normal 0.0-0.2 [facility]; [facility] Work Phone: Comment on above: PATIENT WAS FASTINGP ERFORMED BY: GILLIAN eyeOS [id number] [facility] [id number] Information: [id number], [id number] Basophils/100 WBC (Bld) 1 % Normal [facility]; [facility] Work Phone: Comment on above: PATIENT WAS FASTINGP ERFORMED BY: GILLIAN [facility] Koitcc0368 [facility] [id number] Information: [id number], [id number] Eosinophils (Bld) [#/Vol] 0.1 10*3/uL Normal 0.0-0.4 [facility]; [facility] Work Phone: Comment on above: PATIENT WAS FASTINGP ERFORMED BY: GILLIAN LabPrefundia Rlwwjm9035 [facility] [id number] Information: [id number], [id number] Eosinophils/100 WBC (Bld) 2 % Normal [facility]; [facility] Work Phone: Comment on above: PATIENT WAS FASTINGP ERFORMED BY: GILLIAN Hitchcock Mvictz4178 [facility] [id number] Information: [id number], [id number] Erythrocyte distribution width (RBC) [Ratio] 13.6 % Normal 12.3-15.4 [facility]; [facility] Work Phone: Comment on above: PATIENT WAS FASTINGP ERFORMED BY: [place] 7814870 [facility] [id number] Information: [id number], [id number] Hematocrit (Bld) [Volume fraction] 38.0 % Normal 34.0-46.6 [facility]; [facility] Work Phone: Comment on above: PATIENT WAS FASTINGP ERFORMED BY: [facility]6370 [facility] [id number] Information: [id number], [id number] Hemoglobin (Bld) [Mass/Vol] 12.7 g/dL Normal 11.1-15.9 [facility]; [facility] Work Phone: Comment on above: PATIENT WAS FASTINGP ERFORMED BY: [facility]6370 [facility] [id number] Information: [id number], [id number] Immature granulocytes (Bld) [#/Vol] 0.0 10*3/uL Normal 0.0-0.1 [facility]; [facility] Work Phone: Comment on above: PATIENT WAS FASTINGP ERFORMED BY: [facility]6370 [facility] [id number] Information: [id number], [id number] Immature granulocytes/100 WBC (Bld) 0 % Normal [facility]; [facility] Work Phone: Comment on above: PATIENT WAS FASTINGP ERFORMED BY: [place] 7814870 [facility] [id number] Information: [id number], [id number] Lymphocytes (Bld) [#/Vol] 2.7 10*3/uL Normal 0.7-3.1 [facility]; [facility] Work Phone: Comment on above: PATIENT WAS FASTINGP ERFORMED BY: [place] 7814870 [facility] [id number] Information: [id number], [id number] Lymphocytes/100 WBC (Bld) 29 % Normal [facility]; [facility] Work Phone: Comment on above: PATIENT WAS FASTINGP ERFORMED BY: GILLIAN HitchcockGeorge Ville 6761370 [facility] [id number] Information: [id number], [id number] MCH (RBC) [Entitic mass] 29.5 pg Normal 26.6-33.0 [facility]; [facility] Work Phone: Comment on above: PATIENT WAS FASTINGP ERFORMED BY: [facility] Zmdbfj0238 [facility] [id number] Information: [id number], [id number] MCHC (RBC) [Mass/Vol] 33.4 g/dL Normal 31.5-35.7 [facility] prehensive Internal Medicine; [facility] Work Phone: Comment on above: PATIENT WAS FASTINGP ERFORMED BY: [facility]6370 [facility] [id number] Information: [id number], [id number] MCV (RBC) [Entitic vol] 88 fL Normal 79-97 C omprehensive [facility]; [facility] Work Phone: Comment on above: PATIENT WAS FASTINGP ERFORMED BY: [facility]6370 [facility] [id number] Information: [id number], [id number] Monocytes (Bld) [#/Vol] 0.6 10*3/uL Normal 0.1-0.9 [facility]; [facility] Work Phone: Comment on above: PATIENT WAS FASTINGP ERFORMED BY: GILLIAN Stewart6370 [facility] [id number] Information: [id number], [id number] Monocytes/100 WBC (Bld) 7 % Normal C omptoledo hospitalensive [facility]; [facility] Work Phone: Comment on above: PATIENT WAS FASTINGP ERFORMED BY: GILLIAN Stewart6370 [facility] [id number] Information: [id number], [id number] Neutrophils (Bld) [#/Vol] 5.6 10*3/uL Normal 1.4-7.0 [facility]; [facility] Work Phone: Comment on above: PATIENT WAS FASTINGP ERFORMED BY: GILLIAN Stewart6370 [facility] [id number] Information: [id number], [id number] Neutrophils/100 WBC (Bld) 61 % Normal [facility]; [facility] Work Phone: Comment on above: PATIENT WAS FASTINGP ERFORMED BY: GILLIAN Hitchcock Bmasvj1865 [facility] [id number] Information: [id number], [id number] Platelets (Bld) [#/Vol] 322 10*3/uL Normal 150-379 [facility]; [facility] Work Phone: Comment on above: PATIENT WAS FASTINGP ERFORMED BY: GILLIAN LabTru Pahlpy4603 [facility] [id number] Information: [id number], [id number] RBC (Bld) [#/Vol] 4.31 10*6/uL Normal 3.77-5.28 [facility]; [facility] Work Phone: Comment on above: PATIENT WAS FASTINGP ERFORMED BY: GILLIAN Holleylin6370 [facility] Hospitalin [place] [id number] Information: [id number], [id number] WBC (Bld) [#/Vol] 9.1 10*3/uL Normal 3.4-10.8 Compre [facility] Internal Medicine; [facility] Work Phone: Comment on above: PATIENT WAS FASTINGP ERFORMED BY: GILLIAN Corettarebecca Xfesjk2977 [address] NTN BuzztimeLake Norman [facility] [id number] Information: [id number], [id number] LIPID PANEL (51087)Ordered B y: Host/Hostess Ground on 11-17-2014 Cholesterol [Mass/Vol] 244 mg/dL Abnormal 100-199 [facility] Internal Medicine; [facility] Work Phone: Comment on above: PATIENT WAS FASTINGP ERFORMED BY: GILLIAN Corettarebecca Hfgxhb1600 [address] NT[address] BuzztimeLake Norman [facility] [id number] Cholesterol in HDL [Mass/Vol] 46 mg/dL Normal [facility]; [facility] Work Phone: Comment on above: According to ATP-III Guidelines, HDL-C >59 mg/dL is considered anegative risk factor for CHD. PATIENT WAS FASTINGP ERFORMED BY: GILLINA Corettarebecca Ryctyb0340 [address] TeachableDuke Health [id number] Cholesterol in LDL [Mass/Vol] 166 mg/dL Abnormal 0-99 [facility]; [facility] Work Phone: Comment on above: PATIENT WAS FASTINGP ERFORMED BY: GILLIAN Corettarebecca Nuyfbz5561 [facility] [id number] Cholesterol in LDL/Cholesterol in HDL [Mass ratio] 3.6 {ratio_units} Abnormal 0.0-3.2 [facility]; [facility] Work Phone: Comment on above: LDL/HDL Ratio Men Wo men 1/2 Avg.Risk 1.0 1.5 Avg.Risk 3.6 3.2 2X Avg.Risk 6.2 5.0 3X Avg.Risk 8.0 6.1 PATIENT WAS FASTINGP ERFORMED BY: GILLIAN LabCorebecca Rutlkw7731 [facility] [id number] Cholesterol in VLDL [Mass/Vol] 32 mg/dL Normal 5-40 [facility]; [facility] Work Phone: Comment on above: PATIENT WAS FASTINGP ERFORMED BY: GILLIAN [facility] Fwwsfe0229 [address] RoadDublin [place] [id number] Triglyceride [Mass/Vol] 158 mg/dL Abnormal 0-149 C omprehensive Internal [facility]; [facility] Work Phone: Comment on above: PATIENT WAS FASTINGP ERFORMED BY: GILLIAN [facility] Omafqt4353 [address] RoadDublin [place] [id number] METABOLIC PANEL, COMPREHENSI VE (82361)Ordered By: Host/Hostess Ground on 11-17-2014 Albumin [Mass/Vol] 4.5 g/dL Normal 3.6-4.8 [facility] Internal Medicine; [facility] Work Phone: Comment on above: PATIENT WAS FASTINGP ERFORMED BY: CB [facility] Hffkyd4254 [address] RoadDublin [place] [id number]; has fu 8-10-15 Albumin/Globulin [Mass ratio] 1.5 {ratio} Normal 1.1-2.5 [facility]; [facility] Work Phone: Comment on above: PATIENT WAS FASTINGP ERFORMED BY: CB [facility] Nlwkxr8054 [address] RoadDublin [place] [id number]; has fu 8-10-15 ALP [Catalytic activity/Vol] 71 U/L Normal 39-117 [facility]; [facility] Work Phone: Comment on above: PATIENT WAS FASTINGP ERFORMED BY: GILLIAN [facility] Fnmwzo7213 [address] RoadDublin [place] [id number]; has fu 8-10-15 ALT [Catalytic activity/Vol] 18 U/L Normal 0-32 [facility]; [facility] Work Phone: Comment on above: PATIENT WAS FASTINGP ERFORMED BY: CB [facility] Mjfvex0885 [address] RoadDublin [place] [id number]; has fu 8-10-15 AST [Catalytic activity/Vol] 16 U/L Normal 0-40 [facility]; [facility] Work Phone: Comment on above: PATIENT WAS FASTINGP ERFORMED BY: CB [facility] Tbpnqj0939 [address] RoadDublin [place] [id number]; has fu 8-10-15 Bilirubin [Mass/Vol] 0.4 mg/dL Normal 0.0-1.2 [facility] rehensive Internal Medicine; [facility] Work Phone: Comment on above: PATIENT WAS FASTINGP ERFORMED BY: GILLIAN LabSpring HolleyRwvtnz9429 [address] RoadDublin [place] [id number]; has fu 8 Calcium [Mass/Vol] 9.5 mg/dL Normal 8.7-10.3 [facility]; [facility] Work Phone: Comment on above: PATIENT WAS FASTINGP ERFORMED BY: GILLIAN [facility] Ihbgth6557 [address] RoadDublin [place] [id number]; has fu 8 Chloride [Moles/Vol] 100 mmol/L Normal 97-108 [facility] rehensive Internal Medicine; [facility] Work Phone: Comment on above: PATIENT WAS FASTINGP ERFORMED BY: GILLIAN [facility] Jwwdtb0734 [address] RoadDublin [place] [id number]; has fu 11-28-14 CO2 [Moles/Vol] 23 mmol/L Normal 18-29 [facility] Internal Medicine; [facility] Work Phone: Comment on above: PATIENT WAS FASTINGP ERFORMED BY: GILLIAN LabCorebecca Zuaqxk8914 [address] RoadDublin [place] [id number]; has fu 11-28-14 Creatinine [Mass/Vol] 0.60 mg/dL Normal 0.57-1.00 [facility] prehensive Internal Medicine; [facility] Work Phone: Comment on above: PATIENT WAS FASTINGP ERFORMED BY: GILLIAN [facility] Wbihgm6559 [address] RoadDublin [place] [id number]; has fu 8 GFR/1.73 sq M.predicted among blacks CKD-EPI (S/P/Bld) [Vol rate/Area] 115 mL/min/1.73 Normal [facility]; [facility] Work Phone: Comment on above: PATIENT WAS FASTINGP ERFORMED BY: GILLIAN [facility] Afeure7010 [address] RoadDublin [place] [id number]; has fu 8--15 GFR/1.73 sq M.predicted among non-blacks CKD-EPI (S/P/Bld) [Vol rate/Area] 99 mL/min/1.73 Normal [facility]; [facility] Work Phone: Comment on above: PATIENT WAS FASTINGP ERFORMED BY: GILLIAN [facility] Uppynh0397 [address] RoadDublin [place] [id number]; has fu 8--15 Globulin (S) [Mass/Vol] 3.0 g/dL Normal 1.5-4.5 C omprehensive Internal Medicine; [facility] Work Phone: Comment on above: PATIENT WAS FASTINGP ERFORMED BY: GILLIAN [facility] Jznnsc0969 [address] RoadDublin [place] [id number]; has fu 8-15 Glucose [Mass/Vol] 103 mg/dL Abnormal 65-99 [facility]ale [facility] hospitalive Internal [facility]; [facility] Work Phone: Comment on above: PATIENT WAS FASTINGP ERFORMED BY: GILLIAN LabRanken [facility] Xmlhtq9770 [address] RoadDublin [place] [id number]; has fu 8--15 Potassium [Moles/Vol] 4.6 mmol/L Normal 3.5-5.2 [facility] prehensive Internal Medicine; [facility] Work Phone: Comment on above: PATIENT WAS FASTINGP ERFORMED BY: GILLIAN LabRanken [facility] Lmwufq8184 [address] RoadDublin [place] [id number]; has fu 8-10-15 Protein [Mass/Vol] 7.5 g/dL Normal 6.0-8.5 [facility]ive [facility]; [facility] Work Phone: Comment on above: PATIENT WAS FASTINGP ERFORMED BY: GILLIAN [facility] Taufqr7094 [address] RoadDublin [place] [id number]; has fu 8-10-15 Sodium [Moles/Vol] 140 mmol/L Normal 134-144 [facility]; [facility] Work Phone: Comment on above: PATIENT WAS FASTINGP ERFORMED BY: GILLIAN [facility] Tdwavi0897 [address] RoadDublin [place] [id number]; has fu 11-28-14 Urea nitrogen [Mass/Vol] 18 mg/dL Normal 8-27 [facility]; [facility] Work Phone: Comment on above: PATIENT WAS FASTINGP ERFORMED BY: [facility] Utldwt4757 [address] RoadDublin [place] [id number]; has fu 11-28-14 Urea nitrogen/Creatinine [Mass ratio] 30 mg/mg Abnormal 11- [facility]; [facility] Work Phone: Comment on above: PATIENT WAS FASTINGP ERFORMED BY: [facility] Lclvfz7017 [address] Roadblin [place] [id number]; has fu 11-28-14 MICROALBUMINOrdered By: Eric em Web Architect on 11-17-2014 Albumin DL <= 20 mg/L (U) [Mass/Vol] 3.7 ug/mL Normal 0.0-17.0 [facility]; [facility] Work Phone: Comment on above: PATIENT WAS FASTINGP ERFORMED BY: [facility] Gfbtdu2383 [address] RoadCape Fear Valley Medical Centerin [place] [id number] Albumin/Creatinine (U) [Mass ratio] 3.9 {mg/g_creat} Normal 0.0-30.0 [facility]; [facility] Work Phone: Comment on above: PATIENT WAS FASTINGP ERFORMED BY: [facility] Heotuv0016 [address] RoadCape Fear Valley Medical Centerin [place] [id number] Creatinine (U) [Mass/Vol] 95.0 mg/dL Normal 15.0-278.0 [facility]; [facility] Work Phone: Comment on above: PATIENT WAS FASTINGP ERFORMED BY: [facility] Yaepjw7553 [address] RoadDublin [place] [id number] Amylase (72652)Ordered By: Branden pruitttem Web Architect on 11-03-2014 Amylase [Catalytic activity/Vol] 50 U/L Normal 31-124 [facility]; [facility] Work Phone: Comment on above: PATIENT NOT FASTINGP ERFORMED BY: [facility] Yssrta8189 [address] RoadDublin [place] [id number] BY: [address] [id number] CBC, Platelets & Auto Diff ( 06529)Ordered By: Host/Hostess Ground on 11-03-2014 Basophils (Bld) [#/Vol] 0.1 10*3/uL Normal 0.0-0.2 [facility]; [facility] Work Phone: Comment on above: PATIENT NOT FASTINGP ERFORMED BY: [facility]6370 [facility] [id number] BY: [address] [id number] Information: 779473,C94721 Basophils/100 WBC (Bld) 1 % Normal C omprehensive Internal Medicine; [facility] Work Phone: Comment on above: PATIENT NOT FASTINGP ERFORMED BY: [facility]6370 [facility] [id number] BY: [address] [id number] Information: 408589,G46921 Eosinophils (Bld) [#/Vol] 0.1 10*3/uL Normal 0.0-0.4 [facility]; [facility] Work Phone: Comment on above: PATIENT NOT FASTINGP ERFORMED BY: [facility]6370 [facility] [id number] BY: [address] [id number] Information: 673201,A27431 Eosinophils/100 WBC (Bld) 1 % Normal [facility]; [facility] Work Phone: Comment on above: PATIENT NOT FASTINGP ERFORMED BY: [facility]6370 [facility] [id number] BY: [address] [id number] Information: 017673,X78615 Erythrocyte distribution width (RBC) [Ratio] 14.5 % Normal 12.3-15.4 [facility]; [facility] Work Phone: Comment on above: PATIENT NOT FASTINGP ERFORMED BY: GILLIAN [facility] Cemidx1269 [facility] [id number] BY: [facility] HospitalPrefundia[address] [id number] Information: 525785,B79022 Hematocrit (Bld) [Volume fraction] 38.0 % Normal 34.0-46.6 [facility]; [facility] Work Phone: Comment on above: PATIENT NOT FASTINGP ERFORMED BY: GILLIAN [facility] Mmuknf7357 [facility] [id number] BY: eyeOS[address] [id number] Information: 151786,K83579 Hemoglobin (Bld) [Mass/Vol] 12.4 g/dL Normal 11.1-15.9 [facility]; [facility] Work Phone: Comment on above: PATIENT NOT FASTINGP ERFORMED BY: GILLIAN LabCorebecca HolleyWjseaa6330 [facility] [id number] BY: eyeOS[address] [id number] Information: 905580,P97254 Immature granulocytes (Bld) [#/Vol] 0.0 10*3/uL Normal 0.0-0.1 [facility]; [facility] Work Phone: Comment on above: PATIENT NOT FASTINGP ERFORMED BY: GILLIAN [facility] Luhpft8086 [facility] [id number] BY: [address] [id number] Information: 541089,X76657 Immature granulocytes/100 WBC (Bld) 0 % Normal [facility]; [facility] Work Phone: Comment on above: PATIENT NOT FASTINGP ERFORMED BY: GILLIAN [facility] Izkztx5583 [facility] [id number] BY: [address] [id number] Information: 334508,Y55300 Lymphocytes (Bld) [#/Vol] 1.7 10*3/uL Normal 0.7-3.1 [facility]; [facility] Work Phone: Comment on above: PATIENT NOT FASTINGP ERFORMED BY: [facility] Lmlyoo0064 [facility] [id number] BY: [address] [id number] Information: 307357,F60779 Lymphocytes/100 WBC (Bld) 21 % Normal [facility]; [facility] Work Phone: Comment on above: PATIENT NOT FASTINGP ERFORMED BY: [facility] Hvkdab7432 [facility] [id number] BY: [address] [id number] Information: 001393,C31524 MCH (RBC) [Entitic mass] 29.4 pg Normal 26.6-33.0 [facility]; [facility] Work Phone: Comment on above: PATIENT NOT FASTINGP ERFORMED BY: [facility] Cwzlke6589 [facility] [id number] BY: [address] [id number] Information: 796113,X04826 MCHC (RBC) [Mass/Vol] 32.6 g/dL Normal 31.5-35.7 [facility] prehensive Internal Medicine; [facility] Work Phone: Comment on above: PATIENT NOT FASTINGP ERFORMED BY: [facility] Yhvuct6924 [facility] [id number] BY: [address] [id number] Information: 891783,I52808 MCV (RBC) [Entitic vol] 90 fL Normal 79-97 C omprehensive Internal Medicine; [facility] Work Phone: Comment on above: PATIENT NOT FASTINGP ERFORMED BY: GILLIAN BrettSpring HolleyLjqzmy3918 [facility] [id number] BY: [address] [id number] Information: 542158,X83460 Monocytes (Bld) [#/Vol] 0.8 10*3/uL Normal 0.1-0.9 [facility]; [facility] Work Phone: Comment on above: PATIENT NOT FASTINGP ERFORMED BY: GILLIAN Holleylin6370 [facility] [id number] BY: [address] [id number] Information: 514735,A51960 Monocytes/100 WBC (Bld) 10 % Normal C omprehensive [facility]; [facility] Work Phone: Comment on above: PATIENT NOT FASTINGP ERFORMED BY: GILLIAN Holleylin6370 [facility] [id number] BY: [address] [id number] Information: 099300,Z42822 Neutrophils (Bld) [#/Vol] 5.6 10*3/uL Normal 1.4-7.0 [facility]; [facility] Work Phone: Comment on above: PATIENT NOT FASTINGP ERFORMED BY: GILLIAN [facility] Xrwvzm8165 [facility] [id number] BY: [address] [id number] Information: 806116,X82971 Neutrophils/100 WBC (Bld) 67 % Normal [facility]; [facility] Work Phone: Comment on above: PATIENT NOT FASTINGP ERFORMED BY: GILLIAN LabSpring HolleyDfnuot9801 [facility] [id number] BY: LabCo[address] [id number] Information: 728447,Z97101 Platelets (Bld) [#/Vol] 282 10*3/uL Normal 150-379 [facility]; [facility] Work Phone: Comment on above: PATIENT NOT FASTINGP ERFORMED BY: [facility] Pralac1036 [facility] [id number] BY: Lab[address] [id number] Information: 726929,T95260 RBC (Bld) [#/Vol] 4.22 10*6/uL Normal 3.77-5.28 Compr ensive Internal Medicine; [facility] Work Phone: Comment on above: PATIENT NOT FASTINGP ERFORMED BY: [facility] Hobxer6426 [facility] [id number] BY: [address] [id number] Information: 614425,M21699 WBC (Bld) [#/Vol] 8.2 10*3/uL Normal 3.4-10.8 [facility] Internal [facility]; [facility] Work Phone: Comment on above: PATIENT NOT FASTINGP ERFORMED BY: LabCoCooper University HospitalMwpywv9597 [facility] [id number] BY: [address] [id number] Information: [id number],K47134 Metabolic Panel, Comprehensi ve (58108)Ordered By: Host/Hostess Ground on 11-03-2014 Albumin [Mass/Vol] 4.1 g/dL Normal 3.6-4.8 Compre [facility]; [facility] Work Phone: Comment on above: PATIENT NOT FASTINGP ERFORMED BY: [facility] Wqqitj7537 [facility] [id number] BY: [address] [id number] Albumin/Globulin [Mass ratio] 1.5 {ratio} Normal 1.1-2.5 [facility]; [facility] Work Phone: Comment on above: PATIENT NOT FASTINGP ERFORMED BY: [facility] Yffbjy9576 [facility] [id number] BY: Lab[address] [id number] ALP [Catalytic activity/Vol] 66 U/L Normal 39-117 [facility]; [facility] Work Phone: Comment on above: PATIENT NOT FASTINGP ERFORMED BY: [facility] Mcmpeo9649 [facility] [id number] BY: [address] [id number] ALT [Catalytic activity/Vol] 15 U/L Normal 0-32 [facility]; [facility] Work Phone: Comment on above: PATIENT NOT FASTINGP ERFORMED BY: [facility] Srlahk3028 [facility] [id number] BY: [address] [id number] AST [Catalytic activity/Vol] 15 U/L Normal 0-40 [facility]; [facility] Work Phone: Comment on above: PATIENT NOT FASTINGP ERFORMED BY: [facility] Lrzbqs3008 [facility] [id number] BY: [address] [id number] Bilirubin [Mass/Vol] 0.3 mg/dL Normal 0.0-1.2 Comp [facility] hospitalensive [facility]; [facility] Work Phone: Comment on above: PATIENT NOT FASTINGP ERFORMED BY: [facility] Wqzfhx0778 [facility] [id number] BY: [facility] [address] [id number] Calcium [Mass/Vol] 9.0 mg/dL Normal 8.7-10.3 [facility]; [facility] Work Phone: Comment on above: PATIENT NOT FASTINGP ERFORMED BY: CB [facility] Fckyof7065 [address] RoadDublin [place] [id number] BY: BN [facility] [address] [id number] Chloride [Moles/Vol] 100 mmol/L Normal 97-108 [facility] rehensive Internal Medicine; [facility] Work Phone: Comment on above: PATIENT NOT FASTINGP ERFORMED BY: CB [facility] Xzhsgk6040 Burns RoadDublin [place] [id number] BY: BN [facility] [address] [id number] CO2 [Moles/Vol] 22 mmol/L Normal 18-29 [facility] Internal Medicine; [facility] Work Phone: Comment on above: PATIENT NOT FASTINGP ERFORMED BY: CB [facility] Tzrcig5732 Burns RoadDublin [place] [id number] BY: BN [facility] [address] [id number] Creatinine [Mass/Vol] 0.57 mg/dL Normal 0.57-1.00 [facility]; [facility] Work Phone: Comment on above: PATIENT NOT FASTINGP ERFORMED BY: CB [facility] Vffuhm3115 [address] RoadDublin [place] [id number] BY: BN [facility] [address] [id number] GFR/1.73 sq M.predicted among blacks CKD-EPI (S/P/Bld) [Vol rate/Area] 117 mL/min/1.73 Normal [facility]; [facility] Work Phone: Comment on above: PATIENT NOT FASTINGP ERFORMED BY: CB [facility] Qlstaj7881 Burns RoadDublin [place] [id number] BY: eyeOS[address] [id number] GFR/1.73 sq M.predicted among non-blacks CKD-EPI (S/P/Bld) [Vol rate/Area] 101 mL/min/1.73 Normal [facility]; [facility] Work Phone: Comment on above: PATIENT NOT FASTINGP ERFORMED BY: LabPrefundia Fofiwu0830 [facility] [id number] BY: eyeOS[address] [id number] Globulin (S) [Mass/Vol] 2.7 g/dL Normal 1.5-4.5 C omprehensive Internal Medicine; [facility] Work Phone: Comment on above: PATIENT NOT FASTINGP ERFORMED BY: eyeOS Cknwlk8045 [facility] [id number] BY: eyeOS[address] [id number] Glucose [Mass/Vol] 107 mg/dL Abnormal 65-99 [facility] hens[facility]; [facility] Work Phone: Comment on above: PATIENT NOT FASTINGP ERFORMED BY: LabPrefundia Fubils4157 [facility] [id number] BY: eyeOS[address] [id number] Potassium [Moles/Vol] 4.3 mmol/L Normal 3.5-5.2 [facility]; [facility] Work Phone: Comment on above: PATIENT NOT FASTINGP ERFORMED BY: LabPrefundia Xistkb0019 [facility] [id number] BY: [address] [id number] Protein [Mass/Vol] 6.8 g/dL Normal 6.0-8.5 [facility]; [facility] Work Phone: Comment on above: PATIENT NOT FASTINGP ERFORMED BY: [facility] Fjjntu3519 [address] [facility] [id number] BY: Lab[address] [id number] Sodium [Moles/Vol] 138 mmol/L Normal 134-144 [facility] Internal Medicine; [facility] Work Phone: Comment on above: PATIENT NOT FASTINGP ERFORMED BY: CB [facility] Jnljbw5590 [address] [facility] [id number] BY: Lab[address] [id number] Urea nitrogen [Mass/Vol] 15 mg/dL Normal 8-27 [facility]; [facility] Work Phone: Comment on above: PATIENT NOT FASTINGP ERFORMED BY: [facility] Zjnaik4223 [facility] [id number] BY: [address] [id number] Urea nitrogen/Creatinine [Mass ratio] 26 mg/mg Normal 11-26 [facility]; [facility] Work Phone: Comment on above: PATIENT NOT FASTINGP ERFORMED BY: [facility] Lvydea7784 [facility] [id number] BY: Lab[address] [id number] Methymalonic Acid, Serum (83 921)Ordered By: Host/Hostess Ground on 11-03-2014 Methylmalonate [Moles/Vol] 241 nmol/L Normal 0-378 [facility]; [facility] Work Phone: Comment on above: PATIENT NOT FASTINGP ERFORMED BY: CB [facility] Drvjji1613 [facility] [id number] BY: [address] [id number] URINE MALINA CULTURE-IDENTIFICA [place] (12326)Ordered By: Host/Hostess Ground on 11-03-2014 Bacteria identified Cx Nom (U) Final report Abnormal [facility]; [facility] Work Phone: Comment on above: PATIENT NOT FASTINGP ERFORMED BY: eyeOS Neksqt8617 [facility] [id number] Information: [id number] Bacteria identified Cx Nom (U) ECV Abnormal [...] STrimethoprim/Sulfa R PATIENT NOT FASTINGP ERFORMED BY: eyeOS Yulitb7984 [facility] [id number] Information: [id number] Urinalysis, Office (05381)Or dered By: Fabiana Messer on 11-03-2014 Bilirubin [...] Medicine Work Phone: Vitamin B-12 (cyanocobalamin ) (80304)Ordered By: Host/Hostess Ground on 11-03-2014 Cobalamin (Vitamin B12) [Mass/Vol] 629 pg/mL Normal 211-946 [facility]; [facility] Work Phone: Comment on above: fatigue; PATIENT NOT FASTINGPERFORMED BY: GILLIAN [employer] [place] [id number] BY: LabPrefundia[address] [id number] Blood Glucose , Office (8296 2)Ordered By: Stephanie Schneider on 08-29-2014 Glucose Glucometer (BldC) [Moles/Vol] 141 1 Normal [facility]; [facility] Work Phone: Blood Glucose , Office ([phone] 2)Ordered By: ROLY Moon on 08-01-2014 Glucose Glucometer (BldC) [Moles/Vol] 134 1 Normal [facility]; [facility] Work Phone: HgA1C , Office (40601)Ordere d By: ROLY Moon on 08-01-2014 HbA1c (Bld) [Mass fraction] 9.0 % Abnormal 4.6 - 7.1 [facility]; [facility] Work Phone: Sputum Culture (08268)Ordere d By: Host/Hostess Ground on 07-06-2014 Bacteria identified Cx Nom (Sput) Final report Normal [facility]; [facility] Work Phone: Comment on above: PATIENT NOT FASTINGP ERFORMED BY: dMetrics[address] [place] [id number] Information: SRC: SPUTUM [id number] Bacteria identified Cx Nom (Unsp spec) RRF Normal [facility]; [facility] Work Phone: Comment on above: Routine respiratory hector PATIENT NOT FASTINGP ERFORMED BY: GILLIAN [facility] Ycjsmo2796 [address] NTN BuzztimeLake [facility] [id number] Information: SRC: SPUTUM [id number] Rapid Flu (63219 x 2)on 06-19 FLUAV Ag IA Ql (Throat) Negative Normal C omprehensive Internal Medicine; [facility] Work Phone: Blood Glucose , Office ([phone] 2)Ordered By: Jessica Pemberton on 03-29-2014 Glucose Glucometer (BldC) [Moles/Vol] 87 1 Normal [facility]; [facility] Work Phone: HgA1C , Office (37028)Ordere d By: Jessica Pemberton on 03-29-2014 HbA1c (Bld) [Mass fraction] 7.0 % Normal 4.6 - 7.1 [facility]; [facility] Work Phone: Blood Glucose , Office ([phone] 2)Ordered By: Thais Siddiqui on 12-28-2013 Glucose Glucometer (BldC) [Moles/Vol] 247 1 Normal [facility]; [facility] Work Phone: Comment on above: ate 2 hours ago. had a honey bun HgA1C , Office (49425)Ordere d By: Thais Siddiqui on 12-28-2013 HbA1c (Bld) [Mass fraction] 7.3 % Abnormal 4.6 - 7.1 [facility]; [facility] Work Phone: LIPID PANEL (97500)Ordered B y: Host/Hostess Ground on 11-29-2013 Cholesterol [Mass/Vol] 201 mg/dL Abnormal 100-199 Co mprehensive Internal Medicine; [facility] Work Phone: Comment on above: in three months (pipo roximately); PATIENT WAS FASTINGPERFORMED BY: GILLIAN [facility] Nzxeis8921 [facility] [id number] Cholesterol in HDL [Mass/Vol] 44 mg/dL Normal [facility]; [facility] Work Phone: Comment on above: According to ATP-III Guidelines, HDL-C >59 mg/dL is considered anegative risk factor for CHD. in three months (pipo roximately); PATIENT WAS FASTINGPERFORMED BY: GILLIAN [facility] Muezva0256 [address] RoadDublin [place] [id number] Cholesterol in LDL [Mass/Vol] 132 mg/dL Abnormal 0-99 [facility]; [facility] Work Phone: Comment on above: in three months (pipo roximately); PATIENT WAS FASTINGPERFORMED BY: CB [facility] Nqqyuc5465 [address] RoadDublin [place] [id number] Cholesterol in LDL/Cholesterol in HDL [Mass ratio] 3.0 {ratio_units} Normal 0.0-3.2 [facility]; [facility] Work Phone: Comment on above: in three months (pipo roximately); PATIENT WAS FASTINGPERFORMED BY: GILLIAN [facility] Tfjcyv2510 [address] RoadDublin [place] [id number] Cholesterol in VLDL [Mass/Vol] 25 mg/dL Normal 5-40 [facility]; [facility] Work Phone: Comment on above: in three months (pipo roximately); PATIENT WAS FASTINGPERFORMED BY: GILLIAN [facility] Ctqctk8099 [address] RoadDublin [place] [id number] Triglyceride [Mass/Vol] 124 mg/dL Normal 0-149 C omprehensive Internal Medicine; [facility] Work Phone: Comment on above: in three months (pipo roximately); PATIENT WAS FASTINGPERFORMED BY: GILLIAN [facility] Sodore4763 [address] RoadDublin [place] [id number] METABOLIC PANEL, COMPREHENSI VE (16361)Ordered By: Host/Hostess Ground on 11-29-2013 Albumin [Mass/Vol] 4.2 g/dL Normal 3.5-5.5 Compre [facility] Internal Medicine; [facility] Work Phone: Comment on above: PATIENT WAS FASTINGP ERFORMED BY: GILLIAN [facility] Zalwkw2830 [address] RoadDublin [place] [id number] Information: [id number] Albumin/Globulin [Mass ratio] 1.4 {ratio} Normal 1.1-2.5 [facility]; [facility] Work Phone: Comment on above: PATIENT WAS FASTINGP ERFORMED BY: GILLIAN Stewart6370 [facility] [id number] Information: 424291,[id number] ALP [Catalytic activity/Vol] 75 U/L Normal 39-117 [facility]; [facility] Work Phone: Comment on above: PATIENT WAS FASTINGP ERFORMED BY: BrettFrancis [place] 7096470 [facility] [id number] Information: 950273,[id number] ALT [Catalytic activity/Vol] 22 U/L Normal 0-32 [facility]; [facility] Work Phone: Comment on above: PATIENT WAS FASTINGP ERFORMED BY: [address] [id number] Information: 904911,[id number] AST [Catalytic activity/Vol] 18 U/L Normal 0-40 [facility]; [facility] Work Phone: Comment on above: PATIENT WAS FASTINGP ERFORMED BY: BrettRanken [facility] Krvjxl0121 [facility] [id number] Information: 404744,[id number] Bilirubin [Mass/Vol] 0.5 mg/dL Normal 0.0-1.2 [facility]; [facility] Work Phone: Comment on above: PATIENT WAS FASTINGP ERFORMED BY: [place] 7814870 [facility] [id number] Information: 502318,[id number] Calcium [Mass/Vol] 9.4 mg/dL Normal 8.7-10.2 [facility] Internal Medicine; [facility] Work Phone: Comment on above: PATIENT WAS FASTINGP ERFORMED BY: [facility]6370 [facility] [id number] Information: 148097,P01281 Chloride [Moles/Vol] 98 mmol/L Normal 97-108 Comp rehensive Internal Medicine; [facility] Work Phone: Comment on above: PATIENT WAS FASTINGP ERFORMED BY: LabRanken [facility] Xegsxb8792 [facility] [id number] Information: 438206,S28253 CO2 [Moles/Vol] 27 mmol/L Normal 18-29 [facility] Internal Medicine; [facility] Work Phone: Comment on above: PATIENT WAS FASTINGP ERFORMED BY: [facility] Tsvffn7715 [facility] [id number] Information: 253111,B87804 Creatinine [Mass/Vol] 0.60 mg/dL Normal 0.57-1.00 [facility] prehensive Internal Medicine; [facility] Work Phone: Comment on above: PATIENT WAS FASTINGP ERFORMED BY: [facility]6370 [facility] [id number] Information: 210698,I04609 GFR/1.73 sq M.predicted among blacks CKD-EPI (S/P/Bld) [Vol rate/Area] 115 mL/min/1.73 Normal [facility]; [facility] Work Phone: Comment on above: PATIENT WAS FASTINGP ERFORMED BY: [facility]6370 [facility] [id number] Information: 586326,Y21532 GFR/1.73 sq M.predicted among non-blacks CKD-EPI (S/P/Bld) [Vol rate/Area] 100 mL/min/1.73 Normal [facility]; [facility] Work Phone: Comment on above: PATIENT WAS FASTINGP ERFORMED BY: [facility]6370 [facility] [id number] Information: 266058,F05203 Globulin (S) [Mass/Vol] 2.9 g/dL Normal 1.5-4.5 C omprehensive Internal Medicine; [facility] Work Phone: Comment on above: PATIENT WAS FASTINGP ERFORMED BY: GILLIAN BrettRanken [facility] Scuojz4009 [facility] [id number] Information: [id number] Glucose [Mass/Vol] 158 mg/dL Abnormal 65-99 [facility] Internal Medicine; [facility] Work Phone: Comment on above: PATIENT WAS FASTINGP ERFORMED BY: BrettRanken [facility] Bficij0080 [facility] [id number] Information: 359449,Y67701 Potassium [Moles/Vol] 4.3 mmol/L Normal 3.5-5.2 [facility] Internal Medicine; [facility] Work Phone: Comment on above: PATIENT WAS FASTINGP ERFORMED BY: GILLIAN Aquiles Holleylin6370 [facility] [id number] Information: 707303,D41899 Protein [Mass/Vol] 7.1 g/dL Normal 6.0-8.5 [facility] Internal Medicine; [facility] Work Phone: Comment on above: PATIENT WAS FASTINGP ERFORMED BY: GILLIAN BrettRanken [facility] Rbttts8715 [facility] [id number] Information: 223026,J51242 Sodium [Moles/Vol] 136 mmol/L Normal 134-144 [facility] Internal Medicine; [facility] Work Phone: Comment on above: PATIENT WAS FASTINGP ERFORMED BY: GILLIAN BrettRanken [facility] Lltsjf5965 [facility] [id number] Information: 009042,[id number] Urea nitrogen [Mass/Vol] 14 mg/dL Normal 6-24 [facility]; [facility] Work Phone: Comment on above: PATIENT WAS FASTINGP ERFORMED BY: GILLIAN BrettRanken [facility] Zxyenf5360 [facility] [id number] Information: 808070,[id number] Urea nitrogen/Creatinine [Mass ratio] 23 mg/mg Normal 9-23 [facility]; [facility] Work Phone: Comment on above: PATIENT WAS FASTINGP ERFORMED BY: GILLIAN [facility] Rmrpoz1720 [facility] [id number] Information: 604183,[id number] Blood Glucose , Office (8296 2)Ordered By: ROLY Moon on 09-20-2013 Glucose Glucometer (BldC) [Moles/Vol] 207 1 Normal [facility]; [facility] Work Phone: HgA1C , Office (31491)Ordere d By: ROLY Moon on 09-20-2013 HbA1c (Bld) [Mass fraction] 7.5 % Abnormal 4.6 - 7.1 [facility]; [facility] Work Phone: CBC WITH MANUAL DIFF (24341) Ordered By: Host/Hostess Ground on 08-27-2013 Basophils (Bld) [#/Vol] 0.1 10*3/uL Normal 0.0-0.2 [facility]; [facility] Work Phone: Comment on above: PATIENT WAS FASTINGP ERFORMED BY: CB [facility] Veqbwh5592 [facility] [id number] Information: [id number],[id number] Basophils/100 WBC (Bld) 1 % Normal 0-3 C omprehensive Internal Medicine; [facility] Work Phone: Comment on above: PATIENT WAS FASTINGP ERFORMED BY: CB [facility] Ouqiji7809 [facility] [id number] Information: 335676,[id number] Eosinophils (Bld) [#/Vol] 0.2 10*3/uL Normal 0.0-0.4 [facility]; [facility] Work Phone: Comment on above: PATIENT WAS FASTINGP ERFORMED BY: CB [facility] Cryqsm9639 [facility] [id number] Information: 681995,Y92136 Eosinophils/100 WBC (Bld) 2 % Normal 0-5 [facility]; [facility] Work Phone: Comment on above: PATIENT WAS FASTINGP ERFORMED BY: CB [facility] Gkdosw2676 [facility] [id number] Information: 850879,[id number] Erythrocyte distribution width (RBC) [Ratio] 14.2 % Normal 12.3-15.4 [facility]; [facility] Work Phone: Comment on above: PATIENT WAS FASTINGP ERFORMED BY: GILLIAN WestRanken [facility] Qzmtya2142 [facility] [id number] Information: [id number] Hematocrit (Bld) [Volume fraction] 41.0 % Normal 34.0-46.6 [facility]; [facility] Work Phone: Comment on above: PATIENT WAS FASTINGP ERFORMED BY: [address] [id number] Information: 064054,F01527 Hemoglobin (Bld) [Mass/Vol] 13.2 g/dL Normal 11.1-15.9 [facility]; [facility] Work Phone: Comment on above: PATIENT WAS FASTINGP ERFORMED BY: [place] 7814870 [facility] [id number] Information: 230283,[id number] Immature granulocytes (Bld) [#/Vol] 0.0 10*3/uL Normal 0.0-0.1 [facility]; [facility] Work Phone: Comment on above: PATIENT WAS FASTINGP ERFORMED BY: [facility]6370 [facility] [id number] Information: 029630,Q02385 Immature granulocytes/100 WBC (Bld) 0 % Normal 0-2 [facility]; [facility] Work Phone: Comment on above: PATIENT WAS FASTINGP ERFORMED BY: [place] 7814870 [facility] [id number] Information: [id number] Lymphocytes (Bld) [#/Vol] 2.6 10*3/uL Normal 0.7-3.1 [facility]; [facility] Work Phone: Comment on above: PATIENT WAS FASTINGP ERFORMED BY: GILLIAN [facility]6370 [facility] [id number] Information: [id number],[id number] Lymphocytes/100 WBC (Bld) 26 % Normal 14-46 [facility]; [facility] Work Phone: Comment on above: PATIENT WAS FASTINGP ERFORMED BY: [address] [id number] Information: 406101,[id number] MCH (RBC) [Entitic mass] 29.3 pg Normal 26.6-33.0 [facility]; [facility] Work Phone: Comment on above: PATIENT WAS FASTINGP ERFORMED BY: GILLIAN Hitchcock Cloeqr[address] [id number] Information: [id number],[id number] MCHC (RBC) [Mass/Vol] 32.2 g/dL Normal 31.5-35.7 [facility] Internal Medicine; [facility] Work Phone: Comment on above: PATIENT WAS FASTINGP ERFORMED BY: Brett[address] [id number] Information: [id number] MCV (RBC) [Entitic vol] 91 fL Normal 79-97 [facility]erens[facility] Internal Medicine; [facility] Work Phone: Comment on above: PATIENT WAS FASTINGP ERFORMED BY: [address] [id number] Information: 330457,[id number] Monocytes (Bld) [#/Vol] 0.8 10*3/uL Normal 0.1-0.9 [facility]; [facility] Work Phone: Comment on above: PATIENT WAS FASTINGP ERFORMED BY: [facility]6370 [facility] [id number] Information: 501854,U96672 Monocytes/100 WBC (Bld) 8 % Normal 4-12 C omprehensive Internal Medicine; [facility] Work Phone: Comment on above: PATIENT WAS FASTINGP ERFORMED BY: GILLIAN Stewart6[address] [facility] [id number] Information: 032646,[id number] Neutrophils (Bld) [#/Vol] 6.3 10*3/uL Normal 1.4-7.0 [facility]; [facility] Work Phone: Comment on above: PATIENT WAS FASTINGP ERFORMED BY: GILLINA Stewart6[address] [facility] [id number] Information: 189023,[id number] Neutrophils/100 WBC (Bld) 63 % Normal 40-74 [facility]; [facility] Work Phone: Comment on above: PATIENT WAS FASTINGP ERFORMED BY: GILLIAN Stewart6370 [facility] [id number] Information: 033683,[id number] Platelets (Bld) [#/Vol] 298 10*3/uL Normal 155-379 [facility]; [facility] Work Phone: Comment on above: PATIENT WAS FASTINGP ERFORMED BY: GILLIAN Stewart6370 [facility] [id number] Information: [id number] RBC (Bld) [#/Vol] 4.51 10*6/uL Normal 3.77-5.28 [facility]pr [facility] Internal Medicine; [facility] Work Phone: Comment on above: PATIENT WAS FASTINGP ERFORMED BY: GILLIAN [facility] Cbitnw0306 [facility] [id number] Information: 294001,[id number] WBC (Bld) [#/Vol] 9.9 10*3/uL Normal 3.4-10.8 [facility]pre [facility] Internal [facility]; [facility] Work Phone: Comment on above: PATIENT WAS FASTINGP ERFORMED BY: GILLIAN [facility] Aptpni2121 [address] [facility] [id number] Information: [id number],G41887 LIPID PANEL (49637)Ordered B y: Host/Hostess Ground on 08-27-2013 Cholesterol [Mass/Vol] 167 mg/dL Normal 100-199 Co mprehensive Internal Medicine; [facility] Work Phone: Comment on above: PATIENT WAS FASTINGP ERFORMED BY: GILLIAN [facility] Hsofec6366 [address] RoadDublin [place] [id number] Cholesterol in HDL [Mass/Vol] 47 mg/dL Normal [facility]; [facility] Work Phone: Comment on above: According to ATP-III Guidelines, HDL-C >59 mg/dL is considered anegative risk factor for CHD. PATIENT WAS FASTINGP ERFORMED BY: CB [facility] Movarb3880 [address] RoadDublin [place] [id number] Cholesterol in LDL [Mass/Vol] 95 mg/dL Normal 0-99 [facility]; [facility] Work Phone: Comment on above: PATIENT WAS FASTINGP ERFORMED BY: CB [facility] Bqbjwx6564 [address] RoadDublin [place] [id number] Cholesterol in LDL/Cholesterol in HDL [Mass ratio] 2.0 {ratio_units} Normal 0.0-3.2 [facility]; [facility] Work Phone: Comment on above: PATIENT WAS FASTINGP ERFORMED BY: CB [facility] Gkvwcz0746 [address] [facility] RegionDublin [place] [id number] Cholesterol in VLDL [Mass/Vol] 25 mg/dL Normal 5-40 [facility]; [facility] Work Phone: Comment on above: PATIENT WAS FASTINGP ERFORMED BY: CB [facility] Tdamgs3468 [address] [facility] RegionD[facility] [place] [id number] Triglyceride [Mass/Vol] 123 mg/dL Normal 0-149 C [facility]ol[facility] hospitalensive Internal [facility]; [facility] Work Phone: Comment on above: PATIENT WAS FASTINGP ERFORMED BY: CB [facility] Gdwwyr8524 [address] RoadD[address] [place] [id number] METABOLIC PANEL, COMPREHENSI VE (03145)Ordered By: Host/Hostess Ground on 08-27-2013 Albumin [Mass/Vol] 4.2 g/dL Normal 3.5-5.5 [facility] [facility]; [facility] Work Phone: Comment on above: PATIENT WAS FASTINGP ERFORMED BY: CB [facility] Uhuhxf7854 [address] RoadDublin [place] [id number] Albumin/Globulin [Mass ratio] 1.4 {ratio} Normal 1.1-2.5 [facility]; [facility] Work Phone: Comment on above: PATIENT WAS FASTINGP ERFORMED BY: CB [facility] Ugouvx1130 [address]Dublin [place] [id number] ALP [Catalytic activity/Vol] 72 U/L Normal 39-117 [facility]; [facility] Work Phone: Comment on above: PATIENT WAS FASTINGP ERFORMED BY: CB [facility] Rjsxmn5698 [address] RoadDublin [place] [id number] ALT [Catalytic activity/Vol] 39 U/L Abnormal 0-32 [facility]; [facility] Work Phone: Comment on above: PATIENT WAS FASTINGP ERFORMED BY: CB [facility] Qkqtyp2390 [address] RoadDublin [place] [id number] AST [Catalytic activity/Vol] 36 U/L Normal 0-40 [facility]; [facility] Work Phone: Comment on above: PATIENT WAS FASTINGP ERFORMED BY: CB [facility] Jfktbk3940 [address] RoadDublin [place] [id number] Bilirubin [Mass/Vol] 0.6 mg/dL Normal 0.0-1.2 [facility] Internal Medicine; [facility] Internal Medicine Work Phone: Comment on above: PATIENT WAS FASTINGP ERFORMED BY: CB [facility] Dqfgqg4702 [address] RoadDublin [place] [id number] Calcium [Mass/Vol] 9.3 mg/dL Normal 8.7-10.2 [facility]; [facility] Work Phone: Comment on above: PATIENT WAS FASTINGP ERFORMED BY: CB [facility] Ywmtoc9178 [address] RoadDublin [place] [id number] Chloride [Moles/Vol] 100 mmol/L Normal 97-108 Comp rehensive [facility]; [facility] Work Phone: Comment on above: PATIENT WAS FASTINGP ERFORMED BY: CB [facility] Ycouth56[address]Dublin [place] [id number] CO2 [Moles/Vol] 26 mmol/L Normal 19-28 Com[facility]; [facility] Work Phone: Comment on above: PATIENT WAS FASTINGP ERFORMED BY: CB [facility] Upholk57[address]Dublin [place] [id number] Creatinine [Mass/Vol] 0.75 mg/dL Normal 0.57-1.00 Com prehensive [facility]; [facility] Work Phone: Comment on above: PATIENT WAS FASTINGP ERFORMED BY: CB [facility] Fjqxcw6310 [address] RoadDublin [place] [id number] GFR/1.73 sq M.predicted among blacks CKD-EPI (S/P/Bld) [Vol rate/Area] 101 mL/min/1.73 Normal [facility]; [facility] Work Phone: Comment on above: PATIENT WAS FASTINGP ERFORMED BY: CB [facility] Mmalqr3682 [address]Dublin [place] [id number] GFR/1.73 sq M.predicted among non-blacks CKD-EPI (S/P/Bld) [Vol rate/Area] 88 mL/min/1.73 Normal [facility]; [facility] Work Phone: Comment on above: PATIENT WAS FASTINGP ERFORMED BY: CB [facility] Nzcypq6478 [address] RoadDuin [place] [id number] Globulin (S) [Mass/Vol] 2.9 g/dL Normal 1.5-4.5 C omprehensive [facility]; [facility] Work Phone: Comment on above: PATIENT WAS FASTINGP ERFORMED BY: CB [facility] Rywior6534 [address] RoadDublin [place] [id number] Glucose [Mass/Vol] 149 mg/dL Abnormal 65-99 Compre hensive [facility]; [facility] Work Phone: Comment on above: PATIENT WAS FASTINGP ERFORMED BY: GILLIAN [facility] Eplsfr0530 [address] RoadDublin [place] [id number] Potassium [Moles/Vol] 4.7 mmol/L Normal 3.5-5.2 [facility] prehensive Internal Medicine; [facility] Work Phone: Comment on above: PATIENT WAS FASTINGP ERFORMED BY: CB [facility] Qqhgxu8[address]Dublin [place] [id number] Protein [Mass/Vol] 7.1 g/dL Normal 6.0-8.5 [facility]; [facility] Work Phone: Comment on above: PATIENT WAS FASTINGP ERFORMED BY: CB [facility] Olreky8[address] RoadDublin [place] [id number] Sodium [Moles/Vol] 139 mmol/L Normal 134-144 [facility]; [facility] Work Phone: Comment on above: PATIENT WAS FASTINGP ERFORMED BY: GILLIAN [facility] Soctfw5[address]Dublin [place] [id number] Urea nitrogen [Mass/Vol] 12 mg/dL Normal 6-24 [facility]; [facility] Work Phone: Comment on above: PATIENT WAS FASTINGP ERFORMED BY: GILLIAN [facility] Eocmjo1991 [address] RoadDublin [place] [id number] Urea nitrogen/Creatinine [Mass ratio] 16 mg/mg Normal 9-23 [facility]; [facility] Work Phone: Comment on above: PATIENT WAS FASTINGP ERFORMED BY: CB [facility] Chwoin10[address] RoadDublin [place] [id number] MICROALBUMINOrdered By: Syst em Web Architect on 08-27-2013 Albumin DL <= 20 mg/L (U) [Mass/Vol] 5.8 ug/mL Normal 0.0-17.0 [facility]; [facility] Work Phone: Comment on above: PATIENT WAS FASTINGP ERFORMED BY: CB [facility] Npfikn6074 [address]Dublin [place] [id number] Albumin/Creatinine (U) [Mass ratio] 4.7 {mg/g_creat} Normal 0.0-30.0 [facility]; [facility] Work Phone: Comment on above: PATIENT WAS FASTINGP ERFORMED BY: GILLIAN Holleylin6[address] NTN BuzztimeLake [facility] [id number] Creatinine (U) [Mass/Vol] 122.4 mg/dL Normal 15.0-278.0 [facility]; [facility] Work Phone: Comment on above: PATIENT WAS FASTINGP ERFORMED BY: GILLIAN eyeOS Wbiyra0921 [facility] [id number] Blood Glucose , Office ([phone])Ordered By: Thais Siddiqui on 08-17-2012 Glucose Glucometer (BldC) [Moles/Vol] 73 1 Normal [facility]; [facility] Work Phone: HgA1C , Office ([phone])Ordere d By: Thais Siddiqui on 08-17-2012 HbA1c (Bld) [Mass fraction] 6.9 % Normal 4.6 - 7.1 [facility]; [facility] Work Phone: LIPID PANEL ([phone])Ordered B y: Host/Hostess Ground on 06-01-2012 Cholesterol [Mass/Vol] 164 mg/dL Normal 100-[address] [facility]; [facility] Work Phone: Comment on above: PATIENT WAS FASTINGP ERFORMED BY: GILLIAN eyeOS Qouaks88[address] [place] NT[address] BuzztimeLake [facility] [id number] Cholesterol in HDL [Mass/Vol] 42 mg/dL Normal [facility]; [facility] Work Phone: Comment on above: According to ATP-III Guidelines, HDL-C >59 mg/dL is considered anegative risk factor for CHD. PATIENT WAS FASTINGP ERFORMED BY: GILLIAN eyeOS Xyrnvd3431 [facility] [id number] Cholesterol in LDL [Mass/Vol] 97 mg/dL Normal 0-99 [facility]; [facility] Work Phone: Comment on above: PATIENT WAS FASTINGP ERFORMED BY: GILLIAN [employer] Fxcoxl6440 [facility] [id number] Cholesterol in LDL/Cholesterol in HDL [Mass ratio] 2.3 {ratio_units} Normal 0.0-3.2 [facility]; [facility] Work Phone: Comment on above: PATIENT WAS FASTINGP ERFORMED BY: [facility] Nbwpbl0537 [facility] [id number] Cholesterol in VLDL [Mass/Vol] 25 mg/dL Normal 5-40 [facility]; [facility] Work Phone: Comment on above: PATIENT WAS FASTINGP ERFORMED BY: [facility] Rdnint2923 [facility] [id number] Triglyceride [Mass/Vol] 127 mg/dL Normal 0-149 C o[facility]; [facility] Work Phone: Comment on above: PATIENT WAS FASTINGP ERFORMED BY: LabRank[facility] Inrskh8237 [facility] [id number] Blood Glucose , Office ([phone])Ordered By: Jessica Pemberton on 03-24-2012 Glucose Glucometer (BldC) [Moles/Vol] 77 1 Normal [facility]; [facility] Work Phone: HgA1C , Office ([phone])Ordere d By: Jessica Pemberton on 03-24-2012 HbA1c (Bld) [Mass fraction] 6.3 % Normal 4.6 - 7.1 [facility]; [facility] Work Phone: CBC WITH MANUAL DIFF ([phone]) Ordered By: Host/Hostess Ground on 02-18-2012 Basophils (Bld) [#/Vol] 0.1 10*3/uL Normal 0.0-0.2 [facility]; [facility] Work Phone: Comment on above: PATIENT WAS FASTINGP ERFORMED BY: [facility] Bgjfia3695 [facility] [id number] Information: SRC: URINE Basophils/100 WBC (Bld) 1 % Normal 0-3 [facility]; [facility] Work Phone: Comment on above: PATIENT WAS FASTINGP ERFORMED BY: GILLIAN [place] [id number] [facility] [id number] Information: SRC: URINE Eosinophils (Bld) [#/Vol] 0.2 10*3/uL Normal 0.0-0.4 [facility]; [facility] Work Phone: Comment on above: PATIENT WAS FASTINGP ERFORMED BY: GILLIAN [address] [id number] Information: SRC: URINE Eosinophils/100 WBC (Bld) 2 % Normal 0-7 [facility]; [facility] Work Phone: Comment on above: PATIENT WAS FASTINGP ERFORMED BY: GILLIAN Hitchcock Gowjov[address] [id number] Information: SRC: URINE Erythrocyte distribution width (RBC) [Ratio] 13.8 % Normal 12.3-15.4 [facility]; [facility] Work Phone: Comment on above: PATIENT WAS FASTINGP ERFORMED BY: [address] [id number] Information: SRC: URINE Hematocrit (Bld) [Volume fraction] 38.4 % Normal 34.0-46.6 [facility]; [facility] Work Phone: Comment on above: PATIENT WAS FASTINGP ERFORMED BY: [address] [id number] Information: SRC: URINE Hemoglobin (Bld) [Mass/Vol] 12.5 g/dL Normal 11.1-15.9 [facility]; [facility] Work Phone: Comment on above: PATIENT WAS FASTINGP ERFORMED BY: [address] [id number] Information: SRC: URINE Immature granulocytes (Bld) [#/Vol] 0.0 10*3/uL Normal 0.0-0.1 [facility]; [facility] Work Phone: Comment on above: PATIENT WAS FASTINGP ERFORMED BY: GILLIAN Coretta Vgqbjr1041 [facility] [id number] Information: SRC: URINE Immature granulocytes/100 WBC (Bld) 0 % Normal 0-2 [facility]; [facility] Work Phone: Comment on above: PATIENT WAS FASTINGP ERFORMED BY: GILLIAN BrettFranc[place] 7096470 [facility] [id number] Information: SRC: URINE Lymphocytes (Bld) [#/Vol] 2.6 10*3/uL Normal 0.7-4.5 [facility]; [facility] Work Phone: Comment on above: PATIENT WAS FASTINGP ERFORMED BY: GILLIAN Coretta Kijhat1708 [facility] [id number] Information: SRC: URINE Lymphocytes/100 WBC (Bld) 26 % Normal 14-46 [facility]; [facility] Work Phone: Comment on above: PATIENT WAS FASTINGP ERFORMED BY: GILLIAN CorettaGeorge [place] [id number] [facility] [id number] Information: SRC: URINE MCH (RBC) [Entitic mass] 29.5 pg Normal 26.6-33.0 [facility]; [facility] Work Phone: Comment on above: PATIENT WAS FASTINGP ERFORMED BY: GILLIAN BrettFranc[place] 7096470 [facility] [id number] Information: SRC: URINE MCHC (RBC) [Mass/Vol] 32.6 g/dL Normal 31.5-35.7 [facility] prehensive Internal Medicine; [facility] Work Phone: Comment on above: PATIENT WAS FASTINGP ERFORMED BY: GILLIAN BrettFranc[place] 7096470 [facility] [id number] Information: SRC: URINE MCV (RBC) [Entitic vol] 91 fL Normal 79-97 C [facility]; [facility] Work Phone: Comment on above: PATIENT WAS FASTINGP ERFORMED BY: GILLIAN BrettFranc[place] 7096470 [facility] [id number] Information: SRC: URINE Monocytes (Bld) [#/Vol] 0.6 10*3/uL Normal 0.1-1.0 [facility]; [facility] Work Phone: Comment on above: PATIENT WAS FASTINGP ERFORMED BY: GILLIAN BrettCorebecca StewartPryabs8946 [address] [facility] [id number] Information: SRC: URINE Monocytes/100 WBC (Bld) 6 % Normal 4-13 [facility]eren[facility]; [facility] Work Phone: Comment on above: PATIENT WAS FASTINGP ERFORMED BY: GILLIAN LabCorebecca HolleyZmlvlp6724 [address] [facility] [id number] Information: SRC: URINE Neutrophils (Bld) [#/Vol] 6.5 10*3/uL Normal 1.8-7.8 [facility]; [facility] Work Phone: Comment on above: PATIENT WAS FASTINGP ERFORMED BY: GILLIAN [facility] Kyutqy0080 [address] [facility] [id number] Information: SRC: URINE Neutrophils/100 WBC (Bld) 65 % Normal 40-74 [facility]; [facility] Work Phone: Comment on above: PATIENT WAS FASTINGP ERFORMED BY: GILLIAN Aquiles Holleylin6370 [address] [facility] [id number] Information: SRC: URINE Platelets (Bld) [#/Vol] 318 10*3/uL Normal 140-415 [facility]; [facility] Work Phone: Comment on above: PATIENT WAS FASTINGP ERFORMED BY: GILLIAN [facility] Cunjdy4453 [address] [facility] [id number] Information: SRC: URINE RBC (Bld) [#/Vol] 4.24 10*6/uL Normal 3.77-5.28 [facility]; [facility] Work Phone: Comment on above: PATIENT WAS FASTINGP ERFORMED BY: GILLIAN [facility] Nmtqpr4003 [address] [facility] [id number] Information: SRC: URINE WBC (Bld) [#/Vol] 10.0 10*3/uL Normal 4.0-10.5 [facility]; [facility] Work Phone: Comment on above: PATIENT WAS FASTINGP ERFORMED BY: GILLIAN [facility] Bgdwnn4169 [address] RoadDublin [place] [id number] Information: SRC: URINE LIPID PANEL ([id number])Ordered B y: Host/Hostess Ground on 02-18-2012 Cholesterol [Mass/Vol] 178 mg/dL Normal 100-[address] [facility]; [facility] Work Phone: Comment on above: PATIENT WAS FASTINGP ERFORMED BY: CB [facility] Lffroe9194 [address] RoadDublin [place] [id number] Cholesterol in HDL [Mass/Vol] 38 mg/dL Abnormal [facility]; [facility] Work Phone: Comment on above: According to ATP-III Guidelines, HDL-C >59 mg/dL is considered anegative risk factor for CHD. PATIENT WAS FASTINGP ERFORMED BY: CB [facility] Luyskt4974 [address] RoadDublin [place] [id number] Cholesterol in LDL [Mass/Vol] 94 mg/dL Normal 0-99 [facility]; [facility] Work Phone: Comment on above: PATIENT WAS FASTINGP ERFORMED BY: CB [facility] Zdnhlb8337 [address] RoadDublin [place] [id number] Cholesterol in LDL/Cholesterol in HDL [Mass ratio] 2.5 {ratio_units} Normal 0.0-3.2 [facility]; [facility] Work Phone: Comment on above: PATIENT WAS FASTINGP ERFORMED BY: CB [facility] Fxkjxv2283 [address] RoadDublin [place] [id number] Cholesterol in VLDL [Mass/Vol] 46 mg/dL Abnormal 5-40 [facility]; [facility] Work Phone: Comment on above: PATIENT WAS FASTINGP ERFORMED BY: CB [facility] Anhwsc9192 [address] RoadDublin [place] [id number] Triglyceride [Mass/Vol] 231 mg/dL Abnormal 0-149 C omprehensive [facility]; [facility] Work Phone: Comment on above: PATIENT WAS FASTINGP ERFORMED BY: GILLIAN [facility] Ggjlue2857 [address] RoadDublin [place] [id number] METABOLIC PANEL, COMPREHENSI VE ([id number])Ordered By: Host/Hostess Ground on 02-18-2012 Albumin [Mass/Vol] 4.3 g/dL Normal 3.5-5.5 [facility]; [facility] Work Phone: Comment on above: PATIENT WAS FASTINGP ERFORMED BY: GILLIAN [facility] Xdxgvi6669 [address] RoadDublin [place] [id number] Albumin/Globulin [Mass ratio] 1.4 {ratio} Normal 1.1-2.5 [facility]; [facility] Work Phone: Comment on above: PATIENT WAS FASTINGP ERFORMED BY: GILLIAN LabCorebecca Mvrtko1943 [address]Dublin [place] [id number] ALP [Catalytic activity/Vol] 74 U/L Normal 25-150 [facility]; [facility] Work Phone: Comment on above: PATIENT WAS FASTINGP ERFORMED BY: GILLIAN [facility] Jpmhwv3875 [address] RoadDublin [place] [id number] ALT [Catalytic activity/Vol] 33 U/L Abnormal 0-32 [facility]; [facility] Work Phone: Comment on above: Please note refere nce interval change PATIENT WAS FASTINGP ERFORMED BY: GILLIAN [facility] Myjoxx7400 [address] RoadDublin [place] [id number] AST [Catalytic activity/Vol] 21 U/L Normal 0-40 [facility]; [facility] Work Phone: Comment on above: PATIENT WAS FASTINGP ERFORMED BY: GILLIAN [facility] Xabovz4524 [address] RoadDublin [place] [id number] Bilirubin [Mass/Vol] 0.2 mg/dL Normal 0.0-1.2 Comp [facility]; [facility] Work Phone: Comment on above: PATIENT WAS FASTINGP ERFORMED BY: CB [facility] Xkxrca0446 [address] RoadDublin [place] [id number] Calcium [Mass/Vol] 9.3 mg/dL Normal 8.7-10.2 [facility]; [facility] Work Phone: Comment on above: PATIENT WAS FASTINGP ERFORMED BY: CB [facility] Owzffc0970 [address] RoadDublin [place] [id number] Chloride [Moles/Vol] 101 mmol/L Normal 97-108 Comp rehensive Internal Medicine; [facility] Work Phone: Comment on above: PATIENT WAS FASTINGP ERFORMED BY: CB [facility] Htpfjx8747 [address] RoadDublin [place] [id number] CO2 [Moles/Vol] 23 mmol/L Normal 20-32 [facility]; [facility] Work Phone: Comment on above: PATIENT WAS FASTINGP ERFORMED BY: CB [facility] Ilamyn7864 [address]Dublin [place] [id number] Creatinine [Mass/Vol] 0.63 mg/dL Normal 0.57-1.00 [facility]; [facility] Work Phone: Comment on above: PATIENT WAS FASTINGP ERFORMED BY: CB [facility] Bhouot4327 [address] [place] [id number] GFR/1.73 sq M.predicted among blacks CKD-EPI (S/P/Bld) [Vol rate/Area] 114 mL/min/1.73 Normal [facility]; [facility] Work Phone: Comment on above: PATIENT WAS FASTINGP ERFORMED BY: CB [facility] Oglymm8863 [address] RoadDublin [place] [id number] GFR/1.73 sq M.predicted among non-blacks CKD-EPI (S/P/Bld) [Vol rate/Area] 99 mL/min/1.73 Normal [facility]; [facility] Work Phone: Comment on above: PATIENT WAS FASTINGP ERFORMED BY: CB [facility] Lkufez0979 [address] RoadDublin [place] [id number] Globulin (S) [Mass/Vol] 3.0 g/dL Normal 1.5-4.5 [facility]; [facility] Work Phone: Comment on above: PATIENT WAS FASTINGP ERFORMED BY: GILLIAN LabSpring HolleyFmywnr0744 [address] RoadDublin [place] [id number] Glucose [Mass/Vol] 107 mg/dL Abnormal 65-99 [facility]; [facility] Work Phone: Comment on above: PATIENT WAS FASTINGP ERFORMED BY: GILLIAN [facility] Xtrujx9445 [address] RoadDublin [place] [id number] Potassium [Moles/Vol] 4.4 mmol/L Normal 3.5-5.2 [facility]; [facility] Work Phone: Comment on above: PATIENT WAS FASTINGP ERFORMED BY: GILLIAN LabTrurebecca HolleyLodqcq1547 Burns RoadCape Fear Valley Medical Centerin [place] [id number] Protein [Mass/Vol] 7.3 g/dL Normal 6.0-8.5 [facility]; [facility] Work Phone: Comment on above: PATIENT WAS FASTINGP ERFORMED BY: GILLIAN LabCorebecca Wntlqd8595 [address] RoadDublin [place] [id number] Sodium [Moles/Vol] 139 mmol/L Normal 134-144 [facility]; [facility] Work Phone: Comment on above: PATIENT WAS FASTINGP ERFORMED BY: GILLIAN [facility] Ugsmot4440 [address] Roadblin [place] [id number] Urea nitrogen [Mass/Vol] 12 mg/dL Normal 6-24 [facility]; [facility] Work Phone: Comment on above: PATIENT WAS FASTINGP ERFORMED BY: GILLIAN [facility] Ldszeq7643 [address] RoadDublin [place] [id number] Urea nitrogen/Creatinine [Mass ratio] 19 mg/mg Normal 9-23 [facility]; [facility] Work Phone: Comment on above: PATIENT WAS FASTINGP ERFORMED BY: GILLIAN [facility] Nrotyi8277 [address] RoadDublin [place] [id number] MICROALBUMINOrdered By: [employer] em Web Architect on 02-18-2012 Albumin DL <= 20 mg/L (U) [Mass/Vol] 1.0 ug/mL Normal 0.0-17.0 [facility]; [facility] Work Phone: Comment on above: PATIENT WAS FASTINGP ERFORMED BY: Target SoftwareRanken [facility] Aoflay4418 [facility] [id number] Albumin/Creatinine (U) [Mass ratio] 3.4 {mg/g_creat} Normal 0.0-30.0 [facility]; [facility] Work Phone: Comment on above: PATIENT WAS FASTINGP ERFORMED BY: eyeOS Iaxfdf6965 [facility] [id number] Creatinine (U) [Mass/Vol] 29.6 mg/dL Normal 15.0-278.0 [facility]; [facility] Work Phone: Comment on above: PATIENT WAS FASTINGP ERFORMED BY: eyeOS Sgzaby4036 [facility] [id number] Blood Glucose , Office ([phone])Ordered By: Jessica Pemberton on 12-24-2011 Glucose Glucometer (BldC) [Moles/Vol] 93 1 Normal [facility]; [facility] Work Phone: Comment on above: ate at 2pm HgA1C , Office ([phone])Ordere d By: Thais Siddiqui on 12-24-2011 HbA1c (Bld) [Mass fraction] 6.2 % Normal 4.6 - 7.1 [facility]; [facility] Work Phone: Blood Glucose , Office ([phone])Ordered By: ROLY Moon on 09-17-2011 Glucose Glucometer (BldC) [Moles/Vol] 91 1 Normal [facility]; [facility] Work Phone: HgA1C , Office ([phone])Ordere d By: ROLY Moon on 09-17-2011 HbA1c (Bld) [Mass fraction] 6.4 % Normal 4.6 - 7.1 [facility]; [facility] Work Phone: HEPATIC FUNCTION PANEL ([phone])Ordered By: Host/Hostess Ground on 08-16-2011 Albumin [Mass/Vol] 4.4 g/dL Normal 3.5-5.5 [facility]; [facility] Work Phone: Comment on above: PATIENT WAS FASTINGP ERFORMED BY: CB [facility] Swhavw1804 [address] RoadD[address] [place] [id number] ALP [Catalytic activity/Vol] 68 U/L Normal 25-150 [facility]; [facility] Work Phone: Comment on above: PATIENT WAS FASTINGP ERFORMED BY: CB [facility] Nhnrhg7103 [address] RoadDublin [place] [id number] ALT [Catalytic activity/Vol] 47 U/L Abnormal 0-40 [facility]; [facility] Work Phone: Comment on above: PATIENT WAS FASTINGP ERFORMED BY: CB [facility] Dngzjl9671 [address] RoadD[address] [place] [id number] AST [Catalytic activity/Vol] 36 U/L Normal 0-40 [facility]; [facility] Work Phone: Comment on above: PATIENT WAS FASTINGP ERFORMED BY: CB [facility] Ybspgq4298 [address] RoadDublin [place] [id number] Bilirubin [Mass/Vol] 0.4 mg/dL Normal 0.0-1.2 [facility] Internal [facility]; [facility] Work Phone: Comment on above: PATIENT WAS FASTINGP ERFORMED BY: CB [facility] Crgsak[address] RoadD[place] [id number] Bilirubin.direct [Mass/Vol] 0.13 mg/dL Normal 0.00-0.40 [facility]; [facility] Work Phone: Comment on above: PATIENT WAS FASTINGP ERFORMED BY: CB [facility] Lyejue87[address] RoadDublin [place] [id number] Protein [Mass/Vol] 7.4 g/dL Normal 6.0-8.5 [facility]; [facility] Work Phone: Comment on above: PATIENT WAS FASTINGP ERFORMED BY: GILLIAN [facility] Amcwgx3535 [address] RoadDublin [place] [id number] LIPID PANEL ([id number])Ordered B y: Host/Hostess Ground on 08-16-2011 Cholesterol [Mass/Vol] 130 mg/dL Normal 100-199 Co mprensive [facility]; [facility] Work Phone: Comment on above: PATIENT WAS FASTINGP ERFORMED BY: GILLIAN [facility] Zjsogd7137 [address] RoadDublin [place] [id number] Cholesterol in HDL [Mass/Vol] 29 mg/dL Abnormal [facility]; [facility] Work Phone: Comment on above: According to ATP-III Guidelines, HDL-C >59 mg/dL is considered anegative risk factor for CHD. PATIENT WAS FASTINGP ERFORMED BY: GILLIAN [facility] Eibzzg4836 [address] RoadDublin [place] [id number] Cholesterol in LDL [Mass/Vol] 63 mg/dL Normal 0-99 [facility]; [facility] Work Phone: Comment on above: PATIENT WAS FASTINGP ERFORMED BY: GILLIAN [facility] Whqmld6[address] RoadDublin [place] [id number] Cholesterol in LDL/Cholesterol in HDL [Mass ratio] 2.2 {ratio_units} Normal 0.0-3.2 [facility]; [facility] Work Phone: Comment on above: PATIENT WAS FASTINGP ERFORMED BY: GILLIAN [facility] Cwtpvy1572 [address] RoadDublin [place] [id number] Cholesterol in VLDL [Mass/Vol] 38 mg/dL Normal 5-40 [facility]; [facility] Work Phone: Comment on above: PATIENT WAS FASTINGP ERFORMED BY: GILLIAN [facility] Uueyid9346 [address] RoadDublin [place] [id number] Triglyceride [Mass/Vol] 191 mg/dL Abnormal 0-149 [facility]; [facility] Work Phone: Comment on above: PATIENT WAS FASTINGP ERFORMED BY: GILLIAN [facility] Uhkbpe3234 [address] RoadDublin [place] [id number] Blood Glucose , Office ([phone])Ordered By: ROLY Moon on 06-18-2011 Glucose Glucometer (BldC) [Moles/Vol] 63 1 Normal [facility]; [facility] Work Phone: HgA1C , Office ([phone])Ordere d By: ORLY Moon on 06-18-2011 HbA1c (Bld) [Mass fraction] 6.2 % Normal 4.6 - 7.1 [facility]; [facility] Work Phone: FECAL OCCULT HGB ASSAY- tube s sent home ([phone])on 04-04-2011 Hemoglobin.gastrointest inal Ql (Stl) Negative Normal [facility]; [facility] Work Phone: Blood Glucose , Office ([phone])Ordered By: ROLY Moon on 03-07-2011 Glucose Glucometer (BldC) [Moles/Vol] 141 1 Normal [facility]; [facility] Work Phone: HgA1C , Office ([phone])Ordere d By: ROLY Moon on 03-07-2011 HbA1c (Bld) [Mass fraction] 6.3 % Normal 4.6 - 7.1 [facility]; [facility] Work Phone: Blood Glucose , Office ([phone])Ordered By: ROLY Moon on 2010 Glucose Glucometer (BldC) [Moles/Vol] 114 1 Normal [facility]; [facility] Work Phone: HgA1C , Office ([phone])Ordere d By: ROLY Moon on 2010 HbA1c (Bld) [Mass fraction] 6.0 % Normal 4.6 - 7.1 [facility]; [facility] Work Phone: CBC with manual diff ([id number]) Ordered By: Host/Hostess Ground on 11-16-2010 Basophils (Bld) [#/Vol] 0.0 10*3/uL Normal 0.0-0.2 [facility]; [facility] Work Phone: Comment on above: PATIENT WAS FASTINGP ERFORMED BY: [facility]CoCo[facility] HospitalNxylze1096 [facility] [id number] Information: [id number] Basophils/100 WBC (Bld) 0 % Normal 0-3 C [facility]; [facility] Work Phone: Comment on above: PATIENT WAS FASTINGP ERFORMED BY: GILLIAN [facility] Oohrdy4924 [facility] [id number] Information: [id number] Eosinophils (Bld) [#/Vol] 0.1 10*3/uL Normal 0.0-0.4 [facility]; [facility] Work Phone: Comment on above: PATIENT WAS FASTINGP ERFORMED BY: [facility] Pwwutr8893 [facility] [id number] Information: [id number] Eosinophils/100 WBC (Bld) 2 % Normal 0-7 [facility]; [facility] Work Phone: Comment on above: PATIENT WAS FASTINGP ERFORMED BY: [facility] Rekkre4942 [facility] [id number] Information: [id number] Erythrocyte distribution width (RBC) [Ratio] 14.2 % Normal 11.7-15.0 [facility]; [facility] Work Phone: Comment on above: PATIENT WAS FASTINGP ERFORMED BY: [facility] Sxzzyv9273 [facility] [id number] Information: [id number] Hematocrit (Bld) [Volume fraction] 39.4 % Normal 34.0-44.0 [facility]; [facility] Work Phone: Comment on above: PATIENT WAS FASTINGP ERFORMED BY: [facility] Clzmyp4669 [facility] [id number] Information: [id number] Hemoglobin (Bld) [Mass/Vol] 13.0 g/dL Normal 11.5-15.0 [facility]; [facility] Work Phone: Comment on above: PATIENT WAS FASTINGP ERFORMED BY: [facility]CoCo[facility] HospitalFptidc1023 [facility] [id number] Information: [id number] Immature granulocytes (Bld) [#/Vol] 0.0 10*3/uL Normal 0.0-0.1 [facility]; [facility] Work Phone: Comment on above: PATIENT WAS FASTINGP ERFORMED BY: GILLIAN [facility] Gfyott6763 [facility] [id number] Information: [id number] Immature granulocytes/100 WBC (Bld) 0 % Normal 0-2 [facility]; [facility] Work Phone: Comment on above: Please note refere nce interval change PATIENT WAS FASTINGP ERFORMED BY: GILLIAN Hitchcock Rorggj7182 [facility] [id number] Information: [id number] Lymphocytes (Bld) [#/Vol] 2.4 10*3/uL Normal 0.7-4.5 [facility]; [facility] Work Phone: Comment on above: PATIENT WAS FASTINGP ERFORMED BY: BrettFrancis [place] 7096470 [facility] [id number] Information: [id number] Lymphocytes/100 WBC (Bld) 33 % Normal 14-46 [facility]; [facility] Work Phone: Comment on above: PATIENT WAS FASTINGP ERFORMED BY: BrettFrancis [place] 7096470 [facility] [id number] Information: [id number] MCH (RBC) [Entitic mass] 29.6 pg Normal 27.0-34.0 [facility]; [facility] Work Phone: Comment on above: PATIENT WAS FASTINGP ERFORMED BY: GILLIAN Hitchcock Yuweof5844 [facility] [id number] Information: [id number] MCHC (RBC) [Mass/Vol] 33.0 g/dL Normal 32.0-36.0 [facility] prehensive Internal Medicine; [facility] Work Phone: Comment on above: PATIENT WAS FASTINGP ERFORMED BY: GILLIAN Stewart6370 [facility] [id number] Information: [id number] MCV (RBC) [Entitic vol] 90 fL Normal 80-98 [facility]erens[facility]; [facility] Work Phone: Comment on above: PATIENT WAS FASTINGP ERFORMED BY: GILLIAN Hitchcock Ricxuu7783 [facility] [id number] Information: [id number] Monocytes (Bld) [#/Vol] 0.7 10*3/uL Normal 0.1-1.0 [facility]; [facility] Work Phone: Comment on above: PATIENT WAS FASTINGP ERFORMED BY: GILLIAN Hitchcock Nkpjdq2463 [facility] [id number] Information: [id number] Monocytes/100 WBC (Bld) 9 % Normal 4-13 [facility]eren[facility]; [facility] Work Phone: Comment on above: PATIENT WAS FASTINGP ERFORMED BY: GILLIAN Stewart6370 [facility] [id number] Information: [id number] Neutrophils (Bld) [#/Vol] 4.1 10*3/uL Normal 1.8-7.8 [facility]; [facility] Work Phone: Comment on above: PATIENT WAS FASTINGP ERFORMED BY: GILLIAN Lab[facility] Vyixaw6453 [facility] [id number] Information: [id number] Neutrophils/100 WBC (Bld) 56 % Normal 40-74 [facility]; [facility] Work Phone: Comment on above: PATIENT WAS FASTINGP ERFORMED BY: GILLIAN [facility] Kshwwc3637 [facility] [id number] Information: [id number] Platelets (Bld) [#/Vol] 320 10*3/uL Normal 140-415 [facility]; [facility] Work Phone: Comment on above: PATIENT WAS FASTINGP ERFORMED BY: GILLIAN Jin70 [facility] [id number] Information: [id number] RBC (Bld) [#/Vol] 4.39 10*6/uL Normal 3.80-5.10 [facility]; [facility] Work Phone: Comment on above: PATIENT WAS FASTINGP ERFORMED BY: GILLIAN Stewart6370 [facility] [id number] Information: [id number] WBC (Bld) [#/Vol] 7.4 10*3/uL Normal 4.0-10.5 [facility]; [facility] Work Phone: Comment on above: PATIENT WAS FASTINGP ERFORMED BY: GILLIAN Aquiles Jin70 [facility] [id number] Information: [id number] Lipid Panel (78298)Ordered B y: Host/Hostess Ground on 11-16-2010 Cholesterol [Mass/Vol] 209 mg/dL Abnormal 100-[address] [facility]; [facility] Work Phone: Comment on above: PATIENT WAS FASTINGP ERFORMED BY: GILLIAN Aquiles Stewart6370 [facility] [id number] Cholesterol in HDL [Mass/Vol] 43 mg/dL Normal [facility]; [facility] Work Phone: Comment on above: According to ATP-III Guidelines, HDL-C >59 mg/dL is considered anegative risk factor for CHD. PATIENT WAS FASTINGP ERFORMED BY: GILLIAN Stewart6370 [facility] [id number] Cholesterol in LDL [Mass/Vol] 146 mg/dL Abnormal 0-99 [facility]; [facility] Work Phone: Comment on above: PATIENT WAS FASTINGP ERFORMED BY: GILLIAN Holleylin6370 [facility] [id number] Cholesterol in LDL/Cholesterol in HDL [Mass ratio] 3.4 {ratio_units} Abnormal 0.0-3.2 [facility]; [facility] Work Phone: Comment on above: PATIENT WAS FASTINGP ERFORMED BY: CB [facility] Csstni5505 [address] RoadDublin [place] [id number] Cholesterol in VLDL [Mass/Vol] 20 mg/dL Normal 5-40 [facility]; [facility] Work Phone: Comment on above: PATIENT WAS FASTINGP ERFORMED BY: CB [facility] Yhdslj7603 [address] RoadDublin [place] [id number] Triglyceride [Mass/Vol] 101 mg/dL Normal 0-149 C [facility]; [facility] Work Phone: Comment on above: PATIENT WAS FASTINGP ERFORMED BY: [facility] Aexail2[address] [facility] [id number] MICROALBUMINOrdered By: Syst em Web Architect on 11-16-2010 Albumin DL <= 20 mg/L (U) [Mass/Vol] 6.2 ug/mL Normal 0.0-17.0 [facility]; [facility] Work Phone: Comment on above: PATIENT WAS FASTINGP ERFORMED BY: [facility] Twnooq3314 [address] [facility] [id number] Albumin/Creatinine (U) [Mass ratio] 5.4 {mg/g_creat} Normal 0.0-30.0 [facility]; [facility] Work Phone: Comment on above: PATIENT WAS FASTINGP ERFORMED BY: [facility] Bdkert1236 [address] RoadD[address] [place] [id number] Creatinine (U) [Mass/Vol] 115.6 mg/dL Normal 15.0-278.0 [facility]; [facility] Work Phone: Comment on above: PATIENT WAS FASTINGP ERFORMED BY: CB [facility] Tuidwx8789 [address] [facility] RegionD[place] [id number] Metabolic Panel, Comprehensi ve (65381)Ordered By: Host/Hostess Ground on 11-16-2010 Albumin [Mass/Vol] 4.4 g/dL Normal 3.5-5.5 [facility]; [facility] Work Phone: Comment on above: PATIENT WAS FASTINGP ERFORMED BY: CB [facility] Ezovze4393 [address] RoadDublin [place] [id number] Albumin/Globulin [Mass ratio] 1.6 {ratio} Normal 1.1-2.5 [facility]; [facility] Work Phone: Comment on above: PATIENT WAS FASTINGP ERFORMED BY: CB [facility] Urprco3183 [address] RoadDublin [place] [id number] ALP [Catalytic activity/Vol] 71 U/L Normal 25-150 [facility]; [facility] Work Phone: Comment on above: PATIENT WAS FASTINGP ERFORMED BY: CB [facility] Cvltng4714 [address] RoadDublin [place] [id number] ALT [Catalytic activity/Vol] 26 U/L Normal 0-40 [facility]; [facility] Work Phone: Comment on above: PATIENT WAS FASTINGP ERFORMED BY: CB [facility] Btwgev2828 [address] RoadDublin [place] [id number] AST [Catalytic activity/Vol] 25 U/L Normal 0-40 [facility]; [facility] Work Phone: Comment on above: PATIENT WAS FASTINGP ERFORMED BY: CB [facility] Nhsezf5199 [address] RoadDublin [place] [id number] Bilirubin [Mass/Vol] 0.7 mg/dL Normal 0.0-1.2 [facility]; [facility] Work Phone: Comment on above: PATIENT WAS FASTINGP ERFORMED BY: CB [facility] Fvvavr8848 [address] RoadDublin [place] [id number] Calcium [Mass/Vol] 9.4 mg/dL Normal 8.7-10.2 [facility]; [facility] Work Phone: Comment on above: PATIENT WAS FASTINGP ERFORMED BY: CB [facility] Nwcxdt5365 [address] RoadDublin [place] [id number] Chloride [Moles/Vol] 99 mmol/L Normal 97-108 Comp rehensive [facility] Medicine; [facility] Work Phone: Comment on above: PATIENT WAS FASTINGP ERFORMED BY: [facility] Gjzkxr6919 [facility] [id number] CO2 [Moles/Vol] 23 mmol/L Normal 20-32 Comprehen sive Internal Medicine; [facility] Work Phone: Comment on above: PATIENT WAS FASTINGP ERFORMED BY: [facility] Uhjcoe8958 [facility] [id number] Creatinine [Mass/Vol] 0.71 mg/dL Normal 0.57-1.00 Com prehensive [facility]; [facility] Work Phone: Comment on above: PATIENT WAS FASTINGP ERFORMED BY: [facility]CoCooper University HospitalPixudd3260 [facility] [id number] GFR/1.73 sq M.predicted among blacks MDRD (S/P/Bld) [...] formula. PATIENT WAS FASTINGP ERFORMED BY: [facility] Dibpwu6866 [facility] [id number] GFR/1.73 sq M.predicted among non-blacks CKD-EPI (S/P/Bld) [Vol rate/Area] 96 mL/min/1.73 Normal [facility]; [facility] Work Phone: Comment on above: PATIENT WAS FASTINGP ERFORMED BY: [facility] Ztjcmi3377 [facility] [id number] Globulin (S) [Mass/Vol] 2.8 g/dL Normal 1.5-4.5 [facility]; [facility] Work Phone: Comment on above: PATIENT WAS FASTINGP ERFORMED BY: GILLIAN [facility] Oniqgm1209 [address] RoadDublin [place] [id number] Glucose [Mass/Vol] 116 mg/dL Abnormal 65-99 [facility]; [facility] Work Phone: Comment on above: PATIENT WAS FASTINGP ERFORMED BY: GILLIAN [facility] Ycffyx6037 [address] RoadDublin [place] [id number] Potassium [Moles/Vol] 4.4 mmol/L Normal 3.5-5.2 [facility]; [facility] Work Phone: Comment on above: PATIENT WAS FASTINGP ERFORMED BY: GILLIAN [facility] Biyqmm3425 [address] RoadDublin [place] [id number] Protein [Mass/Vol] 7.2 g/dL Normal 6.0-8.5 [facility]; [facility] Work Phone: Comment on above: PATIENT WAS FASTINGP ERFORMED BY: GILLIAN [facility] Vaiula8578 [address] RoadDublin [place] [id number] Sodium [Moles/Vol] 137 mmol/L Normal 135-145 [facility]; [facility] Work Phone: Comment on above: PATIENT WAS FASTINGP ERFORMED BY: GILLIAN [facility] Gdtfyw9242 [address] RoadDuin [place] [id number] Urea nitrogen [Mass/Vol] 16 mg/dL Normal 6-24 [facility]; [facility] Work Phone: Comment on above: PATIENT WAS FASTINGP ERFORMED BY: GILLIAN [facility] Fqdayo9583 [address] RoadDublin [place] [id number] Urea nitrogen/Creatinine [Mass ratio] 23 mg/mg Normal 9-23 [facility]; [facility] Work Phone: Comment on above: PATIENT WAS FASTINGP ERFORMED BY: GILLIAN [facility] Ytvmkq7480 [address] RoadDublin [place] [id number] Rapid Flu (83090 x 2)on FLUAV Ag IA Ql (Throat) Negative Normal [facility]; [facility] Work Phone: Blood Glucose , Office ([phone])Ordered By: ROLY Moon on 02-27-2007 Glucose Glucometer (BldC) [Moles/Vol] 146 1 Normal [facility]; [facility] Work Phone: HgA1C , Office ([phone])on HbA1c (Bld) [Mass fraction] 6.1 % Normal 4.6 - 7.1 [facility]; [facility] Work Phone: Comment on above: mistyped result Blood Glucose , Office ([phone])Ordered By: ROLY Moon on 11-03-2006 Glucose Glucometer (BldC) [Moles/Vol] 115 1 Normal [facility]; [facility] Work Phone: HgA1C , Office ([phone])Ordere d By: ROLY Moon on 11-03-2006 HbA1c (Bld) [Mass fraction] 6.1 % Normal 4.6 - 7.1 [facility]; [facility] Work Phone: Blood Glucose , Office ([phone])Ordered By: ROLY Moon on 07-17-2006 Glucose Glucometer (BldC) [Moles/Vol] 59 1 Normal [facility]; [facility] Work Phone: Urinalysis, Office ([phone])Or dered By: ROLY Moon on 07-17-2006 Bilirubin [...] Medicine Work Phone: Blood Glucose , Office ([phone])Ordered By: Nayla Galicia on 12-27-2005 Glucose Glucometer (BldC) [Moles/Vol] 137 1 Normal [facility]; [facility] Work Phone: HgA1C , Office ([phone])Ordere d By: Nayla Galicia on 12-27-2005 HbA1c (Bld) [Mass fraction] 6.0 % Normal 4.6 - 7.1 [facility]; [facility] Work Phone: Vital Signs Date Time Vital Sign Value Performing Clinician Facility 10-01-2023 07:46-0400 Body temperature 98.2 [degF] Rosy Athy PA-C Work Phone: [facility] 10-01-2023 07:46-0400 Body weight 68.8 kg Rosy Athy PA-C Work Phone: [facility] 10-01-2023 07:46-0400 Diastolic blood pressure 74 mm[Hg] Rosy Athy PA-C Work Phone: [facility] 10-01-2023 07:46-0400 Heart rate 86 /min Rosy Athy PA-C Work Phone: [facility] 10-01-2023 07:46-0400 Respiratory rate 16 /min Rosy Athy PA-C Work Phone: [facility] 10-01-2023 07:46-0400 SaO2% (BldA) [Mass fraction] 97 % Rosy Athy PA-C Work Phone: [facility] 10-01-2023 07:46-0400 Systolic blood pressure 140 mm[Hg] Rosy Shahid PA-C Work Phone: [facility] 02-28-2015 11:33-0500 Body height 152.4 cm Stephanie Schneider [facility]; [facility] Work Phone: 02-28-2015 11:33-0500 Body mass index (BMI) [Ratio] 30.12 kg/m2 Stephanie Schneider [facility]; [facility] Work Phone: 02-28-2015 11:33-0500 Body surface area Derived from formula 1.67 m2 Stephanie Schneider [facility]; [facility] Work Phone: 02-28-2015 11:33-0500 Body temperature 98 [degF] Stephanie Schneider [facility]; [facility] Work Phone: Comment on above: Method: Oral 02-28-2015 11:33-0500 Body weight 69.97 kg Stephanie Schneider [facility]; [facility] Work Phone: 02-28-2015 11:33-0500 Diastolic blood pressure 72 mm[Hg] Stephanie Schneider [facility]; [facility] Work Phone: Comment on above: Patient Position: Sitting; Cuff Location : Left Arm; Cuff Size: Standard 02-28-2015 11:33-0500 Heart rate 70 /min Stephanie Schneider [facility]; [facility] Work Phone: Comment on above: Pattern: Regular 02-28-2015 11:33-0500 Respiratory rate 16 /min Stephanie Schneider [facility]; [facility] Work Phone: Comment on above: Pattern: Unlabored 02-28-2015 11:33-0500 SaO2% (BldA) [Mass fraction] 98 % Stephanie Schneider [facility]; [facility] Work Phone: Comment on above: Room air 02-28-2015 11:33-0500 Systolic blood pressure 118 mm[Hg] Stephanie Schneider [facility]; [facility] Work Phone: Comment on above: Patient Position: Sitting; Cuff Location : Left Arm; Cuff Size: Standard 02-10-2015 12:17-0400 Body height 152.4 cm Geno Aguirre RN [...] Phone: Comment on above: Method: Temporal 02-10-2015 12:17-0400 Body weight 71.27 kg Geno Aguirre RN [...] 12:06-0400 Body height 152.4 cm ROLY Moon TAMIA [...] 12:06-0400 Body temperature 97.1 [degF] ROLY Moon TAMIA [facility]; [facility] Work Phone: Comment on above: Method: Temporal 11-28-2014 12:06-0400 Body weight 73.48 kg ROLY Moon TAMIA [...] SaO2% (BldA) [Mass fraction] 97 % ROLY Red TAMIA [facility]; [facility] Work Phone: Comment on above: Room air 11-28-2014 12:06-0400 Systolic blood pressure 116 mm[Hg] ROLY Moon LPN [facility]; [...] Standard 08-29-2014 16:02-0400 Body height 152.4 cm Stephanie Schneider [facility]; [facility] Work Phone: 08-29-2014 16:02-0400 Body mass index (BMI) [Ratio] 30.47 kg/m2 Stephanie Schneider [facility]; [facility] Work Phone: 08-29-2014 16:02-0400 Body surface area Derived from formula 1.68 m2 Stephanie Schneider [facility]; [facility] Work Phone: 08-29-2014 16:02-0400 Body weight 70.76 kg Stephanie Schneider [facility]; [facility] Work Phone: 08-29-2014 16:02-0400 Diastolic blood pressure 70 mm[Hg] Stephanie Schneider [facility]; [facility] Work Phone: Comment on above: Patient Position: Sitting; Cuff Location : Left Arm; Cuff Size: Standard 08-29-2014 16:02-0400 Heart rate 96 /min Stephanie Schneider [facility]; [facility] Work Phone: Comment on above: Pattern: Regular 08-29-2014 16:02-0400 Respiratory rate 16 /min Stephanie Schneider [facility]; [facility] Work Phone: Comment on above: Pattern: Unlabored 08-29-2014 16:02-0400 SaO2% (BldA) [Mass fraction] 98 % Stephanie Schneider [facility]; [facility] Work Phone: Comment on above: Room air 08-29-2014 16:02-0400 Systolic blood pressure 126 mm[Hg] Stephanie Schneider [facility]; [facility] Work Phone: Comment on above: Patient Position: Sitting; Cuff Location : Left Arm; Cuff Size: Standard 08-01-2014 15:31-0400 Body height 152.4 cm ROLY Moon LPN [facility]; [facility] Work Phone: 08-01-2014 15:31-0400 Body mass index (BMI) [Ratio] 31.25 kg/m2 ROLY Moon T[facility]IA [facility]; [facility] Work Phone: 08-01-2014 15:31-0400 Body surface area Derived from formula 1.7 m2 ROLY Moon T[facility]IA [facility]; [facility] Work Phone: 08-01-2014 15:31-0400 Body temperature 97.4 [degF] ROLY Moon T[facility]IA [facility]; [facility] Work Phone: Comment on above: Method: Temporal 08-01-2014 15:31-0400 Body weight 72.58 kg ROLY Moon TAMIA [facility]; [facility] Work Phone: 08-01-2014 15:31-0400 Diastolic blood pressure 74 mm[Hg] ROLY Moon TAMIA [facility]; [facility] Work Phone: Comment on above: Patient Position: Sitting; Cuff Location : Left Arm; Cuff Size: Standard 08-01-2014 15:31-0400 Heart rate 82 /min ROLY Moon TAMIA [facility]; [facility] Work Phone: Comment on above: Pattern: Regular 08-01-2014 15:31-0400 Respiratory rate 18 /min ROLY Moon TAMIA [...] mass index (BMI) [Ratio] 31.54 kg/m2 Fabiola Slarb [employer] [facility]; [facility] Work Phone: 07-06-2014 08:25-0400 Body surface area Derived from formula 1.7 m2 Fabiola Slarb [employer] [facility]; [facility] Work Phone: 07-06-2014 08:25-0400 Body temperature 100.8 [degF] Fabiola Slarb [employer] [facility]; [facility] Work Phone: 07-06-2014 08:25-0400 Body weight 73.26 kg Fabiola Simonerb [employer] [facility]; [facility] Work Phone: 07-06-2014 08:25-0400 Diastolic blood pressure 80 mm[Hg] Fabiola Slarb [employer] [facility]; [facility] Work Phone: Comment on above: Patient Position: Sitting; Cuff Location : Left Arm; Cuff Size: Standard 07-06-2014 08:25-0400 Heart rate 84 /min Fabiola Simonerb [employer] [facility]; [facility] Work Phone: Comment on above: Pattern: Regular 07-06-2014 08:25-0400 Respiratory rate 18 /min Fabiola Simonerb [employer] [facility]; [facility] Work Phone: Comment on above: Pattern: Unlabored 07-06-2014 08:25-0400 SaO2% (BldA) [Mass fraction] 95 % Fabiola Slarb [employer] [facility]; [facility] Work Phone: Comment on above: Room air 07-06-2014 08:25-0400 Systolic blood pressure 142 mm[Hg] Fabiola Slarb [employer] [facility]; [facility] Work Phone: Comment on above: Patient Position: Sitting; Cuff Location : Left Arm; Cuff Size: Standard 07-04-2014 08:03-0400 Body height 152.4 cm Citlalli Gustafson [employer] [facility]; [facility] Work Phone: 07-04-2014 08:03-0400 Body mass index (BMI) [Ratio] 31.93 kg/m2 Citlalli Gustafson [employer] [facility]; [facility] Work Phone: 07-04-2014 08:03-0400 Body surface area Derived from formula 1.71 m2 Citlalli Gustafson LPN [facility]; [facility] Work Phone: 07-04-2014 08:03-0400 Body temperature 101.2 [degF] Citlalli Gustafson [employer] [facility]; [facility] Work Phone: Comment on above: Method: Oral 07-04-2014 08:03-0400 Body weight 74.16 kg Citlalli Gustafson LPN [facility]; [facility] Work Phone: 07-04-2014 08:03-0400 Diastolic blood pressure 84 mm[Hg] Citlalli Gustafson TAM[facility]; [facility] Work Phone: Comment on above: Patient Position: Sitting; Cuff Location : Left Arm; Cuff Size: Standard 07-04-2014 08:03-0400 Heart rate 98 /min Citlalli Gustafson T[facility]; [facility] Work Phone: Comment on above: Pattern: Regular 07-04-2014 08:03-0400 Respiratory rate 18 /min Citlalli Gustafson [employer] [facility]; [facility] Work Phone: 07-04-2014 08:03-0400 SaO2% (BldA) [Mass fraction] 95 % Citlalli Gustafson T[facility]; [...] index (BMI) [Ratio] 31.93 kg/m2 Citlalli Gustafson [employer] [facility]; [facility] Work Phone: 04-20-2014 10:56-0500 Body surface area Derived from formula 1.71 m2 Citlalli Gustafson LPN [facility]; [facility] Work Phone: 04-20-2014 10:56-0500 Body temperature 99.6 [degF] Citlalli Gustafson LPN [facility]; [facility] Work Phone: Comment on above: Method: Oral 04-20-2014 10:56-0500 Body weight 74.16 kg Citlalli Gustafson LPN [facility]; [facility] [...] 04-20-2014 10:56-0500 Respiratory rate 20 /min Citlalli Gustafson LPN [facility]; [facility] Work Phone: 04-20-2014 10:56-0500 SaO2% (BldA) [Mass fraction] 96 % Citlalli Gustafson LPN [facility]; [...] 12-28-2013 12:59-0400 Body height 152.4 cm Jessica Orta [facility]; [facility] Work Phone: [...] 14:49-0400 Body temperature 97.6 [degF] ROLY Moon TAMIA [facility]; [facility] Work Phone: Comment on above: Method: Oral 09-20-2013 14:49-0400 Body weight 72.12 kg ROLY Moon TAMIA [facility]; [facility] Work Phone: 09-20-2013 14:49-0400 Diastolic blood pressure 80 mm[Hg] ROLY Moon TAMIA [facility]; [facility] Work Phone: Comment on above: Patient Position: Sitting; Cuff Location : Left Arm; Cuff Size: Standard 09-20-2013 14:49-0400 Heart rate 70 /min ROLY Moon TAMIA [facility]; [facility] Work Phone: Comment on above: Pattern: Regular 09-20-2013 14:49-0400 Respiratory rate 20 /min ROLY Moon TAMIA [facility]; [facility] Work Phone: Comment on above: Pattern: Unlabored 09-20-2013 14:49-0400 Systolic blood pressure 120 mm[Hg] ROLY Moon TAMIA [facility]; [facility] Work Phone: Comment on above: Patient Position: Sitting; Cuff Location : Left Arm; Cuff Size: Standard 08-25-2013 14:26-0400 Body height 152.4 cm Citlalli Gustafson LPN [facility]; [facility] Work Phone: 08-25-2013 14:26-0400 Body mass index (BMI) [Ratio] 30.55 kg/m2 Citlalli Gustafson LPN [facility]; [facility] Work Phone: 08-25-2013 14:26-0400 Body surface area Derived from formula 1.68 m2 Citlalli Gustafson LPN [facility]; [facility] Work Phone: 08-25-2013 14:26-0400 Body temperature 99.4 [degF] Citlalli Gustafson LPN [facility]; [facility] Work Phone: Comment on above: Method: Oral 08-25-2013 14:0400 Body weight 70.96 kg Citlalli Gustafson LPN [facility]; [facility] Work Phone: 08-25-2013 14:26-0400 Diastolic blood pressure 70 mm[Hg] Citlalli Gustafson LPN [facility]; [facility] Work Phone: Comment on above: Patient Position: Sitting; Cuff Location : Left Arm; Cuff Size: Standard 08-25-2013 14:260400 Heart rate 68 /min Citlalli Gustafson LPN [facility]; [facility] Work Phone: Comment on above: Pattern: Regular 08-25-2013 14:-0400 Respiratory rate 17 /min Citlalli Gustafson LPN [facility]; [facility] Work Phone: 08-25-2013 14:26-0400 SaO2% (BldA) [Mass fraction] 97 % Citlalli Gustafson LPN [facility]; [facility] Work Phone: Comment on above: Room air 08-25-2013 14:26-0400 Systolic blood pressure 122 mm[Hg] Citlalli Gustafson LPN [facility]; [facility] Work Phone: Comment on above: Patient Position: Sitting; Cuff Location : Left Arm; Cuff Size: Standard 08-17-2012 16:29-0400 Body height 152.4 cm Thais Siddiqui MD [...] Internal Medicine Work Phone: 08-17-2012 16:29-0400 Body temperature 98.5 [degF] Thais Siddiqui MD Work Phone: [facility]; [facility] Work Phone: Comment on above: Method: Temporal 08-17-2012 16:29-0400 Body weight 78.47 kg Thais Siddiqui MD [...] 15:47-0400 Body height 152.4 cm ROLY Moon LPN [facility]; [facility] Work Phone: 09-17-2011 15:47-0400 Body mass index (BMI) [Ratio] 32.81 kg/m2 ROLY Moon LPN [facility]; [facility] Work Phone: 09-17-2011 15:47-0400 Body surface area Derived from formula 1.73 m2 ROLY Moon LPN [facility]; [facility] Work Phone: 09-17-2011 15:47-0400 Body temperature 97.9 [degF] ROLY Moon LPN [...] 09-17-2011 15:47-0400 Heart rate 76 /min ROLY Red CANTRELL [facility]; [facility] Work Phone: Comment on above: Pattern: Regular 09-17-2011 15:47-0400 Respiratory rate 18 /min ROLY Red CANTRELL [facility]; [facility] Work Phone: Comment on above: Pattern: Unlabored 09-17-2011 15:47-0400 Systolic blood pressure 126 mm[Hg] ROLYEVELIA Moon LPN [facility]; [facility] Work Phone: Comment on above: Patient Position: Sitting; Cuff Location : Left Arm; Cuff Size: Standard 08-16-2011 12:21-0400 Body height 152.4 cm Citlalli Gustafson LPN [facility]; [facility] Work Phone: 08-16-2011 12:21-0400 Body mass index (BMI) [Ratio] 33.98 kg/m2 Citlalli Gustafson LPN [facility]; [facility] Work Phone: 08-16-2011 12:21-0400 Body surface area Derived from formula 1.76 m2 Citlalli Gustafson LPN [facility]; [facility] Work Phone: 08-16-2011 12:21-0400 Body temperature 99.2 [degF] Citlalli Gustafson LPN [facility]; [facility] Work Phone: Comment on above: Method: Oral 08-16-2011 12:21-0400 Body weight 78.93 kg Citlalli Sj CANTRELL [facility]; [...] 12:21-0400 Respiratory rate 16 /min Citlalli Gustafson TAMIA [facility]; [facility] Work Phone: 08-16-2011 12:21-0400 Systolic blood pressure 130 mm[Hg] Citlalli Gustafson TAMIA [facility]; [facility] Work Phone: Comment on above: Patient Position: Sitting; Cuff Location : Left Arm; Cuff Size: Standard 08-12-2011 09:190400 Body height 152.4 cm ROLY Moon LPN [facility]; [facility] Work Phone: 08-12-2011 09:19-0400 Body mass index (BMI) [Ratio] 33.98 kg/m2 ROLY Moon LPN [facility]; [facility] Work Phone: 08-12-2011 09:19-0400 Body surface area Derived from formula 1.76 m2 ROLY Moon LPN [facility]; [facility] Work Phone: 08-12-2011 09:19-0400 Body temperature 98.3 [degF] ROLY Moon LPN [facility]; [facility] Work Phone: Comment on above: Method: Oral 08-12-2011 09:190400 Body weight 78.93 kg ROLY Moon LPN [facility]; [facility] Work Phone: 08-12-2011 09:19-0400 Diastolic blood pressure 78 mm[Hg] ROLY Moon LPN [facility]; [facility] Work Phone: Comment on above: Patient Position: Sitting; Cuff Location : Left Arm; Cuff Size: Standard 08-12-2011 09:19-0400 Heart rate 70 /min ROLY Moon LPN [facility]; [facility] Work Phone: Comment on above: Pattern: Regular 08-12-2011 09:19-0400 Respiratory rate 20 /min ROLY Moon LPN [...] 15:29-0500 Body temperature 98.2 [degF] ROLY Moon LPN [facility]; [...] 15:29-0500 Heart rate 68 /min ROLY Moon TAMIA [facility]; [facility] Work Phone: Comment on above: Pattern: Regular 06-18-2011 15:29-0500 Respiratory rate 20 /min ROLY Moon TAMIA [facility]; [facility] Work Phone: Comment on above: Pattern: Unlabored 06-18-2011 15:29-0500 Systolic blood pressure 126 mm[Hg] ROLY Moon TAMIA [facility]; [facility] Work Phone: Comment on above: Patient Position: Sitting; Cuff Location : Left Arm; Cuff Size: Standard 04-23-2011 08:07-0500 Body height 152.4 cm ROLY Moon TAMIA [facility]; [facility] Work Phone: 04-23-2011 08:07-0500 Body mass index (BMI) [Ratio] 32.23 kg/m2 ROLY Moon TAMIA [facility]; [facility] Work Phone: 04-23-2011 08:07-0500 Body surface area Derived from formula 1.72 m2 ROLY Moon TAMIA [facility]; [facility] Work Phone: 04-23-2011 08:07-0500 Body temperature 97.9 [degF] ROLY Moon TAMIA [facility]; [facility] Work Phone: Comment on above: Method: Oral 04-23-2011 08:07-0500 Body weight 74.87 kg ROLY Moon TAMIA [facility]; [facility] Work Phone: 04-23-2011 08:07-0500 Diastolic blood pressure 78 mm[Hg] RLOY Moon TAMIA [facility]; [facility] [...] 04-04-2011 07:05-0500 Body height 152.4 cm ROLY Moon [employer] [facility]; [facility] Work Phone: 04-04-2011 07:05-0500 Body mass index (BMI) [Ratio] 31.64 kg/m2 ROLY Moon [employer] [facility]; [facility] Work Phone: 04-04-2011 07:05-0500 Body surface area Derived from formula 1.71 m2 ROLY Moon TAMIA [facility]; [facility] Work Phone: 04-04-2011 07:05-0500 Body temperature 97.6 [degF] ROLY Moon [employer] [facility]; [facility] Work Phone: Comment on above: Method: Oral 04-04-2011 07:05-0500 Body weight 73.48 kg ROLY Moon TAMIA [facility]; [facility] Work Phone: 04-04-2011 07:05-0500 Diastolic blood pressure 78 mm[Hg] ROLY Moon [employer] [facility]; [facility] Work Phone: Comment on above: Patient Position: Sitting; Cuff Location : Left Arm; Cuff Size: Standard 04-04-2011 07:05-0500 Heart rate 64 /min ROLY Moon LPN [facility]; [facility] Work Phone: Comment on above: Pattern: Regular 04-04-2011 07:05-0500 Respiratory rate 18 /min ROLY Moon [employer] [facility]; [facility] Work Phone: Comment on above: Pattern: Unlabored 04-04-2011 07:05-0500 Systolic blood pressure 124 mm[Hg] ROLY Moon [employer] [facility]; [facility] Work [...] 08:53-0500 Body temperature 97.9 [degF] ROLY Moon LPN [facility]; [facility] Work Phone: Comment on above: Method: Oral 03-07-2011 08:53-0500 Body weight 73.48 kg ROLY Moon LPN [facility]; [facility] Work Phone: 03-07-2011 08:53-0500 Diastolic blood pressure 84 mm[Hg] ROLY Moon LPN [facility]; [facility] Work Phone: Comment on above: Patient Position: Sitting; Cuff Location : Left Arm; Cuff Size: Standard 03-07-2011 08:53-0500 Heart rate 70 /min ROLY Moon LPN [facility]; [facility] Work Phone: Comment on above: Pattern: Regular 03-07-2011 08:53-0500 Respiratory rate 18 /min ROLY Moon LPN [facility]; [facility] Work Phone: Comment on above: Pattern: Unlabored 03-07-2011 08:53-0500 Systolic blood pressure 138 mm[Hg] ROLY Moon LPN [facility]; [facility] Work Phone: Comment on above: Patient Position: Sitting; Cuff Location : Left Arm; Cuff Size: Standard 2010 09:55-0400 Body height 152.4 cm ROLY Moon [employer] [facility]; [facility] Work Phone: 2010 09:55-0400 Body mass index (BMI) [Ratio] 31.05 kg/m2 ROLY Moon [employer] [facility]; [facility] Work Phone: 2010 09:55-0400 Body surface area Derived from formula 1.69 m2 ROLY Moon LPN [facility]; [facility] Work Phone: 2010 09:55-0400 Body temperature 97.6 [degF] ROLY Moon LPN [facility]; [facility] Work Phone: Comment on above: Method: Oral 2010 09:55-0400 Body weight 72.12 kg ROLY Moon LPN [facility]; [facility] Work Phone: 2010 09:55-0400 Diastolic blood pressure 80 mm[Hg] ROLY Moon LPN [facility]; [facility] Work Phone: Comment on above: Patient Position: Sitting; Cuff Location : Left Arm; Cuff Size: Standard 2010 09:55-0400 Heart rate 74 /min ROLY Moon LPN [facility]; [facility] Work Phone: Comment on above: Pattern: Regular 2010 09:55-0400 Respiratory rate 18 /min ROLY Moon LPN [facility]; [facility] Work Phone: Comment on above: Pattern: Unlabored 2010 09:55-0400 Systolic blood pressure 140 mm[Hg] ROLY Moon LPN [facility]; [facility] Work Phone: Comment on above: Patient Position: Sitting; Cuff Location : Left Arm; Cuff Size: Standard 05-22-2010 14:01-0500 Body height 152.4 cm ROLY Moon TAMIA [facility]; [facility] Work Phone: 05-22-2010 14:01-0500 Body mass index (BMI) [Ratio] 30.27 kg/m2 ROLY Moon [employer] [facility]; [facility] Work Phone: 05-22-2010 14:01-0500 Body surface area Derived from formula 1.68 m2 ROLY Moon TAMIA [facility]; [facility] Work Phone: 05-22-2010 14:01-0500 Body temperature 98.6 [degF] ROLY Moon TAMIA [facility]; [facility] Work Phone: Comment on above: Method: Oral 05-22-2010 14:01-0500 Body weight 70.31 kg ROLY Moon TAMIA [facility]; [facility] Work Phone: 05-22-2010 14:01-0500 Diastolic blood pressure 80 mm[Hg] ROLY Moon [employer] [facility]; [facility] Work Phone: Comment on above: Patient Position: Sitting; Cuff Location : Left Arm; Cuff Size: Standard 05-22-2010 14:01-0500 Heart rate 94 /min ROLY Moon TAMIA [facility]; [facility] Work Phone: Comment on above: Pattern: Regular 05-22-2010 14:01-0500 Respiratory rate 18 /min ROLY Moon TAMIA [facility]; [facility] Work Phone: Comment on above: Pattern: Unlabored 05-22-2010 14:01-0500 SaO2% (BldA) [Mass fraction] 94 % ROLY Moon TAMIA [facility]; [facility] Work Phone: Comment on above: Room air 05-22-2010 14:01-0500 Systolic blood pressure 126 mm[Hg] ROLY Moon TAMIA [facility]; [...] blood pressure 122 mm[Hg] ROLY Moon LPN [facility]; [facility] Work Phone: Comment on above: Patient Position: Sitting; Cuff Location : Left Arm; Cuff Size: Standard 01-20-2009 08:07-0400 Body height 0 cm Geovanna Harris [facility]; [facility] Work Phone: 01-20-2009 08:07-0400 Body temperature 101.1 [degF] Geovanna Harris [facility]; [facility] Work Phone: Comment on above: Method: Undefined 01-20-2009 08:07-0400 Body weight 0 kg Geovanna Harris [facility]; [facility] Work Phone: 01-20-2009 08:07-0400 Diastolic blood pressure 78 mm[Hg] Geovanna Harris [facility]; [facility] Work Phone: Comment on above: Patient Position: Sitting; Cuff Location : Right Arm; Cuff Size: Large 01-20-2009 08:07-0400 Head Occipital-frontal circumference 0 cm Geovanna Harris [facility]; [facility] Work Phone: 01-20-2009 08:07-0400 Heart rate 112 /min Geovanna Harris [facility]; [facility] Work Phone: Comment on above: Pattern: Regular 01-20-2009 08:07-0400 Respiratory rate 18 /min Geovanna Harris [facility]; [facility] Work Phone: Comment on above: Pattern: Undefined 01-20-2009 08:07-0400 Systolic blood pressure 124 mm[Hg] Geovanna Harris [facility]; [facility] Work Phone: Comment on above: Patient Position: Sitting; Cuff Location : Right Arm; Cuff Size: Large 10-05-2008 07:51-0400 Body height 0 cm Julissa Maravilla [facility]; [facility] Work Phone: 10-05-2008 07:51-0400 Body temperature 97.9 [degF] Julissa Maravilla [facility]; [facility] Work Phone: Comment on above: Method: Oral 10-05-2008 07:51-0400 Body weight 74.39 kg Julissa Maravilla [facility]; [facility] Work Phone: 10-05-2008 07:51-0400 Diastolic blood pressure 86 mm[Hg] Julissa Maravilla [facility]; [facility] Work Phone: Comment on above: Patient Position: Sitting; Cuff Location : Left Arm; Cuff Size: Large 10-05-2008 07:51-0400 Head Occipital-frontal circumference 0 cm Julissa Maravilla [facility]; [facility] Work Phone: 10-05-2008 07:51-0400 Heart rate 92 /min Julissa Maravilla [facility]; [facility] Work Phone: Comment on above: Pattern: Regular 10-05-2008 07:51-0400 Respiratory rate 20 /min Julissa Maravilla [facility]; [facility] Work Phone: Comment on above: Pattern: Unlabored 10-05-2008 07:51-0400 SaO2% (BldA) [Mass fraction] 98 % Julissa Maravilla [facility]; [facility] Work Phone: Comment on above: Room air 10-05-2008 07:51-0400 Systolic blood pressure 120 mm[Hg] Julissa Maravilla [facility]; [facility] [...] 08:25-0500 Heart rate 74 /min ROLY Moon LPN [facility]; [facility] Work Phone: Comment on above: Pattern: Regular 02-27-2007 08:25-0500 Respiratory rate 18 /min ROLY Moon LPN [facility]; [facility] Work Phone: Comment on above: Pattern: Unlabored 02-27-2007 08:25-0500 Systolic blood pressure 120 mm[Hg] ROLY Moon LPN [facility]; [facility] Work Phone: Comment on above: Patient Position: Sitting; Cuff Location : Left Arm; Cuff Size: Standard 11-03-2006 16:04-0400 Body height 0 cm ROLY Moon ROTARY PUMP OPERATOR [facility] Work Phone: 11-03-2006 16:04-0400 Body temperature 97.6 [degF] ROLY Moon LPN [facility]; [facility] Work Phone: Comment on above: Method: Oral 11-03-2006 16:04-0400 Body weight 75.75 kg ROLY Moon LPN [facility] Work Phone: 11-03-2006 16:04-0400 Diastolic blood pressure 76 mm[Hg] ROLY Moon LPN [facility]; [facility] Work Phone: Comment on above: Patient Position: Sitting; Cuff Location : Left Arm; Cuff Size: Standard 11-03-2006 16:04-0400 Head Occipital-frontal circumference 0 cm ROLY Moon ROTARY PUMP OPERATOR [facility] Work Phone: 11-03-2006 16:04-0400 Heart rate 70 /min ROLY Moon LPN [facility]; [facility] Work Phone: Comment on above: Pattern: Regular 11-03-2006 16:04-0400 Respiratory rate 20 /min ROLY Moon LPN [facility]; [facility] Work Phone: Comment on above: Pattern: Unlabored 11-03-2006 16:04-0400 Systolic blood pressure 122 mm[Hg] ROLY Moon ROTARY PUMP OPERATOR [facility]; [facility] Work Phone: Comment on above: Patient Position: Sitting; Cuff Location : Left Arm; Cuff Size: Standard 09-02-2006 15:46-0400 Body height 0 cm ROLY Moon LPN [facility]; [facility] Work Phone: 09-02-2006 15:46-0400 Body temperature 97.6 [degF] ROLY Moon LPN [facility]; [facility] Work Phone: Comment on above: Method: Oral 09-02-2006 15:46-0400 Body weight 78.47 kg ROLY Moon LPN [facility]; [facility] Work Phone: 09-02-2006 15:46-0400 Diastolic blood pressure 76 mm[Hg] ROLY Moon LPN [facility]; [facility] Work Phone: Comment on above: Patient Position: Sitting; Cuff Location : Left Arm; Cuff Size: Standard 09-02-2006 15:46-0400 Head Occipital-frontal circumference 0 cm ROLY Moon ROTARY PUMP OPERATOR [facility] Work Phone: 09-02-2006 15:46-0400 Heart rate 74 /min ROLY Moon LPN [facility]; [facility] Work Phone: Comment on above: Pattern: Regular 09-02-2006 15:46-0400 Respiratory rate 20 /min ROLY Moon LPN [facility]; [facility] Work Phone: Comment on above: Pattern: Unlabored 09-02-2006 15:46-0400 Systolic blood pressure 122 mm[Hg] ROLY Moon LPN [facility]; [facility] Work Phone: Comment on above: Patient Position: Sitting; Cuff Location : Left Arm; Cuff Size: Standard 08-05-2006 15:11-0400 Body height 0 cm ROLY Moon LPN [facility] Work Phone: 08-05-2006 15:11-0400 Body temperature 97.7 [degF] ROLY Moon LPN [facility]; [facility] Work Phone: Comment on above: Method: Oral 08-05-2006 15:11-0400 Body weight 0 kg ROLY Moon LPN [facility] Work Phone: 08-05-2006 15:11-0400 Diastolic blood pressure 70 mm[Hg] ROLY Moon LPN [facility]; [facility] Work Phone: Comment on above: Patient Position: Sitting; Cuff Location : Left Arm; Cuff Size: Standard 08-05-2006 15:11-0400 Head Occipital-frontal circumference 0 cm ROLY Moon LPN [facility]; [facility] Work Phone: 08-05-2006 15:11-0400 Heart rate 74 /min ROLY Moon LPN [facility]; [facility] Work Phone: Comment on above: Pattern: Regular 08-05-2006 15:11-0400 Respiratory rate 20 /min ROLY Moon LPN [facility]; [facility] Work Phone: Comment on above: Pattern: Unlabored 08-05-2006 15:11-0400 Systolic blood pressure 118 mm[Hg] ROLY Moon LPN [facility]; [facility] Work Phone: Comment on above: Patient Position: Sitting; Cuff Location : Left Arm; Cuff Size: Standard 07-17-2006 13:32-0400 Body height 0 cm ROLY Moon LPN [...] Head Occipital-frontal circumference 0 cm ROLY Moon ROTARY PUMP OPERATOR [facility] Work Phone: 07-17-2006 13:32-0400 Heart rate 74 /min ROLY Moon LPN [facility]; [facility] Work Phone: Comment on above: Pattern: Regular 07-17-2006 13:32-0400 Respiratory rate 20 /min ROLY Moon ROTARY PUMP OPERATOR [facility]; [facility] Work Phone: Comment on above: Pattern: Unlabored 07-17-2006 13:32-0400 Systolic blood pressure 120 mm[Hg] ROLY Moon LPN [facility]; [facility] Work Phone: Comment on above: Patient Position: Sitting; Cuff Location : Left Arm; Cuff Size: Standard 03-31-2006 16:08-0500 Body height 152.4 cm [facility]; [facility] Work Phone: 03-31-2006 16:08-0500 Body mass index (BMI) [Ratio] 32.14 kg/m2 [facility]; [facility] Work Phone: 03-31-2006 16:08-0500 Body surface area Derived from formula 1.72 m2 [facility]; [facility] Work Phone: 03-31-2006 16:08-0500 Body weight 74.65 kg [facility]; [facility] Work Phone: 03-31-2006 16:08-0500 Diastolic blood pressure 58 mm[Hg] [facility]; [facility] Work Phone: Comment on above: Patient Position: Sitting; Cuff Location : Left Arm; Cuff Size: Standard 03-31-2006 16:08-0500 Head Occipital-frontal circumference 0 cm [facility]; [facility] Work Phone: 03-31-2006 16:08-0500 Heart rate 88 /min [facility]; [facility] Work Phone: Comment on above: Pattern: Regular 03-31-2006 16:08-0500 Respiratory rate 16 /[facility] Work Phone: Comment on above: Pattern: Unlabored 03-31-2006 16:08-0500 Systolic blood pressure 98 mm[Hg] Nayla Frida [facility]; [facility] Work Phone: Comment on above: Patient Position: Sitting; Cuff Location : Left Arm; Cuff Size: Standard 12-27-2005 07:37-0400 Body height 152.4 [facility] Work Phone: 12-27-2005 07:37-0400 Body mass index (BMI) [Ratio] 33.26 kg/m2 Nayla Frida [facility]; [facility] Work Phone: 12-27-2005 07:37-0400 Body surface area Derived from formula 1.74 m2 [facility]; [facility] Work Phone: 12-27-2005 07:37-0400 Body weight 77.25 kg [facility]; [facility] Work Phone: 12-27-2005 07:37-0400 Diastolic blood pressure 70 mm[Hg] Nayla Frida [facility]; [facility] Work Phone: Comment on above: Patient Position: Sitting; Cuff Location : Left Arm; Cuff Size: Standard 12-27-2005 07:37-0400 Head Occipital-frontal circumference 0 [facility]; [facility] Work Phone: 12-27-2005 07:37-0400 Heart rate 54 /min [facility]; [facility] Work Phone: Comment on above: Pattern: Regular 12-27-2005 07:37-0400 Systolic blood pressure 120 mm[Hg] Nayla Galicia [facility]; [facility] Work Phone: Comment on above: Patient Position: Sitting; Cuff Location : Left Arm; Cuff Size: Standard Encounters Encounter Date Encounter Type Care Provider Facility Start: 02-23-2025 ambulatory Malina Briseno [facility] Fa cility:[facility] Start: 10-27-2024 End: 10-27-2024 ambulatory Malina Briseno BORDERER-C Work Phone: -Laboratory Start: 10-27-2024 End: 10-27-2024 Patient encounter procedure [facility] Malina Briseno BORDERER-C -Laboratory Work Phone: Start: 10-27-2024 End: 10-27-2024 ambulatory Malina Briseno [facility] Facility:[facility] Start: 07-20-2024 End: 07-20-2024 ambulatory [facility] Finn BORDERER-C Work Phone: [facility] Work Phone: Start: 07-20-2024 End: 07-20-2024 Patient encounter procedure [facility] Malina Finn BORDERER-C -Laboratory, Natalya Hubbardeleroy Start: 07-20-2024 End: 07-20-2024 ambulatory Malina Briseno [facility] Facility:[facility] Start: 03-02-2024 End: 03-02-2024 ambulatory Malina Finn [facility] Facility:[facility] Start: 10-01-2023 End: 10-01-2023 Subsequent hospital visit by physician [facility] Work Phone: Radiology Comment on above: Bronchitis [J40] Start: 10-01-2023 End: 10-01-2023 [facility] Start: 10-01-2023 End: 10-01-2023 Patient encounter procedure Rosy SEPULVEDAC Work Phone: [facility] Comment on above: Bronchitis (Primary Dx) Start: 03-28-2023 End: 03-28-2023 ambulatory [facility] Work Phone: Start: 03-28-2023 End: 03-28-2023 Patient encounter procedure [facility]-Laboratory Work Phone: Start: 07-30-2022 End: 07-30-2022 ambulatory [facility] Work Phone: Start: 07-30-2022 End: 07-30-2022 Patient encounter procedure [facility]-Laboratory Start: 12-18-2021 ambulatory Carmen Skinner [facility] Comment on above: [facility] ([employer]/) Start: 09-09-2017 End: 09-14-2017 Ambulatory [facility] Facility:[facility] Start: 03-10-2017 End: 03-11-2017 Ambulatory [facility] Facility:[facility] Start: 02-28-2015 End: 02-28-2015 Office outpatient visit [...] Clinician Start: 07-20-2024 Urine culture Malina traore BORDERER-C Work Phone: Start: 07-20-2024 Urnls dip stick/tabl et reagent auto microscopy Malina Briseno BORDERER-C Work Phone: Start: 10-01-2023 Radiologic exam ches t 2 views Rosy R Chris PA-C Work Phone: Start: 07-30-2022 X-ray of lumbar spin e, two or three views Start: 09-20-2013 End: 09-20-2013 Ecg routine ecg w/least 12 lds w/i&r [MEASUREMENTS ANALYSIS] Date of Test: 09/20/2013 16:02:42; Heart Rate: 64; AR Interval: 150; QRS: 80; QT Interval: 396; Corrected QT Interval (QTc): 403; P Wave [place]: 34; QRS Wave [place]: 48; T Wave [place]: 39; Blood Pressure: 120/80 [ECG DIAGNOSTIC STATEMENTS] [...] PA and Lateral Comments: See Note; NOTES: [facility] Imaging Services [address] [place] [address] Radiology Report MR#: [id number] Acct: [id number] Name: MENA SHEEHAN Rep #: [id number] : 1955 F 57 From: Ruperto Stein MD PCP: Thais Siddiqui MD Status: REG CLI Study: Chest PA and Lateral Date of Exam: 08/25/13 Exam# [id number] Ordering Dr: Genevieve Ridley STUDY: X-RAY CHEST [...] Ruperto Stein MD at 15:30 EDT Tel [phone], Service support [phone], CC: Genevieve Ridley; Thais Siddiqui MD Shape Carver: Signed Genevieve Ridley [facility] Work Phone: Start: 08-25-2013 End: 08-25-2013 Ribs Unil 2V No CXR Comments: See Note; NOTES: [facility] Imaging Services [facility] [place] [address] Radiology Report MR#: [id number] Acct: [id number] Name: MENA SHEEHAN Rep #: [id number] : 1955 F 57 From: Ruperto Stein MD PCP: Thais Siddiqui MD Status: REG CLI Study: Ribs Unil 2V No CXR Date of Exam: 08/25/13 Exam# [id number] Ordering Dr: Genevieve Ridley STUDY: X-RAY - [...] Ruperto Stein MD at 15:29 EDT Tel [phone], Service support [phone], RAD/Ribs Unil 2V No CXR IMPRESSION: No overt fracture is seen. Mild degree of left basilar atelectasis and blunting of the left costophrenic angle. 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: Signed Genevieve Ridley [employer] Work Phone: Start: 04-05-2011 Mammography Carmen Skinner MA Start: 08-10-2010 Lipid 1996 panel - Serum or Plasma Rosy Shahid PA-C Work Phone: Plan of Treatment Date Care Activity Detail Author Start: 12-21-2023 Covid-19 Vaccine () Covid-19 Vaccine () [facility] Start: 12-21-2023 Influenza vaccination [facility] Start: 04-21-2023 Advance Directive Discussion Advance Directive Discussion [facility] Start: 04-21-2023 Behavioral Health Screening Behavioral Health Screening [facility] Start: 12-20-2022 Covid-19 Vaccine ( season) Covid-19 Vaccine () [facility] Start: 12-20-2021 Influenza vaccination INFLUENZA (#1) [facility] Start: 04-21-2021 ADVANCE DIRECTIVE DISCUSSION ADVANCE DIRECTIVE DISCUSSION [facility] Start: 2018 BONE DENSITY BONE DENSITY [facility] Start: 2018 Pneumococcal Vaccine : 65+ (1 of 1 - PCV) Pneumococcal Vaccine: 65+ (1 of 1 - PCV) [facility] Start: 2018 PNEUMOCOCCAL: 65+ (1 - PCV) PNEUMOCOCCAL: 65+ (1 - PCV) [facility] Start: 2018 Screening for osteoporosis Bone Density Screening [facility] Start: 08-11-2015 Lipid panel Lipid Screening [facility] Start: 08-11-2015 LIPID SCREEN LIPID SCREEN [facility] Start: 02-28-2015 Patient Education Hemoglobin A 1c Test *: a1c test [facility] Work Phone: Start: 02-28-2015 Procedure Education Eprescribe d prescriptions (G8553) [facility]; [facility] Work Phone: Start: 02-28-2015 Urine albumin quantitative MICROALBUMIN: CREATININE RATIO (30453) AND (51766) [facility]; [facility] Work Phone: Start: 02-28-2015 Comprehensive metabo lic panel METABOLIC PANEL, COMPREHENSIVE (86045) [facility]; [facility] Work Phone: Start: 02-28-2015 Lipid panel LIPID PANEL (33310) [facility]; [facility] Work Phone: Start: 02-28-2015 Blood count manual c ell count each CBC with auto diff (02753) [facility]; [facility] Work [...] Phone: Start: 11-28-2014 Lipid panel LIPID PANEL (48003) [facility]; [facility] Work [...] Phone: Start: 04-20-2014 Iaadiadoo influenza Rapid Flu (15785 x 2) [facility]; [facility] Work Phone: Start: 03-29-2014 Urnls dip stick/tabl et reagent auto microscopy URINALYSIS, W/ MICRO (31805) [facility]; [facility] Work Phone: Start: 03-29-2014 Comprehensive metabo lic panel METABOLIC PANEL, COMPREHENSIVE (60013) [facility]; [facility] Work Phone: Start: 03-29-2014 Lipid panel LIPID PANEL (41921) [facility]; [facility] Work Phone: Start: 03-29-2014 Blood count complete auto&auto difrntl wbc CBC W/AUTO DIFF WBC (40329) [facility]; [facility] Work Phone: Start: 03-29-2014 Procedure Education Eprescribe d prescriptions (G8553) [facility]; [facility] Work Phone: Start: 12-28-2013 Procedure Education Eprescribe d prescriptions (G8553) [facility]; [facility] Work Phone: Start: 2013 RSV Vaccine (1 - 1-d ose 60+ series) RSV Vaccine (1 - 1-dose 60+ series) [facility] Start: 08-25-2013 Provider Instruction s for Treatment Follow up if no improvement or if symptoms worsen [facility]; [facility] Work Phone: Start: 08-10-2013 DIABETES SCREEN DIABETES SCREEN [facility] Start: 08-10-2013 Diabetes Screening Diabetes Screenin g [facility] Start: 04-05-2012 Mammography MAMMOGRAM [facility] Start: 04-05-2012 Screening for malign ant neoplasm of breast Mammogram Screening [facility] Start: 12-24-2011 Patient Education Blood Glucos e Test: blood glucose [facility]; [facility] Work Phone: Start: 12-24-2011 Provider Instruction s for Treatment [facility]; [facility] Work Phone: Start: 08-16-2011 Provider Instruction s for Treatment Follow up as needed [facility]; [facility] Work Phone: Start: 05-23-2011 Lipid panel Lipid Panel (24349) [facility]; [facility] Work Phone: Start: 05-23-2011 1 25 dihydroxy inclu sabina fractions if performed VITAMIN D, 1, 25-DIHYDROXY (18050) [facility]; [facility] Work Phone: Start: 05-23-2011 Assay of thyroid stimulating hormone tsh TSH (14049) [facility]; [facility] Work Phone: Start: 05-23-2011 Blood count manual c ell count each CBC with manual diff (14839) [facility]; [facility] Work Phone: Start: 05-23-2011 Comprehensive metabo lic panel Metabolic Panel, Comprehensive (54950) [facility]; [facility] Work Phone: Start: 04-04-2011 Provider Instruction s for Treatment [facility]; [facility] Work Phone: Start: 04-04-2011 Hpv, dna, amp probe HUMAN ISAAC LVS, NUCLEIC ACID AMPL PROBE (20544) [facility]; [facility] Work Phone: Start: 04-04-2011 Cytp cerv/vag auto t hin layer prep mnl screen Thin prep Pap (89228) [facility]; [facility] Work Phone: Start: 03-07-2011 Provider Instruction s for Treatment *Amanuel Inhibitor Side Effects [facility]; [facility] Work Phone: Start: 03-07-2011 Assay of thyroid stimulating hormone tsh TSH (90828) [facility]; [facility] Work Phone: Start: 03-07-2011 Urine albumin quantitative MICROALBUMIN: CREATININE RATIO (01092) AND (74548) [facility]; [facility] Work Phone: Start: 03-07-2011 Comprehensive metabo lic panel METABOLIC PANEL, COMPREHENSIVE (92630) [facility]; [facility] Work Phone: Start: 03-07-2011 Blood count manual c ell count each CBC WITH MANUAL DIFF (40414) [facility]; [facility] Work Phone: Start: 03-07-2011 Lipid panel LIPID PANEL (01083) [facility]; [facility] Work Phone: Start: 2010 Lipid panel LIPID PANEL (02412) [facility]; [facility] Work Phone: Start: 10-05-2008 Provider Instruction s for Treatment [facility]; [facility] Work Phone: Start: 04-27-2008 Blood count manual c ell count each CBC WITH MANUAL DIFF (55609) [facility]; [facility] Work Phone: Start: 11-03-2006 Comprehensive metabo lic panel Metabolic Panel, Comprehensive (56464) [facility]; [facility] Work Phone: Start: 11-03-2006 Lipid panel Lipid Panel (10736) [facility]; [facility] Work Phone: Comment on above: in three months (pipo roximately) Start: 07-17-2006 Comprehensive metabo lic panel Metabolic Panel, Comprehensive (76635) [facility]; [facility] Work Phone: Start: 07-17-2006 Lipid panel Lipid Panel (70494) [facility]; [facility] Work Phone: Start: 07-17-2006 Blood count complete auto&auto difrntl wbc CBC, Platelets & Auto Diff (07878) [facility]; [facility] Work Phone: Start: 07-17-2006 Assay of lipase Lipase (61479) [facility]; [facility] Work Phone: Start: 07-17-2006 Assay of amylase Amylase (48487) [facility]; [facility] Work Phone: Start: 07-17-2006 Provider Instruction s for Treatment FOLLOW UP IN 2 WEEKS [facility]; [facility] Work Phone: Start: 07-17-2006 Hemoglobin glycosyla gilbert a1c HgA1C , Office (52457) [facility]; [facility] Work Phone: Start: 03-31-2006 Urine albumin quantitative MICROALBUMIN: CREATININE RATIO (01429) AND (84082) [facility]; [facility] Work Phone: Start: 03-31-2006 Comprehensive metabo lic panel METABOLIC PANEL, [facility] (10419) [facility]; [facility] Work Phone: Start: 03-31-2006 Lipid panel LIPID PANEL (92106) [facility]; [facility] Work Phone: Start: 03-31-2006 Blood count manual c ell count each CBC WITH MANUAL DIFF (50030) [facility]; [facility] Work Phone: Comment on above: all labs in three mo [facility] Start: 03-31-2006 Hemoglobin glycosyla gilbert a1c HgA1C , Office (05154) [facility]; [facility] Work Phone: Start: 12-27-2005 Provider Instruction s for Treatment FOLLOW UP IN 3 MONTHS [facility]; [facility] Work Phone: Start: 12-27-2005 Hepatic function panel HEPATIC FUNCTION PANEL (52311) [facility]; [facility] Work Phone: Start: 12-27-2005 Lipid panel LIPID PANEL (46389) [facility]; [facility] Work Phone: Start: 12-08-2003 SHINGRIX VACCINE (1 of 2) SHINGRIX VACCINE (1 of 2) [facility] Start: 1998 COLOGUARD (FIT-DNA) COLOGUARD (FIT-D NA) [facility] Start: 1998 Colonoscopy COLONOSCOPY [facility] Start: 1998 COLORECTAL CANCER SCREENING COLORECTAL CANCER SCREENING [facility] Start: [address] COLONOGRAPHY [facility] Start: 1998 FECAL OCCULT BLOOD FECAL OCCULT BLOO D [facility] Start: 1998 Screening for malign ant neoplasm of colon [facility] Start: 1998 SIGMOIDOSCOPY SIGMOIDOSCOPY [facility] Start: 1972 Urine microalbumin profile [facility] Start: 12-08-1971 Anxiety Screening Anxiety Screening [facility] Start: 12-08-1971 Depression Screening Depression Scre ening [facility] Start: 12-08-1971 HEPATITIS C SCREENING HEPATITIS C [facility] Start: 12-08-1971 Hepatitis C screening Hepatitis C [facility] Start: 1965 Adult depression screening assessment DEPRESSION SCREENING [facility] Start: 06-09-1954 COVID-19 VACCINE (#1) COVID-19 VACCI NE (#1) [facility]; [facility] [...] Phone: Payers Date Payer Category Payer Medicare [id number] 2024 Medicaid [id number] 2024 Self-pay [id number] 2022 Medicare AETNA MEDICARE A ETNA MEDICARE O [id number] 2022-Present [phone] [address] [place] [address] [facility] [place] [id number] 2022 Private Health Insurance [id number] 2017 Unknown [id number] 2017 Private Health Insurance [id number] Unknown [facility] [id number] Unknown [id number] Unknown [employer] [facility] D *DO NOT USE* [id number] Unknown [facility] [id number] Unknown [id number] Unknown [id number] Unknown [id number] Unknown [id number] Social History Date Type Detail Facility [...] Tobacco smoking status NHIS Never smoked tobacco [facility] Start: 08-28-2020 End: 10-01-2023 Tobacco use and exposure Smokeless tobacco non-user [facility] Start: 08-28-2020 End: 10-01-2023 Alcohol intake Current non-drinker of alcohol (finding) [facility] Start: 1955 Sex Assigned At Not on file [facility] Start: 08-21-2020 End: 08-21-2020 Tobacco smoking status NHIS Unknown if ever smoked [facility] Start: 08-21-2020 Non-smoker [facility] Start: 1955 Sex Assigned At Female W [facility] Start: 03-28-2020 End: 10-01-2023 Tobacco use panel [facility] National Score (1-100), lower number is lower risk Not on file [facility] Start: 07-27-2024 Sex Female (finding) [facility] Medical Equipment Procedure Code Equipment Code [...] Start : 28-Feb-2015 Active Comments: DX: 250.00NPI: [id number] Start: 02-28-2015 Comment on above: DX: 250.00NPI: [id number] FREESTYLE LANCET S (Miscellaneous) 1 (one) Misc Misc qd for 0 days Quantity: 1 {Box} Refills: 3 Ordered: 01-Aug-2014 Stephanie Schneider CMA Start : 01-Aug-2014 Active Comments: DX: 250.00 Start: 08-01-2014 Comment on above: DX: 250.00 NPI: [id number] Progress note 10-01-2023 Note Date & Type Note Facility 10-01-2023 Note HNO ID: [id number] Author: ROSY SHAHID PA-C Service: ? Author Type: Physician Secure Software Assessor Type: Progress Notes Filed: 10/01/2023 09:08 Note Text: This note was created using [email or web address]. Subjective Mena Sheehan is a 67 year [...] XR CHEST 2V FRONTAL/LAT Rosy Shahid PA-C [facility] History of Present illness Narrative 10-01-2023 Rosy Shahid PA-C - 10/01/2023 8:46 AM EDT Note Date & Type Note Facility 10-01-2023 History of Presen t illness Narrative This note was created using [email or web address]. Subjective Mena Sheehan is a 67 year [...] Rosy Shahid PA-C documented in this encounter [facility] History of Present illness Narrative 10-01-2023 Dana [...] PATIENT PRESENTS WITH AN IMPLANTABLE OR ATTACHED DOOR AND ARRIVAL ATTENDANT: No RADIOLOGY DEPARTMENT: General X-ray: Exam(s) Completed: Chest X-Ray PERIPHERAL IV DATA: Not applicable SIGNED BY: CEASAR Yip) October 01, 2023 8:13 AM documented in this encounter [facility] Progress note 10-01-2023 Note Date & Type Note Facility 10-01-2023 Note HNO ID: [id number] Author: DANA QUAN RT(R) Service: Radiology Author Type: Technologist Type: Progress [...] PATIENT PRESENTS WITH AN IMPLANTABLE OR ATTACHED DOOR AND ARRIVAL ATTENDANT: No RADIOLOGY DEPARTMENT: General X-ray: Exam(s) Completed: Chest X-Ray PERIPHERAL IV DATA: Not applicable SIGNED BY: Dana Quan, RT(R) October 01, 2023 8:13 AM [facility] History of Present illness Narrative 12-18-2021 Carmen Skinner - 12/18/2021 2:24 PM EDT Note Date & Type Note Facility 12-18-2021 History of Presen t illness Narrative POPULATION HEALTH NAVIGATION OUTREACH Action/JULISSAI Bri sheehan Patient due for the following: Annual exam Confirm PCP Colorectal Cancer Screening Mammogram Advance Directives MyChart activation Unable to contact patient by phone, Number not in service Letter printed to [facility], to be mailed by Navigator on site [...] 2021 2:24 PM documented in this encounter [facility] Evaluation note Note Date & Type Note Facility Evaluation note No assessment information [facility] Work Phone: Evaluation note Note Date & Type Note Facility Evaluation note Diagnosis Bronchitis- Primary Bronchitis, not specified as acute or chronic Bronchitis Bronchitis, not specified as acute or chronic documented in this encounter [facility] Evaluation note Note Date & Type Note Facility Evaluation note Diagnosis Bronchitis Bronchitis, not specified as acute or chronic documented in this encounter [facility] Instructions Note Date & Type Note Facility [...] Indication:Type 2 diabetes mellitus without complication Start: Instruction Type:Patient Education How to access health information online - Detail Indication:Type 2 diabetes mellitus without complication Start: Instruction Type:Patient Education Patient Instructions Indication:Type 2 diabetes mellitus without complication Start: Instruction Type:Provider Instructions for Treatment Patient Instructions [...] (narrative) No reason for referral information available [facility] Work Phone: Summary Purpose Family History No Family History Records FoundNo Family History Records FoundNo Family History Records Found Advance Directives No Advanced Directives Records Found Advance Directive Response Recorded Date/ Time Living Will No August 21, 2020 6: 21pm Power of Packing House Supervisor No August 21, 2020 6:21pm Advance Directive Response Recorded Date/ Time Living Will No August 21, 2020 5: 21pm Power of Packing House Supervisor No August 21, 2020 5:21pm Additional Source Comments INFORMATION SOURCE (unrecogn ized section and content) DATE CREATED AUTHOR 10/08/2017 [facility] DATE CREATED AUTHOR AUTHOR'S ORGANIZ ATION 10/02/2023 [facility] DATE CREATED AUTHOR AUTHOR'S ORGANIZ ATION 02/24/2025 [facility] Source Comments (unrecognize d section and content) In the event this informatio n is protected by the Federal Confidentiality of Alcohol and Drug Abuse Patient Records regulations: The Federal rules restrict any use of the information to criminally investigate or prosecute any alcohol or drug abuse patient[facility] the event this information is protected by the Federal Confidentiality of Alcohol and Drug Abuse Patient Records regulations: The Federal rules restrict any use of the information to criminally investigate or prosecute any alcohol or drug abuse patient.[facility] the event this information is protected by the Federal Confidentiality of Alcohol and Drug Abuse Patient Records regulations: The Federal rules restrict any use of the information to criminally investigate or prosecute any alcohol or drug abuse patient.[facility] Reason for Visit (unrecogniz ed section and content) Reason Onset Date Comments Population Health Navigation Outreach 12/18/2021 [employer] Reason Comments Cough Congestion x3 weeks Care Teams (unrecognized sec tion and content) 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 [address] [place] [id number] PCP - General 10/01/23 Team Status: Active Member Role Status Dates [facility] Family Provider Active Malina HERNANDEZ, BORDERER-C Primary Care Provider Activ e Team Status: Inactive Member Role Status Dates Malina HERNANDEZ, BORDERER-C Primary Care Provider Activ e Start: July 20, 2024 End: July 20, 2024 Malina HERNANDEZ, BORDERER-C Attending Provider Active Start: July 20, 2024 End: July 20, 2024 Team Status: Active Member Role/Relationship Status Dates [facility] Family Provider Active Malina Briseno VSC, BORDERER-C Primary Care Provider Activ e Team Status: Inactive Member Role/Relationship Status Dates Malina RICHTERC, BORDERER-C Primary Care Provider Activ e Start: July 20, 2024 End: July 20, 2024 Malina RICHTERC, BORDERER-C Attending Provider Active Start: July 20, 2024 End: July 20, 2024 Team Status: Inactive Member Role/Relationship Status Dates Malina RICHTERC, BORDERER-C Primary Care Provider Activ e Start: October 27, 2024 End: October 27, 2024 Malina RICHTERC, BORDERER-C Attending Provider Active Start: October 27, 2024 End: October 27, 2024 Malina RICHTERC, BORDERER-C Referring Provider Active Start: October 27, 2024 End: October 27, 2024 Goals (unrecognized section and content) Goals [...] BE BASED ON THE PRIMARY CLINICAL RECORDS. [employer] provides no warranty or guarantee of the accuracy or completeness of information in this document.
[2025-03-01 12:27] LABS: Hematocrit 40.7 % (37-47); Hemoglobin 13.9 g/dL (12.0-15.0); Immature Granulocytes Count 0.040 X10^3/uL (0.0-0.0); Mean Corp Hgb Conc 34.2 g/dL (32-36); Mean Corpuscular Volume 91.1 fL (81-99); Mean Platelet Vol. 11.0 fl (6.2-12.0); NRBC Flagged by Analyzer 0 % (0-5); Platelet Count 272 K/mm3 (150-450); RBC Distribution Width CV 13.8 % (11.6-14.6); RBC Distribution Width SD 46.5 fl (35.1-43.9); Red Blood Count 4.47 M/mm3 (4.2-5.4); White Blood Count 9.2 K/mm3 (4.4-11.0)
[2025-03-01 12:36] LABS: Microalbumin,Random Urine 41.3 mg/L (<20 mg/L)
[2025-03-01 13:07] LABS: AST(SGOT) 24 U/L (<=31); Alanine Aminotransfer ALT/SGPT 27 U/L (<=34); Albumin, Serum 4.4 g/dL (3.4-4.8); Alkaline Phosphatase 68 U/L (35-104); Anion Gap 9 (5-15); BUN 13 mg/dL (4-19); BUN/Creat Ratio 18.8 RATIO (10-20); Calcium,Total 9.6 mg/dL (7.6-11.0); Carbon Dioxide 25.4 mmol/L (21.0-32.0); Chloride 106 mmol/L (98-108); Cholesterol 120 mg/dL (<=200); Globulin 2.9 g/dL (2.2-4.2); Glucose 122 mg/dL (70-99); Low Density Lipoprotein Calc. 55 mg/dL; Potassium 4.9 mmol/L (3.3-5.1); Triglycerides 116 mg/dL; Very Low Density Lipoprotein 23 mg/dL (5-40); Vitamin D,25 Hydroxy 39.4 ng/mL (30-100); cholesterol:hdl ratio screen 2.73
== END | disposition home or self-care (01) ==
LOC: VSLAB 10:03
PROVIDERS: PCP Nurse Practitioner Family; Visit Provider Nurse Practitioner Family
DX: I10 Essential (primary) hypertension (principal); E11.9 Type 2 diabetes mellitus without complications; E55.9 Vitamin D deficiency, unspecified; E78.5 Hyperlipidemia, unspecified
CPT/HCPCS: 36415; 80053; 80061; 82043; 82306; 84443; 85025